=== PATIENT | male | born 1950 | race Caucasian/White ===

== ENCOUNTER 2016-11-30 11:10 | Inpatient (IN) | payer OTHER, BC ==
[~2016-11-30] VITALS: Ht 172.7 cm; Wt 105.5 kg
[~2016-11-30 11:10] MED LIST: AMT25 PO; ATOR-14 PO; BACL10TA PO; CHOL100010 PO; CLON1TAB3 PO; CMD/25 PO; CPR500 PO; FENT50DI19 TD; FLUT0.0529 NAE; IPRA1AER2 INH; LEVO175T PO; LPR25 PO; MECL1TAB42 PO; METH1INJ13 IV; MODA1TAB6 PO; PRD20 PO; PRS5 PO; SERT25TA PO; TAMS0.4C38 PO; ULT/50 PO; WARF2.5T8 PO
[2016-11-30 12:13] LABS: BASO % 0.6 %; BASO ABS # 0.04 K/uL (0-0.2); COMPLETE YES; EOS % 2.7 %; HEMATOCRIT 42.9 % (42-52); IG% 0.2 %; LYMPH ABS # 1.85 K/uL (1.2-3.4); MEAN CELL VOLUME 82.8 fL (80-100); MEAN CORPUSCULAR HEMOGLOBIN 29.5 pg (25-34); MEAN CORPUSCULAR HGB CONC 35.7 g/dl (32-36); MONO % 10.7 %; NEUT % 56.8 %; PLATELET COUNT 193 K/uL (130-400); RED BLOOD COUNT 5.18 M/uL (4.7-6.1); WHITE BLOOD COUNT 6.38 K/uL (4.8-10.8)
[2016-11-30 12:15] LABS: URINE APPEARANCE CLEAR (CLEAR); URINE BILIRUBIN NEG (NEG); URINE COLOR YELLOW; URINE NITRITE NEG (NEG); URINE SPECIFIC GRAVITY 1.012 (1.000-1.030); UROBILINOGEN NEG (NEG); ZZUR CULT IF INDIC CLEAN CATCH YES
[2016-11-30 12:28] LABS: MANUAL MICROSCOPIC REQUIRED? NO; REVIEW REQ? NO
[2016-11-30 12:30] LABS: BUN/CREATININE RATIO 11.2 (10-20); CALCIUM 8.8 mg/dl (8.5-10.1); POTASSIUM 3.7 mmol/L (3.5-5.1)
[2016-11-30 12:32] LABS: ALB/GLOB RATIO 1.1 (0.9-2)
[2016-11-30 12:38] LABS: INR 1.8 (0.9-1.1); PROTHROMBIN TIME (PATIENT) 19.7 SECONDS (9.0-12.0)
[2016-11-30] MEDS ORDERED: CHOL1000 PO (12:46)
[2016-11-30] MEDS ORDERED: FLUT0.15 NAE (12:46)
[2016-11-30] MEDS ORDERED: FNTTP50 TD (12:46)
[2016-11-30] MEDS ORDERED: ATOR10TA88 PO (12:46)
[2016-11-30] MEDS ORDERED: FINA5TAB PO (12:46)
[2016-11-30] MEDS ORDERED: SERT50TA PO (12:50)
[2016-11-30] MEDS ORDERED: CEFTRIAXONE SOD INJ 1 GM ADDVIAL IV STA (13:11)
--- NOTE | 2016-11-30 13:14 | EMERGENCY ROOM VISIT NOTE ---
History First contact with patient: 13:03 Chief Complaint: WEAKNESS Stated Complaint: WEAKNESS Nursing Triage Summary: patient with increases weakness, He states he was treated for an UTI resently, His MS is worsened with decresed strenght when he gets on and believes he still has an UTI History of Present Illness The patient is a 66 year old male who presents to the Emergency Room with complaints of urinary tract infection and weakness. The patient states that he has had generalized weakness for the last 1 week. He states he has currently been taking Macrobid for urinary tract infection. He does self cath for neurogenic bladder. The patient states that his multiple sclerosis symptoms worsen when he has an infection. The patient states that he is progressively getting weaker. He reports pain in the right flank. He states his pain is rated a 2/10. He denies any fever or chills. He denies any pain in his chest or trouble breathing. He denies any abdominal pain, nausea or vomiting. He has had diarrhea this morning. He states the weakness is quite typical for his MS exacerbation. He states he is often admitted to the hospital and then sent to [facility]. He contacted his urologist and was referred to the emergency department. Review of Systems A 10 system review of systems was completed with positives and pertinent negatives listed in the HPI. Past Medical/Surgical History Medical Problems: (1) cevical lymphnodectomy (2) Chronic anticoagulation (3) Deep vein blood clot of left lower extremity (4) Depression (5) HLD (hyperlipidemia) (6) HTN (hypertension) (7) Hypothyroidism (8) MS (multiple sclerosis) (9) Neurogenic bladder (10) Papillary thyroid carcinoma Surgical Problems: (1) H/O cystoscopy (2) H/O thyroidectomy (3) S/P left knee arthroscopy Family History Cancer Heart disease Hypertension Social History Smoking Status: Never Smoker Alcohol Use: none Drug Use: none Marital Status: Housing Status: lives with family Occupation Status: disabled Current/Historical Medications Scheduled Amitriptyline HCl (Amitriptyline HCl), 25 MG PO HS Atorvastatin (Lipitor), 10 MG PO QPM Baclofen (Lioresal), 10 MG PO HS Cholecalciferol (Vitamin D3), 1 TAB PO BID Clonazepam (Klonopin), 0.5 MG PO BID Finasteride (Proscar), 5 MG PO DAILY Fluticasone Propionate (Nasal) (Flonase Allergy Relief), 2 SPRAYS XIMENA DAILY Levothyroxine Sodium (Synthroid), 175 MCG PO DAILY Methylprednisolone Sod Succ (Solu-Medrol), 1,000 MG IV MONTHLY Metoprolol Tartrate (Lopressor), 12.5 MG PO BID Sertraline (Zoloft), 50 MG PO DAILY Tamsulosin Hcl (Flomax), 0.4 MG PO QPM Warfarin Sod (Coumadin), 2.5 MG PO WK Warfarin Sod (Jantoven), 1.25 MG PO 6XWK Scheduled PRN Fentanyl (Duragesic), 50 MCG TD [id number] PRN for Pain Ipratropium-Albuterol (Combivent Respimat), 1 PUFFS INH QID PRN for SOB/Wheezing Meclizine Hcl (Meclizine Hcl), 12.5 MG PO TID PRN for vertigo Tramadol Hcl (Ultram), 50 MG PO Q6 PRN for Pain Allergies Coded Allergies: No Known Allergies (Verified , 11/30/16) Physical Exam Vital Signs Date Time Temp Pulse Resp B/P Pulse Ox O2 Delivery O2 Flow Rate FiO2 11/30/16 11:25 36.6 74 20 153/99 94 Room Air Physical Exam VITALS: Vitals are noted on the nurse's note and reviewed by myself. Vital signs stable. The patient is afebrile. GENERAL: This is a 66-year-old male, in no acute distress, nondiaphoretic, well- developed well-nourished. SKIN: The skin was without rashes, erythema, edema, or bruising. There is no tenting of the skin. Capillary reflex less than 2 seconds. HEAD: Normocephalic atraumatic. EARS: External auditory canals clear, tympanic membranes pearly villavicencio without erythema or effusion bilaterally. EYES: Pupils equal round and reactive to light and accommodation. Conjunctivae without injection, sclerae without icterus. Extraocular movements intact. NOSE: Patent, turbinates without inflammation or discharge. MOUTH: Mucous membranes moist. Tonsils are not enlarged. Pharynx without erythema or exudate. Uvula midline. Airway patent. Tongue does not deviate. NECK: Supple without nuchal rigidity. No lymphadenopathy. No thyromegaly. Cervical spine is nontender. No JVD. HEART: Regular rate and rhythm without murmurs gallops or rubs. LUNGS: Clear to auscultation bilaterally without wheezes, rales or rhonchi. No retractions or accessory muscle use. ABDOMEN: Positive bowel sounds x 4. Soft, nontender, without masses or organomegaly. There is moderate right-sided CVA tenderness. MUSCULOSKELETAL: No muscle atrophy, erythema, or edema noted. Full range of motion in all extremities. NEURO: Patient was alert and oriented to person place and time. No focal neurological deficits. Medical Decision & Procedures Laboratory Results 11/30/16 11:50 Red Blood Count 5.18, Mean Corpuscular Volume 82.8, Mean Corpuscular Hemoglobin 29.5, Mean Corpuscular Hemoglobin Concent 35.7, Mean Platelet Volume 11.0, Neutrophils (%) (Auto) 56.8, Lymphocytes (%) (Auto) 29.0, Monocytes (%) (Auto) 10.7, Eosinophils (%) (Auto) 2.7, Basophils (%) (Auto) 0.6, Neutrophils # (Auto ) 3.63, Lymphocytes # (Auto) 1.85, Monocytes # (Auto) 0.68, Eosinophils # (Auto ) 0.17, Basophils # (Auto) 0.04 11/30/16 11:50 Test 11/30/16 11:50 11/30/16 13:45 White Blood Count 6.38 K/uL (4.8-10.8) Red Blood Count 5.18 M/uL (4.7-6.1) Hemoglobin 15.3 g/dL (14.0-18.0) Hematocrit 42.9 % (42-52) Mean Corpuscular Volume 82.8 fL (80-100) Mean Corpuscular Hemoglobin 29.5 pg (25-34) Mean Corpuscular Hemoglobin Concent 35.7 g/dl (32-36) Platelet Count 193 K/uL (130-400) Mean Platelet Volume 11.0 fL (7.4-10.4) Neutrophils (%) (Auto) 56.8 % Lymphocytes (%) (Auto) 29.0 % Monocytes (%) (Auto) 10.7 % Eosinophils (%) (Auto) 2.7 % Basophils (%) (Auto) 0.6 % Neutrophils # (Auto) 3.63 K/uL (1.4-6.5) Lymphocytes # (Auto) 1.85 K/uL (1.2-3.4) Monocytes # (Auto) 0.68 K/uL (0.11-0.59) Eosinophils # (Auto) 0.17 K/uL (0-0.5) Basophils # (Auto) 0.04 K/uL (0-0.2) RDW Standard Deviation 39.9 fL (36.4-46.3) RDW Coefficient of Variation 13.2 % (11.5-14.5) Immature Granulocyte % (Auto) 0.2 % Immature Granulocyte # (Auto) 0.01 K/uL (0.00-0.02) Prothrombin Time 19.7 SECONDS (9.0-12.0) Prothromb Time International Ratio 1.8 (0.9-1.1) Urine Color YELLOW Urine Appearance CLEAR (CLEAR) Urine pH 6.0 (4.5-7.5) Urine Specific [place] 1.012 (1.000-1.030) Urine Protein NEG (NEG) Urine Glucose (UA) 2+ (NEG) Urine Ketones NEG (NEG) Urine Occult Blood 2+ (NEG) Urine Nitrite NEG (NEG) Urine Bilirubin NEG (NEG) Urine Urobilinogen NEG (NEG) Urine Leukocyte Esterase SMALL (NEG) Urine WBC (Auto) 10-30 /hpf (0-5) Urine RBC (Auto) 10-30 /hpf (0-4) Urine Hyaline Casts (Auto) 1-5 /lpf (0-5) Urine Epithelial Cells (Auto) 5-10 /lpf (0-5) Urine Bacteria (Auto) NEG (NEG) Anion Gap 10.0 mmol/L (3-11) Est Creatinine Clear Calc Drug Dose 85.5 ml/min Estimated GFR () 91.8 Estimated GFR (Non- 79.2 BUN/Creatinine Ratio 11.2 (10-20) Calcium Level 8.8 mg/dl (8.5-10.1) Total Bilirubin 0.5 mg/dl (0.2-1) Aspartate Amino Transf (AST/SGOT) 42 U/L (15-37) Alanine Aminotransferase (ALT/SGPT) 84 U/L (12-78) Alkaline Phosphatase 82 U/L (45-117) Total Protein 6.9 gm/dl (6.4-8.2) Albumin 3.6 gm/dl (3.4-5.0) Globulin 3.3 gm/dl (2.5-4.0) Albumin/Globulin Ratio 1.1 (0.9-2) Influenza Type A (RT-PCR) Neg for Influ A (NEG) Influenza Type B (RT-PCR) Neg for Influ B (NEG) Medications Administered Medications (Trade) Dose Ordered Sig/Cam Route Start Time Stop Time Status Last Admin Dose Admin Ceftriaxone Sodium (Rocephin Inj) 1 gm NOW STAT IV 11/30/16 13:11 11/30/16 13:12 DC 11/30/16 13:41 1 GM ED Course The patient was seen and examined. Previous visits were reviewed. The patient does not have a fever or leukocytosis. He does not have any significant electrolyte abnormality. Glucose is 167. His AST and ALT are minimally elevated. INR is 1.8. He is on Coumadin. Urinalysis suggests urinary tract infection. Influenza is negative. The patient has a history of multiple sclerosis. He self cath due to neurogenic bladder. The patient was treated with Macrobid for urinary tract infections but his symptoms have returned and worsened. He does have increasing weakness due to the multiple sclerosis. The patient will require further evaluation and management in the hospital. He was given 1 g IV Rocephin. I discussed the case with the [facility] and they will evaluate the patient. The case was discussed with Dr. Escobar who agrees with the assessment and treatment plan Medical Decision DIFFERENTIAL DIAGNOSIS: Hepatitis, cholecystitis, cholangitis, biliary colic, pancreatitis, pneumonia, subdiaphragmatic abscess, appendicitis, inguinal hernia , nephrolithiasis, inflammatory bowel disease, mesenteric adenitis, peptic ulcer disease, GERD, gastritis, pancreatitis, myocardial infarction, pericarditis, ruptured aortic aneurysm, appendicitis, gastroenteritis, bowel obstruction, splenic infarct, diverticulitis, mesenteric ischemia, metabolic, peritonitis, among others. Impression Primary Impression: Urinary tract infection Additional Impressions: MS (multiple sclerosis) Neurogenic bladder Departure Information Prescriptions Baclofen (Lioresal) 10 Mg Tab 10 MG PO HS for 30 Days Prov: Savannah Bass .BARRERA 11/30/16 Ipratropium-Albuterol (COMBIVENT RESPIMAT) 1 Aer Aer 1 PUFFS INH QID Y for SOB/Wheezing, #1 Prov: Savannah Bass CRNP 11/30/16 Referrals Trinidad Cesar D.O. (PCP) Patient Instructions My [facility] Problem Qualifiers
[2016-11-30] MEDS ORDERED: ACETAMINOPHEN 325 MG TAB PO PRN (14:00)
[2016-11-30] MEDS ORDERED: ONDANSETRON INJ 2 MG/ML 2 ML VIAL IV PRN (14:00)
[2016-11-30] MEDS ORDERED: TRAMADOL HCL 50 MG TAB PO PRN (14:15)
[2016-11-30] MEDS ORDERED: IPRA1AER2 INH (14:15)
[2016-11-30] MEDS ORDERED: BACL10TA PO (14:15)
--- NOTE | 2016-11-30 14:35 | DIAGNOSTIC IMAGING REPORT ---
CT OF THE ABDOMEN AND PELVIS WITHOUT CONTRAST, STONE PROTOCOL CLINICAL HISTORY: Right costovertebral angle tenderness. COMPARISON STUDY: CT of the abdomen and pelvis December 12, 2015 TECHNIQUE: Helical axial images of the abdomen and pelvis were obtained without IV or oral contrast according to renal stone protocol. FINDINGS: Visualized portions of the lower chest demonstrate multiple pulmonary nodules which are unchanged since CT of January 09, 2014 consistent with a benign etiology. Unenhanced images of the liver, spleen, adrenal glands, pancreas are unremarkable. There is no biliary or pancreatic ductal dilatation. There is no peripancreatic or pericholecystic infiltration. Multiple bilateral renal calculi measuring up to 5 mm are noted. There are no ureteral calculi and there is no hydronephrosis. A cyst arising from the lower pole of the left kidney is again noted. There are multiple additional renal lesions. These are suboptimally assessed on this unenhanced exam but were shown to likely reflect cysts on prior contrast enhanced studies. There is no evidence for a bowel obstruction. The appendix is normal. No lymphadenopathy is present. Calcific densities of the subcutaneous tissues are chronic and of no clinical significance. A fat-containing right inguinal hernia is noted as well as a probable small fat-containing left inguinal hernia. There are no suspicious osseous lesions. A subcentimeter right adrenal nodule is unchanged. This is benign. IMPRESSION: 1. Bilateral nephrolithiasis. No ureteral calculi or hydronephrosis. 2. Multiple bilateral renal lesions which are suboptimally assessed on this unenhanced exam but measure water attenuation likely reflect cysts. 3. No acute process within the abdomen or pelvis on unenhanced exam. Electronically signed by: Kaveh Tong M.D. 11/30/2016 2:34 PM Dictated Date/Time: 11/30/2016 2:27 PM
[2016-11-30] MEDS: SODIUM CHLORIDE 0.9% 1000ML 1,000 ML IV SCH (14:38)
[2016-11-30 15:30] LABS: INFLUENZA A PCR Neg for Influ A (NEG); INFLUENZA B PCR Neg for Influ B (NEG)
[2016-11-30] MEDS ORDERED: WARFARIN SOD 2.5 MG TAB PO ONE (16:00)
[2016-11-30] MEDS ORDERED: WARFARIN SOD 2.5 MG TAB PO SCH (16:00)
--- NOTE | 2016-11-30 16:13 | History and Physical ---
History & Physical Date & Time of Service: Nov 30, 2016 at 15:52 Chief Complaint: Weakness Primary Care Physician: Trinidad Cesar D.O. History of Present Illness 66 year old male who presents to the ER with generalized weakness. Patient has history of MS. Two weeks ago, patient developed dark, cloudy urine and was placed on Macrobid for UTI. Urine culture grew pansensitive E. Coli. Patient reports his symptoms initially improved however he has had increasing weakness over the past couple of days. He reports his urine is darker and cloudy again. Patient preforms ISC three times per day. He denies fever and chills. No abdominal pain, nausea, or vomiting. This morning he developed right flank pain. He denies chest pain, shortness of breath, lightheadedness, dizziness, and syncopal events. In the ER, patient's U/A is abnormal but does not strongly suggest UTI. He was given a dose of Rocephin. Vitals are stable and labs are unremarkable. Past Medical/Surgical History Medical Problems: (1) cevical lymphnodectomy Status: Chronic (2) Chronic anticoagulation Status: Chronic (3) Deep vein blood clot of left lower extremity Status: Chronic (4) Depression Status: Chronic (5) HLD (hyperlipidemia) Status: Chronic (6) HTN (hypertension) Status: Chronic (7) Hypothyroidism Status: Chronic (8) MS (multiple sclerosis) Status: Chronic (9) Neurogenic bladder Status: Chronic (10) Papillary thyroid carcinoma Status: Chronic Surgical Problems: (1) H/O cystoscopy Status: Chronic (2) H/O thyroidectomy Status: Chronic (3) S/P left knee arthroscopy Status: Chronic Social History Smoking Status: Never Smoker Smokeless Tobacco Use: Yes Marital Status: Housing status: lives with family Occupational Status: disabled Immunizations History of Tetanus Vaccine?: Yes Tetanus Immunization Date: Sep 02, 2008 History of Pneumococcal: No Multi-Drug Resistant Organisms History of MDRO: No Allergies Coded Allergies: No Known Allergies (Verified , 11/30/16) Home Medications Scheduled Amitriptyline HCl (Amitriptyline HCl), 25 MG PO HS Atorvastatin (Lipitor), 10 MG PO QPM Baclofen (Lioresal), 10 MG PO HS Cholecalciferol (Vitamin D3), 1 TAB PO BID Clonazepam (Klonopin), 0.5 MG PO BID Finasteride (Proscar), 5 MG PO DAILY Fluticasone Propionate (Nasal) (Flonase Allergy Relief), 2 SPRAYS XIMENA DAILY Levothyroxine Sodium (Synthroid), 175 MCG PO DAILY Methylprednisolone Sod Succ (Solu-Medrol), 1,000 MG IV MONTHLY Metoprolol Tartrate (Lopressor), 12.5 MG PO BID Prednisone (Prednisone), 20 MG PO UD Sertraline (Zoloft), 50 MG PO DAILY Sulfamethoxazole-Trimethoprim (Smz-Tmp Ds), 1 TAB PO Q12 Tamsulosin Hcl (Flomax), 0.4 MG PO QPM Warfarin Sod (Coumadin), 2.5 MG PO WK Warfarin Sod (Jantoven), 1.25 MG PO 6XWK Scheduled PRN Fentanyl (Duragesic), 50 MCG TD [id number] PRN for Pain Ipratropium-Albuterol (Combivent Respimat), 1 PUFFS INH QID PRN for SOB/Wheezing Meclizine Hcl (Meclizine Hcl), 12.5 MG PO TID PRN for vertigo Tramadol Hcl (Ultram), 50 MG PO Q6 PRN for Pain Review of Systems 10 point review of systems was completed with the pertinent positives and negatives noted per the HPI Physical Exam Vital Signs Date Time Temp Pulse Resp B/P Pulse Ox O2 Delivery O2 Flow Rate FiO2 11/30/16 14:35 80 18 156/93 95 Room Air 11/30/16 11:25 36.6 74 20 153/99 94 Room Air General Appearance: no apparent distress Head: normocephalic Eyes: normal inspection ENT: hearing grossly normal Neck: supple, no JVD Respiratory/Chest: lungs clear, normal breath sounds, no respiratory distress Cardiovascular: regular rate, rhythm, no edema, normal peripheral pulses Abdomen/GI: normal bowel sounds, non tender, soft Back: + right CVA tenderness Extremities/Musculoskelatal: normal inspection, no calf tenderness Neurologic/Psych: no motor/sensory deficits, alert, normal mood/affect, oriented x 3 Skin: normal color, warm/dry Diagnostics Laboratory Results Results Past 24 Hours Test 11/30/16 11:50 11/30/16 13:45 Range/Units White Blood Count 6.38 4.8-10.8 K/uL Red Blood Count 5.18 4.7-6.1 M/uL Hemoglobin 15.3 14.0-18.0 g/dL Hematocrit 42.9 42-52 % Mean Corpuscular Volume 82.8 80-100 fL Mean Corpuscular Hemoglobin 29.5 25-34 pg Mean Corpuscular Hemoglobin Concent 35.7 32-36 g/dl Platelet Count 193 130-400 K/uL Mean Platelet Volume 11.0 7.4-10.4 fL Neutrophils (%) (Auto) 56.8 % Lymphocytes (%) (Auto) 29.0 % Monocytes (%) (Auto) 10.7 % Eosinophils (%) (Auto) 2.7 % Basophils (%) (Auto) 0.6 % Neutrophils # (Auto) 3.63 1.4-6.5 K/uL Lymphocytes # (Auto) 1.85 1.2-3.4 K/uL Monocytes # (Auto) 0.68 0.11-0.59 K/uL Eosinophils # (Auto) 0.17 0-0.5 K/uL Basophils # (Auto) 0.04 0-0.2 K/uL RDW Standard Deviation 39.9 36.4-46.3 fL RDW Coefficient of Variation 13.2 11.5-14.5 % Immature Granulocyte % (Auto) 0.2 % Immature Granulocyte # (Auto) 0.01 0.00-0.02 K/uL Prothrombin Time 19.7 9.0-12.0 SECONDS Prothromb Time International Ratio 1.8 0.9-1.1 Urine Color YELLOW Urine Appearance CLEAR CLEAR Urine pH 6.0 4.5-7.5 Urine Specific [place] 1.012 1.000-1.030 Urine Protein NEG NEG Urine Glucose (UA) 2+ NEG Urine Ketones NEG NEG Urine Occult Blood 2+ NEG Urine Nitrite NEG NEG Urine Bilirubin NEG NEG Urine Urobilinogen NEG NEG Urine Leukocyte Esterase SMALL NEG Urine WBC (Auto) 10-30 0-5 /hpf Urine RBC (Auto) 10-30 0-4 /hpf Urine Hyaline Casts (Auto) 1-5 0-5 /lpf Urine Epithelial Cells (Auto) 5-10 0-5 /lpf Urine Bacteria (Auto) NEG NEG Sodium Level 141 136-145 mmol/L Potassium Level 3.7 3.5-5.1 mmol/L Chloride Level 107 98-107 mmol/L Carbon Dioxide Level 24 21-32 mmol/L Anion Gap 10.0 3-11 mmol/L Blood Urea Nitrogen 11 7-18 mg/dl Creatinine 1.00 0.60-1.40 mg/dl Est Creatinine Clear Calc Drug Dose 85.5 ml/min Estimated GFR () 91.8 Estimated GFR (Non- 79.2 BUN/Creatinine Ratio 11.2 10-20 Random Glucose 167 70-99 mg/dl Calcium Level 8.8 8.5-10.1 mg/dl Total Bilirubin 0.5 0.2-1 mg/dl Aspartate Amino Transf (AST/SGOT) 42 15-37 U/L Alanine Aminotransferase (ALT/SGPT) 84 12-78 U/L Alkaline Phosphatase 82 45-117 U/L Total Protein 6.9 6.4-8.2 gm/dl Albumin 3.6 3.4-5.0 gm/dl Globulin 3.3 2.5-4.0 gm/dl Albumin/Globulin Ratio 1.1 0.9-2 Influenza Type A (RT-PCR) Neg for Influ A NEG Influenza Type B (RT-PCR) Neg for Influ B NEG Microbiology Results 11/30/16 Blood Culture, Received Pending 11/30/16 Blood Culture, Received Pending 11/30/16 Urine Culture, Received Pending Diagnostic Radiology CT ABD/PELVIS IMPRESSION: 1. Bilateral nephrolithiasis. No ureteral calculi or hydronephrosis. 2. Multiple bilateral renal lesions which are suboptimally assessed on this unenhanced exam but measure water attenuation likely reflect cysts. 3. No acute process within the abdomen or pelvis on unenhanced exam. Impression Assessment and Plan MS FLARE DUE TO UTI - admit to med/surg - patient presenting with increasing generalized weakness; diagnosed with UTI 2 weeks ago and completed course of Macrobid; urine culture grew pansensitive E. Coli - currently afebrile, normal WBC; do not suspect sepsis - s/p Rocephin in ED, will continue with - CT abd/pelvis negative for stone - patient has neurogenic bladder and uses ISC; will place harding while hospitalized - for MS flare, will give solumedrol 1gm IV daily x 4 days - neuro consult - PT/OT HTN - BP controlled, continue metoprolol HX DVT - on Coumadin, INR 1.8 - dose Coumadin according to INR HX THYROID CANCER S/P THYROIDECTOMY - continue levothyroxine DVT PROPHYLAXIS - on Coumadin DISPO - In my clinical judgment this beneficiary meets acute admission criteria, established by [facility], that includes being hospitalized through two midnights. 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 Y/N: Yes Risk Level: High
[2016-11-30] MEDS: METHYLPREDNISOLONE IV 1,000 MG in DEXTROSE 5% 250ML 250 ML IV SCH (16:53)
[2016-11-30 17:08] VITALS: BP 170/95; PULSE 79; TEMP 36.5; O2SAT 96; Ht 172.7 cm; Wt 105.5 kg
[2016-11-30] MEDS ORDERED: HydrALAZINE HCL 20 MG/ML VIAL IV. PRN (18:15)
[2016-11-30 19:39] VITALS: BP 149/96
[2016-11-30] MEDS: CHOLECALCIFEROL 1000 INTER.UNIT TAB PO SCH (20:31)
[2016-11-30] MEDS: ATORVASTATIN 10 MG TAB PO SCH (20:32)
[2016-11-30] MEDS: BACLOFEN 10 MG TAB PO SCH (20:32)
[2016-11-30] MEDS: TAMSULOSIN HCL 0.4 MG CAP PO SCH (20:33)
[2016-11-30] MEDS: AMITRIPTYLINE HCL 25 MG TAB PO SCH (20:33)
[2016-11-30] MEDS: METOPROLOL TARTRATE 25 MG TAB PO SCH (20:34)
[2016-11-30] MEDS: CLONAZEPAM 0.5 MG TAB PO SCH (20:35)
[2016-11-30 23:31] VITALS: BP 167/100; PULSE 92; TEMP 36.3; O2SAT 93
[2016-12-01 01:14] VITALS: BP 158/94
[2016-12-01] MEDS: SODIUM CHLORIDE 0.9% 1000ML 1,000 ML IV SCH (03:51)
[2016-12-01] MEDS: LEVOTHYROXINE 175 MCG TAB PO SCH (05:30)
[2016-12-01 07:32] LABS: HEMATOCRIT 45.7 % (42-52); MEAN CELL VOLUME 81.9 fL (80-100); MEAN CORPUSCULAR HEMOGLOBIN 29.6 pg (25-34); MEAN CORPUSCULAR HGB CONC 36.1 g/dl (32-36); MEAN PLATELET VOLUME 11.1 fL (7.4-10.4); PLATELET COUNT 219 K/uL (130-400); RED BLOOD COUNT 5.58 M/uL (4.7-6.1); WHITE BLOOD COUNT 13.69 K/uL (4.8-10.8)
[2016-12-01 07:39] LABS: INR 2.4 (0.9-1.1); PROTHROMBIN TIME (PATIENT) 26.2 SECONDS (9.0-12.0)
[2016-12-01 07:48] VITALS: BP 163/89; PULSE 102; TEMP 36.5; O2SAT 95
[2016-12-01] MEDS: METOPROLOL TARTRATE 25 MG TAB PO SCH ×2 (07:52→20:33)
[2016-12-01] MEDS: SERTRALINE HCL 50 MG TAB PO SCH (07:53)
[2016-12-01] MEDS: CHOLECALCIFEROL 1000 INTER.UNIT TAB PO SCH ×2 (07:53→20:32)
[2016-12-01] MEDS: FINASTERIDE 5 MG TAB PO SCH (07:53)
[2016-12-01] MEDS: CLONAZEPAM 0.5 MG TAB PO SCH ×2 (07:55→16:09)
[2016-12-01 08:03] LABS: BUN/CREATININE RATIO 11.6 (10-20); CALCIUM 8.9 mg/dl (8.5-10.1); CREATININE 1.2 mg/dl (0.60-1.40); POTASSIUM 4.3 mmol/L (3.5-5.1)
[2016-12-01] MEDS: METHYLPREDNISOLONE IV 1,000 MG in DEXTROSE 5% 250ML 250 ML IV SCH (08:23)
--- NOTE | 2016-12-01 13:34 | CONSULTATION REPORT ---
DATE OF CONSULTATION: 12/01/2016 HISTORY OF PRESENT ILLNESS: Anand is a 66-year-old, is currently on Dr. Leigh's service and is followed by Dr. Cesar. I have known him for 25 years and he also sees Dr. Stanford for his thyroid cancer. I have been seeing him for his MS, which initially was of the relapsing remitting type, but now has entered into a secondary progressive course. He was on some Tysabri briefly but about the same time we started this, he was discovered to have a medullary carcinoma of thyroid and has had treatment for various metastases, right now this is in remission, but because of the immunosuppressive issues all disease-modifying treatments for his MS have been stopped other than some monthly steroids. He seems to be holding his own on this. Other problems include DVT on chronic anticoagulation, depression, dyslipidemia, hypertension, hypothyroidism, neurogenic bladder with recurrent urinary tract infections and surgically he has had a cystoscopy, thyroidectomy, left knee arthroscopy and is otherwise free of surgical interventions. He is in now for recurrent urinary tract infection. He developed the first of these about 3 weeks ago, was treated, but then symptoms recurred and in conjunction with the recurrence, he has had a marked increase in his left leg weakness which is his weakest extremity to begin with and also some increased weakness in his left arm. He was brought to the ER, he is now on IV antibiotics and is receiving IV Solu-Medrol. Adamaris Cee and I discussed his case and reviewed the plan with Savannah Bass and he is now up in room #261 and thinks he is a little better after receiving 1 gram yesterday. He is due to have 4 grams total and probably will need an oral-tapering course, typical what we usually do. He may need some [facility] therapy. SOCIAL HISTORY: Reveals him to be a never smoker. He does not use tobacco. He lives with his and daughter in the [facility] and is totally disabled. IMMUNIZATIONS: Up-to-date. ALLERGIES: He has no known drug allergies. HOME MEDICATIONS: Include amitriptyline, atorvastatin, baclofen, cholecalciferol, clonazepam, finasteride, fluticasone, levothyroxine, methylprednisolone 1 gram monthly, sertraline, tamsulosin, and Coumadin. His p.r.n. medications including fentanyl for chronic pain, meclizine for vertigo and tramadol and albuterol. FAMILY HISTORY: Noncontributory of the fact that his twin sister has a milder form of MS. REVIEW OF SYSTEMS: Reveals urinary tract symptoms, but otherwise he has had no significant change in weight. No new issues referable to head, eyes, ears, nose and throat, cardiovascular, pulmonary, gastrointestinal, genitourinary or musculoskeletal systems. PHYSICAL EXAMINATION: VITAL SIGNS: Blood pressure 156/93, pulse was 80 and regular, respirations were 18. He is moderately over nourished. There were no cranial deformities. HEENT: no abnlormalities NECK: No bruits were heard. LUNGS: Were clear. HEART: Had a regular rhythm. ABDOMEN: Moderately obese without organomegaly. There was trace degree peripheral edema, but pulses were normal. NEUROLOGIC: Today, he is awake, alert, oriented in 3 spheres, he has mildly dysarthric speech. There may be a few beats of nystagmus on lateral gaze. Visual [place] are full. Facial motility and strength are normal with the exception of a very soft left upper motor neuron facial asymmetry. Facial sensation is intact. Tongue protrudes in the midline. He is very weak in the left leg. He can barely get off the bed distally, which is definitely worse than baseline and there is a little clumsiness and drift to the left arm which is worse in his baseline. Right upper extremity function is fairly good, right leg is a little spastic with brisk reflexes bilaterally and bilateral upgoing toes but the left strength is significantly down without atrophy or fasciculations in any muscle groups with only minimal loss of vibratory sense over the distal portion of the left leg, left hand. IMPRESSION AND PLAN: At this point Anand's multiple sclerosis symptoms are worse. Whether this is truly a flare of multiple sclerosis or simply a urinary tract infection induced toxic exposure related exacerbation of his old symptoms is unclear, but in the past, he has done well when we use a combination of antibiotics and steroids and I see no problem in doing this now. Will see how he does over the next few days, but I suspect if he does not get significant improvement in the left leg, by tomorrow or the next day, he is going to be looking at [facility]. He is not unwilling to consider this at this point. In the past, however, he has been resistant, but he realizes that he does better when he goes to [facility] after one of these affairs. I will check with him daily. JADE
[2016-12-01] MEDS ORDERED: CEFTRIAXONE SOD INJ 1 GM in DEXTROSE 5% ADD-VANTAGE 50ML 50 ML IV SCH (14:00)
[2016-12-01 15:25] VITALS: BP 146/78; PULSE 103; TEMP 36.4; O2SAT 95
[2016-12-01] MEDS ORDERED: NURSING VERBAL MED ORDER ONE (16:00)
--- NOTE | 2016-12-01 17:29 | Progress Note ---
Internal Med Progress Note Date of Service: Dec 01, 2016. Provider Documentation: SUBJECTIVE: Patient is seen and examined at bedside. States his weakness is improving. Right flank pain resolved. Denies any chest pain, SOB, palpitations. Offers no other complaints. OBJECTIVE: Vital Signs-as noted below Physical Exam: General Appearance:Moderately built and nourished, no apparent distress Head: normocephalic, Atraumatic Eyes: normal inspection, EOMI, PERRL Neck: supple, Trachea midline Respiratory/Chest: Normal breath sounds, CTA Cardiovascular: S1, S2, Tachycardia, No murmur Abdomen/GI:Soft, Bowel sounds present, Non tender Extremities/Musculoskelatal:normal inspection, no edema Neurologic/Psych:AAOX3, Mild left LE weakness Skin: normal color, warm Lab data as noted below. ASSESSMENT & PLAN: MS FLARE DUE TO UTI Patient presented with worsening generalized weakness H/O neurogenic bladder and uses ISC Had UTI 2 weeks ago and completed course of Macrobid; urine culture grew pansensitive E. Coli at that time Afebrile, normal WBC on presentation Currently has leukocytosis secondary to steroids Contoinue Rocephin for now Follow up Urine culture CT abd/pelvis: negative for stone Plan to give solumedrol 1gm IV daily x 4 days and then taper Appreciate neurology input HTN BP stable continue metoprolol DC IVF Tachycardia: States his HR usually runs high Check EKG, TSH currently asymptomatic HX DVT Takes 1.25mg daily and 2.5 mg on Saturday at home on Coumadin, INR 1.8 >>>2.4 Coumadin according to INR Monitor INR HX THYROID CANCER S/P THYROIDECTOMY continue levothyroxine DVT PROPHYLAXIS on Coumadin H/O JAMES: Continue CPAP at bedtime DISPOSITION: continue to monitor May benefit from rehab placement if patient agreeable PROCEDURES: CT Abdomen: 1. Bilateral nephrolithiasis. No ureteral calculi or hydronephrosis. 2. Multiple bilateral renal lesions which are suboptimally assessed on this unenhanced exam but measure water attenuation likely reflect cysts. 3. No acute process within the abdomen or pelvis on unenhanced exam. Vital Signs: Date Time Temp Pulse Resp B/P Pulse Ox O2 Delivery O2 Flow Rate FiO2 12/01/16 16:00 Room Air 12/01/16 15:25 36.4 103 22 146/78 95 Room Air 12/01/16 08:00 Room Air 12/01/16 07:48 36.5 102 18 163/89 95 Room Air 12/01/16 01:14 158/94 12/01/16 00:00 Room Air 11/30/16 23:31 36.3 92 18 167/100 93 Room Air 11/30/16 19:39 149/96 Lab Results: Results Past 24 Hours Test 12/01/16 07:07 Range/Units White Blood Count 13.69 4.8-10.8 K/uL Red Blood Count 5.58 4.7-6.1 M/uL Hemoglobin 16.5 14.0-18.0 g/dL Hematocrit 45.7 42-52 % Mean Corpuscular Volume 81.9 80-100 fL Mean Corpuscular Hemoglobin 29.6 25-34 pg Mean Corpuscular Hemoglobin Concent 36.1 32-36 g/dl RDW Standard Deviation 38.9 36.4-46.3 fL RDW Coefficient of Variation 12.9 11.5-14.5 % Platelet Count 219 130-400 K/uL Mean Platelet Volume 11.1 7.4-10.4 fL Prothrombin Time 26.2 9.0-12.0 SECONDS Prothromb Time International Ratio 2.4 0.9-1.1 Sodium Level 140 136-145 mmol/L Potassium Level 4.3 3.5-5.1 mmol/L Chloride Level 106 98-107 mmol/L Carbon Dioxide Level 22 21-32 mmol/L Anion Gap 12.0 3-11 mmol/L Blood Urea Nitrogen 14 7-18 mg/dl Creatinine 1.20 0.60-1.40 mg/dl Est Creatinine Clear Calc Drug Dose 73.2 ml/min Estimated GFR () 73.6 Estimated GFR (Non- 63.5 BUN/Creatinine Ratio 11.6 10-20 Random Glucose 239 70-99 mg/dl Calcium Level 8.9 8.5-10.1 mg/dl
[2016-12-01 20:00] VITALS: O2SAT 95
[2016-12-01] MEDS: BACLOFEN 10 MG TAB PO SCH (20:31)
[2016-12-01] MEDS: AMITRIPTYLINE HCL 25 MG TAB PO SCH (20:31)
[2016-12-01] MEDS: ATORVASTATIN 10 MG TAB PO SCH (20:31)
[2016-12-01] MEDS: TAMSULOSIN HCL 0.4 MG CAP PO SCH (20:32)
[2016-12-02] VITALS: O2SAT 95
[2016-12-02 00:21] VITALS: BP 163/81; PULSE 101; TEMP 36.6; O2SAT 93
[2016-12-02] MEDS: LEVOTHYROXINE 175 MCG TAB PO SCH (06:18)
[2016-12-02 07:28] LABS: BASO % 0.1 %; BASO ABS # 0.01 K/uL (0-0.2); COMPLETE YES; HEMATOCRIT 44.8 % (42-52); IG% 0.3 %; LYMPH % 5.6 %; LYMPH ABS # 1.01 K/uL (1.2-3.4); MEAN CELL VOLUME 84.4 fL (80-100); MEAN CORPUSCULAR HEMOGLOBIN 28.8 pg (25-34); MEAN CORPUSCULAR HGB CONC 34.2 g/dl (32-36); MEAN PLATELET VOLUME 11.4 fL (7.4-10.4); MONO % 3.7 %; NEUT % 90.3 %; PLATELET COUNT 253 K/uL (130-400); RED BLOOD COUNT 5.31 M/uL (4.7-6.1); WHITE BLOOD COUNT 17.89 K/uL (4.8-10.8)
[2016-12-02 07:40] LABS: INR 2.9 (0.9-1.1); PROTHROMBIN TIME (PATIENT) 32.1 SECONDS (9.0-12.0)
[2016-12-02 08:02] VITALS: BP 137/80; PULSE 82; TEMP 36.5; O2SAT 95
[2016-12-02 08:10] LABS: BUN/CREATININE RATIO 18.1 (10-20); CALCIUM 9.4 mg/dl (8.5-10.1); CARBON DIOXIDE 22 mmol/L (21-32); CHLORIDE 105 mmol/L (98-107); GLUCOSE 263 mg/dl (70-99); SODIUM 139 mmol/L (136-145); THYROID STIMULATING HORMONE < 0.005 uIu/ml (0.300-4.500)
[2016-12-02] MEDS: CHOLECALCIFEROL 1000 INTER.UNIT TAB PO SCH ×2 (08:56→21:44)
[2016-12-02] MEDS: FINASTERIDE 5 MG TAB PO SCH (08:56)
[2016-12-02] MEDS: SERTRALINE HCL 50 MG TAB PO SCH (08:57)
[2016-12-02] MEDS: METHYLPREDNISOLONE IV 1,000 MG in DEXTROSE 5% 250ML 250 ML IV SCH (08:58)
[2016-12-02] MEDS: METOPROLOL TARTRATE 25 MG TAB PO SCH ×2 (08:58→21:42)
[2016-12-02] MEDS: CLONAZEPAM 0.5 MG TAB PO SCH ×2 (09:09→15:54)
[2016-12-02 10:15] LABS: BLOOD UREA NITROGEN 24 mg/dl (7-18)
--- NOTE | 2016-12-02 11:39 | Progress Note ---
Internal Med Progress Note Date of Service: Dec 02, 2016. Provider Documentation: SUBJECTIVE: Patient is seen and examined at bedside. Feels better today. Offers no other complaints. Denies any chest pain, SOB, palpitations. OBJECTIVE: Vital Signs-as noted below Physical Exam: General Appearance:Moderately built and nourished, no apparent distress Head: normocephalic, Atraumatic Eyes: normal inspection, EOMI, PERRL Neck: supple, Trachea midline Respiratory/Chest: Normal breath sounds, CTA Cardiovascular: S1, S2, Tachycardia, No murmur Abdomen/GI:Soft, Bowel sounds present, Non tender Extremities/Musculoskelatal:normal inspection, no edema Neurologic/Psych:AAOX3, Mild left LE weakness Skin: normal color, warm Lab data as noted below. ASSESSMENT & PLAN: MS FLARE DUE TO UTI Patient presented with worsening generalized weakness H/O neurogenic bladder and uses ISC Had UTI 2 weeks ago and completed course of Macrobid; urine culture grew pansensitive E. Coli at that time Afebrile, normal WBC on presentation Currently has leukocytosis secondary to steroids Urine culture: Staph. Saprophyticus DC Rocephin, Start Bactrim for [address] abd/pelvis: negative for stone Plan to give solumedrol 1gm IV daily x 4 days and then taper Appreciate neurology input HTN BP stable continue metoprolol DC IVF Tachycardia: Resolved States his HR usually runs high EKG: Sinus tachycardia currently asymptomatic HX DVT Takes 1.25mg daily and 2.5 mg on Saturday at home on Coumadin, INR 1.8 >>>2.4>>2.9 Hold Coumadin for now (As started on Bactrim) Monitor INR HX THYROID CANCER S/P THYROIDECTOMY continue levothyroxine TSH: 0.005 DVT PROPHYLAXIS on Coumadin H/O JAMES: Continue CPAP at bedtime DISPOSITION: continue to monitor May benefit from rehab placement PROCEDURES: CT Abdomen: 1. Bilateral nephrolithiasis. No ureteral calculi or hydronephrosis. 2. Multiple bilateral renal lesions which are suboptimally assessed on this unenhanced exam but measure water attenuation likely reflect cysts. 3. No acute process within the abdomen or pelvis on unenhanced exam. Vital Signs: Date Time Temp Pulse Resp B/P Pulse Ox O2 Delivery O2 Flow Rate FiO2 12/02/16 08:02 36.5 82 18 137/80 95 Room Air 12/02/16 08:00 Room Air CPAP 12/02/16 00:21 36.6 101 18 163/81 93 12/02/16 00:00 95 Room Air CPAP 12/01/16 20:00 95 Room Air CPAP 12/01/16 16:00 Room Air 12/01/16 15:25 36.4 103 22 146/78 95 Room Air Lab Results: Results Past 24 Hours Test 12/02/16 06:35 12/02/16 08:35 Range/Units White Blood Count 17.89 4.8-10.8 K/uL Red Blood Count 5.31 4.7-6.1 M/uL Hemoglobin 15.3 14.0-18.0 g/dL Hematocrit 44.8 42-52 % Mean Corpuscular Volume 84.4 80-100 fL Mean Corpuscular Hemoglobin 28.8 25-34 pg Mean Corpuscular Hemoglobin Concent 34.2 32-36 g/dl Platelet Count 253 130-400 K/uL Mean Platelet Volume 11.4 7.4-10.4 fL Neutrophils (%) (Auto) 90.3 % Lymphocytes (%) (Auto) 5.6 % Monocytes (%) (Auto) 3.7 % Eosinophils (%) (Auto) 0.0 % Basophils (%) (Auto) 0.1 % Neutrophils # (Auto) 16.15 1.4-6.5 K/uL Lymphocytes # (Auto) 1.01 1.2-3.4 K/uL Monocytes # (Auto) 0.67 0.11-0.59 K/uL Eosinophils # (Auto) 0.00 0-0.5 K/uL Basophils # (Auto) 0.01 0-0.2 K/uL RDW Standard Deviation 41.3 36.4-46.3 fL RDW Coefficient of Variation 13.6 11.5-14.5 % Immature Granulocyte % (Auto) 0.3 % Immature Granulocyte # (Auto) 0.05 0.00-0.02 K/uL Prothrombin Time 32.1 9.0-12.0 SECONDS Prothromb Time International Ratio 2.9 0.9-1.1 Sodium Level 139 136-145 mmol/L Potassium Level 4.4 3.5-5.1 mmol/L Chloride Level 105 98-107 mmol/L Carbon Dioxide Level 22 21-32 mmol/L Anion Gap 12.0 3-11 mmol/L Blood Urea Nitrogen 24 7-18 mg/dl Creatinine 1.30 0.60-1.40 mg/dl Est Creatinine Clear Calc Drug Dose 67.6 ml/min Estimated GFR () 66.8 Estimated GFR (Non- 57.7 BUN/Creatinine Ratio 18.1 10-20 Random Glucose 263 70-99 mg/dl Calcium Level 9.4 8.5-10.1 mg/dl Thyroid Stimulating Hormone (TSH) < 0.005 0.300-4.500 uIu/ml Microbiology Results 12/01/16 Urine Culture, Received Pending
--- NOTE | 2016-12-02 12:12 | PROGRESS NOTE ---
DATE: 12/02/2016 Anand looks a little better today, has less left facial asymmetry, his left arm is back to its baseline but the left leg still has minimal antigravity function and is probably down at least 50-60% from his baseline. He is not able to dorsiflex the foot, nor has he been for years but he is able to move proximally and right now this is barely working. He is on day #4 of steroids IV. I am going to recommend that he go on to an oral tapering course of 80 mg for 2 days, 60 mg for 2 days, 40 mg for 2 days, 20 mg for 2 days and then 10 mg for 2 days and stop. He is due for his monthly IV infusion of Solu-Medrol this coming Saturday but clearly he will not need this and we will just put this off for another month. He is quite willing to go to [facility], admits now he is probably going to need to get there and I think these plans are to be started. We will look at him again tomorrow. For now, I was hoping he would do a little better with the steroids and antibiotics, but unfortunately he has not. JADE
[2016-12-02 15:30] VITALS: BP 158/79; PULSE 99; TEMP 36.5; O2SAT 94
[2016-12-02] MEDS ORDERED: WARFARIN SOD 1.25 MG TAB PO SCH (16:00)
[2016-12-02 20:00] VITALS: O2SAT 95
[2016-12-02] MEDS: ATORVASTATIN 10 MG TAB PO SCH (21:40)
[2016-12-02] MEDS: SULFAMETHOXAZOLE/TRIMETHOPRIM DS 800/160MG TAB PO SCH (21:41)
[2016-12-02] MEDS: TAMSULOSIN HCL 0.4 MG CAP PO SCH (21:41)
[2016-12-02] MEDS: AMITRIPTYLINE HCL 25 MG TAB PO SCH (21:41)
[2016-12-02] MEDS: BACLOFEN 10 MG TAB PO SCH (21:42)
[2016-12-03] VITALS: O2SAT 95
[2016-12-03 00:42] VITALS: BP 135/82; PULSE 77; TEMP 36.5; O2SAT 96
[2016-12-03] MEDS: LEVOTHYROXINE 175 MCG TAB PO SCH (06:12)
[2016-12-03 07:40] VITALS: BP 148/92; PULSE 72; TEMP 36.4; O2SAT 94
[2016-12-03] MEDS: METOPROLOL TARTRATE 25 MG TAB PO SCH (07:46)
[2016-12-03] MEDS: FINASTERIDE 5 MG TAB PO SCH (07:46)
[2016-12-03] MEDS: CHOLECALCIFEROL 1000 INTER.UNIT TAB PO SCH (07:47)
[2016-12-03] MEDS: SULFAMETHOXAZOLE/TRIMETHOPRIM DS 800/160MG TAB PO SCH (07:47)
[2016-12-03] MEDS: SERTRALINE HCL 50 MG TAB PO SCH (07:47)
[2016-12-03] MEDS: CLONAZEPAM 0.5 MG TAB PO SCH ×2 (07:50→16:02)
[2016-12-03 07:57] VITALS: O2SAT 94
[2016-12-03 08:23] LABS: BASO % 0.1 %; BASO ABS # 0.01 K/uL (0-0.2); COMPLETE YES; HEMATOCRIT 44.4 % (42-52); IG% 0.4 %; LYMPH % 5.3 %; MEAN CELL VOLUME 84.9 fL (80-100); MEAN CORPUSCULAR HEMOGLOBIN 29.8 pg (25-34); MEAN CORPUSCULAR HGB CONC 35.1 g/dl (32-36); MEAN PLATELET VOLUME 11.2 fL (7.4-10.4); NEUT % 90.2 %; PLATELET COUNT 214 K/uL (130-400); RED BLOOD COUNT 5.23 M/uL (4.7-6.1); WHITE BLOOD COUNT 17.07 K/uL (4.8-10.8)
[2016-12-03 08:33] LABS: INR 2.8 (0.9-1.1); PROTHROMBIN TIME (PATIENT) 31.6 SECONDS (9.0-12.0)
[2016-12-03 08:51] LABS: BUN/CREATININE RATIO 21.3 (10-20); CALCIUM 9.2 mg/dl (8.5-10.1); CREATININE 1.2 mg/dl (0.60-1.40); POTASSIUM 4.2 mmol/L (3.5-5.1)
[2016-12-03] MEDS: METHYLPREDNISOLONE IV 1,000 MG in DEXTROSE 5% 250ML 250 ML IV SCH (09:01)
--- NOTE | 2016-12-03 10:26 | Progress Note ---
Internal Med Progress Note Date of Service: Dec 03, 2016. Provider Documentation: SUBJECTIVE: Patient is seen and examined at bedside. States LLE weakness is better. Feels well otherwise. Offers no other complaints. Denies any chest pain, SOB, palpitations. Planned to be discharged to [facility] today. OBJECTIVE: Vital Signs-as noted below Physical Exam: General Appearance:Moderately built and nourished, no apparent distress Head: normocephalic, Atraumatic Eyes: normal inspection, EOMI, PERRL Neck: supple, Trachea midline Respiratory/Chest: Normal breath sounds, CTA Cardiovascular: S1, S2, Tachycardia, No murmur Abdomen/GI:Soft, Bowel sounds present, Non tender Extremities/Musculoskelatal:normal inspection, no edema Neurologic/Psych:AAOX3, Mild left LE weakness Skin: normal color, warm Lab data as noted below. ASSESSMENT & PLAN: MS FLARE DUE TO UTI Patient presented with worsening generalized weakness H/O neurogenic bladder and uses ISC Had UTI 2 weeks ago and completed course of Macrobid; urine culture grew pansensitive E. Coli at that time Afebrile, normal WBC on presentation Currently has leukocytosis secondary to steroids Urine culture: Staph. Saprophyticus DC Rocephin, Continue Bactrim for [address] abd/pelvis: negative for stone LLE Weakness improved Completed solumedrol 1gm IV daily x 4 days Plan to start Prednisone taper 80 mg for 2 days, 60 mg for 2 days, 40 mg for 2 days, 20 mg for 2 days and then 10 mg for 2 days and stop. Appreciate neurology input HTN BP stable continue metoprolol Tachycardia: Resolved States his HR usually runs high EKG: Sinus tachycardia currently asymptomatic HX DVT Takes 1.25mg daily and 2.5 mg on Saturday at home on Coumadin, INR 1.8 >>>2.4>>2.9>>>2.8 Hold Coumadin for now (As started on Bactrim) Monitor INR HX THYROID CANCER S/P THYROIDECTOMY continue levothyroxine TSH: 0.005 DVT PROPHYLAXIS on Coumadin H/O JAMES: Continue CPAP at bedtime DISPOSITION: continue to monitor Plan to discharge to [facility] today Follow up with on 12/10/16 at 10:50AM Follow up with Neurology after getting discharged from [facility] Needs monitoring [facility] at [facility] and Coumadin dosage based on INR Discussed with today PROCEDURES: CT Abdomen: 1. Bilateral nephrolithiasis. No ureteral calculi or hydronephrosis. 2. Multiple bilateral renal lesions which are suboptimally assessed on this unenhanced exam but measure water attenuation likely reflect cysts. 3. No acute process within the abdomen or pelvis on unenhanced exam. Vital Signs: Date Time Temp Pulse Resp B/P Pulse Ox O2 Delivery O2 Flow Rate FiO2 12/03/16 08:00 Room Air 12/03/16 07:57 94 Room Air 12/03/16 07:40 36.4 72 16 148/92 94 Room Air 12/03/16 00:42 36.5 77 18 135/82 96 Room Air CPAP 12/03/16 00:00 95 Room Air CPAP 12/02/16 20:00 95 Room Air CPAP 12/02/16 16:00 Room Air CPAP 12/02/16 15:30 36.5 99 18 158/79 94 Room Air Lab Results: Results Past 24 Hours Test 12/03/16 08:10 Range/Units White Blood Count 17.07 4.8-10.8 K/uL Red Blood Count 5.23 4.7-6.1 M/uL Hemoglobin 15.6 14.0-18.0 g/dL Hematocrit 44.4 42-52 % Mean Corpuscular Volume 84.9 80-100 fL Mean Corpuscular Hemoglobin 29.8 25-34 pg Mean Corpuscular Hemoglobin Concent 35.1 32-36 g/dl Platelet Count 214 130-400 K/uL Mean Platelet Volume 11.2 7.4-10.4 fL Neutrophils (%) (Auto) 90.2 % Lymphocytes (%) (Auto) 5.3 % Monocytes (%) (Auto) 4.0 % Eosinophils (%) (Auto) 0.0 % Basophils (%) (Auto) 0.1 % Neutrophils # (Auto) 15.40 1.4-6.5 K/uL Lymphocytes # (Auto) 0.90 1.2-3.4 K/uL Monocytes # (Auto) 0.69 0.11-0.59 K/uL Eosinophils # (Auto) 0.00 0-0.5 K/uL Basophils # (Auto) 0.01 0-0.2 K/uL RDW Standard Deviation 41.5 36.4-46.3 fL RDW Coefficient of Variation 13.5 11.5-14.5 % Immature Granulocyte % (Auto) 0.4 % Immature Granulocyte # (Auto) 0.07 0.00-0.02 K/uL Prothrombin Time 31.6 9.0-12.0 SECONDS Prothromb Time International Ratio 2.8 0.9-1.1 Sodium Level 140 136-145 mmol/L Potassium Level 4.2 3.5-5.1 mmol/L Chloride Level 105 98-107 mmol/L Carbon Dioxide Level 23 21-32 mmol/L Anion Gap 12.0 3-11 mmol/L Blood Urea Nitrogen 26 7-18 mg/dl Creatinine 1.20 0.60-1.40 mg/dl Est Creatinine Clear Calc Drug Dose 73.2 ml/min Estimated GFR () 73.6 Estimated GFR (Non- 63.5 BUN/Creatinine Ratio 21.3 10-20 Random Glucose 216 70-99 mg/dl Calcium Level 9.2 8.5-10.1 mg/dl
[2016-12-03] MEDS ORDERED: PRD20 PO (11:06)
[2016-12-03] MEDS ORDERED: FNTTP50 TD (11:06)
[2016-12-03] MEDS ORDERED: SULF-183 PO (11:06)
--- NOTE | 2016-12-03 11:16 | Discharge Instructions ---
Discharge Instructions Date of Service Dec 03, 2016. Admission Reason for Admission: UTI Discharge Discharge Diagnosis / Problem: Multiple sclerosis Flare, UTI Discharge Goals Goal(s): Decrease discomfort, Improve function Activity Recommendations Activity Limitations: resume your previous activity Exercise/Sports Limitations: as tolerated Driving or Machine Use: No driving until cleared by your doctor . Instructions / Follow-Up Instructions / Follow-Up Follow up with on 12/10/16 at 10:50AM Follow up with Neurology after getting discharged from [facility] within a week Needs monitoring of INR at [facility] and Coumadin dosage based on INR HOLD COUMADIN TODAY CHECK INR AT [facility] DAILY AND RESUME COUMADIN BASED ON INR Complete the steroid course and antibiotic course as prescribed Current Hospital Diet Patient's current hospital diet: AHA Diet (Heart Healthy) Discharge Diet Recommended Diet: AHA Diet (Heart Healthy) Pending Studies Studies pending at discharge: no Medical Emergencies . Who to Call and When: Medical Emergencies: If at any time you feel your situation is an emergency, please call 911 immediately. . Non-Emergent Contact Non-Emergency issues call your: Primary Care Provider, Neurologist Call Non-Emergent contact if: you have a fever, your pain is unusual for you, you have any medication questions If your weakness is worsening . . "Provider Documentation" section prepared by Vishal Leigh. VTE Core Measure Inpt VTE Proph given/why not?: Warfarin (Coumadin)
--- NOTE | 2016-12-03 11:21 | Discharge Summary ---
Discharge Summary Date of Service Dec 03, 2016. Discharge Summary Admission Date: Nov 30, 2016 at 14:00 Discharge Date: Dec 03, 2016 Discharge Disposition: Rehab Principal Diagnosis: Multiple sclerosis Flare, UTI Procedures: CT abdomen: 1. Bilateral nephrolithiasis. No ureteral calculi or hydronephrosis. 2. Multiple bilateral renal lesions which are suboptimally assessed on this unenhanced exam but measure water attenuation likely reflect cysts. 3. No acute process within the abdomen or pelvis on unenhanced exam. Consultations: Neurology Pending Studies/Follow-Up: Follow up with on 12/10/16 at 10:50AM Follow up with Neurology after getting discharged from [facility] within a week Needs monitoring of INR at [facility] and Coumadin dosage based on INR Medication Reconciliation New Medications: Prednisone (Prednisone) 20 Mg Tab 20 MG PO UD for 10 Days, #20 Start taking 80 mg for 2 days, 60 mg for 2 days, 40 mg for 2 days, 20 mg for 2 days and then 10 mg for 2 days and stop Sulfamethoxazole-Trimethoprim (Smz-Tmp Ds) 1 Tab Tab 1 TAB PO Q12 for 6 Days, #12 TAB Continued Medications: Amitriptyline HCl (Amitriptyline HCl) 25 Mg Tab 25 MG PO HS Atorvastatin (Lipitor) 10 Mg Tab 10 MG PO QPM, TAB Baclofen (Lioresal) 10 Mg Tab 10 MG PO HS for 30 Days Cholecalciferol (Vitamin D3) 1,000 Unit Tab 1 TAB PO BID for 90 Days, #180 TAB 3 Refills Clonazepam (Klonopin) 1 Mg Tab 0.5 MG PO BID, 0 Refills Fentanyl (Duragesic) 50 Mcg Tdsy 50 MCG TD [id number] PRN for Pain for 3 Days, #3 PATCH (This prescription has been renewed) Finasteride (Proscar) 5 Mg Tab 5 MG PO DAILY, TAB Fluticasone Propionate (Nasal) (Flonase Allergy Relief) 50 Mcg/Act Spr 2 SPRAYS XIMENA DAILY Ipratropium-Albuterol (Combivent Respimat) 1 Aer Aer 1 PUFFS INH QID PRN for SOB/Wheezing, #1 Levothyroxine Sodium (Synthroid) 175 Mcg Tab 175 MCG PO DAILY Meclizine Hcl (Meclizine Hcl) 25 Mg Tab 12.5 MG PO TID PRN for vertigo TAKE UP TO 3 TIMES DAILY NEEDED FOR DIZZINESS Methylprednisolone Sod Succ (Solu-Medrol) 1,000 Mg Inj 1000 MG IV MONTHLY Metoprolol Tartrate (Lopressor) 25 Mg Tab 12.5 MG PO BID, #30 TAB Sertraline (Zoloft) 50 Mg Tab 50 MG PO DAILY, TAB Tamsulosin Hcl (Flomax) 0.4 Mg Cap 0.4 MG PO QPM Tramadol Hcl (Ultram) 50 Mg Tab 50 MG PO Q6 PRN for Pain PRN PAIN Warfarin Sod (Coumadin) 2.5 Mg Tab 2.5 MG PO WK FRIDAYS Warfarin Sod (Jantoven) 2.5 Mg Tab 1.25 MG PO 6XWK, TAB 1.25MG every day but Saturday Admission Information HPI (per Admitting provider): 66 year old male who presents to the ER with generalized weakness. Patient has history of MS. Two weeks ago, patient developed dark, cloudy urine and was placed on Macrobid for UTI. Urine culture grew pansensitive E. Coli. Patient reports his symptoms initially improved however he has had increasing weakness over the past couple of days. He reports his urine is darker and cloudy again. Patient preforms ISC three times per day. He denies fever and chills. No abdominal pain, nausea, or vomiting. This morning he developed right flank pain. He denies chest pain, shortness of breath, lightheadedness, dizziness, and syncopal events. In the ER, patient's U/A is abnormal but does not strongly suggest UTI. He was given a dose of Rocephin. Vitals are stable and labs are unremarkable. Physical Exam (per Admitting): General Appearance: no apparent distress Head: normocephalic Eyes: normal inspection ENT: hearing grossly normal Neck: supple, no JVD Respiratory/Chest: lungs clear, normal breath sounds, no respiratory distress Cardiovascular: regular rate, rhythm, no edema, normal peripheral pulses Abdomen/GI: normal bowel sounds, non tender, soft Back: + right CVA tenderness Extremities/Musculoskelatal: normal inspection, no calf tenderness Neurologic/Psych: no motor/sensory deficits, alert, normal mood/affect, oriented x 3 Skin: normal color, warm/dry Hospital Course MS FLARE DUE TO UTI Patient presented with worsening generalized weakness H/O neurogenic bladder and uses ISC Had UTI 2 weeks ago and completed course of Macrobid; urine culture grew pansensitive E. Coli at that time Afebrile, normal WBC on presentation Currently has leukocytosis secondary to steroids Urine culture: Staph. Saprophyticus DC Rocephin, Continue Bactrim for [address] abd/pelvis: negative for stone LLE Weakness improved Completed solumedrol 1gm IV daily x 4 days Plan to start Prednisone taper 80 mg for 2 days, 60 mg for 2 days, 40 mg for 2 days, 20 mg for 2 days and then 10 mg for 2 days and stop. Appreciate neurology input HTN BP stable continue metoprolol Tachycardia: Resolved States his HR usually runs high EKG: Sinus tachycardia currently asymptomatic HX DVT Takes 1.25mg daily and 2.5 mg on Saturday at home on Coumadin, INR 1.8 >>>2.4>>2.9>>>2.8 Hold Coumadin for now (As started on Bactrim) Monitor INR HX THYROID CANCER S/P THYROIDECTOMY continue levothyroxine TSH: 0.005 DVT PROPHYLAXIS on Coumadin H/O JAMES: Continue CPAP at bedtime DISPOSITION: continue to monitor Plan to discharge to [facility] today Follow up with on 12/10/16 at 10:50AM Follow up with Neurology after getting discharged from [facility] Needs monitoring of INR at [facility] and Coumadin dosage based on INR Discussed with today PROCEDURES: CT Abdomen: 1. Bilateral nephrolithiasis. No ureteral calculi or hydronephrosis. 2. Multiple bilateral renal lesions which are suboptimally assessed on this unenhanced exam but measure water attenuation likely reflect cysts. 3. No acute process within the abdomen or pelvis on unenhanced exam. Total time spent on discharge = 40 minutes This includes examination of the patient, discharge planning, medication reconciliation, and communication with other providers Discharge Instructions Discharge Instructions Date of Service Dec 03, 2016. Admission Reason for Admission: UTI Discharge Discharge Diagnosis / Problem: Multiple sclerosis Flare, UTI Discharge Goals Goal(s): Decrease discomfort, Improve function Activity Recommendations Activity Limitations: resume your previous activity Exercise/Sports Limitations: as tolerated Driving or Machine Use: No driving until cleared by your doctor . Instructions / Follow-Up Instructions / Follow-Up Follow up with on 12/10/16 at 10:50AM Follow up with Neurology after getting discharged from [facility] within a week Needs monitoring of INR at [facility] and Coumadin dosage based on INR HOLD COUMADIN TODAY CHECK INR AT [facility] DAILY AND RESUME COUMADIN BASED ON INR Complete the steroid course and antibiotic course as prescribed Current Hospital Diet Patient's current hospital diet: AHA Diet (Heart Healthy) Discharge Diet Recommended Diet: AHA Diet (Heart Healthy) Pending Studies Studies pending at discharge: no Medical Emergencies . Who to Call and When: Medical Emergencies: If at any time you feel your situation is an emergency, please call 911 immediately. . Non-Emergent Contact Non-Emergency issues call your: Primary Care Provider, Neurologist Call Non-Emergent contact if: you have a fever, your pain is unusual for you, you have any medication questions If your weakness is worsening . . "Provider Documentation" section prepared by Vishal Leigh. VTE Core Measure Inpt VTE Proph given/why not?: Warfarin (Coumadin)
[2016-12-03 13:52] VITALS: BP 148/92; PULSE 72; TEMP 36.4; O2SAT 94
--- NOTE | 2016-12-08 16:08 | Progress Note ---
Progress Note Date of Service Dec 08, 2016. Progress Note ATTENDING NOTE: 66 yo M with hx of Multiple sclerosis , Neurogenic bladder requiring intermittent straight cath , admitted at [facility] with UTI -Discharged to [facility] for rehab on 12/03/16 pt's blood culture report 11/30/16 available shows 1 bottle growing Gram positive bacilli /micrococcus species -Possible contamination -given growth in only 1 bottle Urine culture on 11/30/16 -Staph saprophyticus MRSA pt discharged on PO Bactrim [facility] updated regarding new Blood culture findings Spoke with Charge Nurse Violet Richardson Needs repeat Blood culture on Saturday12/10/16 to confirm negative growth report of the culture report Faxed to [facility] with Attention to Dr East
[2017-06-04] MEDS ORDERED: LCTX PO (13:12)
[2017-06-04] MEDS ORDERED: ENOX40IN SQ (13:12)
[2017-06-04] MEDS ORDERED: KFL500 PO (13:12)
== END 2016-12-03 17:30 | DRG 59 ==
LOC: ENRESERVTM → ENRESERVDT → C.EDB 11:11 → C.MS2W 14:00
PROVIDERS: ADMIT Hospitalist; ATTEND Internal Medicine
DX: G35 Multiple sclerosis (principal); N39.0 Urinary tract infection, site not specified; F32.9 Major depressive disorder, single episode, unspecified; I10 Essential (primary) hypertension; E03.9 Hypothyroidism, unspecified; N31.9 Neuromuscular dysfunction of bladder, unspecified; Z96.652 Presence of left artificial knee joint; Z79.01 Long term (current) use of anticoagulants; E78.5 Hyperlipidemia, unspecified; C73 Malignant neoplasm of thyroid gland; Z86.718 Personal history of other venous thrombosis and embolism; B95.8 Unspecified staphylococcus as the cause of diseases classified elsewhere

== ENCOUNTER 2017-01-02 13:10 | Emergency (ER) | payer BC, OTHER ==
[~2017-01-02] VITALS: Ht 172.7 cm; Wt 105.0 kg
[~2017-01-02 13:10] MED LIST changes: -ATOR-14 PO; +ATOR10TA82 PO; +CHOL1000 PO; -CHOL100010 PO; -CPR500 PO; -FENT50DI19 TD; +FINA5TAB PO; -FLUT0.0529 NAE; +FLUT0.15 NAE; +FNTTP50 TD; -MODA1TAB6 PO; -PRS5 PO; -SERT25TA PO; +SERT50TA PO; +SULF-183 PO
[2017-01-02 13:20] VITALS: TEMP 36.7; Ht 172.7 cm; Wt 105.0 kg
[2017-01-02] MEDS ORDERED: SODIUM CHLORIDE 0.9% 1000ML 1,000 ML IV STA (13:35)
[2017-01-02] MEDS ORDERED: WARF2.5T8 PO (13:52)
[2017-01-02] MEDS ORDERED: CIPR1TAB11 PO (13:59)
[2017-01-02 14:07] LABS: BASO % 0.8 %; BASO ABS # 0.05 K/uL (0-0.2); COMPLETE YES; EOS % 1.7 %; HEMATOCRIT 42.6 % (42-52); IG% 0.5 %; LYMPH % 32.6 %; LYMPH ABS # 2.17 K/uL (1.2-3.4); MEAN CELL VOLUME 84.9 fL (80-100); MEAN CORPUSCULAR HEMOGLOBIN 29.7 pg (25-34); MEAN PLATELET VOLUME 10.8 fL (7.4-10.4); MONO % 9.3 %; NEUT % 55.1 %; PLATELET COUNT 185 K/uL (130-400); RED BLOOD COUNT 5.02 M/uL (4.7-6.1); WHITE BLOOD COUNT 6.65 K/uL (4.8-10.8)
[2017-01-02] MEDS ORDERED: DAPTOmycin IV 600 MG in SODIUM CHLORIDE 0.9% 50ML 50 ML IV STA (14:24)
[2017-01-02 14:30] LABS: BUN/CREATININE RATIO 11.4 (10-20); CALCIUM 8.8 mg/dl (8.5-10.1); CREATININE 1.1 mg/dl (0.60-1.40); POTASSIUM 3.9 mmol/L (3.5-5.1)
[2017-01-02 14:48] LABS: URINE APPEARANCE CLEAR (CLEAR); URINE BILIRUBIN NEG (NEG); URINE COLOR YELLOW; URINE EPITHELIAL CELL AUTO 20-30 /lpf (0-5); URINE NITRITE NEG (NEG); URINE SPECIFIC GRAVITY 1.022 (1.000-1.030); UROBILINOGEN NEG (NEG)
[2017-01-02 14:59] LABS: MANUAL MICROSCOPIC REQUIRED? NO; REVIEW REQ? NO
[2017-01-02 15:11] LABS: INR 2.2 (0.9-1.1); PARTIAL THROMBOPLASTIN RATIO 1.6; PROTHROMBIN TIME (PATIENT) 24.4 SECONDS (9.0-12.0)
[2017-01-02] MEDS ORDERED: SULF800T23 PO (15:57)
[2017-01-02 16:08] VITALS: BP 145/96; PULSE 79; O2SAT 94
--- NOTE | 2017-01-03 20:46 | EMERGENCY ROOM VISIT NOTE ---
ED Visit Note First contact with patient: 13:26 Chief Complaint: Urinary tract infection. History of Present Illness: Mr. Cooper is a 66-year-old white male who is brought into the ED via wheelchair accompanied by female friend complaining of a possible urinary tract infection. Historically patient has a history of MS, neurogenic bladder and is on chronic anticoagulation therapy for a left lower extremity DVT. Additionally patient was admitted last month for urinary tract infection. His urine culture was positive for streptococcus saprohyticus and was sensitive to Bactrim. He was discharged on Bactrim and was transferred to rehabilitation Center. After a rehabilitation stay reports he was feeling better but has continued to feel slightly fatigued and weak Patient goes on to report that over the past week he has been having generalized weakness. Yesterday he noted blood in his urine. He did have an appointment with his neurologist yesterday who prophylactically put him on ciprofloxacin. At his appointment discharge she was encouraged to come to the emergency department today for IV antibiotics. Patient reports that after waking this morning he still noticed some blood in his urine and he was having urinary burning. He has not noted any increase in urged. Since this started he actually reports she is feeling slightly more weak than normal. He has not noted any aggravating or alleviating factors related to the symptoms. He has taken the Cipro as prescribed. He denies any associated fevers, chills, sweats, skin eruptions, skin color changes, lightheaded, chest, shortness of breath, abdominal pain, nausea, vomiting, increasing back/flank pain, bloody stools, decreased appetite. Review of Systems: As noted above in history of present illness. All body systems were reviewed and found to be negative as noted above. Past Medical History: (1) cevical lymphnodectomy (2) Chronic anticoagulation (3) Deep vein blood clot of left lower extremity (4) Depression (5) HLD (hyperlipidemia) (6) HTN (hypertension) (7) Hypothyroidism (8) MS (multiple sclerosis) (9) Neurogenic bladder (10) Papillary thyroid carcinoma Surgical Problems: (1) H/O cystoscopy (2) H/O thyroidectomy (3) S/P left knee arthroscopy Current Medications: Medications Dose Route/Sig Max Daily Dose Days Date Category Dose Instructions Cipro (Ciprofloxacin) 250 Mg Tab 500 Mg PO BID 01/02/17 Reported Jantoven (Warfarin Sodium) 2.5 Mg Tab 1.25 Mg PO DAILY 01/02/17 Reported Duragesic (Fentanyl) 50 Mcg Tdsy 50 Mcg TD CQ72HR PRN 3 12/03/16 Rx Lioresal (Baclofen) 10 Mg Tab 10 Mg PO HS 30 11/30/16 Rx Combivent Respimat (Ipratropium-Albuterol) 1 Aer Aer 1 Puffs INH QID PRN 11/30/16 Rx Zoloft (Sertraline HCl) 50 Mg Tab 50 Mg PO DAILY 11/30/16 Reported Proscar (Finasteride) 5 Mg Tab 5 Mg PO DAILY 11/30/16 Reported Vitamin D3 (Cholecalciferol) 1,000 Unit Tab 1 Tab PO BID 90 11/30/16 Reported Flonase Allergy Relief (Fluticasone Propionate (Nasal)) 50 Mcg/Act Spr 2 Sprays XIMENA DAILY 11/30/16 Reported Lipitor (Atorvastatin Calcium) 10 Mg Tab 10 Mg PO QPM 11/30/16 Reported Solu-Medrol (Methylprednisolone Sod Succ) 1,000 Mg Inj 1,000 Mg IV MONTHLY 12/12/15 Reported Meclizine Hcl 25 Mg Tab 12.5 Mg PO TID PRN 04/04/15 Reported TAKE UP TO 3 TIMES DAILY NEEDED FOR DIZZINESS Lopressor (Metoprolol Tartrate) 25 Mg Tab 12.5 Mg PO BID 12/17/14 Rx Synthroid (Levothyroxine Sodium) 175 Mcg Tab 175 Mcg PO DAILY 12/15/14 Reported Amitriptyline HCl 25 Mg Tab 25 Mg PO HS 12/15/14 Reported Flomax (Tamsulosin Hcl) 0.4 Mg Cap 0.4 Mg PO QPM 12/15/14 Reported Ultram (Tramadol Hcl) 50 Mg Tab 50 Mg PO Q6 PRN 07/02/13 Reported PRN PAIN Klonopin (Clonazepam) 1 Mg Tab 0.5 Mg PO BID 01/09/10 Reported Allergies to Medications: Patient denies. Social History: Patient is not currently employed; he lives with his and feels safe in his home environment; he denies tobacco and alcohol use. Physical Examination: Vital Signs: Date Time Temp Pulse Resp B/P Pulse Ox O2 Delivery O2 Flow Rate FiO2 01/02/17 16:08 79 16 145/96 94 Room Air 01/02/17 14:54 78 18 140/87 94 Room Air 01/02/17 13:20 36.7 81 18 142/98 95 Room Air GENERAL: 66-year-old male in mild distress due to symptoms, chronically ill- appearing, afebrile and hemodynamically stable. NEUROLOGICAL: Awake, alert and oriented to person, place and time. Answering questions appropriately and following commands. Good hand eye coordination. No focal motor orsensory deficits. SKIN: Warm, dry and pink. Superficial abrasion on the left anterior knee; question patient reports he fell the other day. HEENT: Atraumatic and normocephalic. PERRLA. Sclera white and conjunctiva pink. No drainage from naris. Oral cavity moist and pink. Pharynx is nonerythematous or edematous. Speech normal. No lymphadenopathy. Trachea midline. No jugular venous distention. BACK: No tenderness over the bony spine. No CVA tenderness. THORAX: Lungs sounds are clear to auscultation and equal bilaterally with symmetrical chest wall. No wheezing, rales or rhonchi. No crepitus, tenderness , subcutaneous air or deformities noted. HEART: Regular rate and rhythm. No gallops, rubs or murmurs are appreciated. ABDOMEN: Flat, soft and nontender. Positive bowel sounds in all quadrants. No guarding, rigidity or organomegaly. EXTREMITIES: Moves all extremities well on command and with purpose. All distal neurovascular statuses are intact and equal bilaterally. No calf tenderness or cords. ED Course: Patient is assessed as noted above. Laboratory Testing: Test 01/02/17 13:53 01/02/17 14:05 01/02/17 14:49 Range/Units White Blood Count 6.65 4.8-10.8 K/uL Red Blood Count 5.02 4.7-6.1 M/uL Hemoglobin 14.9 14.0-18.0 g/dL Hematocrit 42.6 42-52 % Mean Corpuscular Volume 84.9 80-100 fL Mean Corpuscular Hemoglobin 29.7 25-34 pg Mean Corpuscular Hemoglobin Concent 35.0 32-36 g/dl Platelet Count 185 130-400 K/uL Mean Platelet Volume 10.8 7.4-10.4 fL Neutrophils (%) (Auto) 55.1 % Lymphocytes (%) (Auto) 32.6 % Monocytes (%) (Auto) 9.3 % Eosinophils (%) (Auto) 1.7 % Basophils (%) (Auto) 0.8 % Neutrophils # (Auto) 3.67 1.4-6.5 K/uL Lymphocytes # (Auto) 2.17 1.2-3.4 K/uL Monocytes # (Auto) 0.62 0.11-0.59 K/uL Eosinophils # (Auto) 0.11 0-0.5 K/uL Basophils # (Auto) 0.05 0-0.2 K/uL RDW Standard Deviation 41.8 36.4-46.3 fL RDW Coefficient of Variation 13.6 11.5-14.5 % Immature Granulocyte % (Auto) 0.5 % Immature Granulocyte # (Auto) 0.03 0.00-0.02 K/uL Sodium Level 139 136-145 mmol/L Potassium Level 3.9 3.5-5.1 mmol/L Chloride Level 104 98-107 mmol/L Carbon Dioxide Level 27 21-32 mmol/L Anion Gap 8.0 3-11 mmol/L Blood Urea Nitrogen 13 7-18 mg/dl Creatinine 1.10 0.60-1.40 mg/dl Est Creatinine Clear Calc Drug Dose 79.7 ml/min Estimated GFR () 81.8 Estimated GFR (Non- 70.6 BUN/Creatinine Ratio 11.4 10-20 Random Glucose 226 70-99 mg/dl Calcium Level 8.8 8.5-10.1 mg/dl Total Bilirubin 0.6 0.2-1 mg/dl Direct Bilirubin 0.1 0-0.2 mg/dl Aspartate Amino Transf (AST/SGOT) 42 15-37 U/L Alanine Aminotransferase (ALT/SGPT) 93 12-78 U/L Alkaline Phosphatase 80 45-117 U/L Total Protein 6.8 6.4-8.2 gm/dl Albumin 3.6 3.4-5.0 gm/dl Lipase 150 73-393 U/L Urine Color YELLOW Urine Appearance CLEAR CLEAR Urine pH 7.0 4.5-7.5 Urine Specific [place] 1.022 1.000-1.030 Urine Protein NEG NEG Urine Glucose (UA) 3+ NEG Urine Ketones NEG NEG Urine Occult Blood 1+ NEG Urine Nitrite NEG NEG Urine Bilirubin NEG NEG Urine Urobilinogen NEG NEG Urine Leukocyte Esterase SMALL NEG Urine WBC (Auto) 10-30 0-5 /hpf Urine RBC (Auto) 10-30 0-4 /hpf Urine Hyaline Casts (Auto) 1-5 0-5 /lpf Urine Epithelial Cells (Auto) 20-30 0-5 /lpf Urine Bacteria (Auto) NEG NEG Prothrombin Time 24.4 9.0-12.0 SECONDS Prothromb Time International Ratio 2.2 0.9-1.1 Activated Partial Thromboplast Time 42.7 21.0-31.0 SECONDS Partial Thromboplastin Ratio 1.6 Urine Culture: Pending. Patient was hydrated with normal saline and received 600 mg of daptomycin IV for antibiotic coverage. Patient was reassessed multiple times during his stay in the emergency department. Patient's case was reviewed with Dr. Akhtar; we agreed on diagnostic approach, treatment, disposition and plan. Patient and family members was educated about berto's findings and instructed on his treatment plan; he verbalizes understanding and agreement with this plan. Clinical Impression: Symptoms of urinary tract infection. Generalized body weakness. Decision-Making: Initially my differential diagnosis I considered lower UTI, pyelonephritis, MS exacerbation, sepsis, prostatitis and other causes. Disposition: Patient discharged home in stable condition accompanied by multiple family members; prior to departure he was reassessed and subjectively reported he was feeling much better. Plan: Patient was encouraged to stop his ciprofloxacin and he was prescribed Bactrim DS 2 times a day for 7 days. Patient was encouraged to continue his other medications. Patient was encouraged to follow-up with his family physician for recheck; he reports he has an appointment in 2 days. Patient is encouraged return ED for worsening/uncontrolled symptoms, fevers, vomiting or any new/concerning symptoms.
[2017-06-04] MEDS ORDERED: LCTX PO (13:12)
[2017-06-04] MEDS ORDERED: KFL500 PO (13:12)
[2017-06-04] MEDS ORDERED: ENOX40IN SQ (13:12)
== END 2017-01-02 16:12 | disposition home or self-care (01) ==
LOC: C.EDB 13:12
DX: R31.9 Hematuria, unspecified (principal); R30.0 Dysuria; R53.1 Weakness; G35 Multiple sclerosis; N31.9 Neuromuscular dysfunction of bladder, unspecified; Z79.01 Long term (current) use of anticoagulants; Z86.718 Personal history of other venous thrombosis and embolism; F32.9 Major depressive disorder, single episode, unspecified; E78.5 Hyperlipidemia, unspecified; I10 Essential (primary) hypertension; E03.9 Hypothyroidism, unspecified; Z85.850 Personal history of malignant neoplasm of thyroid; E89.0 Postprocedural hypothyroidism

== ENCOUNTER 2017-05-31 10:34 | Inpatient (IN) | payer OTHER, BC ==
[~2017-05-31] VITALS: Ht 170.2 cm; Wt 100.0 kg
[~2017-05-31 10:34] MED LIST changes: -ATOR10TA82 PO; +ATOR10TA88 PO; +CIPR1TAB11 PO; -CMD/25 PO; -PRD20 PO; -SULF-183 PO
[2017-05-31] MEDS ORDERED: GLC500 PO (11:16)
[2017-05-31] MEDS ORDERED: GUAIFENESIN 600 MG TABCR PO STA (11:36)
[2017-05-31] MEDS ORDERED: SODIUM CHLORIDE 0.9% 1000ML 1,000 ML IV STA ×2 (11:36→12:45)
[2017-05-31] MEDS ORDERED: COUGH DROP (SUGAR FREE) LOZ 24 LOZ/1 BOX PO STA (11:36)
--- NOTE | 2017-05-31 11:54 | DIAGNOSTIC IMAGING REPORT ---
CHEST ONE VIEW PORTABLE CLINICAL HISTORY: cough, fever, weakness COMPARISON STUDY: 01/18/2016 FINDINGS: The cardiac and mediastinal contours are normal. There is no evidence of focal pulmonary consolidation. There is no evidence of failure. No pleural effusions are visualized.[ There are surgical clips the base the right neck. There are minor left basilar atelectatic changes IMPRESSION: No active disease in the chest. Electronically signed by: Pb Gaston M.D. 05/31/2017 11:53 AM Dictated Date/Time: 05/31/2017 11:52 AM
[2017-05-31 12:28] LABS: BASO % 0.2 %; BASO ABS # 0.03 K/uL (0-0.2); COMPLETE YES; EOS % 1.1 %; HEMATOCRIT 48.9 % (42-52); IG% 0.4 %; LYMPH ABS # 1.84 K/uL (1.2-3.4); MEAN CELL VOLUME 85.5 fL (80-100); MEAN CORPUSCULAR HEMOGLOBIN 29.7 pg (25-34); MEAN CORPUSCULAR HGB CONC 34.8 g/dl (32-36); MEAN PLATELET VOLUME 10.9 fL (7.4-10.4); MONO % 10.8 %; NEUT % 74.5 %; PLATELET COUNT 214 K/uL (130-400); RED BLOOD COUNT 5.72 M/uL (4.7-6.1); WHITE BLOOD COUNT 14.14 K/uL (4.8-10.8)
[2017-05-31 12:41] LABS: URINE APPEARANCE CLEAR (CLEAR); URINE BILIRUBIN NEG (NEG); URINE COLOR YELLOW; URINE EPITHELIAL CELL AUTO 0-5 /lpf (0-5); URINE NITRITE POS (NEG); URINE PH 5.5 (4.5-7.5); URINE SPECIFIC GRAVITY 1.024 (1.000-1.030); UROBILINOGEN NEG (NEG)
[2017-05-31 12:43] LABS: MANUAL MICROSCOPIC REQUIRED? NO; REVIEW REQ? NO
[2017-05-31] MEDS ORDERED: CEFTRIAXONE SOD INJ 1 GM ADDVIAL IV STA (12:44)
[2017-05-31 12:48] LABS: BUN/CREATININE RATIO 15.9 (10-20); CALCIUM 9.2 mg/dl (8.5-10.1)
--- NOTE | 2017-05-31 14:15 | EMERGENCY ROOM VISIT NOTE ---
History Report prepared by Kayla: Yonny Carlin Under the Supervision of: Dr. Kit Lambert M.D. First contact with patient: 10:49 Chief Complaint: FEVER Stated Complaint: FEVER, COUGH, WEAKNESS (SENT BY ) History of Present Illness The patient is a 66 year old white male with a past medical history of MS, thyroid cancer s/p thyroidectomy, HTN, and UTI who presents to the ED with a cc of persistent generalized weakness beginning four days ago. Positive productive cough, sore throat, nausea and diarrhea. Negative abdominal pain, chest pain, SOB, documented fevers, bloody stool, or vomiting. Cough produces a green sputum. Self catheterizes three-four times per day. Received Solu-Medrol infusions for his MS, most recent infusion was a week ago. No known sick contacts. No recent travel. No recent antibiotic use. No recent medication changes. Patient is currently considered cancer free. Source of History: patient Onset: Four days ago Position: other (generalized) Quality: other (weakness) Timing: other (persistent) Associated Symptoms: + sorethroat, + cough (productive), + nausea, + diarrhea, No fevers (documented), No chest pain, No SOB, No vomiting, No abdominal pain, No hematochezia Review of Systems See HPI for pertinent positives and negatives. A total of ten systems were reviewed and were otherwise negative. Past Medical & Surgical Medical Problems: (1) cevical lymphnodectomy (2) Chronic anticoagulation (3) Deep vein blood clot of left lower extremity (4) Depression (5) HLD (hyperlipidemia) (6) HTN (hypertension) (7) Hypothyroidism (8) MS (multiple sclerosis) (9) Multiple sclerosis exacerbation (10) Neurogenic bladder (11) Papillary thyroid carcinoma Surgical Problems: (1) H/O cystoscopy (2) H/O thyroidectomy (3) S/P left knee arthroscopy Family History FH: breast cancer MOTHER Heart disease FATHER Social History Smoking Status: Never Smoker Alcohol Use: none Marital Status: Housing Status: lives with family Occupation Status: disabled Current/Historical Medications Scheduled Amitriptyline HCl (Amitriptyline HCl), 25 MG PO HS Atorvastatin (Lipitor), 10 MG PO QPM Baclofen (Lioresal), 10 MG PO HS Cholecalciferol (Vitamin D), 1,000 INTER.UNIT PO BID Finasteride (Proscar), 5 MG PO DAILY Fluticasone Propionate (Nasal) (Flonase Allergy Relief), 2 SPRAYS XIMENA DAILY Levothyroxine Sodium (Levothyroxine Sodium), 1 TAB PO DAILY Metformin HCl (Metformin HCl), 500 MG PO BID Methylprednisolone Sod Succ (Solu-Medrol), 1,000 MG IV MONTHLY Metoprolol Tartrate (Lopressor), 12.5 MG PO BID Sertraline (Zoloft), 50 MG PO DAILY Tamsulosin Hcl (Flomax), 0.4 MG PO QPM Warfarin Sodium (Warfarin Sodium), 0.5 TAB PO DAILY Scheduled PRN Clonazepam (Clonazepam), 1 TAB PO TID PRN for Anxiety/Agitation Meclizine Hcl (Meclizine Hcl), 12.5 MG PO TID PRN for vertigo Tramadol Hcl (Ultram), 50 MG PO Q6 PRN for Pain Allergies Coded Allergies: No Known Allergies (Verified , 01/02/17) Physical Exam Vital Signs Date Time Temp Pulse Resp B/P (MAP) Pulse Ox O2 Delivery O2 Flow Rate FiO2 05/31/17 15:47 90 18 141/83 95 Room Air 05/31/17 15:40 95 Room Air 05/31/17 13:40 92 05/31/17 13:37 37.6 95 23 128/84 95 Room Air 05/31/17 12:31 93 18 128/78 94 Room Air 05/31/17 11:15 96 Room Air 05/31/17 11:08 99 05/31/17 10:45 36.6 103 18 126/79 96 Room Air Physical Exam GENERAL: Awake, alert, well-appearing, NAD HENT: Normocephalic, atraumatic. EYES: Normal conjunctiva. Sclera non-icteric. NECK: Supple. No nuchal rigidity. FROM. RESPIRATORY: CTAB, no rhonchi, wheezing, crackles CARDIAC: RRR, no MRG ABDOMEN: Soft, NTND, BS+ MSK: No chest wall TTP, no LE edema NEURO: GCS 15, CN 2-12 intact, moves all 4s on command SKIN: No rash or jaundice noted. Medical Decision & Procedures ER Provider Diagnostic Interpretation: X-ray: Per my interpretation, radiologist review. CHEST ONE VIEW PORTABLE FINDINGS: The cardiac and mediastinal contours are normal. There is no evidence of focal pulmonary consolidation. There is no evidence of failure. No pleural effusions are visualized.[ There are surgical clips the base the right neck. There are minor left basilar atelectatic changes IMPRESSION: No active disease in the chest. Electronically signed by: Pb Gaston M.D. Laboratory Results 05/31/17 12:00 Red Blood Count 5.72, Mean Corpuscular Volume 85.5, Mean Corpuscular Hemoglobin 29.7, Mean Corpuscular Hemoglobin Concent 34.8, Mean Platelet Volume 10.9, Neutrophils (%) (Auto) 74.5, Lymphocytes (%) (Auto) 13.0, Monocytes (%) (Auto) 10.8, Eosinophils (%) (Auto) 1.1, Basophils (%) (Auto) 0.2, Neutrophils # (Auto ) 10.53, Lymphocytes # (Auto) 1.84, Monocytes # (Auto) 1.53, Eosinophils # (Auto ) 0.16, Basophils # (Auto) 0.03 05/31/17 12:00 Test 05/31/17 12:00 05/31/17 12:07 05/31/17 12:15 White Blood Count 14.14 K/uL (4.8-10.8) Red Blood Count 5.72 M/uL (4.7-6.1) Hemoglobin 17.0 g/dL (14.0-18.0) Hematocrit 48.9 % (42-52) Mean Corpuscular Volume 85.5 fL (80-100) Mean Corpuscular Hemoglobin 29.7 pg (25-34) Mean Corpuscular Hemoglobin Concent 34.8 g/dl (32-36) Platelet Count 214 K/uL (130-400) Mean Platelet Volume 10.9 fL (7.4-10.4) Neutrophils (%) (Auto) 74.5 % Lymphocytes (%) (Auto) 13.0 % Monocytes (%) (Auto) 10.8 % Eosinophils (%) (Auto) 1.1 % Basophils (%) (Auto) 0.2 % Neutrophils # (Auto) 10.53 K/uL (1.4-6.5) Lymphocytes # (Auto) 1.84 K/uL (1.2-3.4) Monocytes # (Auto) 1.53 K/uL (0.11-0.59) Eosinophils # (Auto) 0.16 K/uL (0-0.5) Basophils # (Auto) 0.03 K/uL (0-0.2) RDW Standard Deviation 43.7 fL (36.4-46.3) RDW Coefficient of Variation 14.1 % (11.5-14.5) Immature Granulocyte % (Auto) 0.4 % Immature Granulocyte # (Auto) 0.05 K/uL (0.00-0.02) Prothrombin Time 17.7 SECONDS (9.0-12.0) Prothromb Time International Ratio 1.6 (0.9-1.1) Anion Gap 4.0 mmol/L (3-11) Est Creatinine Clear Calc Drug Dose 84.1 ml/min Estimated GFR () 91.8 Estimated GFR (Non- 79.2 BUN/Creatinine Ratio 15.9 (10-20) Calcium Level 9.2 mg/dl (8.5-10.1) Bedside Troponin I < 0.030 ng/ml (0-0.045) Urine Color YELLOW Urine Appearance CLEAR (CLEAR) Urine pH 5.5 (4.5-7.5) Urine Specific [place] 1.024 (1.000-1.030) Urine Protein NEG (NEG) Urine Glucose (UA) NEG (NEG) Urine Ketones NEG (NEG) Urine Occult Blood 1+ (NEG) Urine Nitrite POS (NEG) Urine Bilirubin NEG (NEG) Urine Urobilinogen NEG (NEG) Urine Leukocyte Esterase TRACE (NEG) Urine WBC (Auto) 1-5 /hpf (0-5) Urine RBC (Auto) 0-4 /hpf (0-4) Urine Hyaline Casts (Auto) 0 /lpf (0-5) Urine Epithelial Cells (Auto) 0-5 /lpf (0-5) Urine Bacteria (Auto) 4+ (NEG) Laboratory results reviewed by me Medications Administered Medications (Trade) Dose Ordered Sig/Cam Route Start Time Stop Time Status Last Admin Dose Admin Sodium Chloride 1,000 ml @ 999 mls/hr Q1H1M STAT IV 05/31/17 11:36 05/31/17 12:36 DC 05/31/17 12:04 999 MLS/HR Menthol (Nice Vania) 1 vania NOW STAT PO 05/31/17 11:36 05/31/17 11:39 DC 05/31/17 12:04 1 VANIA Guaifenesin (Mucinex Contr Rel Tab) 1,200 mg Q12 STAT PO 05/31/17 11:36 05/31/17 11:39 DC 05/31/17 12:04 1,200 MG Ceftriaxone Sodium (Rocephin Inj) 1 gm NOW STAT IV 05/31/17 12:44 05/31/17 12:45 DC 05/31/17 13:40 1 GM Sodium Chloride 1,000 ml @ 999 mls/hr Q1H1M STAT IV 05/31/17 12:45 05/31/17 13:45 DC 05/31/17 13:41 999 MLS/HR ECG Indication: weakness Rate (beats per minute): 95 Rhythm: normal sinus Findings: other (Normal intervals. Normal axis. No STS changes or T-wave inversions. ) ED Course 1117: The patient was evaluated in room B2. A complete history and physical exam was performed. 1136: Ordered Mucinex Contr Rel Tab 1200 mg PO, Nice Vania 1 lox PO, Sodium Chloride 1000 ml @ 999 mls/hr IV. 1244: Ordered Rocephin Inj 1 gm IV, Sodium Chloride 1000 ml @ 999 mls/hr IV. 1300: I reassessed the patient. He feels that he is too weak to go home. 1405: Upon reexamination, the patient was resting comfortably. I discussed the test results and treatment plan with him. The patient will be evaluated for further management. Medical Decision The patient is a 66 year old white male with a past medical history of MS, thyroid cancer s/p thyroidectomy, HTN, and UTI who presents to the ED with a cc of generalized weakness beginning four days ago. Differential diagnosis: Etiologies such as metabolic, infection, hypo/hyperglycemia, electrolyte abnormalities, cardiac sources, intracerebral event, toxicologic, neurologic, as well as others were entertained. Patient was evaluated with blood work as well as a UA. Patient's EKG fairly unremarkable. Patient did have mild white count of 14 and this may be related to his recent steroid infusion. Patient did have evidence of UTI is not surprising given the patient's history of UTIs as well as intermittent self catheterization. I spoke with the medicine service and explained that the patient typically has a manifestation of an MS type flare he becomes globally weak and needs additional care and treatment prior to a rehabilitation stint. I spoke with the patient's primary neurologist who agreed. He stated not to start any empiric steroids but he would see them tomorrow and discuss the need for additional treatment at this time. Patient was admitted to the medicine service. Medication Reconcilliation Current Medication List: was personally reviewed by me Blood Pressure Screening Patient's blood pressure: Normal blood pressure Blood pressure disposition: Did not require urgent referral Consults Time Called: 1400 Consulting Physician: Dr. Demetrio Olmstead Returned Call: 1405 Discussed the patient's case. The patient will be evaluated for further treatment and disposition. Additional Consults: Time Called: 1408 Consulted Physician: Dr. Jean-Baptiste -Neurology Returned Call: [phone] Additional Comments: Discussed the patient's case. Dr. Jean-Baptiste is aware of the patient's case. Impression Primary Impression: Generalized weakness Additional Impressions: MS flare UTI (urinary tract infection) Scribe Attestation The scribe's documentation has been prepared under my direction and personally reviewed by me in its entirety. I confirm that the note above accurately reflects all work, treatment, procedures, and medical decision making performed by me. Departure Information Dispostion Being Evaluated By Hospitalist Referrals Trinidad Cesar D.O. (PCP) Patient Instructions My [facility] Problem Qualifiers Additional Impressions: UTI (urinary tract infection) Urinary tract infection type: acute cystitis Hematuria presence: without hematuria Qualified Codes: N30.00 - Acute cystitis without hematuria
[2017-05-31] MEDS ORDERED: GUAIFENESIN 600 MG TABCR PO PRN (15:15)
[2017-05-31] MEDS ORDERED: GLUCOSE 40% GEL 15 GM TUBE PO PRN (15:15)
[2017-05-31] MEDS ORDERED: GLUCAGON FOR INJ 1 MG VIAL SQ PRN (15:15)
[2017-05-31] MEDS ORDERED: ALBUTEROL HFA 8 GM INHALER INH PRN (15:15)
[2017-05-31] MEDS ORDERED: ONDANSETRON INJ 2 MG/ML 2 ML VIAL IV PRN (15:15)
[2017-05-31] MEDS ORDERED: GLUCOSE 10 TABS/TUBE PO PRN (15:15)
[2017-05-31] MEDS ORDERED: DEXTROSE 50% 50 ML SYR IV PRN (15:15)
[2017-05-31] MEDS ORDERED: ACETAMINOPHEN 325 MG TAB PO PRN (15:15)
[2017-05-31] MEDS ORDERED: WARF4TAB44 PO (15:24)
[2017-05-31] MEDS ORDERED: KLN5 PO (15:25)
[2017-05-31] MEDS ORDERED: LEVO175T3 PO (15:26)
[2017-05-31] MEDS ORDERED: CHOL100010 PO (15:27)
[2017-05-31] MEDS ORDERED: LEVOTHYROXINE 175 MCG TAB PO ONE (15:28)
[2017-05-31] MEDS ORDERED: CLONAZEPAM 0.5 MG TAB PO PRN (15:30)
[2017-05-31] MEDS ORDERED: TRAMADOL HCL 50 MG TAB PO PRN (15:30)
[2017-05-31] MEDS ORDERED: MECLIZINE HCL 12.5 MG TAB PO PRN (15:30)
[2017-05-31 15:31] LABS: INR 1.6 (0.9-1.1); PROTHROMBIN TIME (PATIENT) 17.7 SECONDS (9.0-12.0)
[2017-05-31 15:40] VITALS: O2SAT 95; Ht 170.2 cm; Wt 100.0 kg
[2017-05-31] MEDS ORDERED: INSULIN ASPART 100 UNITS/ML 3 ML PEN SC SCH (16:00)
--- NOTE | 2017-05-31 16:07 | History and Physical ---
History & Physical Date & Time of Service: May 31, 2017 at 15:48 Chief Complaint: Fever, Cough, Weakness (Sent By ) Primary Care Physician: Trinidad Cesar D.O. History of Present Illness Patient is a 66yo M with a PMH of Multiple Sclerosis, HTN, DM II, thyroid cancer (s/p thyroidectomy) and neurogenic bladder with h/o UTIs who presents with progressively worsening generalized weakness starting 1 week ago. Two days ago, patient fell while attempting to transfer from chair to bed. States that he became weak while standing and slumped down onto the floor. Denies any LOC or hitting his head. At baseline, patient ambulates by mechanical chair and is able to transfer from chair to bed on his own. Over the past 2 days, however , patient has required help transferring from both his daughter and . Went to see PCP today and was advised to come to ED for further evaluation. Over the past week, patient has had a productive cough with green/villavicencio sputum, watery eyes, nasal congestion, malaise and diarrhea. Has not been taking any OTC medications for these symptoms. Also endorses cloudy, dark urine with an odor over the past few days. Self catheterizes 4 times a day 2/2 neurogenic bladder. Has a history of UTIs that have required IV antibiotics and also seem to trigger an MS flare. Most recent admission was in November of this year. Denies fever, chills, confusion, visual changes, headache, rhinorrhea, sore throat, CP, SOB, nausea, vomiting, abd pain or LE swelling. Of note, patient receives monthly solu-medrol infusions for MS, with his most recent infusion 1 week ago. Past Medical/Surgical History Medical Problems: (1) cevical lymphnodectomy Status: Chronic (2) Chronic anticoagulation Status: Chronic (3) Deep vein blood clot of left lower extremity Status: Chronic (4) Depression Status: Chronic (5) HLD (hyperlipidemia) Status: Chronic (6) HTN (hypertension) Status: Chronic (7) Hypothyroidism Status: Chronic (8) MS (multiple sclerosis) Status: Chronic (9) Neurogenic bladder Status: Chronic (10) Papillary thyroid carcinoma Status: Chronic Surgical Problems: (1) H/O cystoscopy Status: Chronic (2) H/O thyroidectomy Status: Chronic (3) S/P left knee arthroscopy Status: Chronic Family History FH: breast cancer MOTHER Heart disease FATHER Social History Smoking Status: Never Smoker Marital Status: Housing status: lives with family Occupational Status: disabled Immunizations History of Tetanus Vaccine?: Yes Tetanus Immunization Date: Sep 02, 2008 History of Pneumococcal: No Multi-Drug Resistant Organisms History of MDRO: No Allergies Coded Allergies: No Known Allergies (Verified , 01/02/17) Home Medications Scheduled Amitriptyline HCl (Amitriptyline HCl), 25 MG PO HS Atorvastatin (Lipitor), 10 MG PO QPM Baclofen (Lioresal), 10 MG PO HS Cholecalciferol (Vitamin D), 1,000 INTER.UNIT PO BID Finasteride (Proscar), 5 MG PO DAILY Fluticasone Propionate (Nasal) (Flonase Allergy Relief), 2 SPRAYS XIMENA DAILY Levothyroxine Sodium (Levothyroxine Sodium), 1 TAB PO DAILY Metformin HCl (Metformin HCl), 500 MG PO BID Methylprednisolone Sod Succ (Solu-Medrol), 1,000 MG IV MONTHLY Metoprolol Tartrate (Lopressor), 12.5 MG PO BID Sertraline (Zoloft), 50 MG PO DAILY Tamsulosin Hcl (Flomax), 0.4 MG PO QPM Warfarin Sodium (Warfarin Sodium), 0.5 TAB PO DAILY Scheduled PRN Clonazepam (Clonazepam), 1 TAB PO TID PRN for Anxiety/Agitation Meclizine Hcl (Meclizine Hcl), 12.5 MG PO TID PRN for vertigo Tramadol Hcl (Ultram), 50 MG PO Q6 PRN for Pain Review of Systems Ten systems reviewed and negative except as noted in the HPI. Physical Exam Vital Signs Date Time Temp Pulse Resp B/P (MAP) Pulse Ox O2 Delivery O2 Flow Rate FiO2 05/31/17 13:40 92 05/31/17 13:37 37.6 95 23 128/84 95 Room Air 05/31/17 12:31 93 18 128/78 94 Room Air 05/31/17 11:15 96 Room Air 05/31/17 11:08 99 05/31/17 10:45 36.6 103 18 126/79 96 Room Air General Appearance: + mild distress (Patient coughing, eyes watering. Ill appearing. ), + obese Head: normocephalic, atraumatic Eyes: PERRL, EOMI, + abnormal sclerae exam (Injection bilaterally with clear discharge) ENT: pharynx normal, + nasal congestion Neck: supple, no adenopathy, trachea midline Respiratory/Chest: chest non-tender, lungs clear, normal breath sounds, no respiratory distress, no accessory muscle use Cardiovascular: regular rate, rhythm, normal peripheral pulses Abdomen/GI: normal bowel sounds, non tender, soft, no organomegaly Back: normal inspection Extremities/Musculoskelatal: normal inspection, no calf tenderness, normal capillary refill, no pedal edema Neurologic/Psych: alert, normal mood/affect, oriented x 3, + motor weakness (2/ 2 MS. Ambulates by wheelchair but can self transfer via pivot.) Skin: normal color, warm/dry, no rash Diagnostics Laboratory Results Results Past 24 Hours Test 05/31/17 12:00 05/31/17 12:07 05/31/17 12:15 Range/Units White Blood Count 14.14 4.8-10.8 K/uL Red Blood Count 5.72 4.7-6.1 M/uL Hemoglobin 17.0 14.0-18.0 g/dL Hematocrit 48.9 42-52 % Mean Corpuscular Volume 85.5 80-100 fL Mean Corpuscular Hemoglobin 29.7 25-34 pg Mean Corpuscular Hemoglobin Concent 34.8 32-36 g/dl Platelet Count 214 130-400 K/uL Mean Platelet Volume 10.9 7.4-10.4 fL Neutrophils (%) (Auto) 74.5 % Lymphocytes (%) (Auto) 13.0 % Monocytes (%) (Auto) 10.8 % Eosinophils (%) (Auto) 1.1 % Basophils (%) (Auto) 0.2 % Neutrophils # (Auto) 10.53 1.4-6.5 K/uL Lymphocytes # (Auto) 1.84 1.2-3.4 K/uL Monocytes # (Auto) 1.53 0.11-0.59 K/uL Eosinophils # (Auto) 0.16 0-0.5 K/uL Basophils # (Auto) 0.03 0-0.2 K/uL RDW Standard Deviation 43.7 36.4-46.3 fL RDW Coefficient of Variation 14.1 11.5-14.5 % Immature Granulocyte % (Auto) 0.4 % Immature Granulocyte # (Auto) 0.05 0.00-0.02 K/uL Prothrombin Time 17.7 9.0-12.0 SECONDS Prothromb Time International Ratio 1.6 0.9-1.1 Sodium Level 140 136-145 mmol/L Potassium Level 4.0 3.5-5.1 mmol/L Chloride Level 109 98-107 mmol/L Carbon Dioxide Level 27 21-32 mmol/L Anion Gap 4.0 3-11 mmol/L Blood Urea Nitrogen 16 7-18 mg/dl Creatinine 1.00 0.60-1.40 mg/dl Est Creatinine Clear Calc Drug Dose 84.1 ml/min Estimated GFR () 91.8 Estimated GFR (Non- 79.2 BUN/Creatinine Ratio 15.9 10-20 Random Glucose 105 70-99 mg/dl Calcium Level 9.2 8.5-10.1 mg/dl Bedside Troponin I < 0.030 0-0.045 ng/ml Urine Color YELLOW Urine Appearance CLEAR CLEAR Urine pH 5.5 4.5-7.5 Urine Specific [place] 1.024 1.000-1.030 Urine Protein NEG NEG Urine Glucose (UA) NEG NEG Urine Ketones NEG NEG Urine Occult Blood 1+ NEG Urine Nitrite POS NEG Urine Bilirubin NEG NEG Urine Urobilinogen NEG NEG Urine Leukocyte Esterase TRACE NEG Urine WBC (Auto) 1-5 0-5 /hpf Urine RBC (Auto) 0-4 0-4 /hpf Urine Hyaline Casts (Auto) 0 0-5 /lpf Urine Epithelial Cells (Auto) 0-5 0-5 /lpf Urine Bacteria (Auto) 4+ NEG Microbiology Results 05/31/17 Blood Culture, Received Pending 05/31/17 Blood Culture, Received Pending 05/31/17 Urine Culture, Received Pending CXR normal Normal EKG Impression Assessment and Plan Patient is a 66yo M with a PMH of Multiple Sclerosis, HTN, DM II, thyroid cancer (s/p thyroidectomy) and neurogenic bladder with h/o UTIs who presents with progressively worsening generalized weakness starting 1 week ago. UTI, complicated: -Patient with neurogenic bladder -Self caths at home QID -UA with + nitrites, leuks. +urinary symptoms -Started on Ceftriaxone in ED. Will continue abx -Last culture grew e.coli and was pansensitive -Blood and urine cx pending -IVFs -Richardson placed Sepsis: -Technically meets SIRs criteria with HR >90, wbc of 14 and known source of urinary infection -However, leukocytosis could also be 2/2 steroid infusion last week -Does not meet qSofa sepsis criteria -Vitals are stable -Lactate pending Multiple Sclerosis flare: -Significant weakness compared to baseline -Received his monthly solu-medrol infusion last week -Follows with Dr. Jean-Baptiste in clinic -Discussed with Dr. Jean-Baptiste, who will see patient tomorrow -Considering a steroid taper URI: -Productive cough, malaise, nasal congestion -CXR clear, lungs clear -Mucinex PRN, albuterol inhaler PRN -Sputum cx pending -IVFs HTN: -Stable -Continue home meds DM II, controlled: -Hgb a1c of 6.1 in 04/15 -Hold home meds -SSI while in-patient -May need glycemic consult if started on steroids -BG checks AC HS Acquired hypothyroid (s/p thyroidectomy): -H/o papillary thyroid cancer -Continue home dose Synthroid H/o DVT: -Continue home dose warfarin of 0.5mg daily -INR pending JAMES: -Brought CPAP from home to use at night DVT Ppx: On coumadin Code status: FULL PCP: Arsenio Dispo: SW consulted to help with discharge placement. Will likely require rehab once medically stable for discharge. Attending addendum: Agree with the above H&P; please refer to above for more detail. Patient is a 66 yo male who presented to the ER for complaints of malaise since Saturday, and worsening general weakness. He also reports symptoms of URI that have been ongoing for the past week and include nasal congestion, rhinorrhea, productive cough, and red watery eyes. He reports having diarrhea as well and denies any sick contacts or ingestion of any undercooked or unusual foods. He straight caths himself due to neurogenic bladder and has had some dysuria, foul smelling urine, and dark urine the last few days. He is weak/deconditioned and requires more assistance at home with ADLs than he normally required. Cardiac: RR, S1 and S2 auscultated Respiratory: coarse breath sounds cleared by cough, bases slightly diminished, but no wheezes, rales or rhonchi GI: soft, NT, ND, +BS x4 PROBABLE UTI: -UA suggestive of possible UTI -obtain urine culture -IV fluids overnight -start empiric ceftriaxone based on prior urine cultures -does not appear septic but does have tachycardia and mild fever; leaukocytosis is present but could also be related to steroid infusion GENERALIZED WEAKNESS: -likely from illness (UTI and URI) -CXR negative -obtain sputum and stool cultures, check for C diff -PT/OT consult -Neuro consulted although not likely an MS flare given all the other active comorbidities Level of Care Med/Surg Resuscitation Status FULL RESUSCITATION VTE Prophylaxis VTE Risk Assessment Done? Y/N: Yes Risk Level: Moderate Given or contraindicated: Warfarin (Coumadin)
[2017-05-31] MEDS ORDERED: IV FLUIDS COMPLETED PRN (16:30)
[2017-05-31] MEDS: SODIUM CHLORIDE 0.9% 1000ML 1,000 ML IV SCH (18:26)
[2017-05-31] MEDS: WARFARIN SOD 0.5 MG TAB PO SCH (20:21)
[2017-05-31] MEDS: INSULIN ASPART 100 UNITS/ML 3 ML PEN SC SCH ×2 (20:22→20:31)
[2017-05-31] MEDS: AMITRIPTYLINE HCL 25 MG TAB PO SCH (20:24)
[2017-05-31] MEDS: TAMSULOSIN HCL 0.4 MG CAP PO SCH (20:24)
[2017-05-31] MEDS: SERTRALINE HCL 50 MG TAB PO SCH (20:24)
[2017-05-31] MEDS: ATORVASTATIN 10 MG TAB PO SCH (20:25)
[2017-05-31] MEDS: BACLOFEN 10 MG TAB PO SCH (20:25)
[2017-05-31] MEDS: CHOLECALCIFEROL 1000 INTER.UNIT TAB PO SCH (20:26)
[2017-05-31] MEDS: METOPROLOL TARTRATE 25 MG TAB PO SCH (20:28)
[2017-05-31 22:55] VITALS: BP 155/84; PULSE 93; TEMP 37.2; O2SAT 95
[2017-06-01] MEDS: SODIUM CHLORIDE 0.9% 1000ML 1,000 ML IV SCH (05:15)
[2017-06-01 07:23] VITALS: BP 160/103; PULSE 100; TEMP 36.4; O2SAT 93
[2017-06-01 07:39] LABS: HEMATOCRIT 43.5 % (42-52); MEAN CELL VOLUME 85.3 fL (80-100); MEAN CORPUSCULAR HEMOGLOBIN 29.2 pg (25-34); MEAN CORPUSCULAR HGB CONC 34.3 g/dl (32-36); MEAN PLATELET VOLUME 10.8 fL (7.4-10.4); PLATELET COUNT 175 K/uL (130-400); WHITE BLOOD COUNT 10.09 K/uL (4.8-10.8)
[2017-06-01 07:57] LABS: INR 1.7 (0.9-1.1)
[2017-06-01 08:07] LABS: BUN/CREATININE RATIO 13.6 (10-20); CALCIUM 8.3 mg/dl (8.5-10.1); CREATININE 0.94 mg/dl (0.60-1.40); POTASSIUM 3.8 mmol/L (3.5-5.1)
[2017-06-01 08:17] VITALS: BP 128/82; PULSE 91
[2017-06-01] MEDS: CHOLECALCIFEROL 1000 INTER.UNIT TAB PO SCH ×2 (08:17→21:29)
[2017-06-01] MEDS: FLUTICASONE PROPIONATE NA SPR 16 GM BTL NAE SCH (08:17)
[2017-06-01] MEDS: METOPROLOL TARTRATE 25 MG TAB PO SCH ×2 (08:17→21:34)
[2017-06-01] MEDS: FINASTERIDE 5 MG TAB PO SCH (08:17)
[2017-06-01] MEDS: INSULIN ASPART 100 UNITS/ML 3 ML PEN SC SCH ×4 (08:39→21:00)
[2017-06-01] MEDS ORDERED: GUAIFENESIN/CODEINE 100MG/10MG 5ML UDC PO PRN (13:30)
[2017-06-01] MEDS ORDERED: AZITHROMYCIN 250 MG TAB PO ONE (13:45)
[2017-06-01] MEDS: CEFTRIAXONE SOD INJ 1 GM in DEXTROSE 5% ADD-VANTAGE 50ML 50 ML IV SCH (14:14)
[2017-06-01 15:06] VITALS: BP 137/75; PULSE 83; TEMP 37; O2SAT 96
--- NOTE | 2017-06-01 15:49 | Progress Note ---
Internal Med Progress Note Date of Service: Jun 01, 2017. Provider Documentation: SUBJECTIVE: has cough with sputum weakness is slightly better today afebrile no sob or chest pain no nausea OBJECTIVE: Vital Signs-as noted below Exam: General-alert and oriented. Not in distress. ENT-normal hearing Neck-no neck masses Lungs-cta b/l no wheezing or crackles Heart-s1 and s2 heard regular rate and rhythm, no murmurs Abdomen-soft bowel sounds present non tender no distension Extremities no erythema Neuro-alert and oriented moves extremities Lab data as noted below. ASSESSMENT & PLAN: Patient is a 66yo M with a PMH of Multiple Sclerosis, HTN, DM II, thyroid cancer (s/p thyroidectomy) and neurogenic bladder with h/o UTIs who presents with progressively worsening generalized weakness starting 1 week ago. UTI, complicated: Hx of MS hx of neurogenic bladder Self caths at home QID on rocephin urine growing gm negative bacilli await final cx Sepsis: meets SIRs criteria with HR >90, wbc of 14 and known source of urinary infection abx as above stable Multiple Sclerosis flare: Significant weakness compared to baseline Had monthly solu-medrol infusion last week Prednisone taper as per . URI: Sputum cx pending added azithromycin will monitor HTN: Stable on Lopressor will monitor DM II, controlled: Hgb a1c of 6.1 in 04/15 Holding home meds SSI while in-patient will monitor Acquired hypothyroid (s/p thyroidectomy): H/o papillary thyroid cancer To continue home dose Synthroid H/o DVT: Continue home dose warfarin of 0.5mg daily -INR 1.7 today. JAMES: Brought CPAP from home to use at night DVT Ppx: On coumadin Code status: FULL DISPOSITION to be determined Vital Signs: Date Time Temp Pulse Resp B/P (MAP) Pulse Ox O2 Delivery O2 Flow Rate FiO2 06/01/17 15:06 37.0 83 18 137/75 (95) 96 Room Air 06/01/17 08:17 91 128/82 (97) 06/01/17 08:00 Room Air 06/01/17 07:23 36.4 100 20 160/103 (122) 93 Room Air 06/01/17 00:00 CPAP 05/31/17 22:55 37.2 93 20 155/84 (107) 95 Room Air 05/31/17 20:00 Room Air 05/31/17 16:34 88 20 147/79 96 05/31/17 15:47 90 18 141/83 95 Room Air Lab Results: Results Past 24 Hours Test 05/31/17 17:24 05/31/17 17:25 05/31/17 20:26 06/01/17 07:00 Range/Units Lactic Acid Level 1.1 0.4-2.0 mmol/L Bedside Glucose 90 102 70-99 mg/dl White Blood Count 10.09 4.8-10.8 K/uL Red Blood Count 5.10 4.7-6.1 M/uL Hemoglobin 14.9 14.0-18.0 g/dL Hematocrit 43.5 42-52 % Mean Corpuscular Volume 85.3 80-100 fL Mean Corpuscular Hemoglobin 29.2 25-34 pg Mean Corpuscular Hemoglobin Concent 34.3 32-36 g/dl RDW Standard Deviation 44.0 36.4-46.3 fL RDW Coefficient of Variation 14.0 11.5-14.5 % Platelet Count 175 130-400 K/uL Mean Platelet Volume 10.8 7.4-10.4 fL Prothrombin Time 19.0 9.0-12.0 SECONDS Prothromb Time International Ratio 1.7 0.9-1.1 Sodium Level 140 136-145 mmol/L Potassium Level 3.8 3.5-5.1 mmol/L Chloride Level 110 98-107 mmol/L Carbon Dioxide Level 22 21-32 mmol/L Anion Gap 8.0 3-11 mmol/L Blood Urea Nitrogen 13 7-18 mg/dl Creatinine 0.94 0.60-1.40 mg/dl Est Creatinine Clear Calc Drug Dose 89.5 ml/min Estimated GFR () 98.9 Estimated GFR (Non- 85.3 BUN/Creatinine Ratio 13.6 10-20 Random Glucose 99 70-99 mg/dl Calcium Level 8.3 8.5-10.1 mg/dl Test 06/01/17 07:34 06/01/17 11:27 Range/Units Bedside Glucose 98 109 70-99 mg/dl
[2017-06-01] MEDS: WARFARIN SOD 0.5 MG TAB PO SCH (16:48)
--- NOTE | 2017-06-01 17:18 | CONSULTATION REPORT ---
DATE OF CONSULTATION: 06/01/2017 FOR: Dr. Anderson. HISTORY OF PRESENT ILLNESS: Anand is 66 years old, has multiple sclerosis. I have been seeing him now for close to 25 years. He also has hypertension, type 2 diabetes, thyroid cancer now in remission and a neurogenic bladder with history of recurrent urinary tract infections. He has had multiple admissions over the past several years to [facility] for exacerbations of his MS or at least increased weakness, perhaps due to exacerbations of his MS and historically related to urinary tract infections. On most occasions, we have treated him with steroids but have also been able to simply get away with treating the infection. He is now back in with a similar problem, presenting with weakness started about a week ago manifested by a fall, increased weakness of his almost totally paretic left leg and then some low grade fevers, coughs, but no particular urinary tract infection. He was seen in the ER, his urine culture is pending as are some other cultures. He had an elevated white count. He is now on ceftriaxone and states that he is actually a little better this morning. He thinks his right leg is back to his baseline. His left leg has some dorsiflexion function which is unusual in one of these settings and he has no new symptoms in the upper extremities or referable to his cranial nerves. He does have Solu-Medrol injections on a monthly basis because of his thyroid cancer, usually not a candidate for any immunomodulating drugs and was actually on Tysabri and seemingly was doing well for about a year before the thyroid cancer was detected. We now have him on this type of program, is not clear whether this is helping, but certainly not doing any harm. His last injection was actually last Saturday. MEDICAL PROBLEMS: Include a thyroid cancer, hypertension, hyperlipidemia, and multiple sclerosis. SURGICALLY: He has had lymph node dissection, resection of the thyroid. He has had left knee arthroscopy, but otherwise no procedures have been done. FAMILY HISTORY: Positive for MS in his twin sister, but her disease is very minimal and almost asymptomatic. FAMILY HISTORY: Otherwise, family history is noncontributory. SOCIAL HISTORY: Reveals him to be a never smoker. He is and lives with his family. He has been disabled for years. He is not a consumer of ethanol. IMMUNIZATIONS: Up-to-date. There is no history of drug-resistant organisms to date. ALLERGIES: He has allergies to no known medications. MEDICATIONS: His home medications have not changed and included amitriptyline 25 at bedtime; baclofen 10 mg at bedtime, atorvastatin, cholecalciferol, finasteride, fluticasone, levothyroxine, metformin, methylprednisolone, sertraline, tamsulosin and Coumadin for his DVT. P.r.n. medications include clonazepam, meclizine and tramadol. At one point, I thought he was on a fentanyl patch. SYSTEMS REVIEW: Reveals only the malaise and increased weakness for the past week with the watery eyes and a productive cough, but no particular urinary tract issues. He denies any shaking chills and denies any actual fever, although ____ he has not been monitoring this. He has no new complaints, preferably head, eyes, ears, nose and throat, cardiovascular, pulmonary, gastrointestinal, genitourinary, musculoskeletal systems and otherwise neurologically actually he is not as bad as he generally is after ____ his affairs stating that his right leg is normal or nearly normal and his left leg weakness is actually improved from yesterday. PHYSICAL EXAMINATION: VITAL SIGNS: He had a blood pressure 120/84, pulse was 95, respirations were 23, and a low grade temperature 37.6. GENERAL: He did not appear in any acute distress. HEENT: Examination was unremarkable except some nystagmus and some scleral injection. NECK: Supple. No carotid bruits were heard; scars from prior surgical procedures were noted. LUNGS: Clear. HEART: Had a regular rhythm. ABDOMEN: Soft, nontender. EXTREMITIES: Free of edema. NEUROLOGIC: Today, he is awake, alert, oriented in 3 spheres and may be a slight terminal dysarthric speech and there are a few beats of nystagmus and experiences lateral gaze in all directions, but this is baseline for him. I do not see any visual field cuts. Gross visual acuity is unremarkable. Facial sensation is clear and tongue protrudes in the midline. He has good neck flexor strength. There may be some slight clumsiness in the left hand and an equivocal drift on extending the arms and closing eyes and there may be a little bit of cerebellar dysmetria on [id number] testing primarily with the left hand, but otherwise upper extremity function to me looks to be at baseline. Reflexes are a little brisk in the upper extremities and the Lo signs are trace positive. Lower extremities - right leg function to me appears to be baseline. He has pretty good facility of rapid repetitive motions. Strength is reasonably good. Reflexes are a little brisk and toe signs ____ On the left, he has intact dorsiflexion and plantar flexion, although weak and the facility of movements has actually been reasonably good. He does have some proximal weakness, the reflexes are a little brisk in that side, the ankle jerks actually down. Toe sign is up. Sensory examination reveals some minor vibratory loss over the distal lower extremities in a symmetrical fashion. IMPRESSION AND PLAN: Currently, Anand seems to be responding to IV ceftriaxone. The source of infection is not clear as yet. He had upper respiratory symptoms but my suspicion would continue to be the bladder. He may have had a viral upper respiratory tract infection and a urinary tract infection at the same time. Whatever the case, he seems to be improved. I will hold off on the steroids at this point unless we really need them. I prefer to keep this man on a least amount of immunosuppressives as I can and frankly this type of presentation is rarely if ever a true flare of his MS, but rather a pseudo flare related to the stressors of the toxic or metabolic factors that have produced a systemic illness. I am going to check back on him late tomorrow afternoon and at that point we will make recommendations regarding steroids are no steroids. He may well need a short stay at [facility] as this often is the case after one of these affairs. Perhaps, will have a better idea what the organisms that caused this infectious process may be by then. JADE
[2017-06-01] MEDS: BACLOFEN 10 MG TAB PO SCH (21:29)
[2017-06-01] MEDS: TAMSULOSIN HCL 0.4 MG CAP PO SCH (21:29)
[2017-06-01] MEDS: AMITRIPTYLINE HCL 25 MG TAB PO SCH (21:29)
[2017-06-01] MEDS: ATORVASTATIN 10 MG TAB PO SCH (21:29)
[2017-06-01] MEDS: SERTRALINE HCL 50 MG TAB PO SCH (21:30)
[2017-06-02 00:20] VITALS: BP 137/81; PULSE 76; TEMP 36.8; O2SAT 94
[2017-06-02] MEDS: INSULIN ASPART 100 UNITS/ML 3 ML PEN SC SCH ×4 (06:30→21:00)
[2017-06-02] MEDS ORDERED: LEVOTHYROXINE 175 MCG TAB PO SCH (06:30)
[2017-06-02 07:40] VITALS: BP 123/75; PULSE 91; TEMP 36.8; O2SAT 92
[2017-06-02] MEDS: METOPROLOL TARTRATE 25 MG TAB PO SCH ×2 (07:46→21:14)
[2017-06-02] MEDS: AZITHROMYCIN 250 MG TAB PO SCH (07:46)
[2017-06-02] MEDS: FINASTERIDE 5 MG TAB PO SCH (07:46)
[2017-06-02] MEDS: CHOLECALCIFEROL 1000 INTER.UNIT TAB PO SCH ×2 (07:47→21:14)
[2017-06-02] MEDS: FLUTICASONE PROPIONATE NA SPR 16 GM BTL NAE SCH (07:47)
[2017-06-02] MEDS ORDERED: NURSING DECISION MEDICATION ORDER SCH (10:30)
[2017-06-02] MEDS ORDERED: ARTIFICIAL TEARS OP SOLN OPB PRN ×2 (10:30)
[2017-06-02] MEDS: CEFTRIAXONE SOD INJ 1 GM in DEXTROSE 5% ADD-VANTAGE 50ML 50 ML IV SCH (14:09)
[2017-06-02 15:45] VITALS: BP 130/83; PULSE 71; TEMP 36.5; O2SAT 95
[2017-06-02 16:00] VITALS: O2SAT 95
[2017-06-02] MEDS: WARFARIN SOD 0.5 MG TAB PO SCH (16:33)
--- NOTE | 2017-06-02 17:12 | Progress Note ---
Internal Med Progress Note Date of Service: Jun 02, 2017. Provider Documentation: SUBJECTIVE: still has cough but some what better no sob weakness improving no sob or chest pain OBJECTIVE: Vital Signs-as noted below Exam: General-alert and oriented. Not in distress. ENT-normal hearing Neck-no neck masses Lungs-cta b/l no wheezing or crackles Heart-s1 and s2 heard regular rate and rhythm, no murmurs Abdomen-soft bowel sounds present non tender no distension Extremities no erythema Neuro-alert and oriented moves extremities Lab data as noted below. ASSESSMENT & PLAN: Patient is a 66yo M with a PMH of Multiple Sclerosis, HTN, DM II, thyroid cancer (s/p thyroidectomy) and neurogenic bladder with h/o UTIs who presents with progressively worsening generalized weakness starting 1 week ago. UTI, complicated: Hx of MS hx of neurogenic bladder Self caths at home QID on Rocephin#2 urine growing Enterobacter rossi sensitive to complete one week of abx Sepsis: meets SIRs criteria with HR >90, wbc of 14 and known source of urinary infection abx as above stable Multiple Sclerosis flare: Significant weakness compared to baseline Had monthly solu-medrol infusion last week No plan for Prednisone now as per . weakness improving pt/ot may need rehab URI: Sputum cx unremarkable added azithromycin - will complete 5 day course will monitor HTN: Stable on Lopressor will monitor DM II, controlled: Hgb a1c of 6.1 in 04/15 Holding home meds SSI while in-patient will monitor Acquired hypothyroid (s/p thyroidectomy): H/o papillary thyroid cancer To continue home dose Synthroid H/o DVT: Continue home dose warfarin of 0.5mg daily -INR 1.7 JAMES: Brought CPAP from home to use at night DVT Ppx: On coumadin Code status: FULL DISPOSITION pt/ot social service for d/c planning may need placement Vital Signs: Date Time Temp Pulse Resp B/P (MAP) Pulse Ox O2 Delivery O2 Flow Rate FiO2 06/02/17 15:45 36.5 71 18 130/83 (99) 95 Room Air 06/02/17 08:00 Room Air 06/02/17 07:40 36.8 91 18 123/75 (91) 92 Room Air 06/02/17 00:20 36.8 76 20 137/81 (99) 94 Room Air 06/02/17 00:00 Room Air 06/01/17 20:00 Room Air 06/01/17 17:30 Room Air Lab Results: Results Past 24 Hours Test 06/01/17 20:47 06/02/17 07:22 06/02/17 11:28 06/02/17 15:58 Range/Units Bedside Glucose 96 88 106 87 70-99 mg/dl Microbiology Results 06/01/17 Gram Stain - Final, Resulted 06/01/17 Sputum Culture - Preliminary, Resulted MODERATE NORMAL WILL Present, Final ...
--- NOTE | 2017-06-02 20:05 | PROGRESS NOTE ---
DATE: 06/02/2017 SUBJECTIVE: Anand looks great today. He feels he is back to his baseline and certainly by my exam, his right leg is working as well as it usually does and his left leg is also. There is nothing new in the upper extremities other than a mild drift to the left upper extremity. His speech is pretty clear with some dysarthria and still has some nystagmus, he has had this chronically. At this point, I do not think we are justified in treating him with steroids. The treatment with the antibiotics seems to have brought him around. Wait and see what eventually grows out culture laboy and if he is doing this well, he may well be able to go home rather than to [facility], but will need physical therapy to do an assessment of his status. In light of the fact that it is a holiday weekend, I do not think this will happen until Saturday. I will check back with him, but for now again from a neurologic point of view, I do not think we need to treat this weakness with steroids as it was probably due to toxic infectious process and now with appropriate treatment seems to be resolving. JADE
[2017-06-02 21:09] VITALS: BP 143/82; PULSE 79
[2017-06-02] MEDS: ATORVASTATIN 10 MG TAB PO SCH (21:13)
[2017-06-02] MEDS: AMITRIPTYLINE HCL 25 MG TAB PO SCH (21:13)
[2017-06-02] MEDS: TAMSULOSIN HCL 0.4 MG CAP PO SCH (21:14)
[2017-06-02] MEDS: BACLOFEN 10 MG TAB PO SCH (21:14)
[2017-06-02] MEDS: SERTRALINE HCL 50 MG TAB PO SCH (21:14)
[2017-06-02 23:47] VITALS: BP 131/81; PULSE 73; TEMP 36.6; O2SAT 95
[2017-06-03] MEDS: LEVOTHYROXINE 175 MCG TAB PO SCH (06:02)
[2017-06-03 06:36] LABS: INR 1.4 (0.9-1.1); PROTHROMBIN TIME (PATIENT) 15.1 SECONDS (9.0-12.0)
[2017-06-03 07:22] VITALS: BP 132/76; PULSE 75; TEMP 36.7; O2SAT 94
[2017-06-03] MEDS: CHOLECALCIFEROL 1000 INTER.UNIT TAB PO SCH ×2 (07:59→20:48)
[2017-06-03] MEDS: FLUTICASONE PROPIONATE NA SPR 16 GM BTL NAE SCH (07:59)
[2017-06-03] MEDS: FINASTERIDE 5 MG TAB PO SCH (08:00)
[2017-06-03] MEDS: METOPROLOL TARTRATE 25 MG TAB PO SCH ×2 (08:00→20:47)
[2017-06-03] MEDS: AZITHROMYCIN 250 MG TAB PO SCH (08:01)
[2017-06-03] MEDS: INSULIN ASPART 100 UNITS/ML 3 ML PEN SC SCH ×4 (08:07→20:48)
--- NOTE | 2017-06-03 14:01 | Progress Note ---
Internal Med Progress Note Date of Service: Jun 03, 2017. Provider Documentation: SUBJECTIVE: The patient was seen and examined Feels a little better today Denies any abdominal pain,nausea and or vomiting No CP,SOB or palpitation OBJECTIVE: Vital Signs-as noted below Exam: General-no distress at rest Eyes-normal ENT-normal Neck-supple Lungs-clear to ausucltate bilaterally Heart-Regular,no murmur Abdomen-Benign,no masses,bowel sound present Extremities-Trace edema bilaterally Neuro-AAOx3 Lab data as noted below. ASSESSMENT & PLAN: Patient is a 66yo M with a PMH of Multiple Sclerosis, HTN, DM II, thyroid cancer (s/p thyroidectomy) and neurogenic bladder with h/o UTIs who presents with progressively worsening generalized weakness starting 1 week ago. Complicated UTI Hx of MS with Neurogenic Bladder, with intermittent self catheter use at home Has been on Rocephin#3 Urine growing Enterobacter rossi sensitive Will continue current IV antibiotic Can be transformed to Keflex on discharge SEPSIS -met SIRs criteria with HR >90, wbc of 14 and known source of urinary infection -WCC improving -clinically improving Multiple Sclerosis :Doubt any Flare Deterioration of the current condition is due to infection Significant weakness compared to baseline Had monthly solu-medrol infusion last week No plan for Prednisone now as per . PT /OT Likely to need Rehab URI: Sputum cx unremarkable added azithromycin - will complete 5 day course No more symptoms HTN: Stable on Lopressor will monitor DM II, controlled: Hgb a1c of 6.1 in 04/15 Holding home meds SSI while in-patient Acquired hypothyroid (s/p thyroidectomy): H/o papillary thyroid cancer To continue home dose Synthroid H/o DVT: Continue home dose warfarin of 0.5mg daily -INR 1.4 on 06/03/17 -will give increasing dose of Coumadin JAMES: Brought CPAP from home to use at night DVT Ppx: On coumadin Code status: FULL DISPOSITION pt/ot social service for d/c planning may need placement Vital Signs: Date Time Temp Pulse Resp B/P (MAP) Pulse Ox O2 Delivery O2 Flow Rate FiO2 06/03/17 08:00 Room Air 06/03/17 07:22 36.7 75 18 132/76 (94) 94 Room Air 06/03/17 00:00 Room Air 06/02/17 23:47 36.6 73 20 131/81 (98) 95 CPAP 06/02/17 21:09 79 143/82 (102) 06/02/17 20:00 Room Air 06/02/17 16:00 95 Room Air 06/02/17 15:45 36.5 71 18 130/83 (99) 95 Room Air Lab Results: Results Past 24 Hours Test 06/02/17 15:58 06/02/17 20:30 06/03/17 05:42 06/03/17 07:34 Range/Units Bedside Glucose 87 97 90 70-99 mg/dl Prothrombin Time 15.1 9.0-12.0 SECONDS Prothromb Time International Ratio 1.4 0.9-1.1 Test 06/03/17 11:14 Range/Units Bedside Glucose 84 70-99 mg/dl
[2017-06-03] MEDS: CEFTRIAXONE SOD INJ 1 GM in DEXTROSE 5% ADD-VANTAGE 50ML 50 ML IV SCH (14:36)
[2017-06-03 15:06] VITALS: BP 131/79; PULSE 70; TEMP 36.8; O2SAT 92
[2017-06-03] MEDS ORDERED: WARFARIN SOD 1 MG TAB PO SCH (16:00)
--- NOTE | 2017-06-03 17:25 | PROGRESS NOTE ---
DATE: 06/03/2017 SUBJECTIVE: Anand looks to me to be at his baseline today and he agrees. Apparently, therapy has seen him and they think he possibly could to go home, but I think the family would like him to go to [facility] for another week or two just receiving to get a little stronger. He is currently going to be on a course of azithromycin. His urinary cultures have grown out some organisms that were sensitive. I think Dr. Coleman is planning a 5-7 day course. Today on exam, Anand is awake, alert and oriented. He has a little nystagmus. Speech is perhaps mildly slurred. He has a little clumsiness of the left hand. He has got significant weakness in the left leg, but this is his baseline and the right leg strength and the right arm strength according to him and to my observation experience with him are back to the baseline, although they are mildly weak due to his MS. We will see how things play out, but I suspect he will be going to [facility]. I will check with him tomorrow. MTDD
[2017-06-03] MEDS: AMITRIPTYLINE HCL 25 MG TAB PO SCH (20:46)
[2017-06-03] MEDS: TAMSULOSIN HCL 0.4 MG CAP PO SCH (20:46)
[2017-06-03] MEDS: ATORVASTATIN 10 MG TAB PO SCH (20:47)
[2017-06-03] MEDS: BACLOFEN 10 MG TAB PO SCH (20:47)
[2017-06-03] MEDS: SERTRALINE HCL 50 MG TAB PO SCH (20:48)
[2017-06-03 23:58] VITALS: BP_SYST 106; BP_SYST 117; BP_DIAS 53; BP_DIAS 75; PULSE 96; TEMP 36.3; O2SAT 92
[2017-06-04] MEDS: LEVOTHYROXINE 175 MCG TAB PO SCH (05:30)
[2017-06-04 05:44] LABS: HEMATOCRIT 44.7 % (42-52); MEAN CELL VOLUME 83.9 fL (80-100); MEAN CORPUSCULAR HEMOGLOBIN 29.1 pg (25-34); MEAN CORPUSCULAR HGB CONC 34.7 g/dl (32-36); MEAN PLATELET VOLUME 10.6 fL (7.4-10.4); PLATELET COUNT 205 K/uL (130-400); RED BLOOD COUNT 5.33 M/uL (4.7-6.1); WHITE BLOOD COUNT 8.62 K/uL (4.8-10.8)
[2017-06-04 05:53] LABS: INR 1.3 (0.9-1.1); PROTHROMBIN TIME (PATIENT) 14.1 SECONDS (9.0-12.0)
[2017-06-04 06:14] LABS: BUN/CREATININE RATIO 11.8 (10-20); CREATININE 1.1 mg/dl (0.60-1.40); MAGNESIUM 2.5 mg/dl (1.8-2.4); PHOSPHORUS 2.9 mg/dl (2.5-4.9); POTASSIUM 3.8 mmol/L (3.5-5.1)
[2017-06-04 06:55] VITALS: BP 142/84; PULSE 71; TEMP 36.6; O2SAT 96
--- NOTE | 2017-06-04 07:31 | Clinical Documentation Query ---
CLINICAL DOCUMENTATION QUERY 66yo M with a PMH of Multiple Sclerosis, HTN, DM II, thyroid cancer (s/p thyroidectomy) and neurogenic bladder with h/o UTIs who presents with progressively worsening generalized weakness starting 1 week ago. In your clinical opinion is this patient being managed for: ( + ) UTI d/t poor self-cath technique ( ) Not Agree ( ) Other explanation of clinical findings (Please Explain) ( ) Unable to determine (Please Define) ( ) Need to Discuss UTI due to self-catheterization secondary to Neurogenic bladder The medical record reflects the following clinical findings, treatment, and risk factors. Clinical Indicators: neurogenic bladder w/ self-catheterizations, immobile, MS, frequent UTI's Treatment: antibiotic therapy, I&O monitor IV therapy Risk Factors: Age, MS, neurogenic bladder, self-catheterizations, immobility Please clarify and document your clinical opinion in the progress notes and discharge summary. Terms such as "probable", "suspected", "likely", "questionable", "possible", or "still to be ruled out" are acceptable. IF IN AGREEMENT, YOU MUST DOCUMENT ABOVE DIAGNOSTIC STATEMENT IN DAILY PROGRESS NOTES AND DISCHARGE SUMMARY. This document is not part of the patient's record. Thank You, Cecilia Shelby RN [phone]
[2017-06-04] MEDS: FINASTERIDE 5 MG TAB PO SCH (08:35)
[2017-06-04] MEDS: METOPROLOL TARTRATE 25 MG TAB PO SCH (08:36)
[2017-06-04] MEDS: AZITHROMYCIN 250 MG TAB PO SCH (08:36)
[2017-06-04] MEDS: CHOLECALCIFEROL 1000 INTER.UNIT TAB PO SCH (08:37)
[2017-06-04] MEDS: FLUTICASONE PROPIONATE NA SPR 16 GM BTL NAE SCH (08:38)
[2017-06-04] MEDS: INSULIN ASPART 100 UNITS/ML 3 ML PEN SC SCH ×2 (08:42→12:32)
--- NOTE | 2017-06-04 11:29 | Progress Note ---
Internal Med Progress Note Date of Service: Jun 04, 2017. Provider Documentation: SUBJECTIVE: The patient was seen and examined Much better today Denies any new symptoms OBJECTIVE: Vital Signs-as noted below Exam: General-no distress at rest Eyes-normal ENT-normal Neck-supple Lungs-clear to ausucltate bilaterally Heart-Regular,no murmur Abdomen-Benign,no masses,bowel sound present Extremities-Trace edema bilaterally Neuro-AAOx3 Lab data as noted below. ASSESSMENT & PLAN: Patient is a 66yo M with a PMH of Multiple Sclerosis, HTN, DM II, thyroid cancer (s/p thyroidectomy) and neurogenic bladder with h/o UTIs who presents with progressively worsening generalized weakness starting 1 week ago. Complicated UTI Hx of MS with Neurogenic Bladder, with intermittent self catheter use at home Has been on Rocephin#5 Urine growing Enterobacter rossi sensitive Will continue current IV antibiotic Will changed to oral Keflex on discharge to [facility] SEPSIS -met SIRs criteria with HR >90, wbc of 14 and known source of urinary infection -WCC normalized -clinically improved Multiple Sclerosis :Doubt any Flare Deterioration of the current condition is due to infection Significant weakness compared to baseline Had monthly solu-medrol infusion last week No plan for Prednisone now as per . PT /OT Likely to need Rehab Will go to rehab at [facility] URI: Sputum cx unremarkable added azithromycin - will complete 5 day course No more symptoms Discontinue Azithromycin today HTN: Stable on Lopressor will monitor DM II, controlled: Hgb a1c of 6.1 in 04/15 Holding home meds SSI while in-patient Acquired hypothyroid (s/p thyroidectomy): H/o papillary thyroid cancer To continue home dose Synthroid H/o DVT: Continue home dose warfarin of 0.5mg daily -INR 1.4 on 06/03/17 -will give increasing dose of Coumadin -INR 1.3 today : -will need increasing dose of Coumadin for the next day or two -Patient is reasonably active and getting Physical Therapy. -Will not give any additional Anticoagulation now JAMES: Brought CPAP from home to use at night DVT Ppx: On Coumadin Code status: FULL DISPOSITION pt/ot social service for d/c planning Discharge to today Vital Signs: Date Time Temp Pulse Resp B/P (MAP) Pulse Ox O2 Delivery O2 Flow Rate FiO2 06/04/17 08:00 Room Air 06/04/17 06:55 36.6 71 18 142/84 (103) 96 Room Air 06/04/17 00:00 Room Air 06/03/17 23:58 36.3 96 18 117/75 (89) 92 BiPAP 06/03/17 16:00 Room Air 06/03/17 15:06 36.8 70 20 131/79 (96) 92 Room Air Lab Results: Results Past 24 Hours Test 06/03/17 16:09 06/03/17 19:40 06/04/17 05:21 06/04/17 07:19 Range/Units Bedside Glucose 109 98 95 70-99 mg/dl White Blood Count 8.62 4.8-10.8 K/uL Red Blood Count 5.33 4.7-6.1 M/uL Hemoglobin 15.5 14.0-18.0 g/dL Hematocrit 44.7 42-52 % Mean Corpuscular Volume 83.9 80-100 fL Mean Corpuscular Hemoglobin 29.1 25-34 pg Mean Corpuscular Hemoglobin Concent 34.7 32-36 g/dl RDW Standard Deviation 40.9 36.4-46.3 fL RDW Coefficient of Variation 13.4 11.5-14.5 % Platelet Count 205 130-400 K/uL Mean Platelet Volume 10.6 7.4-10.4 fL Prothrombin Time 14.1 9.0-12.0 SECONDS Prothromb Time International Ratio 1.3 0.9-1.1 Sodium Level 143 136-145 mmol/L Potassium Level 3.8 3.5-5.1 mmol/L Chloride Level 110 98-107 mmol/L Carbon Dioxide Level 26 21-32 mmol/L Anion Gap 7.0 3-11 mmol/L Blood Urea Nitrogen 13 7-18 mg/dl Creatinine 1.10 0.60-1.40 mg/dl Est Creatinine Clear Calc Drug Dose 76.5 ml/min Estimated GFR () 81.8 Estimated GFR (Non- 70.6 BUN/Creatinine Ratio 11.8 10-20 Random Glucose 98 70-99 mg/dl Calcium Level 9.0 8.5-10.1 mg/dl Phosphorus Level 2.9 2.5-4.9 mg/dl Magnesium Level 2.5 1.8-2.4 mg/dl
[2017-06-04] MEDS ORDERED: CEPHALEXIN MONOHYDRATE 500 MG CAP PO ONE (11:33)
[2017-06-04] MEDS ORDERED: ENOXAPARIN 40 MG/0.4 ML SYR SQ ONE (13:00)
[2017-06-04] MEDS ORDERED: KFL500 PO (13:12)
[2017-06-04] MEDS ORDERED: LCTX PO (13:12)
[2017-06-04] MEDS ORDERED: ENOX40IN SQ (13:12)
--- NOTE | 2017-06-04 13:16 | Discharge Instructions ---
Discharge Instructions Date of Service Jun 04, 2017. Admission Reason for Admission: Multiple Sclerosis Exacerbation, Uti Discharge Discharge Diagnosis / Problem: UTI-Recurrent ,Neurogenic [place],MS Discharge Goals Goal(s): Prevent Disease Progression Activity Recommendations Activity Level: Assistance Required Therapies: Physical Therapy, Occupational Therapy . Additional Information Patient informed of condition: Yes Advance Directives: No DNR: No Level of Care: Skilled Communicable Disease: No Prognosis: Stable Oxygen at (LPM): 2 liters /min via NC as needed Richardson Catheter: Yes (Can be discontinued in a few days.Uses seft catheterx3 daily) Instructions / Follow-Up Instructions / Follow-Up Please make an appointment with your PCP in 1 week.Please check INR in a day or two and adjust the dose of Coumadin and Discontinue Lovenox when appropriate. Current Hospital Diet Patient's current hospital diet: Diabetes Type 2 Diet, Low Sodium Diet (2gm Na) Discharge Diet Recommended Diet: Low Sodium Diet (2gm Na), Diabetes Type 2 Diet Pending Studies Studies pending at discharge: no Medical Emergencies . Who to Call and When: Medical Emergencies: If at any time you feel your situation is an emergency, please call 911 immediately. . Non-Emergent Contact Non-Emergency issues call your: Primary Care Provider . Past History Medical & Surgical History: (1) MS (multiple sclerosis) (2) HTN (hypertension) (3) Deep vein blood clot of left lower extremity (4) Hypothyroidism (5) DM type 2 (diabetes mellitus, type 2) (6) JAMES on CPAP (7) UTI (urinary tract infection) (8) H/O thyroidectomy (9) S/P left knee arthroscopy (10) H/O cystoscopy . "Provider Documentation" section prepared by Félix Coleman. . Core Measure Problem Core Measures: None
[2017-06-04] MEDS: CEFTRIAXONE SOD INJ 1 GM in DEXTROSE 5% ADD-VANTAGE 50ML 50 ML IV SCH (13:30)
[2017-06-04] MEDS ORDERED: CEPHALEXIN MONOHYDRATE 500 MG CAP PO SCH (14:00)
[2017-06-04 14:07] VITALS: BP 142/84; PULSE 71; TEMP 36.6; O2SAT 96
--- NOTE | 2017-06-04 18:03 | Discharge Summary ---
Discharge Summary Date of Service Jun 04, 2017. Discharge Summary Admission Date: May 31, 2017 at 16:22 Discharge Date: Jun 04, 2017 Discharge Disposition: [facility] facility Principal Diagnosis: UTI-Recurrent ,Neurogenic Bladder,MS Secondary Diagnoses/Problems: Please see HP and Hospital Progress note Consultations: Neurology Medication Reconciliation New Medications: Enoxaparin (Lovenox) 40 Mg/0.4 Ml Inj 0.4 ML SQ DAILY for 5 Days, #5 SYR Stop when INR >2.0 Lactobacillus Acidophilus (Lactinex) Tab 2 TAB PO BID, #30 TAB Cephalexin Monohydrate (Cephalexin) 500 Mg Cap 500 MG PO TID for 5 Days, #15 CAP Continued Medications: Amitriptyline HCl (Amitriptyline HCl) 25 Mg Tab 25 MG PO HS Atorvastatin (Lipitor) 10 Mg Tab 10 MG PO QPM, TAB Baclofen (Lioresal) 10 Mg Tab 10 MG PO HS for 30 Days Cholecalciferol (Vitamin D) 1,000 Unit Tab 1000 INTER.UNIT PO BID Clonazepam (Clonazepam) 0.5 Mg Tab 1 TAB PO TID PRN for Anxiety/Agitation Finasteride (Proscar) 5 Mg Tab 5 MG PO DAILY, TAB Fluticasone Propionate (Nasal) (Flonase Allergy Relief) 50 Mcg/Act Spr 2 SPRAYS XIMENA DAILY Levothyroxine Sodium (Levothyroxine Sodium) 175 Mcg Tab 1 TAB PO DAILY for 30 Days, #30 TAB 5 Refills Meclizine Hcl (Meclizine Hcl) 25 Mg Tab 12.5 MG PO TID PRN for vertigo TAKE UP TO 3 TIMES DAILY NEEDED FOR DIZZINESS Metformin HCl (Metformin HCl) 500 Mg Tab 500 MG PO BID Methylprednisolone Sod Succ (Solu-Medrol) 1,000 Mg Inj 1000 MG IV MONTHLY Metoprolol Tartrate (Lopressor) 25 Mg Tab 12.5 MG PO BID, #30 TAB Sertraline (Zoloft) 50 Mg Tab 50 MG PO DAILY, TAB Tamsulosin Hcl (Flomax) 0.4 Mg Cap 0.4 MG PO QPM Tramadol Hcl (Ultram) 50 Mg Tab 50 MG PO Q6 PRN for Pain PRN PAIN Warfarin Sodium (Warfarin Sodium) 1 Mg Tab 2.5 TAB PO DAILY for 90 Days, #225 TAB Dose accordingly to keep INR between 2 to 3. Admission Information HPI (per Admitting provider): Patient is a 66yo M with a PMH of Multiple Sclerosis, HTN, DM II, thyroid cancer (s/p thyroidectomy) and neurogenic bladder with h/o UTIs who presents with progressively worsening generalized weakness starting 1 week ago. Two days ago, patient fell while attempting to transfer from chair to bed. States that he became weak while standing and slumped down onto the floor. Denies any LOC or hitting his head. At baseline, patient ambulates by mechanical chair and is able to transfer from chair to bed on his own. Over the past 2 days, however , patient has required help transferring from both his daughter and . Went to see PCP today and was advised to come to ED for further evaluation. Over the past week, patient has had a productive cough with green/villavicencio sputum, watery eyes, nasal congestion, malaise and diarrhea. Has not been taking any OTC medications for these symptoms. Also endorses cloudy, dark urine with an odor over the past few days. Self catheterizes 4 times a day 2/2 neurogenic bladder. Has a history of UTIs that have required IV antibiotics and also seem to trigger an MS flare. Most recent admission was in November of this year. Denies fever, chills, confusion, visual changes, headache, rhinorrhea, sore throat, CP, SOB, nausea, vomiting, abd pain or LE swelling. Of note, patient receives monthly solu-medrol infusions for MS, with his most recent infusion 1 week ago. Past Medical/Surgical History Medical Problems: (1) cevical lymphnodectomy Status: Chronic (2) Chronic anticoagulation Status: Chronic (3) Deep vein blood clot of left lower extremity Status: Chronic (4) Depression Status: Chronic (5) HLD (hyperlipidemia) Status: Chronic (6) HTN (hypertension) Status: Chronic (7) Hypothyroidism Status: Chronic (8) MS (multiple sclerosis) Status: Chronic (9) Neurogenic bladder Status: Chronic (10) Papillary thyroid carcinoma Status: Chronic Surgical Problems: (1) H/O cystoscopy Status: Chronic (2) H/O thyroidectomy Status: Chronic (3) S/P left knee arthroscopy Status: Chronic Family History FH: breast cancer MOTHER Heart disease FATHER Social History Smoking Status: Never Smoker Marital Status: Housing status: lives with family Occupational Status: disabled Immunizations History of Tetanus Vaccine?: Yes Tetanus Immunization Date: Sep 02, 2008 History of Pneumococcal: No Multi-Drug Resistant Organisms History of MDRO: No Allergies Coded Allergies: No Known Allergies (Verified , 01/02/17) Home Medications Scheduled Amitriptyline HCl (Amitriptyline HCl), 25 MG PO HS Atorvastatin (Lipitor), 10 MG PO QPM Baclofen (Lioresal), 10 MG PO HS Cholecalciferol (Vitamin D), 1,000 INTER.UNIT PO BID Finasteride (Proscar), 5 MG PO DAILY Fluticasone Propionate (Nasal) (Flonase Allergy Relief), 2 SPRAYS XIMENA DAILY Levothyroxine Sodium (Levothyroxine Sodium), 1 TAB PO DAILY Metformin HCl (Metformin HCl), 500 MG PO BID Methylprednisolone Sod Succ (Solu-Medrol), 1,000 MG IV MONTHLY Metoprolol Tartrate (Lopressor), 12.5 MG PO BID Sertraline (Zoloft), 50 MG PO DAILY Tamsulosin Hcl (Flomax), 0.4 MG PO QPM Warfarin Sodium (Warfarin Sodium), 0.5 TAB PO DAILY Scheduled PRN Clonazepam (Clonazepam), 1 TAB PO TID PRN for Anxiety/Agitation Meclizine Hcl (Meclizine Hcl), 12.5 MG PO TID PRN for vertigo Tramadol Hcl (Ultram), 50 MG PO Q6 PRN for Pain Review of Systems Ten systems reviewed and negative except as noted in the HPI. Physical Ex - H&P Physical Exam Vital Signs Date Time Temp Pulse Resp B/P (MAP) Pulse Ox O2 Delivery O2 Flow Rate FiO2 05/31/17 13:40 92 05/31/17 13:37 37.6 95 23 128/84 95 Room Air 05/31/17 12:31 93 18 128/78 94 Room Air 05/31/17 11:15 96 Room Air 05/31/17 11:08 99 05/31/17 10:45 36.6 103 18 126/79 96 Room Air General Appearance: + mild distress (Patient coughing, eyes watering. Ill appearing. ), + obese Head: normocephalic, atraumatic Eyes: PERRL, EOMI, + abnormal sclerae exam (Injection bilaterally with clear discharge) ENT: pharynx normal, + nasal congestion Neck: supple, no adenopathy, trachea midline Respiratory/Chest: chest non-tender, lungs clear, normal breath sounds, no respiratory distress, no accessory muscle use Cardiovascular: regular rate, rhythm, normal peripheral pulses Abdomen/GI: normal bowel sounds, non tender, soft, no organomegaly Back: normal inspection Extremities/Musculoskelatal: normal inspection, no calf tenderness, normal capillary refill, no pedal edema Neurologic/Psych: alert, normal mood/affect, oriented x 3, + motor weakness (2/ 2 MS. Ambulates by wheelchair but can self transfer via pivot.) Skin: normal color, warm/dry, no rash Diagnostics - H&P Diagnostics Laboratory Results Results Past 24 Hours Test 05/31/17 12:00 05/31/17 12:07 05/31/17 12:15 Range/Units White Blood Count 14.14 4.8-10.8 K/uL Red Blood Count 5.72 4.7-6.1 M/uL Hemoglobin 17.0 14.0-18.0 g/dL Hematocrit 48.9 42-52 % Mean Corpuscular Volume 85.5 80-100 fL Mean Corpuscular Hemoglobin 29.7 25-34 pg Mean Corpuscular Hemoglobin Concent 34.8 32-36 g/dl Platelet Count 214 130-400 K/uL Mean Platelet Volume 10.9 7.4-10.4 fL Neutrophils (%) (Auto) 74.5 % Lymphocytes (%) (Auto) 13.0 % Monocytes (%) (Auto) 10.8 % Eosinophils (%) (Auto) 1.1 % Basophils (%) (Auto) 0.2 % Neutrophils # (Auto) 10.53 1.4-6.5 K/uL Lymphocytes # (Auto) 1.84 1.2-3.4 K/uL Monocytes # (Auto) 1.53 0.11-0.59 K/uL Eosinophils # (Auto) 0.16 0-0.5 K/uL Basophils # (Auto) 0.03 0-0.2 K/uL RDW Standard Deviation 43.7 36.4-46.3 fL RDW Coefficient of Variation 14.1 11.5-14.5 % Immature Granulocyte % (Auto) 0.4 % Immature Granulocyte # (Auto) 0.05 0.00-0.02 K/uL Prothrombin Time 17.7 9.0-12.0 SECONDS Prothromb Time International Ratio 1.6 0.9-1.1 Sodium Level 140 136-145 mmol/L Potassium Level 4.0 3.5-5.1 mmol/L Chloride Level 109 98-107 mmol/L Carbon Dioxide Level 27 21-32 mmol/L Anion Gap 4.0 3-11 mmol/L Blood Urea Nitrogen 16 7-18 mg/dl Creatinine 1.00 0.60-1.40 mg/dl Est Creatinine Clear Calc Drug Dose 84.1 ml/min Estimated GFR () 91.8 Estimated GFR (Non- 79.2 BUN/Creatinine Ratio 15.9 10-20 Random Glucose 105 70-99 mg/dl Calcium Level 9.2 8.5-10.1 mg/dl Bedside Troponin I < 0.030 0-0.045 ng/ml Urine Color YELLOW Urine Appearance CLEAR CLEAR Urine pH 5.5 4.5-7.5 Urine Specific [place] 1.024 1.000-1.030 Urine Protein NEG NEG Urine Glucose (UA) NEG NEG Urine Ketones NEG NEG Urine Occult Blood 1+ NEG Urine Nitrite POS NEG Urine Bilirubin NEG NEG Urine Urobilinogen NEG NEG Urine Leukocyte Esterase TRACE NEG Urine WBC (Auto) 1-5 0-5 /hpf Urine RBC (Auto) 0-4 0-4 /hpf Urine Hyaline Casts (Auto) 0 0-5 /lpf Urine Epithelial Cells (Auto) 0-5 0-5 /lpf Urine Bacteria (Auto) 4+ NEG Microbiology Results 05/31/17 Blood Culture, Received Pending 05/31/17 Blood Culture, Received Pending 05/31/17 Urine Culture, Received Pending CXR normal Normal EKG Impression - H&P Impression Assessment and Plan Patient is a 66yo M with a PMH of Multiple Sclerosis, HTN, DM II, thyroid cancer (s/p thyroidectomy) and neurogenic bladder with h/o UTIs who presents with progressively worsening generalized weakness starting 1 week ago. UTI, complicated: -Patient with neurogenic bladder -Self caths at home QID -UA with + nitrites, leuks. +urinary symptoms -Started on Ceftriaxone in ED. Will continue abx -Last culture grew e.coli and was pansensitive -Blood and urine cx pending -IVFs -Richardson placed Sepsis: -Technically meets SIRs criteria with HR >90, wbc of 14 and known source of urinary infection -However, leukocytosis could also be 2/2 steroid infusion last week -Does not meet qSofa sepsis criteria -Vitals are stable -Lactate pending Multiple Sclerosis flare: -Significant weakness compared to baseline -Received his monthly solu-medrol infusion last week -Follows with Dr. Jean-Baptiste in clinic -Discussed with Dr. Jean-Baptiste, who will see patient tomorrow -Considering a steroid taper URI: -Productive cough, malaise, nasal congestion -CXR clear, lungs clear -Mucinex PRN, albuterol inhaler PRN -Sputum cx pending -IVFs HTN: -Stable -Continue home meds DM II, controlled: -Hgb a1c of 6.1 in 04/15 -Hold home meds -SSI while in-patient -May need glycemic consult if started on steroids -BG checks AC HS Acquired hypothyroid (s/p thyroidectomy): -H/o papillary thyroid cancer -Continue home dose Synthroid H/o DVT: -Continue home dose warfarin of 0.5mg daily -INR pending JAMES: -Brought CPAP from home to use at night DVT Ppx: On coumadin Code status: FULL PCP: Arsenio Dispo: SW consulted to help with discharge placement. Will likely require rehab once medically stable for discharge. Attending addendum: Agree with the above H&P; please refer to above for more detail. Patient is a 66 yo male who presented to the ER for complaints of malaise since Saturday, and worsening general weakness. He also reports symptoms of URI that have been ongoing for the past week and include nasal congestion, rhinorrhea, productive cough, and red watery eyes. He reports having diarrhea as well and denies any sick contacts or ingestion of any undercooked or unusual foods. He straight caths himself due to neurogenic bladder and has had some dysuria, foul smelling urine, and dark urine the last few days. He is weak/deconditioned and requires more assistance at home with ADLs than he normally required. Cardiac: RR, S1 and S2 auscultated Respiratory: coarse breath sounds cleared by cough, bases slightly diminished, but no wheezes, rales or rhonchi GI: soft, NT, ND, +BS x4 PROBABLE UTI: -UA suggestive of possible UTI -obtain urine culture -IV fluids overnight -start empiric ceftriaxone based on prior urine cultures -does not appear septic but does have tachycardia and mild fever; leaukocytosis is present but could also be related to steroid infusion GENERALIZED WEAKNESS: -likely from illness (UTI and URI) -CXR negative -obtain sputum and stool cultures, check for C diff -PT/OT consult -Neuro consulted although not likely an MS flare given all the other active comorbidities Level of Care Med/Surg Resuscitation Status FULL RESUSCITATION VTE Prophylaxis VTE Risk Assessment Done? Y/N: Yes Risk Level: Moderate Given or contraindicated: Warfarin (Coumadin) Physical Exam (per Admitting): General Appearance: + mild distress (Patient coughing, eyes watering. Ill appearing. ), + obese Head: normocephalic, atraumatic Eyes: PERRL, EOMI, + abnormal sclerae exam (Injection bilaterally with clear discharge) ENT: pharynx normal, + nasal congestion Neck: supple, no adenopathy, trachea midline Respiratory/Chest: chest non-tender, lungs clear, normal breath sounds, no respiratory distress, no accessory muscle use Cardiovascular: regular rate, rhythm, normal peripheral pulses Abdomen/GI: normal bowel sounds, non tender, soft, no organomegaly Back: normal inspection Extremities/Musculoskelatal: normal inspection, no calf tenderness, normal capillary refill, no pedal edema Neurologic/Psych: alert, normal mood/affect, oriented x 3, + motor weakness (2/2 MS. Ambulates by wheelchair but can self transfer via pivot.) Skin: normal color, warm/dry, no rash Hospital Course Patient is a 66yo M with a PMH of Multiple Sclerosis, HTN, DM II, thyroid cancer (s/p thyroidectomy) and neurogenic bladder with h/o UTIs who presents with progressively worsening generalized weakness starting 1 week ago. Complicated UTI Hx of MS with Neurogenic Bladder, with intermittent self catheter use at home Has been on Rocephin#5 Urine growing Enterobacter rossi sensitive Will continue current IV antibiotic Will changed to oral Keflex on discharge to [facility] SEPSIS -met SIRs criteria with HR >90, wbc of 14 and known source of urinary infection -WCC normalized -clinically improved Multiple Sclerosis :Doubt any Flare Deterioration of the current condition is due to infection Significant weakness compared to baseline Had monthly solu-medrol infusion last week No plan for Prednisone now as per . PT /OT Likely to need Rehab Will go to rehab at [facility] URI: Sputum cx unremarkable added azithromycin - will complete 5 day course No more symptoms Discontinue Azithromycin today HTN: Stable on Lopressor will monitor DM II, controlled: Hgb a1c of 6.1 in 04/15 Holding home meds SSI while in-patient Acquired hypothyroid (s/p thyroidectomy): H/o papillary thyroid cancer To continue home dose Synthroid H/o DVT: Continue home dose warfarin of 0.5mg daily -INR 1.4 on 06/03/17 -will give increasing dose of Coumadin -INR 1.3 today -06/04/17 -will need increasing dose of Coumadin for the next day or two -Patient is reasonably active and getting Physical Therapy. -D/W Dr Jimenez -will cover with Lovenox 40mg daily until INR is therapeutic JAMES: Brought CPAP from home to use at night DVT Ppx: On Coumadin Code status: FULL DISPOSITION pt/ot social service for d/c planning Discharge to today Total time spent on discharge = 35 minutes This includes examination of the patient, discharge planning, medication reconciliation, and communication with other providers. Discharge Instructions Date of Service Jun 04, 2017. Admission Reason for Admission: Multiple Sclerosis Exacerbation, Uti Discharge Discharge Diagnosis / Problem: UTI-Recurrent ,Neurogenic [place],MS Discharge Goals Goal(s): Prevent Disease Progression Activity Recommendations Activity Level: Assistance Required Therapies: Physical Therapy, Occupational Therapy . Additional Information Patient informed of condition: Yes Advance Directives: No DNR: No Level of Care: Skilled Communicable Disease: No Prognosis: Stable Oxygen at (LPM): 2 liters /min via NC as needed Richardson Catheter: Yes (Can be discontinued in a few days.Uses seft catheterx3 daily) Instructions / Follow-Up Instructions / Follow-Up Please make an appointment with your PCP in 1 week.Please check INR in a day or two and adjust the dose of Coumadin and Discontinue Lovenox when appropriate. Current Hospital Diet Patient's current hospital diet: Diabetes Type 2 Diet, Low Sodium Diet (2gm Na) Discharge Diet Recommended Diet: Low Sodium Diet (2gm Na), Diabetes Type 2 Diet Pending Studies Studies pending at discharge: no Medical Emergencies . Who to Call and When: Medical Emergencies: If at any time you feel your situation is an emergency, please call 911 immediately. . Non-Emergent Contact Non-Emergency issues call your: Primary Care Provider . Past History Medical & Surgical History: (1) MS (multiple sclerosis) (2) HTN (hypertension) (3) Deep vein blood clot of left lower extremity (4) Hypothyroidism (5) DM type 2 (diabetes mellitus, type 2) (6) JAMES on CPAP (7) UTI (urinary tract infection) (8) H/O thyroidectomy (9) S/P left knee arthroscopy (10) H/O cystoscopy . "Provider Documentation" section prepared by Félix Coleman. . Core Measure Problem Core Measures: None <Electronically signed by Félix Coleman M.D.> Signed: 06/04/17 [id number] Additional Copies To Trinidad Cesar D.O.
--- NOTE | 2017-06-06 08:58 | EDITING REQUIRED CODING QUERY ---
SEPSIS To promote full compliance with coding requirements relating to patient care, physician participation is requested in all cases of stone polisher uncertainty. Please assist us with the question(s) below: In responding to this query, please exercise your independent professional judgement. The fact that a question is asked does not imply that any particular answer is desired or expected. We appreciate your clarification on this issue. Throughout the medical record, you have clearly documented a localized infection and your patient has clinical evidence of a generalized sepsis or severe sepsis. The term urosepsis is a nonspecific entity and is coded as an UTI. If the patient has sepsis, severe sepsis, from an urinary source or some other source, please clarify in your response below. The medical record reflects the following clinical findings: (With dates as appropriate) (Body temperature of >38.3 C(101 F) or <36 C(96.8F), pulse >90/minute, respirations >20/minute, WBC count >12,000 or <4,000, altered mental status, significant edema or positive fluid balance, hyperglycemia without diabetes, hypotension, metabolic acidosis (elev. lactate level, anion gap or reduced blood pH), shock, positive blood culture (enter organism) ()Bacteremia (Nonspecific laboratory finding of bacteria in the blood) Specify Organism () Present on Admission () Not present on admission () Unable to clinically determine () Septicemia (Systemic disease associated with the presence of pathogenic microorganisms in the blood): Specify Organism () Present on Admission () Not present on admission () Unable to clinically determine (+) Sepsis Specify Organism Specify Associated Condition/Diagnosis +) Present on Admission () Not present on admission () Unable to clinically determine () Severe Sepsis (Sepsis associated with acute organ dysfunction) Specify Organism Specify Associated Condition/Diagnosis () Present on Admission () Not present on admission () Unable to clinically determine () Septic Shock (Severe sepsis with acute circulatory failure, unexplained by other causes) () Present on Admission () Not present on admission () Unable to clinically determine ( ) No Sepsis () Other, patient has:
--- NOTE | 2017-06-06 09:03 | EDITING REQUIRED CODING QUERY ---
CODING QUERY To promote full compliance with coding requirements relating to patient care, provider participation is requested in all cases of cash applications specialist uncertainty. Please assist us with the question(s) below: Coding Question(s): Please clarify below, in your clinical opinion, regarding the UTI and documentation that the patient does self- catheterizing. ( + ) UTI is likely a complication due to patient doing poor self-cath technique ( ) UTI is likely not a complication due to patient doing poor self-cath technique Physician's Response(s): Thank you Cee Torres Principal Diagnosis: "_that condition established after study, to be chiefly responsible for occasioning the admission of the patient to the hospital for care." Co-Existing Principal Diagnosis: "_when two or more diagnoses equally meet the criteria for principal diagnosis as determined by the circumstances of admission, diagnostic work up, and/or therapy provided, and the Alphabetic Index, Tabular List, or another coding guideline does not provide sequencing direction, any one of the diagnoses may be sequenced first." "When the physician has documented what appears to be a current diagnosis in the body of the record, but has not included the diagnosis in the final diagnostic statement, the physician should be asked whether the diagnosis should be added." (Source Coding [facility] 2 QTR90. p3-4)
== END 2017-06-04 14:44 | DRG 698 ==
LOC: C.EDB 10:36 → ENRESERV 15:58 → EDBEDREQ 16:01 → C.MS2W 16:22 → EDBEDREQ 16:23 → C.MS2W 18:58
PROVIDERS: ADMIT Internal Medicine; ATTEND Internal Medicine
DX: T83.518A Infection and inflammatory reaction due to other urinary catheter, initial encounter (principal); A41.9 Sepsis, unspecified organism; N39.0 Urinary tract infection, site not specified; B96.89 Other specified bacterial agents as the cause of diseases classified elsewhere; G35 Multiple sclerosis; N31.9 Neuromuscular dysfunction of bladder, unspecified; J06.9 Acute upper respiratory infection, unspecified; E89.0 Postprocedural hypothyroidism; I10 Essential (primary) hypertension; E78.5 Hyperlipidemia, unspecified; E11.9 Type 2 diabetes mellitus without complications; F32.9 Major depressive disorder, single episode, unspecified; G47.33 Obstructive sleep apnea (adult) (pediatric); E66.9 Obesity, unspecified; Z79.899 Other long term (current) drug therapy; Z79.01 Long term (current) use of anticoagulants; Z79.84 Long term (current) use of oral hypoglycemic drugs; Z87.440 Personal history of urinary (tract) infections; Z85.850 Personal history of malignant neoplasm of thyroid; Z68.34 Body mass index [BMI] 34.0-34.9, adult; Z86.718 Personal history of other venous thrombosis and embolism; Z80.3 Family history of malignant neoplasm of breast; Z82.49 Family history of ischemic heart disease and other diseases of the circulatory system; Y84.6 Urinary catheterization as the cause of abnormal reaction of the patient, or of later complication, without mention of misadventure at the time of the procedure

== ENCOUNTER 2017-12-24 13:45 | Observation (INO) | payer BC ==
[~2017-12-24] VITALS: Ht 170.2 cm; Wt 100.0 kg
[2017-12-24 00:30] VITALS: BP_SYST 137; BP_SYST 145; BP_SYST 147; BP_DIAS 89; BP_DIAS 90; PULSE 90; TEMP 36.8; O2SAT 93
[~2017-12-24 13:45] MED LIST changes: +ATOR10TA82 PO; -ATOR10TA88 PO; -CHOL1000 PO; +CHOL100010 PO; -CIPR1TAB11 PO; -CLON1TAB3 PO; -FNTTP50 TD; +GLC500 PO; -IPRA1AER2 INH; +KFL500 PO; +KLN5 PO; -LEVO175T PO; +LEVO175T3 PO; -WARF2.5T8 PO; +WARF4TAB44 PO
--- NOTE | 2017-12-24 14:13 | EMERGENCY ROOM VISIT NOTE ---
History First contact with patient: 13:53 Chief Complaint: OTHER COMPLAINT Stated Complaint: MS FLARE History of Present Illness The patient is a 67 year old male with multiple sclerosis (on monthly 1000mg Solu-Medrol infusions), hx of thyroid cancer s/p thyroidectomy, hypertension, and type 2 DM who presents to the Emergency Room with complaints of fatigue, increased falls, and intermittent dizziness. He reports over the last few weeks he just "hasn't felt right" and his daughter reports this "cycle happens often, he gets an infection then he ends up going to rehab for a few days." 3 days ago , he vomited once after dinner, but did not have any fevers, diarrhea, or abdominal pain. He has not had any cough, congestion, fever, or any other symptoms since then. He has not been able to transfer himself from the bed to the chair as well as usual. He has had some intermittent falls which "happen in slow motion, like a balloon deflating" and he has not had loss of consciousness with any falls. Per daughter, the patient has been falling more over the last few weeks compared to usual. He reports his last infusion of Solu-Medrol was about 2 weeks ago, which he receives at the [facility] [place] [facility]. He is unable to get other medications for MS since he has a hx of thyroid cancer, which they report was stable per Onc in [place]. He was also recently diagnosed with diabetes and was started on metformin. The patient reports he usually gets UTI's from intermittent self- catheterization. In the past these have been E. Coli UTI's, pansensitive. The patient denies any burning or hematuria but reports a slight odor of his urine the last few days compared to usual. Review of Systems See HPI for pertinent positives & negatives. A total of 10 systems reviewed and were otherwise negative. Past Medical/Surgical History Medical Problems: (1) cevical lymphnodectomy (2) Chronic anticoagulation (3) Deep vein blood clot of left lower extremity (4) Depression (5) DM type 2 (diabetes mellitus, type 2) (6) HLD (hyperlipidemia) (7) HTN (hypertension) (8) Hypothyroidism (9) MS (multiple sclerosis) (10) Neurogenic bladder (11) JAMES on CPAP (12) Papillary thyroid carcinoma Surgical Problems: (1) H/O cystoscopy (2) H/O thyroidectomy (3) S/P left knee arthroscopy Family History FH: breast cancer MOTHER Heart disease FATHER Social History Smoking Status: Never Smoker Alcohol Use: none Marital Status: Housing Status: lives with family (Daughter takes care of him during the day, at night) Occupation Status: disabled Current/Historical Medications Scheduled Amitriptyline HCl (Amitriptyline HCl), 25 MG PO HS Atorvastatin (Lipitor), 10 MG PO QPM Baclofen (Lioresal), 10 MG PO HS Cholecalciferol (Vitamin D), 1,000 INTER.UNIT PO BID Finasteride (Proscar), 5 MG PO DAILY Fluticasone Propionate (Nasal) (Flonase Allergy Relief), 2 SPRAYS XIMENA DAILY Levothyroxine Sodium (Synthroid), 150 MCG PO DAILY Metformin HCl (Metformin HCl), 500 MG PO BID Methylprednisolone Sod Succ (Solu-Medrol), 1,000 MG IV MONTHLY Metoprolol Tartrate (Lopressor), 12.5 MG PO BID Sertraline (Zoloft), 50 MG PO DAILY Warfarin Sodium (Warfarin Sodium), 2.5 TAB PO DAILY Scheduled PRN Clonazepam (Clonazepam), 1 TAB PO TID PRN for Anxiety/Agitation Meclizine Hcl (Meclizine Hcl), 12.5 MG PO TID PRN for vertigo Allergies NKDA Physical Exam Vital Signs Date Time Temp Pulse Resp B/P (MAP) Pulse Ox O2 Delivery O2 Flow Rate FiO2 12/24/17 15:12 93 157/89 95 Room Air 12/24/17 14:34 91 145/95 106 141/100 12/24/17 14:34 94 Room Air 12/24/17 13:47 36.4 109 18 156/97 95 Room Air Physical Exam GENERAL: Awake, alert, well-appearing, in no acute distress HENT: Normocephalic, atraumatic. Oropharynx unremarkable. EYES: Normal conjunctiva. Sclera non-icteric. NECK: Supple. No nuchal rigidity. FROM. No JVD. RESPIRATORY: Clear to auscultation. CARDIAC: Regular rate, normal rhythm. Extremities warm and well perfused. Pulses equal. ABDOMEN: Soft, non-distended. No tenderness to palpation. No rebound or guarding. No masses. MUSCULOSKELETAL: Chest examination reveals no tenderness. The back is symmetrical on inspection without obvious abnormality. There is no CVA tenderness to palpation. No joint edema. LOWER EXTREMITIES: Calves are equal size bilaterally and non-tender. No edema. No discoloration. Brace under L leg. NEURO: Normal sensorium. No sensory or motor deficits noted. SKIN: No rash or jaundice noted. Medical Decision & Procedures ER Provider Diagnostic Interpretation: CHEST ONE VIEW PORTABLE CLINICAL HISTORY: 67 years-old Male presenting with HX THYROID CA, FATIGUE, FALLS. TECHNIQUE: Portable upright AP view of the chest was obtained. COMPARISON: Chest CT from 07/31/2017 and chest x-ray from 05/31/2017. FINDINGS: Cardiomediastinal silhouette normal. Lungs and pleural spaces clear. Osseous structures normal. Surgical clips project over the right base of the neck. IMPRESSION: 1. No acute cardiopulmonary disease. HEAD WITHOUT CONTRAST (CT) CLINICAL HISTORY: 67 years-old Male presenting with INCREASED FALLS, HX THYROID CA, MS flare, weakness. TECHNIQUE: Multidetector CT imaging of the head was performed without the use of intravenous contrast. IV contrast: None. A dose lowering technique was used consistent with the principles of ALARA (as low as reasonably achievable). COMPARISON: 01/18/2016. CT DOSE (mGy.cm): The estimated cumulative dose is 537.48 mGy.cm. FINDINGS: Ui Architect topogram: Unremarkable. Proportional ventricular and sulcal prominence, likely age-related parenchymal volume loss. Brain parenchyma normal in appearance with preserved villavicencio-white differentiation. No mass effect or midline shift. No hemorrhage or acute territorial infarct. No extra-axial fluid collection. Partial opacification of the right frontal sinus. Calvarium intact. IMPRESSION: 1. No acute intracranial abnormality. Laboratory Results 12/24/17 14:24 Red Blood Count 5.42, Mean Corpuscular Volume 85.8, Mean Corpuscular Hemoglobin 29.7, Mean Corpuscular Hemoglobin Concent 34.6, Mean Platelet Volume 10.4, Neutrophils (%) (Auto) 71.5, Lymphocytes (%) (Auto) 15.6, Monocytes (%) (Auto) 10.4, Eosinophils (%) (Auto) 1.8, Basophils (%) (Auto) 0.5, Neutrophils # (Auto ) 5.93, Lymphocytes # (Auto) 1.29, Monocytes # (Auto) 0.86, Eosinophils # (Auto ) 0.15, Basophils # (Auto) 0.04 12/24/17 14:24 Test 12/24/17 14:24 12/24/17 16:23 White Blood Count 8.29 K/uL (4.8-10.8) Red Blood Count 5.42 M/uL (4.7-6.1) Hemoglobin 16.1 g/dL (14.0-18.0) Hematocrit 46.5 % (42-52) Mean Corpuscular Volume 85.8 fL (80-100) Mean Corpuscular Hemoglobin 29.7 pg (25-34) Mean Corpuscular Hemoglobin Concent 34.6 g/dl (32-36) Platelet Count 167 K/uL (130-400) Mean Platelet Volume 10.4 fL (7.4-10.4) Neutrophils (%) (Auto) 71.5 % Lymphocytes (%) (Auto) 15.6 % Monocytes (%) (Auto) 10.4 % Eosinophils (%) (Auto) 1.8 % Basophils (%) (Auto) 0.5 % Neutrophils # (Auto) 5.93 K/uL (1.4-6.5) Lymphocytes # (Auto) 1.29 K/uL (1.2-3.4) Monocytes # (Auto) 0.86 K/uL (0.11-0.59) Eosinophils # (Auto) 0.15 K/uL (0-0.5) Basophils # (Auto) 0.04 K/uL (0-0.2) RDW Standard Deviation 43.7 fL (36.4-46.3) RDW Coefficient of Variation 14.1 % (11.5-14.5) Immature Granulocyte % (Auto) 0.2 % Immature Granulocyte # (Auto) 0.02 K/uL (0.00-0.02) Prothrombin Time 19.0 SECONDS (9.0-12.0) Prothromb Time International Ratio 1.8 (0.9-1.1) Activated Partial Thromboplast Time 35.9 SECONDS (21.0-31.0) Partial Thromboplastin Ratio 1.4 Anion Gap 6.0 mmol/L (3-11) Est Creatinine Clear Calc Drug Dose 69.7 ml/min Estimated GFR () 73.9 Estimated GFR (Non- 63.7 BUN/Creatinine Ratio 11.6 (10-20) Calcium Level 9.3 mg/dl (8.5-10.1) Total Bilirubin 0.9 mg/dl (0.2-1) Aspartate Amino Transf (AST/SGOT) 11 U/L (15-37) Alanine Aminotransferase (ALT/SGPT) 34 U/L (12-78) Alkaline Phosphatase 80 U/L (45-117) Total Protein 7.4 gm/dl (6.4-8.2) Albumin 3.7 gm/dl (3.4-5.0) Globulin 3.7 gm/dl (2.5-4.0) Albumin/Globulin Ratio 1.0 (0.9-2) Thyroid Stimulating Hormone (TSH) 0.015 uIu/ml (0.300-4.500) Medications Administered Medications (Trade) Dose Ordered Sig/Cam Route Start Time Stop Time Status Last Admin Dose Admin Sodium Chloride 500 ml @ 500 mls/hr Q1H STAT IV 12/24/17 15:01 12/24/17 16:00 DC 12/24/17 15:09 500 MLS/HR ECG Per My Interpretation Indication: syncope Rhythm: normal sinus Findings: no acute ischemic change Change: no significant change ED Course 2:00 PM: I evaluated the patient in room A2. A complete history and physical examination were performed. I discussed the case with Dr. Richard. 2:13 PM: I ordered a CBC, CMP, PT/INR, CXR, Urinalysis. I gave the patient 500cc of NSS IV. 3:00 PM: I discussed the case with Case Management. We ordered PT/OT to evaluate if the patient would qualify for direct admission to inpatient rehab. I discussed this with the family, who agreed with the plan. 3:10 PM: I called Dr. Jean-Baptiste of Neurology. He agreed with this treatment plan and advised to look for a urine infection. 4:20 PM: Case Management informed me the patient would not be able to get to [facility] today, but hopefully tomorrow as he was evaluated by PT/OT who recommended he be seen there. I discussed the case with Adore Weeks of [facility] Service, the patient will be admitted for further management. 4:25 PM: I updated the family about these plans. All questions were answered. Medical Decision 67 yo M with weakness, increased falls, and fatigue over the last few weeks on background of multiple sclerosis. Differential includes: relapse of multiple sclerosis, side effect of medication, sepsis, urinary infection, dehydration, electrolyte abnormality, thyroid disfunction. He usually gets Solu Medrol q 4 weeks and is due for his next infusion in about 10 days. He had an IV placed and labs drawn. Labwork was unremarkable, and he was afebrile. I did not appreciate any source of infection. We are getting a catheterized urine specimen , though the patient is likely colonized with bacteria, which is pending currently at time of admission to Hospitalist service. We discussed the case with Dr Jean-Baptiste and Case Management and had the patient evaluated with PT/OT, who recommended inpatient rehab at discharge. [facility] was unable to accept the pt today so he will be admitted to the [facility] Hospitalist service. Impression Primary Impression: Weakness Additional Impression: Ambulatory dysfunction Departure Information Dispostion Being Evaluated By Hospitalist Condition GOOD Referrals Trinidad Cesar D.O. (PCP) Patient Instructions My [facility] Problem Qualifiers
--- NOTE | 2017-12-24 14:27 | DIAGNOSTIC IMAGING REPORT ---
CHEST ONE VIEW PORTABLE CLINICAL HISTORY: 67 years-old Male presenting with HX THYROID CA, FATIGUE, FALLS. TECHNIQUE: Portable upright AP view of the chest was obtained. COMPARISON: Chest CT from 07/31/2017 and chest x-ray from 05/31/2017. FINDINGS: Cardiomediastinal silhouette normal. Lungs and pleural spaces clear. Osseous structures normal. Surgical clips project over the right base of the neck. IMPRESSION: 1. No acute cardiopulmonary disease. Electronically signed by: Vladimir Ashford M.D. 12/24/2017 2:25 PM Dictated Date/Time: 12/24/2017 2:24 PM
[2017-12-24 14:39] LABS: BASO % 0.5 %; BASO ABS # 0.04 K/uL (0-0.2); EOS % 1.8 %; EOS ABS # 0.15 K/uL (0-0.5); HEMATOCRIT 46.5 % (42-52); HEMOGLOBIN 16.1 g/dL (14.0-18.0); IG# 0.02 K/uL (0.00-0.02); LYMPH % 15.6 %; LYMPH ABS # 1.29 K/uL (1.2-3.4); MEAN CELL VOLUME 85.8 fL (80-100); MEAN CORPUSCULAR HEMOGLOBIN 29.7 pg (25-34); MEAN CORPUSCULAR HGB CONC 34.6 g/dl (32-36); MEAN PLATELET VOLUME 10.4 fL (7.4-10.4); MONO % 10.4 %; MONO ABS # 0.86 K/uL (0.11-0.59); NEUT % 71.5 %; NEUT ABS # 5.93 K/uL (1.4-6.5); PLATELET COUNT 167 K/uL (130-400); RED CELL DISTRIBUTION WIDTH CV 14.1 % (11.5-14.5); RED CELL DISTRIBUTION WIDTH SD 43.7 fL (36.4-46.3); WHITE BLOOD COUNT 8.29 K/uL (4.8-10.8)
--- NOTE | 2017-12-24 14:51 | DIAGNOSTIC IMAGING REPORT ---
HEAD WITHOUT CONTRAST (CT) CLINICAL HISTORY: 67 years-old Male presenting with INCREASED FALLS, HX THYROID CA, MS flare, weakness. TECHNIQUE: Multidetector CT imaging of the head was performed without the use of intravenous contrast. IV contrast: None. A dose lowering technique was used consistent with the principles of ALARA (as low as reasonably achievable). COMPARISON: 01/18/2016. CT DOSE (mGy.cm): The estimated cumulative dose is 537.48 mGy.cm. FINDINGS: Rn Cardiovascular Icu topogram: Unremarkable. Proportional ventricular and sulcal prominence, likely age-related parenchymal volume loss. Brain parenchyma normal in appearance with preserved villavicencio-white differentiation. No mass effect or midline shift. No hemorrhage or acute territorial infarct. No extra-axial fluid collection. Partial opacification of the right frontal sinus. Calvarium intact. IMPRESSION: 1. No acute intracranial abnormality. Electronically signed by: Vladimir Ashford M.D. 12/24/2017 2:50 PM Dictated Date/Time: 12/24/2017 2:47 PM
[2017-12-24 14:56] LABS: INR 1.8 (0.9-1.1); PTT PATIENT 35.9 SECONDS (21.0-31.0)
[2017-12-24 14:57] LABS: ALBUMIN 3.7 gm/dl (3.4-5.0); CALCIUM 9.3 mg/dl (8.5-10.1); CREATININE 1.19 mg/dl (0.60-1.40); POTASSIUM 3.7 mmol/L (3.5-5.1)
[2017-12-24] MEDS ORDERED: SODIUM CHLORIDE 0.9% 500ML 500 ML IV STA (15:01)
[2017-12-24 15:08] LABS: TOTAL PROTEIN 7.4 gm/dl (6.4-8.2)
[2017-12-24] MEDS ORDERED: LEVO150T PO (15:11)
[2017-12-24 15:43] VITALS: BP 157/89
--- NOTE | 2017-12-24 16:22 | EMERGENCY ROOM VISIT NOTE ---
ED Visit Note First contact with patient: 13:53 Patient seen and evaluated with resident. Reviewed orders and results thus far. Discussed with patient plan, he is in agreement. Family made aware of plans also. Please refer to the resident's note for additional details. Patient awaiting cath UA specimen to evaluate for possible UTIs patient has a history of recurrent UTIs which often times exacerbate his MS symptoms are contribute to weakness or other symptoms of infection. The [facility] They will follow-up the patient's UA results, we will send for culture as a precaution given the patient's history. Patient hemodynamically stable, no evidence of bacteremia/sepsis, pyelonephritis, doubt other obstructive uropathy. Patient with no leukocytosis, no renal dysfunction.
[2017-12-24] MEDS ORDERED: TRAM-10 PO (17:23)
[2017-12-24] MEDS ORDERED: TAMS0.4C38 PO (17:23)
[2017-12-24] MEDS ORDERED: GLUCOSE 10 TABS/TUBE PO PRN (17:30)
[2017-12-24] MEDS ORDERED: MECLIZINE HCL 12.5 MG TAB PO PRN (17:30)
[2017-12-24] MEDS ORDERED: POLYETHYLENE (MIRALAX) 17 GM PACK PO PRN (17:30)
[2017-12-24] MEDS ORDERED: DEXTROSE 50% 50 ML SYR IV PRN (17:30)
[2017-12-24] MEDS ORDERED: GLUCOSE 40% GEL 15 GM TUBE PO PRN (17:30)
[2017-12-24] MEDS ORDERED: ONDANSETRON INJ 2 MG/ML 2 ML VIAL IV PRN (17:30)
[2017-12-24] MEDS ORDERED: ALUMINUM/MAGNESIUM/SIMETH (MAALOX MAX) 30 ML UDC PO PRN (17:30)
[2017-12-24] MEDS ORDERED: GLUCAGON FOR INJ 1 MG VIAL SQ PRN (17:30)
[2017-12-24] MEDS ORDERED: CLONAZEPAM 0.5 MG TAB PO PRN (17:30)
[2017-12-24] MEDS ORDERED: ACETAMINOPHEN 325 MG TAB PO PRN (17:30)
[2017-12-24] MEDS ORDERED: TRAMADOL HCL 50 MG TAB PO PRN (17:30)
[2017-12-24 18:09] VITALS: O2SAT 95; Ht 170.2 cm; Wt 100.0 kg
--- NOTE | 2017-12-24 18:35 | HISTORY & PHYSICAL EXAMINATION ---
DATE OF ADMISSION: 12/24/2017 CHIEF COMPLAINT: Generalized weakness. HISTORY OF PRESENT ILLNESS: This is a 67-year-old male with past medical history significant for multiple sclerosis, BPH, and straight catheterization 3 times daily, history of spinal stenosis, history of depression, hyperlipidemia, hypertension, hyperparathyroidism, moderate obstructive sleep apnea, history of papillary thyroid carcinoma status post total thyroidectomy and status post parathyroidectomy, postsurgical hypothyroidism, history of diabetes, history of venous thrombosis presents with generalized weakness. The patient cannot take the MS medication because of his thyroid cancer and he is on Solu-Medrol 1 gram every monthly, last dose was about a couple of weeks ago, but since last week, the patient was getting generalized weakness and not able to transfer from bed to a chair, usually he walks with a walker to the bathroom and into the chair, but is not able to do that. Denies any fever, chills, no cough, no headaches. No blurred visions. No earaches, no runny nose. Questionable mild sore throat, no difficulty swallowing, on regular diet. Denies any chest pain, no shortness of breath, no cough, no nausea, no vomiting, no abdominal pain. Normal bowel and bladder movements. No blood in the stools, no blood in urine. Appetite is okay. No swelling in the legs. No skin rash. Currently, resting comfortably and hemodynamically stable. The patient says whenever he gets infected he gets this kind of symptoms and because he straight caths few times a day, he is prone for infections in the urine. ALLERGIES: No known drug allergies. PAST MEDICAL HISTORY: As mentioned above. PAST SURGICAL HISTORY: Cystoscopy with insertion of stent placement, lithotripsy, left knee meniscectomy, prostate biopsy, cervical lymphadenectomy, thyroidectomy and parathyroidectomy. MEDICATIONS: The patient is on lactobacillus 1 capsule daily, Elavil 25 mg p.o. at bedtime, Lipitor 10 mg p.o. daily, baclofen 10 mg p.o. at bedtime, Klonopin 0.5 mg t.i.d. p.r.n., Proscar 5 mg p.o. daily, fluticasone 2 sprays in each nostril daily, levothyroxine 150 mcg p.o. daily, Antivert 12.5 mg p.o. t.i.d. p.r.n., metformin 500 mg p.o. b.i.d., Lopressor 12.5 mg p.o. b.i.d., Zoloft 50 mg p.o. daily, Flomax 0.4 mg p.o. at bedtime, tramadol 50 mg p.o. q. 6 hours p.r.n., vitamin D 2000 units capsule daily, warfarin 2.5 mg as directed. FAMILY HISTORY: Significant for father had leukemia, heart disorder, CABG, and hypertension. Mother has hypertension and breast cancer. SOCIAL HISTORY: and lives with the , no smoking history. No alcohol use, no. No drug use. REVIEW OF SYMPTOMS: As per HPI. Rest of review of systems negative. PHYSICAL EXAMINATION: GENERAL: The patient is of moderate build, not in distress. VITAL SIGNS: Temperature 36.4, pulse 86, blood pressure 151/94, oxygen 95% room air. HEENT: No pallor, no icterus. Pupils equal, round react to light. NECK: No JVD, no neck masses, no carotid bruits. CARDIOVASCULAR: S1, S2 heard, regular rate and rhythm, no murmur, no gallop. RESPIRATORY SYSTEM: Normal AP diameter. No accessory muscle use. No wheezing, no crackles. ABDOMEN: Soft, bowel sounds present. Nontender. No distention. CENTRAL NERVOUS SYSTEM: Power 5/5 in upper extremities and weakness of bilateral lower extremities. Sensation is intact. Coordination of movements normal. LABORATORY DATA: WBC 8.2, hemoglobin 16.1, hematocrit 46.5, and platelets 167. Sodium 139, potassium 3.7, chloride 105, bicarbonate 28, BUN 14, creatinine 1.19, serum glucose 110. Calcium 9.3, total bilirubin 0.9, AST 11, ALT 34, alkaline phosphatase 80. TSH 0.015. PT 19, INR 1.8, APTT 35.9. Urinalysis positive for leukocyte esterase and nitrate. IMAGING DATA: CT of the head, no acute findings. Chest x-ray, no acute findings. ASSESSMENT AND PLAN: This is a 67-year-old male presents with generalized weakness, history of multiple sclerosis. 1. Generalized weakness. History of multiple sclerosis. The patient is on IV Solu-Medrol 1 gram every monthly, last dose was about 15-20 days ago Discussed with neurology. The patient symptoms worsen whenever he has infection and he has history of recurrent UTI's. Patient straight caths 3 times daily. Urinalysis positive for urinary tract infection. We will empirically start Rocephin. Gentle fluids. Observe on the medical floor. PT, OT and Social Service to help with discharge planning and possible rehab placement. 2 History of multiple sclerosis On IV Solu-Medrol monthly. We will consult neurology in a.m. for further recommendations. 2. History of depression. Continue Zoloft and Elavil. 3. History of anxiety, on Klonopin p.r.n. 4. Benign prostatic hyperplasia, on Proscar and Flomax. 5. Hypothyroidism with history of papillary thyroid cancer status post surgery. History of time postsurgical hypothyroidism, on levothyroxine 150 mcg p.o. daily. The patient's levothyroxine was cut down from 175-150 on 10/08/2017, but still TSH very low. We will further get back to 125 and follow labs in 4-6 weeks. 6. History of hypertension, on Lopressor. We will monitor the blood pressure. 7. History of diabetes type 2. We will hold metformin and place on insulin sliding scale. Follow hemoglobin A1c levels. 8. Deep venous thrombosis prophylaxis, sequential compression devices and Lovenox. 9. Disposition: Observe on medical floor. PT, OT and Social Service to help with discharge planning. Plan for rehab placement. 10. Level 1 full code. MTDD
[2017-12-24] MEDS ORDERED: IV FLUIDS COMPLETED PRN (19:45)
[2017-12-24] MEDS: CEFTRIAXONE SOD INJ 1 GM in DEXTROSE 5% ADD-VANTAGE 50ML 50 ML IV SCH (19:53)
[2017-12-24] MEDS: SODIUM CHLORIDE 0.9% 1000ML 1,000 ML IV SCH (19:53)
[2017-12-24 20:00] VITALS: BP 178/100; PULSE 100; TEMP 37; O2SAT 95
[2017-12-24] MEDS: INSULIN ASPART 100 UNITS/ML 3 ML PEN SC SCH (21:42)
[2017-12-24] MEDS: ENOXAPARIN 40 MG/0.4 ML SYR SQ SCH (21:43)
[2017-12-24] MEDS: BACLOFEN 10 MG TAB PO SCH (21:44)
[2017-12-24] MEDS: ATORVASTATIN 10 MG TAB PO SCH (21:44)
[2017-12-24] MEDS: AMITRIPTYLINE HCL 25 MG TAB PO SCH (21:44)
[2017-12-24 21:48] VITALS: BP 163/80
[2017-12-24 23:10] VITALS: BP 145/85; PULSE 85; TEMP 37; O2SAT 95
[2017-12-25] MEDS: LEVOTHYROXINE 125 MCG TAB PO SCH (05:39)
[2017-12-25] MEDS: INSULIN ASPART 100 UNITS/ML 3 ML PEN SC SCH ×4 (06:30→22:53)
[2017-12-25 07:04] VITALS: BP_SYST 131; BP_SYST 133; BP_SYST 146; BP_DIAS 80; BP_DIAS 86; BP_DIAS 87; PULSE 89; TEMP 36.7; O2SAT 94
[2017-12-25] MEDS: SERTRALINE HCL 50 MG TAB PO SCH (07:34)
[2017-12-25] MEDS: TAMSULOSIN HCL 0.4 MG CAP PO SCH (07:34)
[2017-12-25] MEDS: FINASTERIDE 5 MG TAB PO SCH (07:34)
[2017-12-25] MEDS: METOPROLOL TARTRATE 25 MG TAB PO SCH ×2 (07:34→22:52)
[2017-12-25] MEDS: CHOLECALCIFEROL 1000 INTER.UNIT TAB PO SCH ×2 (07:34→22:52)
[2017-12-25] MEDS: FLUTICASONE PROPIONATE NA SPR 16 GM BTL NAE SCH (07:36)
[2017-12-25 08:00] VITALS: O2SAT 94
[2017-12-25 09:14] LABS: BASO % 0.6 %; BASO ABS # 0.04 K/uL (0-0.2); EOS % 2.3 %; EOS ABS # 0.15 K/uL (0-0.5); HEMOGLOBIN 14.5 g/dL (14.0-18.0); IG# 0.02 K/uL (0.00-0.02); LYMPH % 24.3 %; LYMPH ABS # 1.61 K/uL (1.2-3.4); MEAN CELL VOLUME 86.2 fL (80-100); MEAN CORPUSCULAR HEMOGLOBIN 29.1 pg (25-34); MEAN CORPUSCULAR HGB CONC 33.7 g/dl (32-36); MEAN PLATELET VOLUME 10.7 fL (7.4-10.4); MONO % 11.9 %; MONO ABS # 0.79 K/uL (0.11-0.59); NEUT % 60.6 %; NEUT ABS # 4.02 K/uL (1.4-6.5); PLATELET COUNT 153 K/uL (130-400); RED CELL DISTRIBUTION WIDTH CV 14.2 % (11.5-14.5); RED CELL DISTRIBUTION WIDTH SD 44.4 fL (36.4-46.3); WHITE BLOOD COUNT 6.63 K/uL (4.8-10.8)
[2017-12-25 09:20] LABS: INR 1.7 (0.9-1.1)
[2017-12-25 09:47] LABS: CALCIUM 8.4 mg/dl (8.5-10.1); CREATININE 1.11 mg/dl (0.60-1.40); POTASSIUM 3.7 mmol/L (3.5-5.1)
[2017-12-25 10:11] LABS: HEMOGLOBIN A1C 5.9 % (4.5-5.6)
[2017-12-25] MEDS: SODIUM CHLORIDE 0.9% 1000ML 1,000 ML IV SCH (12:43)
--- NOTE | 2017-12-25 14:38 | Neurology Consultation ---
Neurology Consultation Date of Consultation: Dec 25, 2017. Attending Physician: Abhijit Anderson MD Primary Care Physician: Trinidad Cesar D.O. Reason for Consultation: MS flare? History of Present Illness Source: patient Anand is a 67 year old male with PMH MS on IV solumedrol 1 g every month no disease modulating medications, BPH, and straight catheterization 3 times daily , spinal stenosis, DL, HTN, hyperparathyroidism post thyroidectomy, sleep apnea on bipap, apnea, DM, who states he starting feeling fatigued about a weak ago. He felt like he was getting better but on Saturday he had an episode that he was so fatigued that he "slow motion lowered himself to the floor." he was having nausea and vomiting unable to keep anything down and knew he needed to go to the hospital. Last night he had an episode of night sweats which happens when he gets a UTI. this time he did have some "fuzziness" of thinking. He knows this has alot to do with straight cathing himself 3 x per day. He has lost sensation of urination. He states his bowels have been regular. denies CP, SOB, abdominal pain, current new one sided weakness, fall, headache. He states he is feeling better since they gave him the IV antibiotics. Past Medical/Surgical History Medical Problems: (1) Ambulatory dysfunction Status: Acute (2) Generalized weakness Status: Acute (3) Leukocytosis Status: Acute (4) Symptoms of urinary tract infection Status: Acute (5) Urinary tract infection Status: Acute (6) UTI (urinary tract infection) Status: Acute (7) UTI (urinary tract infection) Status: Acute (8) Weakness Status: Acute (9) Weakness Status: Acute Social History Marital Status: Housing Status: lives with family (Daughter takes care of him during the day, at night) Occupation Status: disabled Allergies Coded Allergies: No Known Allergies (Verified , 12/24/17) Current Inpatient Medications Current Inpatient Medications Medications (Trade) Dose Ordered Sig/Cam Route Start Time Stop Time Status Last Admin Dose Admin Enoxaparin Sodium (Lovenox Inj) 40 mg HS SQ 12/24/17 21:00 01/23/18 20:59 12/24/17 21:43 40 MG Acetaminophen (Tylenol Tab) 650 mg Q4H PRN PO 12/24/17 17:30 01/23/18 17:29 Al Hydrox/Mg Hydrox/Simethicone (Maalox Max Susp) 15 ml Q4H PRN PO 12/24/17 17:30 01/23/18 17:29 Polyethylene (Miralax Powder Packet) 17 gm DAILY PRN PO 12/24/17 17:30 01/23/18 17:29 Ondansetron HCl (Zofran Inj) 4 mg Q6H PRN IV 12/24/17 17:30 01/23/18 17:29 Amitriptyline HCl (Elavil Tab) 25 mg HS PO 12/24/17 21:00 01/23/18 20:59 12/24/17 21:44 25 MG Atorvastatin Calcium (Lipitor Tab) 10 mg QPM PO 12/24/17 21:00 01/23/18 20:59 12/24/17 21:44 10 MG Baclofen (Lioresal Tab) 10 mg HS PO 12/24/17 21:00 01/23/18 20:59 12/24/17 21:44 10 MG Cholecalciferol (Vitamin D Tab) 1,000 inter.unit BID PO 12/24/17 21:00 01/23/18 20:59 12/25/17 07:34 1,000 INTER.UNIT Clonazepam (Klonopin Tab) 0.5 mg TID PRN PO 12/24/17 17:30 01/23/18 17:29 Finasteride (Proscar Tab) 5 mg DAILY PO 12/25/17 08:00 01/24/18 08:59 12/25/17 07:34 5 MG Fluticasone Propionate (Flonase Nasal [place]) 2 sprays DAILY XIMENA 12/25/17 08:00 01/24/18 08:59 Meclizine HCl (Antivert Tab) 12.5 mg TID PRN PO 12/24/17 17:30 01/23/18 17:29 Metoprolol Tartrate (Lopressor Tab) 12.5 mg BID PO 12/24/17 21:00 01/23/18 20:59 12/25/17 07:34 12.5 MG Sertraline HCl (Zoloft Tab) 50 mg DAILY PO 12/25/17 08:00 01/24/18 08:59 12/25/17 07:34 50 MG Warfarin Sodium (Coumadin Tab) 2.5 mg DAILY@16 PO 12/25/17 16:00 01/24/18 15:59 Sodium Chloride 1,000 ml @ 50 mls/hr Q20H IV 12/24/17 18:45 01/23/18 18:44 12/25/17 12:43 50 MLS/HR Ceftriaxone Sodium 1 gm/ Dextrose 50 ml @ 100 mls/hr Q24H IV 12/24/17 19:00 01/03/18 18:59 12/24/17 19:53 100 MLS/HR Tamsulosin HCl (Flomax Cap) 0.4 mg DAILY PO 12/25/17 08:00 01/24/18 08:59 12/25/17 07:34 0.4 MG Tramadol HCl (Ultram Tab) 50 mg Q6H PRN PO 12/24/17 17:30 01/23/18 17:29 12/25/17 00:20 50 MG Levothyroxine Sodium (Synthroid Tab) 125 mcg DAILYBB PO 12/25/17 06:30 01/24/18 06:59 12/25/17 05:39 125 MCG Insulin Aspart (novoLOG ASPART) SLIDING SCALE G... ACHS SC 12/24/17 21:00 01/23/18 20:59 Glucose (Glucose 40% Gel) 15-30 GRAMS 15 GRAMS... UD PRN PO 12/24/17 17:30 01/23/18 17:29 Glucose (Glucose Chew Tab) 4-8 Tablets 4 Tabl... UD PRN PO 12/24/17 17:30 01/23/18 17:29 Dextrose (Dextrose 50% 50ML Syringe) 25-50ML OF 50% DW IV FOR... UD PRN IV 12/24/17 17:30 01/23/18 17:29 Glucagon (Glucagon Inj) 1 mg UD PRN SQ 12/24/17 17:30 01/23/18 17:29 Miscellaneous (Iv Fluids Completed) 1 ea PRN PRN N/A 12/24/17 19:45 12/24/18 19:44 Physical Exam Vital Signs (Past 24 Hrs): Date Time Temp Pulse Resp B/P (MAP) Pulse Ox O2 Delivery O2 Flow Rate FiO2 12/25/17 08:00 94 Room Air 12/25/17 07:04 36.7 89 18 146/80 (102) 94 133/87 (102) 131/86 (101) 12/25/17 00:00 Room Air 12/24/17 23:10 37.0 85 18 145/85 (105) 95 Room Air 12/24/17 21:48 163/80 (107) 12/24/17 20:00 37.0 100 18 178/100 (126) 95 Room Air 12/24/17 18:34 101 172/96 92 12/24/17 18:09 95 Room Air 12/24/17 17:11 86 151/94 95 Room Air 12/24/17 15:12 93 157/89 95 Room Air 12/24/17 14:34 91 145/95 106 141/100 12/24/17 14:34 94 Room Air Physical Exam: Constitutional: appearance nourished, using bi pap when entering room Ears, Nose, Mouth and Throat: mucous membranes moist, no injection and skin normal, eyes bilaterally injected Cardiovascular: normal S-1 and S-2 and regular rate and rhythm Respiratory: course breath sounds Musculoskeletal: distant distal pulses. Skin: no stigmata of neurocutaneous disease noted and normal and intact Eyes: extraocular muscles intact (EOMI) and pupils equal, round and reactive to light (PERRL) NEUROLOGIC EXAMINATION: Mental status: Alert and interactive Oriented [facility] 2018 Oriented to person, says no ifs ands or buts Speech fluent with no evidence of aphasia Cranial Nerves facial symmetry Sensory: decreased sensation LLE vibration and cool touch to mid arce Coordination: finger to nose without bi pass Gait/Stance: Posture lying in bed Motor: Negative for pronator drift of out stretched arms with eyes closed. Strength: biceps triceps hand director of first impressions 5/5 bilaterally, right hip flex plantar flex ext 4/5 right, left hip flex 2/5 plantar ext 0/5 flex 4/5 Laboratory Results Past 24 Hours: 12/25/17 08:24 Red Blood Count 4.99, Mean Corpuscular Volume 86.2, Mean Corpuscular Hemoglobin 29.1, Mean Corpuscular Hemoglobin Concent 33.7, Mean Platelet Volume 10.7, Neutrophils (%) (Auto) 60.6, Lymphocytes (%) (Auto) 24.3, Monocytes (%) (Auto) 11.9, Eosinophils (%) (Auto) 2.3, Basophils (%) (Auto) 0.6, Neutrophils # (Auto ) 4.02, Lymphocytes # (Auto) 1.61, Monocytes # (Auto) 0.79, Eosinophils # (Auto ) 0.15, Basophils # (Auto) 0.04 12/25/17 08:24 Test 12/24/17 14:24 12/24/17 16:23 12/25/17 08:24 12/25/17 11:47 Activated Partial Thromboplast Time 35.9 SECONDS (21.0-31.0) Partial Thromboplastin Ratio 1.4 Total Bilirubin 0.9 mg/dl (0.2-1) Aspartate Amino Transf (AST/SGOT) 11 U/L (15-37) Alanine Aminotransferase (ALT/SGPT) 34 U/L (12-78) Alkaline Phosphatase 80 U/L (45-117) Total Protein 7.4 gm/dl (6.4-8.2) Albumin 3.7 gm/dl (3.4-5.0) Globulin 3.7 gm/dl (2.5-4.0) Albumin/Globulin Ratio 1.0 (0.9-2) Urine Color YELLOW Urine Appearance CLOUDY (CLEAR) Urine pH 5.5 (4.5-7.5) Urine Specific [place] 1.018 (1.000-1.030) Urine Protein TRACE (NEG) Urine Glucose (UA) TRACE (NEG) Urine Ketones NEG (NEG) Urine Occult Blood 2+ (NEG) Urine Nitrite POS (NEG) Urine Bilirubin NEG (NEG) Urine Urobilinogen NEG (NEG) Urine Leukocyte Esterase MODERATE (NEG) Urine WBC (Auto) >30 /hpf (0-5) Urine RBC (Auto) 0-4 /hpf (0-4) Urine Hyaline Casts (Auto) 5-10 /lpf (0-5) Urine Epithelial Cells (Auto) 0-5 /lpf (0-5) Urine Bacteria (Auto) 4+ (NEG) White Blood Count 6.63 K/uL (4.8-10.8) Red Blood Count 4.99 M/uL (4.7-6.1) Hemoglobin 14.5 g/dL (14.0-18.0) Hematocrit 43.0 % (42-52) Mean Corpuscular Volume 86.2 fL (80-100) Mean Corpuscular Hemoglobin 29.1 pg (25-34) Mean Corpuscular Hemoglobin Concent 33.7 g/dl (32-36) Platelet Count 153 K/uL (130-400) Mean Platelet Volume 10.7 fL (7.4-10.4) Neutrophils (%) (Auto) 60.6 % Lymphocytes (%) (Auto) 24.3 % Monocytes (%) (Auto) 11.9 % Eosinophils (%) (Auto) 2.3 % Basophils (%) (Auto) 0.6 % Neutrophils # (Auto) 4.02 K/uL (1.4-6.5) Lymphocytes # (Auto) 1.61 K/uL (1.2-3.4) Monocytes # (Auto) 0.79 K/uL (0.11-0.59) Eosinophils # (Auto) 0.15 K/uL (0-0.5) Basophils # (Auto) 0.04 K/uL (0-0.2) RDW Standard Deviation 44.4 fL (36.4-46.3) RDW Coefficient of Variation 14.2 % (11.5-14.5) Immature Granulocyte % (Auto) 0.3 % Immature Granulocyte # (Auto) 0.02 K/uL (0.00-0.02) Prothrombin Time 17.6 SECONDS (9.0-12.0) Prothromb Time International Ratio 1.7 (0.9-1.1) Anion Gap 7.0 mmol/L (3-11) Est Creatinine Clear Calc Drug Dose 74.8 ml/min Estimated GFR () 80.3 Estimated GFR (Non- 69.3 BUN/Creatinine Ratio 12.2 (10-20) Estimated Average Glucose 123 mg/dl Hemoglobin A1c 5.9 % (4.5-5.6) Calcium Level 8.4 mg/dl (8.5-10.1) Magnesium Level 2.2 mg/dl (1.8-2.4) Thyroid Stimulating Hormone (TSH) 0.019 uIu/ml (0.300-4.500) Free Thyroxine 1.50 ng/dl (0.80-1.60) Free Triiodothyronine 2.77 pg/ml (2.30-4.20) Bedside Glucose 107 mg/dl (70-99) Imaging CXR- . No acute cardiopulmonary disease. CT head- Proportional ventricular and sulcal prominence, likely age-related parenchymal volume loss. Brain parenchyma normal in appearance with preserved villavicencio-white differentiation. No mass effect or midline shift. No hemorrhage or acute territorial infarct. No extra-axial fluid collection. Partial opacification of the right frontal sinus. Calvarium intact. Impression 67 year old male extensive medical history including progressive MS Plan 1. UTI - treating with ceftriaxone IV 2. dehydration -fluid hydration 3. PT/OT for discharge needs 4. left leg weakness is ongoing MS issues, rigid foot support and elevation of contralateral shoe 5. no steroid infusion at this time- return to monthly infusions as scheduled as out patient 6. further recommendations to follow I have seen and discussed above patient with Dr Rojelio Jean-Baptiste, neurology Patient knonw to me ms thryroid ca and chronic recurrent uti now in for an "ms flare" but in reality this is likely a toxic event related to an underlyiing recurrent uti or other infectious illness and is improving on antibiotics without steroids he is now not yet at baseline but is significantly better than described yesterday when he arrived contine to hold steroids and we will see tomorrow Rojelio Jean-Baptiste MD
[2017-12-25] MEDS: WARFARIN SOD 2.5 MG TAB PO SCH (16:18)
[2017-12-25 16:50] VITALS: BP 126/84; PULSE 74; TEMP 36.7; O2SAT 94
[2017-12-25 16:55] VITALS: O2SAT 94
--- NOTE | 2017-12-25 17:01 | Progress Note ---
Internal Med Progress Note Date of Service: Dec 25, 2017. Provider Documentation: SUBJECTIVE: SAYS FEELING MUCH BETTER TODAY ABLE TO SIT ON THE CHAIR AFEBRILE' EATING OK' NO PAIN OBJECTIVE: Vital Signs-as noted below Exam: General-alert and oriented. ENT-Normal hearing Neck-no neck masses Lungs-dcta b/l no wheezing no crackles present Heart-S1 and S2 heard regular rate and rhythm no murmurs present Abdomen-Soft bowel sounds present non tender no distension Extremities-no edema no erythema Neuro-alert and awake moves extremities Lab data as noted below. ASSESSMENT & PLAN: This is a 67-year-old male presents with generalized weakness, history of multiple sclerosis. 1. Generalized weakness. History of multiple sclerosis. The patient is on IV Solu-Medrol 1 gram every monthly, last dose was about 15-20 days ago Discussed with neurology. The patient symptoms worsen whenever he has infection and he has history of recurrent UTI's. Patient straight caths 3 times daily. Urinalysis positive for urinary tract infection. We will empirically start Rocephin. Gentle fluids. Observe on the medical floor. PT, OT and Social Service to help with discharge planning and possible rehab placement. 12/25/17 feeling better pt/ot 2.UTI gm negative bacilli causing above symptoms on rocephin f/u cx 3 History of multiple sclerosis On IV Solu-Medrol monthly. appreciate nephrology inputs. 2. History of depression. Continue Zoloft and Elavil. 3. History of anxiety, on Klonopin p.r.n. 4. Benign prostatic hyperplasia, on Proscar and Flomax. 5. Hypothyroidism with history of papillary thyroid cancer status post surgery. History of time postsurgical hypothyroidism, on levothyroxine 150 mcg p.o. daily. The patient's levothyroxine was cut down from 175-150 on 10/08/2017, but still TSH very low. We will further get back levothyroxine to 125mcg daily and follow labs in 4-6 weeks. 6. History of hypertension, on Lopressor. We will monitor the blood pressure. 7. History of diabetes type 2. We will hold metformin and place on insulin sliding scale. hemoglobin A1c levels 5.9. 8. Deep venous thrombosis prophylaxis, sequential compression devices and Lovenox. 9. Disposition: Observe on medical floor. PT, OT and Social Service to help with discharge planning. Plan for rehab placement. 10. Level 1 full code. Vital Signs: Date Time Temp Pulse Resp B/P (MAP) Pulse Ox O2 Delivery O2 Flow Rate FiO2 12/25/17 16:50 36.7 74 16 126/84 (98) 94 Room Air 12/25/17 08:00 94 Room Air 12/25/17 07:04 36.7 89 18 146/80 (102) 94 133/87 (102) 131/86 (101) 12/25/17 00:00 Room Air 12/24/17 23:10 37.0 85 18 145/85 (105) 95 Room Air 12/24/17 21:48 163/80 (107) 12/24/17 20:00 37.0 100 18 178/100 (126) 95 Room Air 12/24/17 18:34 101 172/96 92 12/24/17 18:09 95 Room Air 12/24/17 17:11 86 151/94 95 Room Air Lab Results: Results Past 24 Hours Test 12/24/17 19:56 12/25/17 08:24 12/25/17 11:47 Range/Units Bedside Glucose 120 107 70-99 mg/dl White Blood Count 6.63 4.8-10.8 K/uL Red Blood Count 4.99 4.7-6.1 M/uL Hemoglobin 14.5 14.0-18.0 g/dL Hematocrit 43.0 42-52 % Mean Corpuscular Volume 86.2 80-100 fL Mean Corpuscular Hemoglobin 29.1 25-34 pg Mean Corpuscular Hemoglobin Concent 33.7 32-36 g/dl Platelet Count 153 130-400 K/uL Mean Platelet Volume 10.7 7.4-10.4 fL Neutrophils (%) (Auto) 60.6 % Lymphocytes (%) (Auto) 24.3 % Monocytes (%) (Auto) 11.9 % Eosinophils (%) (Auto) 2.3 % Basophils (%) (Auto) 0.6 % Neutrophils # (Auto) 4.02 1.4-6.5 K/uL Lymphocytes # (Auto) 1.61 1.2-3.4 K/uL Monocytes # (Auto) 0.79 0.11-0.59 K/uL Eosinophils # (Auto) 0.15 0-0.5 K/uL Basophils # (Auto) 0.04 0-0.2 K/uL RDW Standard Deviation 44.4 36.4-46.3 fL RDW Coefficient of Variation 14.2 11.5-14.5 % Immature Granulocyte % (Auto) 0.3 % Immature Granulocyte # (Auto) 0.02 0.00-0.02 K/uL Prothrombin Time 17.6 9.0-12.0 SECONDS Prothromb Time International Ratio 1.7 0.9-1.1 Sodium Level 137 136-145 mmol/L Potassium Level 3.7 3.5-5.1 mmol/L Chloride Level 107 98-107 mmol/L Carbon Dioxide Level 24 21-32 mmol/L Anion Gap 7.0 3-11 mmol/L Blood Urea Nitrogen 14 7-18 mg/dl Creatinine 1.11 0.60-1.40 mg/dl Est Creatinine Clear Calc Drug Dose 74.8 ml/min Estimated GFR () 80.3 Estimated GFR (Non- 69.3 BUN/Creatinine Ratio 12.2 10-20 Random Glucose 94 70-99 mg/dl Estimated Average Glucose 123 mg/dl Hemoglobin A1c 5.9 4.5-5.6 % Calcium Level 8.4 8.5-10.1 mg/dl Magnesium Level 2.2 1.8-2.4 mg/dl Thyroid Stimulating Hormone (TSH) 0.019 0.300-4.500 uIu/ml Free Thyroxine 1.50 0.80-1.60 ng/dl Free Triiodothyronine 2.77 2.30-4.20 pg/ml
[2017-12-25] MEDS: ATORVASTATIN 10 MG TAB PO SCH (21:00)
[2017-12-25 21:54] VITALS: O2SAT 21
[2017-12-25] MEDS: CEFTRIAXONE SOD INJ 1 GM in DEXTROSE 5% ADD-VANTAGE 50ML 50 ML IV SCH (22:52)
[2017-12-25] MEDS: BACLOFEN 10 MG TAB PO SCH (22:53)
[2017-12-25] MEDS: ENOXAPARIN 40 MG/0.4 ML SYR SQ SCH (22:53)
[2017-12-25] MEDS: AMITRIPTYLINE HCL 25 MG TAB PO SCH (22:53)
[2017-12-25 23:59] VITALS: BP 125/84; PULSE 70; TEMP 36.8; O2SAT 95
[2017-12-26] MEDS: LEVOTHYROXINE 125 MCG TAB PO SCH (05:49)
[2017-12-26] MEDS: INSULIN ASPART 100 UNITS/ML 3 ML PEN SC SCH ×4 (06:30→20:17)
[2017-12-26] MEDS: TAMSULOSIN HCL 0.4 MG CAP PO SCH (07:38)
[2017-12-26] MEDS: FINASTERIDE 5 MG TAB PO SCH (07:38)
[2017-12-26] MEDS: METOPROLOL TARTRATE 25 MG TAB PO SCH ×2 (07:38→20:11)
[2017-12-26] MEDS: FLUTICASONE PROPIONATE NA SPR 16 GM BTL NAE SCH (07:38)
[2017-12-26] MEDS: SERTRALINE HCL 50 MG TAB PO SCH (07:38)
[2017-12-26] MEDS: CHOLECALCIFEROL 1000 INTER.UNIT TAB PO SCH ×2 (07:38→20:17)
[2017-12-26 07:40] VITALS: BP_SYST 120; BP_SYST 139; BP_SYST 144; BP_DIAS 76; BP_DIAS 83; BP_DIAS 86; PULSE 72; PULSE 79; TEMP 36.8; O2SAT 96
[2017-12-26 07:48] LABS: BASO % 0.5 %; BASO ABS # 0.03 K/uL (0-0.2); EOS % 2.8 %; EOS ABS # 0.17 K/uL (0-0.5); HEMATOCRIT 42.7 % (42-52); HEMOGLOBIN 14.6 g/dL (14.0-18.0); IG# 0.01 K/uL (0.00-0.02); LYMPH % 27.6 %; LYMPH ABS # 1.65 K/uL (1.2-3.4); MEAN CELL VOLUME 86.1 fL (80-100); MEAN CORPUSCULAR HEMOGLOBIN 29.4 pg (25-34); MEAN CORPUSCULAR HGB CONC 34.2 g/dl (32-36); MEAN PLATELET VOLUME 10.6 fL (7.4-10.4); MONO % 10.1 %; NEUT % 58.8 %; NEUT ABS # 3.51 K/uL (1.4-6.5); PLATELET COUNT 166 K/uL (130-400); RED CELL DISTRIBUTION WIDTH CV 13.8 % (11.5-14.5); RED CELL DISTRIBUTION WIDTH SD 43.3 fL (36.4-46.3); WHITE BLOOD COUNT 5.97 K/uL (4.8-10.8)
[2017-12-26 07:54] LABS: INR 1.7 (0.9-1.1)
[2017-12-26 08:00] VITALS: O2SAT 96
[2017-12-26 08:15] LABS: CALCIUM 7.9 mg/dl (8.5-10.1); CREATININE 0.92 mg/dl (0.60-1.40); POTASSIUM 3.6 mmol/L (3.5-5.1)
[2017-12-26] MEDS: SODIUM CHLORIDE 0.9% 1000ML 1,000 ML IV SCH (08:53)
--- NOTE | 2017-12-26 12:56 | Progress Note ---
Internal Med Progress Note Date of Service: Dec 26, 2017. Provider Documentation: SUBJECTIVE: sitting on the chair comfortably and eating lunch says he is feeling much better and likes to go home instead of rehab afebrile no chest pain or sob likes to go home tomorrow OBJECTIVE: Vital Signs-as noted below Exam: General-alert and oriented. ENT-Normal hearing Neck-no neck masses Lungs-dcta b/l no wheezing no crackles present Heart-S1 and S2 heard regular rate and rhythm no murmurs present Abdomen-Soft bowel sounds present non tender no distension Extremities-no edema no erythema Neuro-alert and awake moves extremities Lab data as noted below. ASSESSMENT & PLAN: This is a 67-year-old male presents with generalized weakness, history of multiple sclerosis. 1. Generalized weakness. History of multiple sclerosis. The patient is on IV Solu-Medrol 1 gram every monthly, last dose was about 15-20 days ago Discussed with neurology. The patient symptoms worsen whenever he has infection and he has history of recurrent UTI's. Patient straight caths 3 times daily. Urinalysis positive for urinary tract infection. We will empirically start Rocephin. Gentle fluids. Observe on the medical floor. PT, OT and Social Service to help with discharge planning and possible rehab placement. 12/25/17 feeling better pt/ot 12/26/17 much better back to baseline and likes to go home tomorrow 2.UTI Enterobacter rossi sensitive causing above symptoms on rocephin#3 3 History of multiple sclerosis On IV Solu-Medrol monthly. appreciate nephrology inputs. 2. History of depression. Continue Zoloft and Elavil. 3. History of anxiety, on Klonopin p.r.n. 4. Benign prostatic hyperplasia, on Proscar and Flomax. 5. Hypothyroidism with history of papillary thyroid cancer status post surgery. History of time postsurgical hypothyroidism, on levothyroxine 150 mcg p.o. daily. The patient's levothyroxine was cut down from 175-150 on 10/08/2017, but still TSH very low. Decreased further back levothyroxine to 125mcg daily and follow labs in 4-6 weeks. 6. History of hypertension, on Lopressor. We will monitor the blood pressure. 7. History of diabetes type 2. We will hold metformin and place on insulin sliding scale. hemoglobin A1c levels 5.9. 8. Deep venous thrombosis prophylaxis, sequential compression devices and Lovenox. 9. Disposition: Observe on medical floor. PT, OT and Social Service to help with discharge planning. Possible d.c home with home health in am 10. Level 1 full code. Vital Signs: Date Time Temp Pulse Resp B/P (MAP) Pulse Ox O2 Delivery O2 Flow Rate FiO2 12/26/17 08:00 96 Room Air 12/26/17 07:40 36.8 79 18 120/76 (91) 96 Room Air 72 144/83 (103) 72 139/86 (103) 12/26/17 00:06 Room Air BiPAP 12/25/17 23:59 36.8 70 16 125/84 (98) 95 BiPAP 12/25/17 21:54 21 12/25/17 16:55 94 Room Air 12/25/17 16:50 36.7 74 16 126/84 (98) 94 Room Air Lab Results: Results Past 24 Hours Test 12/25/17 17:13 12/25/17 20:17 12/26/17 07:20 Range/Units Bedside Glucose 108 142 70-99 mg/dl White Blood Count 5.97 4.8-10.8 K/uL Red Blood Count 4.96 4.7-6.1 M/uL Hemoglobin 14.6 14.0-18.0 g/dL Hematocrit 42.7 42-52 % Mean Corpuscular Volume 86.1 80-100 fL Mean Corpuscular Hemoglobin 29.4 25-34 pg Mean Corpuscular Hemoglobin Concent 34.2 32-36 g/dl Platelet Count 166 130-400 K/uL Mean Platelet Volume 10.6 7.4-10.4 fL Neutrophils (%) (Auto) 58.8 % Lymphocytes (%) (Auto) 27.6 % Monocytes (%) (Auto) 10.1 % Eosinophils (%) (Auto) 2.8 % Basophils (%) (Auto) 0.5 % Neutrophils # (Auto) 3.51 1.4-6.5 K/uL Lymphocytes # (Auto) 1.65 1.2-3.4 K/uL Monocytes # (Auto) 0.60 0.11-0.59 K/uL Eosinophils # (Auto) 0.17 0-0.5 K/uL Basophils # (Auto) 0.03 0-0.2 K/uL RDW Standard Deviation 43.3 36.4-46.3 fL RDW Coefficient of Variation 13.8 11.5-14.5 % Immature Granulocyte % (Auto) 0.2 % Immature Granulocyte # (Auto) 0.01 0.00-0.02 K/uL Prothrombin Time 17.4 9.0-12.0 SECONDS Prothromb Time International Ratio 1.7 0.9-1.1 Sodium Level 141 136-145 mmol/L Potassium Level 3.6 3.5-5.1 mmol/L Chloride Level 109 98-107 mmol/L Carbon Dioxide Level 25 21-32 mmol/L Anion Gap 7.0 3-11 mmol/L Blood Urea Nitrogen 12 7-18 mg/dl Creatinine 0.92 0.60-1.40 mg/dl Est Creatinine Clear Calc Drug Dose 90.2 ml/min Estimated GFR () 100.8 Estimated GFR (Non- 87.0 BUN/Creatinine Ratio 12.8 10-20 Random Glucose 91 70-99 mg/dl Calcium Level 7.9 8.5-10.1 mg/dl Magnesium Level 2.1 1.8-2.4 mg/dl
--- NOTE | 2017-12-26 14:51 | Neurology Progress Notes ---
Neurology Progress Note Date of Service Dec 26, 2017. Subjective Anand is a 67 year old male with PMH MS on IV solumedrol 1 g every month no disease modulating medications, BPH, and straight catheterization 3 times daily , spinal stenosis, DL, HTN, hyperparathyroidism post thyroidectomy, sleep apnea on bipap, apnea, DM, who states he starting feeling fatigued about a weak ago. He felt like he was getting better but on Saturday he had an episode that he was so fatigued that he "slow motion lowered himself to the floor." he was having nausea and vomiting unable to keep anything down and knew he needed to go to the hospital. Last night he had an episode of night sweats which happens when he gets a UTI. this time he did have some "fuzziness" of thinking. He knows this has alot to do with straight cathing himself 3 x per day. He has lost sensation of urination. He states his bowels have been regular. Today he states he is feeling better. He thinks his leg is stronger and he has more coordination in his hands. denies CP, SOB, abdominal pain, current new one sided weakness, fall, headache. He states he was told he could go home tomorrow. He feels he is back to his baseline and will go home instead of transfer to [facility] Objective Date Time Temp Pulse Resp B/P (MAP) Pulse Ox O2 Delivery O2 Flow Rate FiO2 12/26/17 08:00 96 Room Air 12/26/17 07:40 36.8 79 18 120/76 (91) 96 Room Air 72 144/83 (103) 72 139/86 (103) 12/26/17 00:06 Room Air BiPAP 12/25/17 23:59 36.8 70 16 125/84 (98) 95 BiPAP 12/25/17 21:54 21 12/25/17 16:55 94 Room Air 12/25/17 16:50 36.7 74 16 126/84 (98) 94 Room Air Last 24 Hours Test 12/25/17 17:13 12/25/17 20:17 12/26/17 07:20 Bedside Glucose 108 mg/dl 142 mg/dl White Blood Count 5.97 K/uL Red Blood Count 4.96 M/uL Hemoglobin 14.6 g/dL Hematocrit 42.7 % Mean Corpuscular Volume 86.1 fL Mean Corpuscular Hemoglobin 29.4 pg Mean Corpuscular Hemoglobin Concent 34.2 g/dl Platelet Count 166 K/uL Mean Platelet Volume 10.6 fL Neutrophils (%) (Auto) 58.8 % Lymphocytes (%) (Auto) 27.6 % Monocytes (%) (Auto) 10.1 % Eosinophils (%) (Auto) 2.8 % Basophils (%) (Auto) 0.5 % Neutrophils # (Auto) 3.51 K/uL Lymphocytes # (Auto) 1.65 K/uL Monocytes # (Auto) 0.60 K/uL Eosinophils # (Auto) 0.17 K/uL Basophils # (Auto) 0.03 K/uL RDW Standard Deviation 43.3 fL RDW Coefficient of Variation 13.8 % Immature Granulocyte % (Auto) 0.2 % Immature Granulocyte # (Auto) 0.01 K/uL Prothrombin Time 17.4 SECONDS Prothromb Time International Ratio 1.7 Sodium Level 141 mmol/L Potassium Level 3.6 mmol/L Chloride Level 109 mmol/L Carbon Dioxide Level 25 mmol/L Anion Gap 7.0 mmol/L Blood Urea Nitrogen 12 mg/dl Creatinine 0.92 mg/dl Est Creatinine Clear Calc Drug Dose 90.2 ml/min Estimated GFR () 100.8 Estimated GFR (Non- 87.0 BUN/Creatinine Ratio 12.8 Random Glucose 91 mg/dl Calcium Level 7.9 mg/dl Magnesium Level 2.1 mg/dl Imaging: no new imaging Exam: Physical Exam: Constitutional: appearance nourished, he is sleep with bi pap currently in place , awakes easily when entering the room Ears, Nose, Mouth and Throat: mucous membranes moist, no injection and skin normal, eyes normal Cardiovascular: normal S-1 and S-2 and regular rate and rhythm Respiratory: clear to auscultation (CTA) and no rales, rhonchi or wheeze Musculoskeletal: no peripheral edema and good distal pulses Skin: no stigmata of neurocutaneous disease noted and normal and intact Eyes: extraocular muscles intact (EOMI) and pupils equal, round and reactive to light (PERRL) NEUROLOGIC EXAMINATION: Mental status: Alert and interactive Oriented to full date and location Oriented to person Speech fluent with no evidence of aphasia Cranial Nerves smile eye brow raise symmetric Sensory: intact to light touch Coordination: finger to nose with no bipass or tremor Gait/Stance: lying in bed Strength: biceps triceps hand brazer crawler torch 5/5 left LE 1/5 hip flex plantar ext 0/5 Current Inpatient Medications Medications (Trade) Dose Ordered Sig/Cam Route Start Time Stop Time Status Last Admin Dose Admin Enoxaparin Sodium (Lovenox Inj) 40 mg HS SQ 12/24/17 21:00 01/23/18 20:59 12/24/17 21:43 40 MG Acetaminophen (Tylenol Tab) 650 mg Q4H PRN PO 12/24/17 17:30 01/23/18 17:29 Al Hydrox/Mg Hydrox/Simethicone (Maalox Max Susp) 15 ml Q4H PRN PO 12/24/17 17:30 01/23/18 17:29 Polyethylene (Miralax Powder Packet) 17 gm DAILY PRN PO 12/24/17 17:30 01/23/18 17:29 Ondansetron HCl (Zofran Inj) 4 mg Q6H PRN IV 12/24/17 17:30 01/23/18 17:29 Amitriptyline HCl (Elavil Tab) 25 mg HS PO 12/24/17 21:00 01/23/18 20:59 12/24/17 21:44 25 MG Atorvastatin Calcium (Lipitor Tab) 10 mg QPM PO 12/24/17 21:00 01/23/18 20:59 12/24/17 21:44 10 MG Baclofen (Lioresal Tab) 10 mg HS PO 12/24/17 21:00 01/23/18 20:59 12/24/17 21:44 10 MG Cholecalciferol (Vitamin D Tab) 1,000 inter.unit BID PO 12/24/17 21:00 01/23/18 20:59 12/26/17 07:38 1,000 INTER.UNIT Clonazepam (Klonopin Tab) 0.5 mg TID PRN PO 12/24/17 17:30 01/23/18 17:29 Finasteride (Proscar Tab) 5 mg DAILY PO 12/25/17 08:00 01/24/18 08:59 12/26/17 07:38 5 MG Fluticasone Propionate (Flonase Nasal [place]) 2 sprays DAILY XIMENA 12/25/17 08:00 01/24/18 08:59 Meclizine HCl (Antivert Tab) 12.5 mg TID PRN PO 12/24/17 17:30 01/23/18 17:29 Metoprolol Tartrate (Lopressor Tab) 12.5 mg BID PO 12/24/17 21:00 01/23/18 20:59 12/26/17 07:38 12.5 MG Sertraline HCl (Zoloft Tab) 50 mg DAILY PO 12/25/17 08:00 01/24/18 08:59 12/26/17 07:38 50 MG Warfarin Sodium (Coumadin Tab) 2.5 mg DAILY@16 PO 12/25/17 16:00 01/24/18 15:59 12/25/17 16:18 2.5 MG Ceftriaxone Sodium 1 gm/ Dextrose 50 ml @ 100 mls/hr Q24H IV 12/24/17 19:00 01/03/18 18:59 12/24/17 19:53 100 MLS/HR Tamsulosin HCl (Flomax Cap) 0.4 mg DAILY PO 12/25/17 08:00 01/24/18 08:59 12/26/17 07:38 0.4 MG Tramadol HCl (Ultram Tab) 50 mg Q6H PRN PO 12/24/17 17:30 01/23/18 17:29 12/25/17 00:20 50 MG Levothyroxine Sodium (Synthroid Tab) 125 mcg DAILYBB PO 12/25/17 06:30 01/24/18 06:59 12/26/17 05:49 125 MCG Insulin Aspart (novoLOG ASPART) SLIDING SCALE G... ACHS SC 12/24/17 21:00 01/23/18 20:59 12/26/17 13:22 2 UNITS Glucose (Glucose 40% Gel) 15-30 GRAMS 15 GRAMS... UD PRN PO 12/24/17 17:30 01/23/18 17:29 Glucose (Glucose Chew Tab) 4-8 Tablets 4 Tabl... UD PRN PO 12/24/17 17:30 01/23/18 17:29 Dextrose (Dextrose 50% 50ML Syringe) 25-50ML OF 50% DW IV FOR... UD PRN IV 12/24/17 17:30 01/23/18 17:29 Glucagon (Glucagon Inj) 1 mg UD PRN SQ 12/24/17 17:30 01/23/18 17:29 Miscellaneous (Iv Fluids Completed) 1 ea PRN PRN N/A 12/24/17 19:45 12/24/18 19:44 Impression 67 year old male extensive medical history including progressive MS Plan 1. UTI - treating with ceftriaxone IV 2. dehydration -fluid hydration 3. PT/OT for discharge needs- feels he is back to baseline home PT if indicated 4. left leg weakness is ongoing MS issues, rigid foot support and elevation of contralateral shoe 5. no steroid infusion at this time- return to monthly infusions as scheduled as out patient 6. ok to discharge back to home when medically stable return as schedule to [facility] neurology, continue IV steroids as outpatient as scheduled. I have seen and discussed above patient with Dr Paula [facility], neurology Patient now back to his baseline with antibiotics and no steroids He would like to go home and if he is stable tomorrow he certainly could do so with ongoing rx and follow up as previously arranged paula [facility] MD
[2017-12-26] MEDS: WARFARIN SOD 2.5 MG TAB PO SCH (16:10)
[2017-12-26 16:33] VITALS: BP 147/82; PULSE 72; TEMP 36.5; O2SAT 95
[2017-12-26] MEDS: CEFTRIAXONE SOD INJ 1 GM in DEXTROSE 5% ADD-VANTAGE 50ML 50 ML IV SCH (20:09)
[2017-12-26] MEDS: ATORVASTATIN 10 MG TAB PO SCH (20:11)
[2017-12-26] MEDS: BACLOFEN 10 MG TAB PO SCH (20:11)
[2017-12-26] MEDS: AMITRIPTYLINE HCL 25 MG TAB PO SCH (20:11)
[2017-12-26] MEDS: ENOXAPARIN 40 MG/0.4 ML SYR SQ SCH (20:12)
[2017-12-26 23:18] VITALS: O2SAT 96
[2017-12-26 23:50] VITALS: BP 153/85; PULSE 58; TEMP 36.4; O2SAT 97
[2017-12-27] MEDS: LEVOTHYROXINE 125 MCG TAB PO SCH (05:29)
[2017-12-27 07:40] VITALS: BP_SYST 128; BP_SYST 149; BP_SYST 152; BP_DIAS 77; BP_DIAS 80; BP_DIAS 83; PULSE 65; PULSE 67; PULSE 75; TEMP 36.6; O2SAT 96
[2017-12-27] MEDS: FLUTICASONE PROPIONATE NA SPR 16 GM BTL NAE SCH (08:00)
[2017-12-27 08:01] VITALS: O2SAT 96
[2017-12-27 08:17] LABS: BASO % 0.8 %; BASO ABS # 0.05 K/uL (0-0.2); EOS % 3.1 %; EOS ABS # 0.19 K/uL (0-0.5); HEMATOCRIT 43.2 % (42-52); HEMOGLOBIN 14.6 g/dL (14.0-18.0); IG# 0.01 K/uL (0.00-0.02); LYMPH % 28.9 %; LYMPH ABS # 1.77 K/uL (1.2-3.4); MEAN CELL VOLUME 85.7 fL (80-100); MEAN CORPUSCULAR HGB CONC 33.8 g/dl (32-36); MEAN PLATELET VOLUME 10.5 fL (7.4-10.4); MONO % 10.4 %; MONO ABS # 0.64 K/uL (0.11-0.59); NEUT % 56.6 %; NEUT ABS # 3.47 K/uL (1.4-6.5); PLATELET COUNT 177 K/uL (130-400); RED CELL DISTRIBUTION WIDTH CV 13.7 % (11.5-14.5); RED CELL DISTRIBUTION WIDTH SD 42.8 fL (36.4-46.3); WHITE BLOOD COUNT 6.13 K/uL (4.8-10.8)
[2017-12-27] MEDS: FINASTERIDE 5 MG TAB PO SCH (08:20)
[2017-12-27] MEDS: SERTRALINE HCL 50 MG TAB PO SCH (08:20)
[2017-12-27] MEDS: METOPROLOL TARTRATE 25 MG TAB PO SCH (08:20)
[2017-12-27] MEDS: TAMSULOSIN HCL 0.4 MG CAP PO SCH (08:20)
[2017-12-27] MEDS: CHOLECALCIFEROL 1000 INTER.UNIT TAB PO SCH (08:20)
[2017-12-27] MEDS: INSULIN ASPART 100 UNITS/ML 3 ML PEN SC SCH ×2 (08:24→11:00)
[2017-12-27 08:26] LABS: INR 1.8 (0.9-1.1)
[2017-12-27 08:56] LABS: CALCIUM 8.7 mg/dl (8.5-10.1); CREATININE 1.02 mg/dl (0.60-1.40); POTASSIUM 3.7 mmol/L (3.5-5.1)
[2017-12-27] MEDS ORDERED: CIPR-255 PO (12:41)
[2017-12-27] MEDS ORDERED: SYN125 PO (12:41)
[2017-12-27] MEDS ORDERED: LCTX PO (12:41)
--- NOTE | 2017-12-27 12:43 | Discharge Instructions ---
Discharge Instructions Date of Service Dec 27, 2017. Admission Reason for Admission: Ambulatory Dysfunction, Weakness Discharge Discharge Diagnosis / Problem: AMBULARIRY DYSFUNBCTION, WEAKNESS, UTI Discharge Goals Goal(s): Decrease discomfort, Improve function Activity Recommendations Activity Limitations: resume your previous activity . Instructions / Follow-Up Instructions / Follow-Up FOLLOWUP WITH FAMILY DOCTOR ON December 12:45PM FOLLOWUP WITH NEUROLOGY SCHEDULED. LAB: THYROID PROFILE IN 4-6 WEEKS AND FOLLOW RESULTS WITH FAMILY DOCTOR SYNTHROID DOSE WAS REDUCED TO 125MCG PO DAILY. Current Hospital Diet Patient's current hospital diet: Diabetes Type 2 Diet Discharge Diet Recommended Diet: Diabetes Type 2 Diet Pending Studies Studies pending at discharge: no Laboratory Results Hemoglobin A1c Test 12/25/17 08:24 Range/Units Estimated Average Glucose 123 mg/dl Hemoglobin A1c 5.9 H 4.5-5.6 % Medical Emergencies . Who to Call and When: Medical Emergencies: If at any time you feel your situation is an emergency, please call 911 immediately. . Non-Emergent Contact Non-Emergency issues call your: Primary Care Provider . . "Provider Documentation" section prepared by Abhijit Anderson. .
[2017-12-27 13:05] VITALS: BP 149/83; PULSE 75; TEMP 36.6; O2SAT 96
--- NOTE | 2017-12-27 17:47 | Progress Note ---
Internal Med Progress Note Date of Service: Dec 27, 2017. Provider Documentation: SUBJECTIVE: eating lunch says he is at his baseline and ambulated in room wants to go home for Easter no chest pain or sob afebrile OBJECTIVE: Vital Signs-as noted below Exam: General-alert and oriented. ENT-Normal hearing Neck-no neck masses Lungs-dcta b/l no wheezing no crackles present Heart-S1 and S2 heard regular rate and rhythm no murmurs present Abdomen-Soft bowel sounds present non tender no distension Extremities-no edema no erythema Neuro-alert and awake moves extremities Lab data as noted below. ASSESSMENT & PLAN: This is a 67-year-old male presents with generalized weakness, history of multiple sclerosis. 1. Generalized weakness. History of multiple sclerosis. The patient is on IV Solu-Medrol 1 gram every monthly, last dose was about 15-20 days ago Discussed with neurology. The patient symptoms worsen whenever he has infection and he has history of recurrent UTI's. Patient straight caths 3 times daily. cx growing rossi sensitive Enterobacter discharged on cipro to complete one week course 2.UTI Enterobacter rossi sensitive causing above symptoms on rocephin#4 abx as above 3 History of multiple sclerosis On IV Solu-Medrol monthly. appreciate nephrology inputs.stable 2. History of depression. Continue Zoloft and Elavil. 3. History of anxiety, on Klonopin p.r.n. 4. Benign prostatic hyperplasia, on Proscar and Flomax. 5. Hypothyroidism with history of papillary thyroid cancer status post surgery. History of time postsurgical hypothyroidism, on levothyroxine 150 mcg p.o. daily. The patient's levothyroxine was cut down from 175-150 on 10/08/2017, but still TSH very low. Decreased further back levothyroxine to 125mcg daily and follow labs in 4-6 weeks. 6. History of hypertension, on Lopressor. We will monitor the blood pressure. 7. History of diabetes type 2. held metformin while in hospital and placed on insulin sliding scale. hemoglobin A1c levels 5.9.d/c on home meds Discharged home to followup with PCP and Neurology Vital Signs: Date Time Temp Pulse Resp B/P (MAP) Pulse Ox O2 Delivery O2 Flow Rate FiO2 12/27/17 13:05 36.6 75 20 96 Room Air 3/30/18 08:01 96 Room Air 12/27/17 07:40 36.6 65 20 128/80 (96) 96 Room Air 67 152/77 (102) 75 149/83 (105) 12/27/17 00:30 CPAP 12/26/17 23:50 36.4 58 18 153/85 (107) 97 CPAP 12/26/17 23:18 96 Lab Results: Results Past 24 Hours Test 12/26/17 20:16 12/27/17 07:35 12/27/17 08:01 Range/Units Bedside Glucose 117 101 70-99 mg/dl White Blood Count 6.13 4.8-10.8 K/uL Red Blood Count 5.04 4.7-6.1 M/uL Hemoglobin 14.6 14.0-18.0 g/dL Hematocrit 43.2 42-52 % Mean Corpuscular Volume 85.7 80-100 fL Mean Corpuscular Hemoglobin 29.0 25-34 pg Mean Corpuscular Hemoglobin Concent 33.8 32-36 g/dl Platelet Count 177 130-400 K/uL Mean Platelet Volume 10.5 7.4-10.4 fL Neutrophils (%) (Auto) 56.6 % Lymphocytes (%) (Auto) 28.9 % Monocytes (%) (Auto) 10.4 % Eosinophils (%) (Auto) 3.1 % Basophils (%) (Auto) 0.8 % Neutrophils # (Auto) 3.47 1.4-6.5 K/uL Lymphocytes # (Auto) 1.77 1.2-3.4 K/uL Monocytes # (Auto) 0.64 0.11-0.59 K/uL Eosinophils # (Auto) 0.19 0-0.5 K/uL Basophils # (Auto) 0.05 0-0.2 K/uL RDW Standard Deviation 42.8 36.4-46.3 fL RDW Coefficient of Variation 13.7 11.5-14.5 % Immature Granulocyte % (Auto) 0.2 % Immature Granulocyte # (Auto) 0.01 0.00-0.02 K/uL Prothrombin Time 18.7 9.0-12.0 SECONDS Prothromb Time International Ratio 1.8 0.9-1.1 Sodium Level 139 136-145 mmol/L Potassium Level 3.7 3.5-5.1 mmol/L Chloride Level 108 98-107 mmol/L Carbon Dioxide Level 25 21-32 mmol/L Anion Gap 6.0 3-11 mmol/L Blood Urea Nitrogen 16 7-18 mg/dl Creatinine 1.02 0.60-1.40 mg/dl Est Creatinine Clear Calc Drug Dose 81.4 ml/min Estimated GFR () 89.0 Estimated GFR (Non- 76.8 BUN/Creatinine Ratio 15.6 10-20 Random Glucose 90 70-99 mg/dl Calcium Level 8.7 8.5-10.1 mg/dl Magnesium Level 2.4 1.8-2.4 mg/dl
--- NOTE | 2017-12-27 18:05 | Discharge Summary ---
Discharge Summary Date of Service Dec 27, 2017. Discharge Summary Admission Date: Dec 24, 2017 at 17:22 Discharge Date: Dec 27, 2017 Discharge Disposition: Home with services Principal Diagnosis: AMBULATORY DYSFUNCTION GENERALIZED WEAKNESS UTI Secondary Diagnoses/Problems: multiple sclerosis, BPH, and straight catheterization 3 times daily, history of spinal stenosis, history of depression, hyperlipidemia, hypertension, hyperparathyroidism, moderate obstructive sleep apnea, history of papillary thyroid carcinoma status post total thyroidectomy and status post parathyroidectomy, postsurgical hypothyroidism, history of diabetes, history of venous thrombosis presents Procedures: CXR: 1. No acute cardiopulmonary disease. CT HEAD: 1. No acute intracranial abnormality. Consultations: NEUROLOGY Medication Reconciliation New Medications: Ciprofloxacin Hcl (Cipro) 500 Mg Tab 500 MG PO BID for 4 Days, #8 TAB Lactobacillus Acidophilus (Lactinex) Tab 2 TAB PO BID for 7 Days, #28 TAB Levothyroxine Sodium (Synthroid) 125 Mcg Tab 125 MCG PO DAILYBB, #30 TAB 1 Refill Continued Medications: Amitriptyline HCl (Amitriptyline HCl) 25 Mg Tab 25 MG PO HS Atorvastatin (Lipitor) 10 Mg Tab 10 MG PO QPM, TAB Baclofen (Lioresal) 10 Mg Tab 10 MG PO HS for 30 Days Cholecalciferol (Vitamin D) 1,000 Unit Tab 1000 INTER.UNIT PO BID Clonazepam (Clonazepam) 0.5 Mg Tab 1 TAB PO TID PRN for Anxiety/Agitation Finasteride (Proscar) 5 Mg Tab 5 MG PO DAILY, TAB Fluticasone Propionate (Nasal) (Flonase Allergy Relief) 50 Mcg/Act Spr 2 SPRAYS XIMENA DAILY Meclizine Hcl (Meclizine Hcl) 25 Mg Tab 12.5 MG PO TID PRN for vertigo TAKE UP TO 3 TIMES DAILY NEEDED FOR DIZZINESS Metformin HCl (Metformin HCl) 500 Mg Tab 500 MG PO BID Methylprednisolone Sod Succ (Solu-Medrol) 1,000 Mg Inj 1000 MG IV MONTHLY Metoprolol Tartrate (Lopressor) 25 Mg Tab 12.5 MG PO BID, #30 TAB Sertraline (Zoloft) 50 Mg Tab 50 MG PO DAILY, TAB Tamsulosin Hcl (Flomax) 0.4 Mg Cap 0.4 MG PO DAILY, #30 CAP Tramadol (Ultram) 50 Mg Tab 50 MG PO Q6H PRN for Pain, #30 TAB Warfarin Sodium (Warfarin Sodium) 1 Mg Tab 2.5 TAB PO DAILY for 90 Days, #225 TAB Dose accordingly to keep INR between 2 to 3. Discontinued Medications: Levothyroxine Sodium (Synthroid) 150 Mcg Tab 150 MCG PO DAILY Admission Information HPI (per Admitting provider): This is a 67-year-old male with past medical history significant for multiple sclerosis, BPH, and straight catheterization 3 times daily, history of spinal stenosis, history of depression, hyperlipidemia, hypertension, hyperparathyroidism, moderate obstructive sleep apnea, history of papillary thyroid carcinoma status post total thyroidectomy and status post parathyroidectomy, postsurgical hypothyroidism, history of diabetes, history of venous thrombosis presents with generalized weakness. The patient cannot take the MS medication because of his thyroid cancer and he is on Solu-Medrol 1 gram every monthly, last dose was about a couple of weeks ago, but since last week, the patient was getting generalized weakness and not able to transfer from bed to a chair, usually he walks with a walker to the bathroom and into the chair, but is not able to do that. Denies any fever, chills, no cough, no headaches. No blurred visions. No earaches, no runny nose. Questionable mild sore throat, no difficulty swallowing, on regular diet. Denies any chest pain, no shortness of breath, no cough, no nausea, no vomiting, no abdominal pain. Normal bowel and bladder movements. No blood in the stools, no blood in urine. Appetite is okay. No swelling in the legs. No skin rash. Currently, resting comfortably and hemodynamically stable. The patient says whenever he gets infected he gets this kind of symptoms and because he straight caths few times a day, he is prone for infections in the urine. Physical Exam (per Admitting): GENERAL: The patient is of moderate build, not in distress. VITAL SIGNS: Temperature 36.4, pulse 86, blood pressure 151/94, oxygen 95% room air. HEENT: No pallor, no icterus. Pupils equal, round react to light. NECK: No JVD, no neck masses, no carotid bruits. CARDIOVASCULAR: S1, S2 heard, regular rate and rhythm, no murmur, no gallop. RESPIRATORY SYSTEM: Normal AP diameter. No accessory muscle use. No wheezing, no crackles. ABDOMEN: Soft, bowel sounds present. Nontender. No distention. CENTRAL NERVOUS SYSTEM: Power 5/5 in upper extremities and weakness of bilateral lower extremities. Sensation is intact. Coordination of movements normal. Hospital Course This is a 67-year-old male presents with generalized weakness, history of multiple sclerosis. 1. Generalized weakness. History of multiple sclerosis. The patient is on IV Solu-Medrol 1 gram every monthly, last dose was about 15-20 days ago Discussed with neurology. The patient symptoms worsen whenever he has infection and he has history of recurrent UTI's. Patient straight caths 3 times daily. cx growing rossi sensitive Enterobacter discharged on cipro to complete one week course 2.UTI Enterobacter rossi sensitive causing above symptoms on rocephin#4 abx as above 3 History of multiple sclerosis On IV Solu-Medrol monthly. appreciate nephrology inputs.stable 2. History of depression. Continue Zoloft and Elavil. 3. History of anxiety, on Klonopin p.r.n. 4. Benign prostatic hyperplasia, on Proscar and Flomax. 5. Hypothyroidism with history of papillary thyroid cancer status post surgery. History of time postsurgical hypothyroidism, on levothyroxine 150 mcg p.o. daily. The patient's levothyroxine was cut down from 175-150 on 10/08/2017, but still TSH very low. Decreased further back levothyroxine to 125mcg daily and follow labs in 4-6 weeks. 6. History of hypertension, on Lopressor. We will monitor the blood pressure. 7. History of diabetes type 2. held metformin while in hospital and placed on insulin sliding scale. hemoglobin A1c levels 5.9.d/c on home meds Discharged home to followup with PCP and Neurology Total time spent on discharge = 35MINUTES This includes examination of the patient, discharge planning, medication reconciliation, and communication with other providers. Discharge Instructions Discharge Instructions Date of Service Dec 27, 2017. Admission Reason for Admission: Ambulatory Dysfunction, Weakness Discharge Discharge Diagnosis / Problem: AMBULARIRY DYSFUNBCTION, WEAKNESS, UTI Discharge Goals Goal(s): Decrease discomfort, Improve function Activity Recommendations Activity Limitations: resume your previous activity . Instructions / Follow-Up Instructions / Follow-Up FOLLOWUP WITH FAMILY DOCTOR ON December 12:45PM FOLLOWUP WITH NEUROLOGY SCHEDULED. LAB: THYROID PROFILE IN 4-6 WEEKS AND FOLLOW RESULTS WITH FAMILY DOCTOR SYNTHROID DOSE WAS REDUCED TO 125MCG PO DAILY. Current Hospital Diet Patient's current hospital diet: Diabetes Type 2 Diet Discharge Diet Recommended Diet: Diabetes Type 2 Diet Pending Studies Studies pending at discharge: no Laboratory Results Hemoglobin A1c Test 12/25/17 08:24 Range/Units Estimated Average Glucose 123 mg/dl Hemoglobin A1c 5.9 H 4.5-5.6 % Medical Emergencies . Who to Call and When: Medical Emergencies: If at any time you feel your situation is an emergency, please call 911 immediately. . Non-Emergent Contact Non-Emergency issues call your: Primary Care Provider . .
== END 2017-12-27 14:25 | disposition home or self-care (01) ==
LOC: C.EDB 13:47 → C.MS4W 17:22 → ENRESERV 17:38
PROVIDERS: ADMIT Internal Medicine; ATTEND Internal Medicine
DX: N39.0 Urinary tract infection, site not specified (principal); E86.0 Dehydration; R26.9 Unspecified abnormalities of gait and mobility; N40.0 Benign prostatic hyperplasia without lower urinary tract symptoms; I10 Essential (primary) hypertension; G47.33 Obstructive sleep apnea (adult) (pediatric); E11.9 Type 2 diabetes mellitus without complications; G35 Multiple sclerosis; F32.9 Major depressive disorder, single episode, unspecified; E78.5 Hyperlipidemia, unspecified; E21.3 Hyperparathyroidism, unspecified; E89.0 Postprocedural hypothyroidism; Z99.89 Dependence on other enabling machines and devices; Z87.440 Personal history of urinary (tract) infections; Z85.850 Personal history of malignant neoplasm of thyroid; Z79.01 Long term (current) use of anticoagulants; Z80.6 Family history of leukemia; Z82.49 Family history of ischemic heart disease and other diseases of the circulatory system

== ENCOUNTER 2020-02-12 10:45 | Inpatient (IN) ==
--- OUTSIDE RECORDS SUMMARY | 2020-02-12 10:48 | External Medical Summary | Continuity of Care Document ---
:1950 Author Name Winston Kraus, Provider Address Unavailable Unavailable , Care Team Providers Name Role Phone Jerica HUTSON, [email or web address] Assessments Assessed Problems:CoughHistory of deep venous thrombosisModerate obstructive sleep apneaHistory of interstitial lung diseasePulmonary noduleLung massHistory of pleural effusion Problems Visit for pre-operative examination (V72.84) (Z01.818) Hypertension (401.9) (I10) BPH (benign prostatic hyperplasia) (600.00) (N40.0) Vitamin D deficiency (268.9) (E55.9) Dizziness (780.4) (R42) Pain, chronic (338.29) (G89.29) Moderate obstructive sleep apnea (327.23) (G47.33) Pulmonary nodule (793.11) (R91.1) Cough (786.2) (R05) Papillary carcinoma of thyroid (193) (C73) Hyperparathyroidism (252.00) (E21.3) Allergies and Adverse Reactions No Known Drug Allergies (Allergy) Medications Sertraline HCl - 25 MG Oral Tablet; TAKE 1 TABLET DAILY. Start: 06-Jul-2015 Refills: 0 Metoprolol Tartrate 25 MG Oral Tablet; TAKE 1/2 TABLET TWIC E DAILY. Quantity: 180 Refills: 3 Meclizine HCl - 25 MG Oral Tablet; TAKE 1/2 TABLET 3 TIMES DAILY NEEDED. Quantity: 60 Refills: 3 Levothyroxine Sodium 175 MCG Oral Tablet ; TAKE 1 TABLET EVERY DAY & BUT (2) TABS ON SUNDAYS Quantity: 30 Refills: 5 hydroCHLOROthiazide 12.5 MG Oral Tablet; TAKE 1 TABLET DAILY . Quantity: 90 Refills: 3 Coumadin 2.5 MG Oral Tablet Refills: 0 fentaNYL 50 MCG/HR Transdermal Patch 72 Hour Refills: 0 Baclofen 10 MG Oral Tablet; TAKE 1-2 TABLET AT HS Refills: 0 Fluticasone Propionate 50 MCG/ACT Nasal Suspension Refills: 0 Flomax 0.4 MG Oral Capsule; TAKE 1 CAPSULE Daily Quantity: 30 Refills: 5 clonazePAM 1 MG Oral Tablet; TAKE 1 TABLET 3 TIMES DAILY. Quantity: 90 Refills: 0 Amitriptyline HCl - 25 MG Oral Tablet; TAKE 1 TABLET AT BEDT GELA. Refills: 0 traMADol HCl - 50 MG Oral Tablet Refills: 0 Vitamin D 50 MCG (2000 UT) Oral Capsule; daily Refills: 0 metFORMIN HCl ER 500 MG Oral Tablet Exte nded Release 24 Hour; TAKE 1 TABLET ONCE DAILY WITH THE EVENING MEAL. Start: 14-Aug-2017 Refills: 0 Procedures History of Kidney Surgery Status: Comple christine History of Oral Surgery Tooth Extraction Status: Completed History of Thyroid Surgery Total Thyroidectomy Status: Completed Immunizations Immunizations not documented Family History Mother Family history of Cancer Status: Active Grandfather Family history of Hypertension (V17.49) Status: Active Social History - Smoking Status Never smoked tobacco Interventions Follow-ups/ReferralsFollow-up visit in 1 year; Done: 14 Aug 2017 Discussion/[id number] male presents to the office for continuation of care of pulmonary nodules. These have been stable x 2-3 years (since PET/CT 2013). NO need for further serial imaging. F/U in 1-year. Plan of Treatment Planned Observations Planned Goals not documented Results No Known Results Results not documented Encounters Appointment; Alma Piazno PA-C 14-Aug-2017 13:00 Encounter Diagnosis: Problem not documented
[2020-02-12] MEDS ORDERED: SODIUM CHLORIDE 0.9% 1000ML 1,000 ML IV ONE ×2 (10:51→13:09)
[2020-02-12] MEDS ORDERED: CEFEPIME 2,000 MG/20 ML VIAL IV STA (10:51)
--- NOTE | 2020-02-12 11:09 | Emergency Department Note ---
Impression & Plan Sepsis, Acute UTI (urinary tract infection), Fever, Acute dehydration ED Provider Note NAME: HEBER DENNIS AGE: 69 SEX: M : 1950 ARRIVES VIA: Ambulance INFORMANT: Patient, ED PROVIDER(S): Kit Lambert MD Chief Complaint: Weakness, dysuria, cough HPI: Patient does present with the above symptoms. The patient states he has had about 3 days of symptoms. Patient symptoms have gotten progressively worse. They are constant nature. Patient does have associated weakness. Nothing has made his symptoms any better. The patient does have prior history of MS and does straight cath 5-6 times a day in order to drain his bladder as he does have a history of neurogenic bladder. The patient has had a decreased oral intake poor liquid intake. The patient states he is had a nonproductive cough. Non-smoker. Recently outfitted with a CPAP machine yesterday. 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 ROS: See HPI for pertinent positives and negatives. A total of 10 systems were reviewed and otherwise negative. Past medical history: See below Surgical history: See below Social history: See below Physical Exam: GENERAL: Mildly ill in appearance, wearing a mask. Nasal cannula in place. EYE EXAM: Normal conjunctiva. PERRL, no anisocoria and EOM's grossly intact w/o pain. NECK: Supple, no nuchal rigidity, no adenopathy, non-tender. No signs of meni ngismus. LUNGS: Clear to auscultation. Normal chest wall mechanics. HEART: Tachycardic and regular, no MRG. ABDOMEN: Abdomen soft, non-tender, normo-active bowel sounds, no masses, no rebound or guarding. BACK: No CVA TTP. SKIN: No rashes and no bruising. UPPER EXTREMITIES: Upper extremities are grossly normal. LOWER EXTREMITIES: Grossly normal, no edema. Negative Homans sign bilaterally. NEURO EXAM: A&O x3, cranial nerves II-XII grossly intact, decreased sensation bilateral lower extremities and virtual paraplegia of the bilateral lower extremities Differential diagnoses: Infection, dehydration, metabolic abnormality, hypo/hyperglycemia, electrolyte disturbance, anemia, hypoxia, cardiac sources, intracerebral event, toxicologic, neurologic, as well as other pathologies. Course: Patient was seen and evaluated the bedside. Full history physical exam was performed. EKG: Indication: Tachycardia Sinus tachycardia, rate 146, normal intervals, normal axis, slight depression in the lateral leads likely rate related, no ST elevation. Imaging Studies: Radiology results as stated below per my review in the radiologist's interpretation: XR chest 1V portable HISTORY: 69 years-old Male SEPSIS acute sepsis COMPARISON: Chest radiograph 03/18/2018 TECHNIQUE: Portable AP view of the chest FINDINGS: Cardiomediastinal and hilar silhouettes are within normal limits. Surgical clips project of the right neck. No pneumothorax, pleural effusion, airspace consolidation or overt pulmonary edema. Mild degenerative changes of the shoulders and spine. IMPRESSION: No acute process. ACT 112: Negative or not required by law. The above report was generated using voice recognition software. It may contain grammatical, syntax or spelling errors. Electronically signed by: Tonny Alonso M.D. 02/12/2020 11:50 AM Dictated: 02/12/20 1149 Transcribed: 02/12/20 1149 Cardiac monitoring: An order was placed for continuous cardiac monitoring. The monitor shows a rate of 142 with sinus tachycardia rhythm. MDM: Patient does present with weakness. Patient's weakness is chronic in his lower extremities. The patient does complain of dysuria. No prior micro sensitivities for what I can find in the records upon initial assessment. Empiric cefepime ordered and the patient did have blood and urine cultures obtained along with a chest x-ray swab for possible coronavirus IV fluids and was just given a gram of Tylenol prior to arrival. Patient's white count of 15. Mild lactate of 3.1. "Pro calcitonin is 1.8. Urinalysis does show a likely infection. Patient was ordered additional antipyretics and fluids. Heart rate is improved from the 140s to the 120s with antipyretics and fluids. BP also improved to 114/68 over the first liter of fluids. Patient was on 2 L of oxygen via nasal cannula. The patient's room air saturation prior to arrival was in the 90s. I did speak with the on-call hospitalist Oneal Soni MD [facility] hospitalist who agreed to further evaluate treat the patient. Patient was admitted to the medicine service. Critical Care: I have personally spent 45 minutes of critical care time in direct management of this patient. This includes bedside care, interpretation of diagnostic studies, and testing, discussion with consultants, patient, and family members, and other require inpatient management activities. This 45 minutes is in excess of all separately billable procedures. Past Med/Surg History Medical History Deep vein blood clot of left lower extremity (Inactive) Depression (Inactive) HLD (hyperlipidemia) (Inactive) HTN (hypertension) (Inactive) Hypothyroidism (Inactive) MS (multiple sclerosis) (Inactive) Neurogenic bladder (Inactive) JAMES on CPAP (Inactive) Surgical History H/O thyroidectomy (Inactive) Social History (Updated 02/12/20 @ 11:09 by Kit Lambert MD) Preferred Language: Welsh Communication Ability: Effective Current Living Situation: Family Feels Safe at Home: Yes Smoking Status: Never smoker Allergies Allergies Allergy/AdvReac Type Severity Reaction Status Date / Time No Known Allergies Allergy Verified 02/12/20 11:56 Home Meds Home Medications Medication Instructions Recorded Confirmed amitriptyline 25 mg PO HS 02/12/20 02/12/20 atorvastatin 10 mg PO QPM 02/12/20 02/12/20 baclofen 10 mg PO HS 02/12/20 02/12/20 calcium carbonate-vitamin D3 1 tab PO 2XWK 02/12/20 02/12/20 [Caltrate 600 plus D] cholecalciferol (vitamin D3) 50 mcg PO DAILY 02/12/20 02/12/20 [Vitamin D3] clonazepam 0.5 mg PO HS PRN 02/12/20 02/12/20 finasteride 5 mg PO QAM 02/12/20 02/12/20 hydrochlorothiazide 12.5 mg PO QAM 02/12/20 02/12/20 levothyroxine [Synthroid] 125 mcg PO UD 02/12/20 02/12/20 liothyronine 25 mcg PO BID 02/12/20 02/12/20 lisinopril 20 mg PO QAM 02/12/20 02/12/20 meclizine 12.5 mg PO TID PRN 02/12/20 02/12/20 metformin 500 mg PO UD 02/12/20 02/12/20 metoprolol tartrate 12.5 mg PO BID 02/12/20 02/12/20 oxybutynin chloride 10 mg PO QPM 02/12/20 02/12/20 sertraline 25 mg PO QAM 02/12/20 02/12/20 sertraline 50 mg PO QAM 02/12/20 02/12/20 warfarin 1.25 mg PO HS 02/12/20 02/12/20 Results & Data (ED) Vital Signs Vital Signs - 24 hr 02/12/20 10:45 02/12/20 10:59 02/12/20 11:00 Temperature 38.1 C H Temperature Source Oral Pulse Rate 146 H 145 H 152 H Pulse Rate from SpO2 Sensor 146 H 151 H Pulse Rhythm Regular Respiratory Rate 24 18 16 Respiratory Effort / Characteristics Short of Breath Blood Pressure 87/66 L Blood Pressure Mean 73 Blood Pressure Position Lying Pulse Oximetry 95 97 95 Oxygen Delivery Method Nasal Cannula Oxygen Flow Rate 3 Sepsis Recent Fever Within 48 Hours Yes Sepsis New/Unexplained Change in Mental Status No Sepsis Action Taken by Nursing Physician Notified 02/12/20 11:11 02/12/20 11:15 02/12/20 11:30 Temperature Temperature Source Pulse Rate 143 H 138 H 134 H Pulse Rate from SpO2 Sensor 142 H 134 H Pulse Rhythm Regular Respiratory Rate 22 22 26 H Respiratory Effort / Characteristics Blood Pressure 87/66 L Blood Pressure Mean 69 Blood Pressure Position Pulse Oximetry 90 95 95 Oxygen Delivery Method Nasal Cannula Oxygen Flow Rate 2 Sepsis Recent Fever Within 48 Hours Sepsis New/Unexplained Change in Mental Status Sepsis Action Taken by Nursing 02/12/20 11:51 02/12/20 11:52 02/12/20 12:00 Temperature Temperature Source Pulse Rate 123 H 126 H 125 H Pulse Rate from SpO2 Sensor 124 H 123 H 124 H Pulse Rhythm Respiratory Rate 33 H 24 17 Respiratory Effort / Characteristics Blood Pressure 99/63 L 103/70 Blood Pressure Mean 73 81 Blood Pressure Position Pulse Oximetry 96 96 94 Oxygen Delivery Method Nasal Cannula Oxygen Flow Rate 2 Sepsis Recent Fever Within 48 Hours Sepsis New/Unexplained Change in Mental Status Sepsis Action Taken by Nursing 02/12/20 12:01 02/12/20 12:30 02/12/20 12:31 Temperature Temperature Source Pulse Rate 127 H 130 H 124 H Pulse Rate from SpO2 Sensor 127 H 129 H 124 H Pulse Rhythm Respiratory Rate 20 Respiratory Effort / Characteristics Blood Pressure 92/70 L Blood Pressure Mean 75 Blood Pressure Position Pulse Oximetry 95 96 96 Oxygen Delivery Method Oxygen Flow Rate Sepsis Recent Fever Within 48 Hours Sepsis New/Unexplained Change in Mental Status Sepsis Action Taken by Nursing 02/12/20 13:00 02/12/20 13:01 Temperature Temperature Source Pulse Rate 125 H 124 H Pulse Rate from SpO2 Sensor 125 H 123 H Pulse Rhythm Respiratory Rate 18 Respiratory Effort / Characteristics Blood Pressure 114/68 Blood Pressure Mean 70 Blood Pressure Position Pulse Oximetry 97 96 Oxygen Delivery Method Oxygen Flow Rate Sepsis Recent Fever Within 48 Hours Sepsis New/Unexplained Change in Mental Status Sepsis Action Taken by Skilled Nursing Medications Current Medication List: was personally reviewed by me Laboratory Data Attestation: I reviewed the patient's lab results. Result diagrams: 02/12/20 11:11 02/12/20 11:11 Lab Results 02/12/20 02/12/20 02/12/20 Range/Units 11:11 11:11 11:11 WBC 15.44 H (4.8-10.8) K/uL RBC 4.91 (4.7-6.1) M/uL Hgb 13.6 L (14.0-18.0) g/dL Hct 41.1 L (42-52) % MCV 83.7 (80-100) fL MCH 27.7 (25-34) pg MCHC 33.1 (32-36) g/dL RDW Std Deviation 43.1 (36.4-46.3) fL RDW Coeff of Daria 14.1 (11.5-14.5) % Plt Count 216 (130-400) K/uL MPV 11.4 H (7.4-10.4) fL Immature Gran % (Auto) 0.5 % Neut % (Auto) 93.3 % Lymph % (Auto) 3.2 % Ellis % (Auto) 2.8 % Eos % (Auto) 0.1 % Baso % (Auto) 0.1 % Immature Gran # (Auto) 0.08 H (0.00-0.02) K/uL Neut # (Auto) 14.39 H (1.4-6.5) K/uL Lymph # (Auto) 0.49 L (1.2-3.4) K/uL Ellis # (Auto) 0.44 (0.11-0.59) K/uL Eos # (Auto) 0.02 (0-0.5) K/uL Baso # (Auto) 0.02 (0-0.2) K/uL PT 24.3 H (9.0-12.0) Seconds INR 2.4 H (0.9-1.1) APTT 35.8 H (21.0-31.0) Seconds PTT Ratio 1.3 Sodium 138 (136-145) mmol/L Potassium 4.0 (3.5-5.1) mmol/L Chloride 107 (98-107) mmol/L Carbon Dioxide 22 (21-32) mmol/L Anion Gap 10.0 (3-11) BUN 16 (7-18) mg/dl Creatinine 1.35 (0.6-1.4) mg/dl Est Cr Clr Drug Dosing 60.9 ml/min Est GFR ( Amer) 62.5 Est GFR (Non-Af Amer) 53.9 BUN/Creatinine Ratio 11.9 (10-20) Glucose 146 H (70-99) mg/dl Lactate (0.4-2.0) mmol/L Calcium 9.1 (8.5-10.1) mg/dl Magnesium 1.8 (1.8-2.4) mg/dl Total Bilirubin 0.6 (0.2-1) mg/dl AST 26 (15-37) U/L ALT 68 (12-78) U/L Alkaline Phosphatase 67 (45-117) U/L Troponin I < 0.015 (0-0.045) ng/ml Total Protein 6.7 (6.4-8.2) gm/dl Albumin 3.4 (3.4-5.0) gm/dl Globulin 3.3 (2.5-4.0) gm/dl Albumin/Globulin Ratio 1.0 (0.9-2) Procalcitonin (0-0.5) ng/ml Urine Color Urine Appearance (Clear) Urine pH (4.5-7.5) Ur Specific [place] (1.000-1.030) Urine Protein (Negative) Urine Glucose (UA) (Negative) Urine Ketones (Negative) Urine Blood (Negative) Urine Nitrite (Negative) Urine Bilirubin (Negative) Urine Urobilinogen (Negative) Ur Leukocyte Esterase (Negative) Urine WBC (Auto) (0-5) /hpf Urine RBC (Auto) (0-4) /hpf U Hyaline Cast (Auto) (0-5) /lpf U Epithel Cells (Auto) (0-5) /lpf Urine Bacteria (Auto) (Negative) Ur Renal Epithelial Cell 02/12/20 02/12/20 02/12/20 Range/Units 11:11 11:20 11:24 WBC (4.8-10.8) K/uL RBC (4.7-6.1) M/uL Hgb (14.0-18.0) g/dL Hct (42-52) % MCV (80-100) fL MCH (25-34) pg MCHC (32-36) g/dL RDW Std Deviation (36.4-46.3) fL RDW Coeff of Daria (11.5-14.5) % Plt Count (130-400) K/uL MPV (7.4-10.4) fL Immature Gran % (Auto) % Neut % (Auto) % Lymph % (Auto) % Ellis % (Auto) % Eos % (Auto) % Baso % (Auto) % Immature Gran # (Auto) (0.00-0.02) K/uL Neut # (Auto) (1.4-6.5) K/uL Lymph # (Auto) (1.2-3.4) K/uL Ellis # (Auto) (0.11-0.59) K/uL Eos # (Auto) (0-0.5) K/uL Baso # (Auto) (0-0.2) K/uL PT (9.0-12.0) Seconds INR (0.9-1.1) APTT (21.0-31.0) Seconds PTT Ratio Sodium (136-145) mmol/L Potassium (3.5-5.1) mmol/L Chloride (98-107) mmol/L Carbon Dioxide (21-32) mmol/L Anion Gap (3-11) BUN (7-18) mg/dl Creatinine (0.6-1.4) mg/dl Est Cr Clr Drug Dosing ml/min Est GFR ( Amer) Est GFR (Non-Af Amer) BUN/Creatinine Ratio (10-20) Glucose (70-99) mg/dl Lactate 3.1 H* (0.4-2.0) mmol/L Calcium (8.5-10.1) mg/dl Magnesium (1.8-2.4) mg/dl Total Bilirubin (0.2-1) mg/dl AST (15-37) U/L ALT (12-78) U/L Alkaline Phosphatase (45-117) U/L Troponin I (0-0.045) ng/ml Total Protein (6.4-8.2) gm/dl Albumin (3.4-5.0) gm/dl Globulin (2.5-4.0) gm/dl Albumin/Globulin Ratio (0.9-2) Procalcitonin 1.81 H (0-0.5) ng/ml Urine Color Yellow Urine Appearance Cloudy A (Clear) Urine pH 6.5 (4.5-7.5) Ur Specific [place] 1.016 (1.000-1.030) Urine Protein Negative (Negative) Urine Glucose (UA) Negative (Negative) Urine Ketones Negative (Negative) Urine Blood 1+ H (Negative) Urine Nitrite Positive A (Negative) Urine Bilirubin Negative (Negative) Urine Urobilinogen Negative (Negative) Ur Leukocyte Esterase 1+ H (Negative) Urine WBC (Auto) >30 H (0-5) /hpf Urine RBC (Auto) 5-10 H (0-4) /hpf U Hyaline Cast (Auto) 5-10 H (0-5) /lpf U Epithel Cells (Auto) 5-10 H (0-5) /lpf Urine Bacteria (Auto) 4+ H (Negative) Ur Renal Epithelial Cell Not Reportable Administered Medications Discontinued Medications Sodium Chloride (Nss 1000ml) 1,000 mls @ 999 mls/hr IV .Q1H1M ONE Stop: 02/12/20 11:51 Last Infusion: 02/12/20 13:18 Dose: 0 mls/hr Documented by: [id number] Admin: 02/12/20 12:06 Dose: 999 mls/hr Documented by: [id number] Cefepime HCl (Maxipime) 2,000 mg in 20 mls @ 5 mls/min IV NOW STA; Protocol Stop: 02/12/20 10:54 Last Admin: 02/12/20 12:06 Dose: 5 mls/min Documented by: [id number] Discharge Plan Visit Data Chief Complaint: Illness ED Provider: Kit Lambert Discharge Problem: Sepsis, Acute UTI (urinary tract infection), Fever, Acute dehydration Forms Stand Alone Forms: [facility] Prescriptions Prescriptions: No Action metformin 500 mg tablet 500 mg PO UD RF: 0 oxybutynin chloride 10 mg tablet extended release 24hr 10 mg PO QPM RF: 0 liothyronine 25 mcg tablet 25 mcg PO BID RF: 0 lisinopril 20 mg tablet 20 mg PO QAM RF: 0 meclizine 12.5 mg tablet 12.5 mg PO TID PRN (Reason: Dizziness) RF: 0 hydrochlorothiazide 12.5 mg capsule 12.5 mg PO QAM RF: 0 sertraline 25 mg Tablet 25 mg PO QAM RF: 0 atorvastatin 10 mg tablet 10 mg PO QPM RF: 0 clonazepam 0.5 mg tablet 0.5 mg PO HS PRN (Reason: Sleep) RF: 0 warfarin 2.5 mg tablet 1.25 mg PO HS RF: 0 amitriptyline 25 mg tablet 25 mg PO HS RF: 0 baclofen 10 mg tablet 10 mg PO HS RF: 0 levothyroxine [Synthroid] 125 mcg tablet 125 mcg PO UD RF: 0 sertraline 50 mg tablet 50 mg PO QAM RF: 0 finasteride 5 mg tablet 5 mg PO QAM RF: 0 cholecalciferol (vitamin D3) [Vitamin D3] 50 mcg (2,000 unit) Tablet 50 mcg PO DAILY RF: 0 Caltrate 600 plus D 600 mg (1,500 mg)-800 unit Tablet,Chewable 1 tab PO 2XWK RF: 0 metoprolol tartrate 25 mg tablet 12.5 mg PO BID RF: 0 Discharge Problem: Sepsis Qualifiers: Sepsis type: sepsis due to unspecified organism Sepsis acute organ dysfunction status: without acute organ dysfunction Qualified Code(s): A41.9 - Sepsis, unspecified organism Fever Qualifiers: Fever type: unspecified Qualified Code(s): R50.9 - Fever, unspecified
--- NOTE | 2020-02-12 11:52 | XRay Report ---
XR chest 1V portable HISTORY: 69 years-old Male SEPSIS acute sepsis COMPARISON: Chest radiograph 03/18/2018 TECHNIQUE: Portable AP view of the chest FINDINGS: Cardiomediastinal and hilar silhouettes are within normal limits. Surgical clips project of the right neck. No pneumothorax, pleural effusion, airspace consolidation or overt pulmonary edema. Mild degen erative changes of the shoulders and spine. IMPRESSION: No acute process. ACT 112: Negative or not required by law. The above report was generated using voice recognition software. It may contain grammatical, syntax o r spelling errors. Electronically signed by: Tonny Alonso M.D. 02/12/2020 11:50 AM
[2020-02-12 12:15] LABS: Appearance Urine Cloudy (Clear); Bacteria Urine Automated 4+ (Negative); Bilirubin Urine Negative (Negative); Blood Urine 1+ (Negative); Color Urine Yellow; Glucose Urine UA Negative (Negative); Ketones Urine Negative (Negative); Leukocyte Esterase Urine 1+ (Negative); Nitrite Urine Positive (Negative); Protein Urine Negative (Negative); Specific Gravity Urine 1.016 (1.000-1.030); Urobilinogen Urine Negative (Negative); pH Urine 6.5 (4.5-7.5)
[2020-02-12 12:16] LABS: Basophils # (auto) 0.02 K/uL (0-0.2); Basophils % (auto) 0.1 %; Eosinophils # (auto) 0.02 K/uL (0-0.5); Eosinophils % (auto) 0.1 %; Hematocrit (blood only) 41.1 % (42-52); Hemoglobin 13.6 g/dL (14.0-18.0); Immature Granulocytes # (auto) 0.08 K/uL (0.00-0.02); Immature Granulocytes % (auto) 0.5 %; Lymphocytes # (auto) 0.49 K/uL (1.2-3.4); Lymphocytes % (auto) 3.2 %; Mean Corpuscular Hemoglobin 27.7 pg (25-34); Mean Corpuscular Hgb Conc 33.1 g/dL (32-36); Mean Corpuscular Volume 83.7 fL (80-100); Mean Platelet Volume 11.4 fL (7.4-10.4); Monocytes # (auto) 0.44 K/uL (0.11-0.59); Monocytes % (auto) 2.8 %; Neutrophils # (auto) 14.39 K/uL (1.4-6.5); Neutrophils % (auto) 93.3 %; Platelet Count 216 K/uL (130-400); RDW Coefficient of Variation 14.1 % (11.5-14.5); RDW Standard Deviation 43.1 fL (36.4-46.3); Red Blood Count 4.91 M/uL (4.7-6.1); White Blood Count 15.44 K/uL (4.8-10.8)
[2020-02-12 12:28] LABS: INR 2.4 (0.9-1.1); Partial Thromboplastin Ratio 1.3; Partial Thromboplastin Time 35.8 Seconds (21.0-31.0); Prothrombin Time 24.3 Seconds (9.0-12.0)
[2020-02-12 12:40] LABS: Alanine Aminotransferase 68 U/L (12-78); Albumin Level 3.4 gm/dl (3.4-5.0); Aspartate Aminotransferase 26 U/L (15-37); BUN Creatinine Ratio 11.9 (10-20); Blood Urea Nitrogen 16 mg/dl (7-18); Calcium 9.1 mg/dl (8.5-10.1); Carbon Dioxide 22 mmol/L (21-32); Chloride 107 mmol/L (98-107); Creatinine Clr Calc Pharmacy 60.9 ml/min; Est GFR (African American) 62.5; Est GFR (Non-African American) 53.9; Glucose 146 mg/dl (70-99); Magnesium 1.8 mg/dl (1.8-2.4); Sodium 138 mmol/L (136-145)
[2020-02-12 12:45] LABS: Alkaline Phosphatase 67 U/L (45-117); Bilirubin,Total 0.6 mg/dl (0.2-1); Globulin 3.3 gm/dl (2.5-4.0); Total Protein 6.7 gm/dl (6.4-8.2); Troponin I < 0.015 ng/ml (0-0.045)
[2020-02-12 13:17] LABS: WBC Urine Automated >30 /hpf (0-5)
[2020-02-12] MEDS ORDERED: IBUPROFEN 200 MG TAB PO STA (13:19)
[2020-02-12] MEDS ORDERED: CARBOHYDRATES FOR HYPOGLYCEMIA PO PRN (13:55)
[2020-02-12] MEDS ORDERED: GLUCOSE 40% GEL 15 GM TUBE PO PRN (13:55)
[2020-02-12] MEDS ORDERED: GLUCOSE 10 TABS/TUBE PO PRN (13:55)
[2020-02-12] MEDS ORDERED: GLUCAGON FOR INJ 1 MG VIAL SQ PRN (13:55)
[2020-02-12] MEDS ORDERED: DEXTROSE 50% 50 ML SYRINGE IV PRN (13:55)
[2020-02-12] MEDS ORDERED: clonazePAM 0.5 MG TAB PO PRN (14:01)
[2020-02-12] MEDS ORDERED: ONDANSETRON INJ 2 MG/ML 2 ML VIAL IV PRN (14:08)
--- NOTE | 2020-02-12 14:14 | History & Physical Report ---
Date of Service February 12, 2020 Assessment & Plan (1) Sepsis: Sepsis, present on admission likely from urinary tract infection (urosepsis) as complication from self catheterization of bladder rule out COVID-19 with screening test -patient self caths the bladder intermittently at home -outpatient urine culture from 02/11/2020: LACTOSE FERMENTING GRAM NEGATIVE RODS -presents with sinus tachycardia of 140s and systolic blood pressure of 87 and fever as 38.1 celsius, lactic acid 3.1 on admission, patient given IV fluids and Cefepime by ED provider, continuing IV fluids for now and trend the lactic acid, continue cefepime -ED provider noted that patient has electrical discharge machine operator friend who visits patient at home, patient denies sick contacts, has clear chest X ray on admission, monitor oxygen saturation, will be precautionary and continue airborne and contact isolation until COVID-19 screen test returns obstructive sleep apnea -CPAP at night, daughter reports the CPAP machine setting at 22 which seems to be a high setting, discussed with respiratory therapist who plans on starting pressure at 10 and titrate as needed Multiple Sclerosis with Neurogenic Bladder History of Vitamin D deficiency -patient self caths the bladder intermittently at home -continue harding as started in the ED -continue home finasteride 5 mg daily and oxybutynin 10 mg daily -continue home baclofen 10 mg qhs to prevent spasms from multiple sclerosis -continue vitamin D and calcium supplements -follows with Dr. Jean-Baptiste as outpatient for multiple sclerosis and recently prescribed tramadol by Dr. Jean-Baptiste for pain as per his -patient reports chronic poor ambulation as baseline. PT/OT evaluations Hypertension -hold home dose lisinopril because of sepsis with low blood pressure, monitor blood pressure -continue home dose metoprolol tartrate 12.5 mg BID, patient missed AM dose of metoprolol prior to ED presentation. Tachycardia likely sepsis driven but should be able to tolerate usual low dose beta gurdeep Postoperative Hypothyroidism -history of thyroid resection because of thyroid cancer -on supplements of both levothyroxine 125 mcg daily except on Saturdays and also on liothyroxine 25 mcg BID, had recent thyroid labs as outpatient on 02/11/2020 Type 2 diabetes mellitus without shelter current use of insulin -hold home dose metformin because of elevated lactic acid on admission -sliding scale insulin as needed based on blood glucose checks, send HbA1c History of deep vein thrombosis in the past Anticoagulated on warfarin -admission INR 2.4, continue warfarin 1.25 mg qhs, trend INR -bilateral lower extremity edema likely from venous stasis, patient does not take diuretics at home and has clear chest X ray on admission other medications -takes clonazepam prn qhs for sleep Full Code Family: [phone], My colleague Dr. Strong will be taking the care of the patient as hospitalist starting on 02/13/2020 History of Present Illness -patient self caths the bladder intermittently at home -outpatient urine culture from 02/11/2020: LACTOSE FERMENTING GRAM NEGATIVE RODS -presents with sinus tachycardia of 140s and systolic blood pressure of 87 and fever as 38.1 celsius, lactic acid 3.1 on admission, patient given IV fluids an d Cefepime by ED provider, continuing IV fluids for now and trend the lactic acid, continue cefepime -ED provider noted that patient has electrical discharge machine operator friend who visits patient at home, patient denies sick contacts, will be precautionary and continue airborne and contact isolation until COVID-19 screen test returns patient had dry cough recent as noted in ED note, denies shortness of breath, but has been on nasal cannula oxygen when triaged in the ED. patient denies chest pain. no abdomen pain. no pain with bowel movements or urination. denies swelling of penis. has some edema of bilateral lower extremities Allergy History: patient reports no known allergies to foods or medications Family History: patient denies health problems in his family Primary Care Provider: Trinidad Cesar, Allergies Allergy/AdvReac Type Severity Reaction Status Date / Time No Known Allergies Allergy Verified 02/12/20 11:56 Home Medications Home Medications Medication Instructions Recorded Confirmed Type amitriptyline 25 mg PO HS 02/12/20 02/12/20 History atorvastatin 10 mg PO QPM 02/12/20 02/12/20 History baclofen 10 mg PO HS 02/12/20 02/12/20 History calcium carbonate-vitamin D3 1 tab PO 2XWK 02/12/20 02/12/20 History [Caltrate 600 plus D] cholecalciferol (vitamin D3) 50 mcg PO DAILY 02/12/20 02/12/20 History [Vitamin D3] clonazepam 0.5 mg PO HS PRN 02/12/20 02/12/20 History finasteride 5 mg PO QAM 02/12/20 02/12/20 History hydrochlorothiazide 12.5 mg PO QAM 02/12/20 02/12/20 History levothyroxine [Synthroid] 125 mcg PO UD 02/12/20 02/12/20 History liothyronine 25 mcg PO BID 02/12/20 02/12/20 History lisinopril 20 mg PO QAM 02/12/20 02/12/20 History meclizine 12.5 mg PO TID PRN 02/12/20 02/12/20 History metformin 500 mg PO UD 02/12/20 02/12/20 History metoprolol tartrate 12.5 mg PO BID 02/12/20 02/12/20 History oxybutynin chloride 10 mg PO QPM 02/12/20 02/12/20 History sertraline 25 mg PO QAM 02/12/20 02/12/20 History sertraline 50 mg PO QAM 02/12/20 02/12/20 History warfarin 1.25 mg PO HS 02/12/20 02/12/20 History Past Med/Surg History Medical History Deep vein blood clot of left lower extremity (Inactive) Depression (Inactive) HLD (hyperlipidemia) (Inactive) HTN (hypertension) (Inactive) Hypothyroidism (Inactive) MS (multiple sclerosis) (Inactive) Neurogenic bladder (Inactive) JAMES on CPAP (Inactive) Surgical History H/O thyroidectomy (Inactive) Social History (Updated 02/12/20 @ 11:09 by Kit Lambert MD) Preferred Language: Latvian Communication Ability: Effective Well Logger Required: No Beliefs That Will Affect Care: None Current Living Situation: Spouse Other Information That Helps Us Care for You: No Feels Safe at Home: Yes Safety Concerns: Feels Safe At This Time Smoking Status: Never smoker Do You Dip or Chew Tobacco: No ; Second Hand Exposure: No ; Tobacco Cessation Education Requested by Patient: No Hx Alcohol Use: No Hx Substance Use: No Review of Systems Review of Systems: All systems reviewed & are unremarkable except as noted in HPI & below Physical Exam Constitutional: cooperative Eyes: PERRL, conjunctivae normal, anicteric sclerae EOM intact bilaterally ENMT: external ear and nose normal, oropharynx normal (on nasal cannula oxygen in the ED) Neck: trachea midline, no thyromegaly normal visual inspection Respiratory: normal respiratory effort, lungs clear to auscultation normal respiratory effort Cardiovascular: Rate/Rhythm: regular rhythm and + tachycardic Gastrointestinal (Abdomen): normal bowel sounds, soft, nontender, no hepatosplenomegaly Musculoskeletal: Head/Neck/Chest: normocephalic and head atraumatic lower extremity edema bilaterally Neurologic: PERRL, EOMI, accommodation nl, no face palsy, no dysarthria Psychiatric: A+Ox3, euthymic affect Results & Data Results & Data ([facility]) Vital Signs (Past 12 Hours) Vital Signs Temp Pulse Resp BP Pulse Ox 02/12/20 13:01 124 H 96 02/12/20 13:00 125 H 18 114/68 97 02/12/20 12:31 124 H 96 02/12/20 12:30 130 H 20 92/70 L 96 02/12/20 12:01 127 H 95 02/12/20 12:00 125 H 17 103/70 94 02/12/20 11:52 126 H 24 96 02/12/20 11:51 123 H 33 H 99/63 L 96 02/12/20 11:30 134 H 26 H 95 02/12/20 11:15 138 H 22 95 02/12/20 11:11 143 H 22 87/66 L 90 02/12/20 11:00 152 H 16 95 02/12/20 10:59 145 H 18 97 02/12/20 10:45 38.1 C H 146 H 24 87/66 L 95 Code Status & VTE Plan VTE Prophylaxis Plan VTE Prophylaxis will be ordered: Yes (1) Sepsis Sepsis acute organ dysfunction status: without acute organ dysfunction Sepsis type: sepsis due to unspecified organism Qualified Code(s): A41.9 - Sepsis, unspecified organism
[2020-02-12] MEDS ORDERED: SODIUM CHLORIDE 0.9% 1000ML 1,000 ML IV SCH (14:15)
[2020-02-12] MEDS ORDERED: CEFEPIME CONSULT ACTIVE PRN (14:18)
[2020-02-12] MEDS ORDERED: METOPROLOL TARTRATE 25 MG TAB PO STA (14:27)
[2020-02-12] MEDS ORDERED: TRAMADOL HCL 50 MG TABLET PO PRN (15:22)
[2020-02-12] MEDS: INSULIN ASPART 100 UNITS/ML 3 ML PEN SC SCH ×2 (17:01→20:22)
[2020-02-12] MEDS: CALCIUM 600MG + VIT D 400 IU TAB PO SCH (17:02)
[2020-02-12] MEDS: OXYBUTYNIN CHLORIDE XL 5 MG TABCR PO SCH (17:02)
--- NOTE | 2020-02-12 17:21 | Electrocardiogram Report ---
Test Reason : Blood Pressure : / mmHG Vent. Rate : 146 BPM Atrial Rate : 146 BPM P-R Int : 116 ms QRS Dur : 072 ms QT Int : 284 ms P-R-T Axes : 027 015 058 degrees QTc Int : 442 ms Sinus tachycardia Otherwise normal ECG When compared with ECG of 18-MAR-2018 12:26, Vent. rate has increased BY 66 BPM T wave amplitude has increased in Anterolateral leads Confirmed by Ran Curran ([id number]) on 02/12/2020 5:21:37 PM Referred By: ED Confirmed By:Ran Curran
[2020-02-12] MEDS: LIOTHYRONINE SODIUM 25 MCG TAB PO SCH (20:02)
[2020-02-12] MEDS: ATORVASTATIN 10 MG TAB PO SCH (20:02)
[2020-02-12] MEDS: METOPROLOL TARTRATE 25 MG TAB PO SCH (20:02)
[2020-02-12] MEDS: AMITRIPTYLINE HCL 25 MG TAB PO SCH (20:03)
[2020-02-12] MEDS: WARFARIN SOD 1.25 MG TAB PO SCH (20:03)
[2020-02-12] MEDS: BACLOFEN 10 MG TAB PO SCH (20:38)
[2020-02-12] MEDS: CEFEPIME 2,000 MG in SYRINGE 7.5 ML IV SCH (20:39)
[2020-02-13] MEDS: CEFEPIME 2,000 MG in SYRINGE 7.5 ML IV SCH ×2 (03:53→17:21)
[2020-02-13 07:43] LABS: Basophils # (auto) 0.02 K/uL (0-0.2); Basophils % (auto) 0.1 %; Eosinophils # (auto) 0.12 K/uL (0-0.5); Eosinophils % (auto) 0.8 %; Hematocrit (blood only) 40.2 % (42-52); Hemoglobin 13.1 g/dL (14.0-18.0); Immature Granulocytes # (auto) 0.08 K/uL (0.00-0.02); Immature Granulocytes % (auto) 0.5 %; Lymphocytes # (auto) 1.34 K/uL (1.2-3.4); Lymphocytes % (auto) 8.4 %; Mean Corpuscular Hemoglobin 27.9 pg (25-34); Mean Corpuscular Hgb Conc 32.6 g/dL (32-36); Mean Corpuscular Volume 85.5 fL (80-100); Mean Platelet Volume 11.1 fL (7.4-10.4); Monocytes # (auto) 0.87 K/uL (0.11-0.59); Monocytes % (auto) 5.5 %; Neutrophils # (auto) 13.52 K/uL (1.4-6.5); Neutrophils % (auto) 84.7 %; Platelet Count 178 K/uL (130-400); RDW Coefficient of Variation 14.7 % (11.5-14.5); RDW Standard Deviation 46.2 fL (36.4-46.3); White Blood Count 15.95 K/uL (4.8-10.8)
[2020-02-13] MEDS: INSULIN ASPART 100 UNITS/ML 3 ML PEN SC SCH ×4 (07:47→20:29)
[2020-02-13] MEDS: SERTRALINE HCL 50 MG TABLET PO SCH (08:01)
[2020-02-13] MEDS: LIOTHYRONINE SODIUM 25 MCG TAB PO SCH ×2 (08:02→20:28)
[2020-02-13] MEDS: FINASTERIDE 5 MG TAB PO SCH (08:02)
[2020-02-13] MEDS: METOPROLOL TARTRATE 25 MG TAB PO SCH ×2 (08:02→20:28)
[2020-02-13] MEDS: CHOLECALCIFEROL 1,000 UNITS 25 MCG TAB PO SCH (08:02)
[2020-02-13 08:06] LABS: INR 2.4 (0.9-1.1); Prothrombin Time 24.2 Seconds (9.0-12.0)
[2020-02-13 08:15] LABS: Albumin Level 2.8 gm/dl (3.4-5.0); BUN Creatinine Ratio 12.1 (10-20); Calcium 9.1 mg/dl (8.5-10.1); Creatinine Clr Calc Pharmacy 47.2 ml/min; Est GFR (Non-African American) 39.7; Potassium 4.1 mmol/L (3.5-5.1)
[2020-02-13 08:17] LABS: Albumin Globulin Ratio 0.7 (0.9-2); Bilirubin,Total 0.7 mg/dl (0.2-1); Globulin 3.8 gm/dl (2.5-4.0); Total Protein 6.6 gm/dl (6.4-8.2)
[2020-02-13 08:21] LABS: Estimated Average Glucose 157 mg/dl; Hemoglobin A1C 7.1 % (4.5-5.6)
[2020-02-13] MEDS: ACETAMINOPHEN 325 MG TAB PO PRN ×2 (09:15→16:47)
[2020-02-13] MEDS: OXYBUTYNIN CHLORIDE XL 5 MG TABCR PO SCH (16:48)
[2020-02-13] MEDS ORDERED: MECLIZINE 12.5 MG TAB PO PRN (17:05)
--- NOTE | 2020-02-13 19:39 | Hospitalist Progress Note ---
Date of Service February 13, 2020 Assessment & Plan (1) Sepsis: Sepsis, present on admission likely from urinary tract infection (urosepsis) as complication from self catheterization of bladder hx of neurogenic bladder -patient self caths the bladder intermittently at home -outpatient urine culture from 02/11/2020: LACTOSE FERMENTING GRAM NEGATIVE RODS -presents with sinus tachycardia of 140s and systolic blood pressure of 87 and fever as 38.1 celsius, lactic acid 3.1 on admission, afebrile now, vitals stable follow urine culture report obstructive sleep apnea -CPAP at night, Multiple Sclerosis with Neurogenic Bladder -patient self caths the bladder intermittently at home -continue harding as started in the ED -continue home finasteride 5 mg daily and oxybutynin 10 mg daily -continue home baclofen 10 mg qhs to prevent spasms from multiple sclerosis -continue vitamin D and calcium supplements -follows with Dr. Jean-Baptiste as outpatient for multiple sclerosis and recently prescribed tramadol by Dr. Jean-Baptiste for pain as per his -patient reports chronic poor ambulation as baseline. uses power chair Hypertension -\was hyotensive in ER due to sepsis ACEI on hold Postoperative Hypothyroidism -history of thyroid resection because of thyroid cancer -on supplements of both levothyroxine 125 mcg daily except on Saturdays and also on liothyroxine 25 mcg BID, had recent thyroid labs as outpatient on 02/11/2020 Type 2 diabetes mellitus without penitentiary current use of insulin -hold home dose metformin because of elevated lactic acid on admission -sliding scale insulin as needed based on blood glucose checks, send HbA1c History of deep vein thrombosis in the past Anticoagulated on warfarin -admission INR 2.4, continue warfarin 1.25 mg qhs, Full Code Family: [phone], Admission and Anticipated Discharge Date Admission Date: February 12, 2020 Subjective feels weak and tired had not had any fever or chills since yesterday appetite remains poor no cough , no SOB Physical Exam Constitutional: WD/WN, vitals as above + ill appearing; no acute distress Eyes: PERRL, conjunctivae normal, anicteric sclerae ENMT: external ear and nose normal, oropharynx normal Neck: trachea midline, no thyromegaly Respiratory: normal respiratory effort, lungs clear to auscultation Cardiovascular: RRR, no murmur, no edema Gastrointestinal (Abdomen): normal bowel sounds, soft, nontender, no hepatosplenomegaly Musculoskeletal: Extremities: + abnormal strength (generalized weakness ) Neurologic: PERRL, EOMI, accommodation nl, no face palsy, no dysarthria Psychiatric: A+Ox3, euthymic affect Results & Data Results & Data ([facility]) Vital Signs (Past 12 Hours) Vital Signs Temp Pulse Pulse Resp BP Pulse Ox 02/13/20 16:00 93 H 02/13/20 15:20 37.4 C 97 H 19 101/66 92 02/13/20 11:17 36.8 C 91 H 20 107/81 92 02/13/20 08:00 96 H (1) Sepsis Sepsis acute organ dysfunction status: without acute organ dysfunction Sepsis type: sepsis due to unspecified organism Qualified Code(s): A41.9 - Sepsis, unspecified organism
[2020-02-13] MEDS: WARFARIN SOD 1.25 MG TAB PO SCH (20:28)
[2020-02-13] MEDS: BACLOFEN 10 MG TAB PO SCH (20:29)
[2020-02-13] MEDS: ATORVASTATIN 10 MG TAB PO SCH (20:29)
[2020-02-13] MEDS: AMITRIPTYLINE HCL 25 MG TAB PO SCH (20:29)
[2020-02-14] MEDS: CEFEPIME 2,000 MG in SYRINGE 7.5 ML IV SCH (04:39)
[2020-02-14 06:35] LABS: Est GFR (African American) 60.4; Est GFR (Non-African American) 52.1
[2020-02-14] MEDS: LEVOTHYROXINE SODIUM 125 MCG TABLET PO SCH (07:20)
[2020-02-14] MEDS: FINASTERIDE 5 MG TAB PO SCH (08:01)
[2020-02-14] MEDS: CHOLECALCIFEROL 1,000 UNITS 25 MCG TAB PO SCH (08:01)
[2020-02-14] MEDS: SERTRALINE HCL 50 MG TABLET PO SCH (08:01)
[2020-02-14] MEDS: METOPROLOL TARTRATE 25 MG TAB PO SCH ×2 (08:02→20:31)
[2020-02-14] MEDS: LIOTHYRONINE SODIUM 25 MCG TAB PO SCH ×2 (08:02→20:30)
[2020-02-14] MEDS: INSULIN ASPART 100 UNITS/ML 3 ML PEN SC SCH ×4 (08:57→20:34)
[2020-02-14] MEDS: cefTRIAXone SODIUM 2,000 MG in DEXTROSE 5% 50 ML IV SCH (17:00)
[2020-02-14] MEDS: OXYBUTYNIN CHLORIDE XL 5 MG TABCR PO SCH (17:01)
--- NOTE | 2020-02-14 18:53 | Hospitalist Progress Note ---
Date of Service February 14, 2020 Assessment & Plan (1) Sepsis: Sepsis, present on admission -presents with sinus tachycardia of 140s and systolic blood pressure of 87 and fever as 38.1 celsius, lactic acid 3.1 on admission, likely from urinary tract infection (urosepsis) as complication from self catheterization of bladder hx of neurogenic bladder -patient self caths the bladder intermittently at home -outpatient urine culture from 02/11/2020: klebsiella abx changed to IV rocephin per sensitiviy afebrile now, vitals stable follow urine culture report obstructive sleep apnea -CPAP at night, Multiple Sclerosis with Neurogenic Bladder -patient self caths the bladder intermittently at home -continue harding as started in the ED -continue home finasteride 5 mg daily and oxybutynin 10 mg daily -continue home baclofen 10 mg qhs to prevent spasms from multiple sclerosis -continue vitamin D and calcium supplements -follows with Dr. Jean-Baptiste as outpatient for multiple sclerosis and recently prescribed tramadol by Dr. Jean-Baptiste for pain as per his -patient reports chronic poor ambulation as baseline. 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 -hold home dose metformin because of elevated lactic acid on admission -sliding scale insulin as needed based on blood glucose checks, send HbA1c History of deep vein thrombosis in the past Anticoagulated on warfarin -admission INR 2.4, continue warfarin 1.25 mg qhs, Full Code DISPOSITION : discharge home in nexgt 1-2 days if medically stable Family: [phone], Admission and Anticipated Discharge Date Admission Date: February 12, 2020 Subjective feels much better today fatigue has improved no fever or chills Physical Exam Constitutional: WD/WN, vitals as above + ill appearing; no acute distress Eyes: PERRL, conjunctivae normal, anicteric sclerae ENMT: external ear and nose normal, oropharynx normal Neck: trachea midline, no thyromegaly Respiratory: normal respiratory effort, lungs clear to auscultation Cardiovascular: RRR, no murmur, no edema Gastrointestinal (Abdomen): normal bowel sounds, soft, nontender, no hepatosplenomegaly Musculoskeletal: Extremities: + abnormal strength (generalized weakness ) Neurologic: PERRL, EOMI, accommodation nl, no face palsy, no dysarthria Psychiatric: A+Ox3, euthymic affect Results & Data Results & Data ([facility]) Vital Signs (Past 12 Hours) Vital Signs Temp Pulse Pulse Pulse Resp BP BP 02/14/20 16:25 88 02/14/20 15:49 36.9 C 89 18 110/72 02/14/20 12:58 97 H 02/14/20 11:17 36.8 C 87 18 103/72 02/14/20 08:00 81 02/14/20 07:17 36.9 C 91 H 20 107/69 98/63 L Pulse Ox 02/14/20 16:25 02/14/20 15:49 94 02/14/20 12:58 02/14/20 11:17 95 02/14/20 08:00 02/14/20 07:17 94 (1) Sepsis Sepsis acute organ dysfunction status: without acute organ dysfunction Sepsis type: sepsis due to unspecified organism Qualified Code(s): A41.9 - Sepsis, unspecified organism
[2020-02-14] MEDS: WARFARIN SOD 1.25 MG TAB PO SCH (20:30)
[2020-02-14] MEDS: ATORVASTATIN 10 MG TAB PO SCH (20:31)
[2020-02-14] MEDS: BACLOFEN 10 MG TAB PO SCH (20:31)
[2020-02-14] MEDS: AMITRIPTYLINE HCL 25 MG TAB PO SCH (20:31)
[2020-02-15] MEDS: LEVOTHYROXINE SODIUM 125 MCG TABLET PO SCH (06:34)
[2020-02-15 07:05] LABS: Creatinine Clr Calc Pharmacy 57.4 ml/min; Est GFR (African American) 58.8; Est GFR (Non-African American) 50.7
--- NOTE | 2020-02-15 07:47 | Hospitalist Progress Note ---
Date of Service February 15, 2020 Assessment & Plan Admission and Anticipated Discharge Date Admission Date: February 12, 2020 Subjective ATTENDING ADDENDUM : blood culture : 2 sets positive E coli , same sensitivity as Urine culture on IV Rocephin -adequate coverage cont IV rocephin for 24 hrs will be changed to PO Keflex on discharge will need 14 days of tx due to bacteremia Callie Palma MD Results & Data Results & Data ([facility]) Vital Signs (Past 12 Hours) Vital Signs Temp Pulse Pulse Resp BP Pulse Ox 02/15/20 03:38 36.9 C 74 18 106/60 94 02/15/20 03:27 89 18 92 02/15/20 02:06 85 02/14/20 23:30 36.8 C 86 18 101/63 93 02/14/20 22:15 83 18 93 02/14/20 20:00 37.3 C 91 H 18 143/79 H 93
[2020-02-15] MEDS ORDERED: LACTATED RINGER'S 1,000 ML IV SCH (08:00)
[2020-02-15] MEDS: INSULIN ASPART 100 UNITS/ML 3 ML PEN SC SCH ×4 (08:07→20:52)
[2020-02-15] MEDS: FINASTERIDE 5 MG TAB PO SCH (09:12)
[2020-02-15] MEDS: LIOTHYRONINE SODIUM 25 MCG TAB PO SCH ×2 (09:12→20:49)
[2020-02-15] MEDS: METOPROLOL TARTRATE 25 MG TAB PO SCH ×2 (09:12→20:49)
[2020-02-15] MEDS: SERTRALINE HCL 50 MG TABLET PO SCH (09:13)
[2020-02-15] MEDS: CHOLECALCIFEROL 1,000 UNITS 25 MCG TAB PO SCH (09:15)
[2020-02-15] MEDS: CALCIUM 600MG + VIT D 400 IU TAB PO SCH (16:15)
[2020-02-15] MEDS: cefTRIAXone SODIUM 2,000 MG in DEXTROSE 5% 50 ML IV SCH (16:15)
[2020-02-15] MEDS: OXYBUTYNIN CHLORIDE XL 5 MG TABCR PO SCH (16:15)
--- NOTE | 2020-02-15 17:14 | Hospitalist Progress Note ---
Date of Service February 15, 2020 Assessment & Plan (1) Sepsis: Sepsis, present on admission -presents with sinus tachycardia of 140s and systolic blood pressure of 87 and fever as 38.1 celsius, lactic acid 3.1 on admission, likely from urinary tract infection (urosepsis) as complication from self catheterization of bladder hx of neurogenic bladder -patient self caths the bladder intermittently at home Urine culture 02/11 E coli blood culture : 2 sets positive E coli , same sensitivity as Urine culture on IV Rocephin -adequate coverage repeat blood cultures ordered cont IV rocephin will be changed to PO Keflex on discharge will need 14 days of tx due to bacteremia afebrile now, vitals stable obstructive sleep apnea -CPAP at night, Multiple Sclerosis with Neurogenic Bladder -patient self caths the bladder intermittently at home -continue harding as started in the ED -continue home finasteride 5 mg daily and oxybutynin 10 mg daily -continue home baclofen 10 mg qhs to prevent spasms from multiple sclerosis -continue vitamin D and calcium supplements -follows with Dr. Jean-Baptiste as outpatient for multiple sclerosis and recently prescribed tramadol by Dr. Jean-Baptiste for pain as per his -patient reports chronic poor ambulation as baseline. uses power chair ordered for PT/OT eval : recommends rehab Hypertension -\was hyotensive in ER due to sepsis BP stable now ACEI resumed Postoperative Hypothyroidism -history of thyroid resection because of thyroid cancer -on supplements of both levothyroxine 125 mcg daily except on Saturdays and also on liothyroxine 25 mcg BID, had recent thyroid labs as outpatient on 02/11/2020 Type 2 diabetes mellitus without residential current use of insulin -hold home dose metformin because of elevated lactic acid on admission -sliding scale insulin as needed based on blood glucose checks, send HbA1c History of deep vein thrombosis in the past Anticoagulated on warfarin -admission INR 2.4, continue warfarin 1.25 mg qhs, Full Code DISPOSITION : pt will need rehab after discharge from hospital Family: updated over phone Admission and Anticipated Discharge Date Admission Date: February 12, 2020 Subjective complains of feeling more weak and tired today feels his legs are going to give away with attempt to stand up no fever or chills no cough or SOB tolerating diet well Physical Exam Constitutional: WD/WN, vitals as above + ill appearing; no acute distress Eyes: PERRL, conjunctivae normal, anicteric sclerae ENMT: external ear and nose normal, oropharynx normal Neck: trachea midline, no thyromegaly Respiratory: normal respiratory effort, lungs clear to auscultation Cardiovascular: RRR, no murmur, no edema Gastrointestinal (Abdomen): normal bowel sounds, soft, nontender, no hepatosplenomegaly Musculoskeletal: Extremities: + abnormal strength (generalized weakness ) Neurologic: PERRL, EOMI, accommodation nl, no face palsy, no dysarthria Psychiatric: A+Ox3, euthymic affect Results & Data Results & Data ([facility]) Vital Signs (Past 12 Hours) Vital Signs Temp Pulse Pulse Pulse Resp BP BP 02/15/20 16:05 75 02/15/20 15:27 36.7 C 80 16 112/69 02/15/20 11:26 36.6 C 80 18 117/74 02/15/20 07:30 86 02/15/20 07:00 37.1 C 85 20 102/70 Pulse Ox 02/15/20 16:05 02/15/20 15:27 96 02/15/20 11:26 95 02/15/20 07:30 02/15/20 07:00 94 (1) Sepsis Sepsis acute organ dysfunction status: without acute organ dysfunction Sepsis type: sepsis due to unspecified organism Qualified Code(s): A41.9 - Sepsis, unspecified organism
[2020-02-15] MEDS: AMITRIPTYLINE HCL 25 MG TAB PO SCH (20:49)
[2020-02-15] MEDS: WARFARIN SOD 1.25 MG TAB PO SCH (20:49)
[2020-02-15] MEDS: ATORVASTATIN 10 MG TAB PO SCH (20:51)
[2020-02-15] MEDS: BACLOFEN 10 MG TAB PO SCH (22:11)
[2020-02-16] MEDS ORDERED: POLYETHYLENE (MIRALAX) 17 GM PACK PO PRN (05:33)
[2020-02-16 06:28] LABS: Hematocrit (blood only) 40.5 % (42-52); Hemoglobin 13.3 g/dL (14.0-18.0); Mean Corpuscular Hemoglobin 27.8 pg (25-34); Mean Corpuscular Hgb Conc 32.8 g/dL (32-36); Mean Corpuscular Volume 84.6 fL (80-100); Mean Platelet Volume 11.2 fL (7.4-10.4); Platelet Count 196 K/uL (130-400); RDW Coefficient of Variation 14.3 % (11.5-14.5); RDW Standard Deviation 44.2 fL (36.4-46.3); Red Blood Count 4.79 M/uL (4.7-6.1); White Blood Count 10.33 K/uL (4.8-10.8)
[2020-02-16] MEDS: LEVOTHYROXINE SODIUM 125 MCG TABLET PO SCH (06:28)
[2020-02-16 07:02] LABS: BUN Creatinine Ratio 14.4 (10-20); Calcium 9.3 mg/dl (8.5-10.1); Creatinine Clr Calc Pharmacy 60.7 ml/min; Est GFR (African American) 63.1; Est GFR (Non-African American) 54.4; Potassium 4.3 mmol/L (3.5-5.1)
[2020-02-16] MEDS: CHOLECALCIFEROL 1,000 UNITS 25 MCG TAB PO SCH (08:13)
[2020-02-16] MEDS: LIOTHYRONINE SODIUM 25 MCG TAB PO SCH ×2 (08:14→20:51)
[2020-02-16] MEDS: SERTRALINE HCL 50 MG TABLET PO SCH (08:14)
[2020-02-16] MEDS: INSULIN ASPART 100 UNITS/ML 3 ML PEN SC SCH ×4 (08:18→20:45)
[2020-02-16] MEDS: METOPROLOL TARTRATE 25 MG TAB PO SCH ×2 (08:36→20:49)
[2020-02-16] MEDS: FINASTERIDE 5 MG TAB PO SCH (08:37)
--- NOTE | 2020-02-16 16:18 | Hospitalist Progress Note ---
Date of Service February 16, 2020 Assessment & Plan (1) Sepsis: Sepsis, present on admission -presents with sinus tachycardia of 140s and systolic blood pressure of 87 and fever as 38.1 celsius, lactic acid 3.1 on admission, likely from urinary tract infection (urosepsis) as complication from self catheterization of bladder hx of neurogenic bladder -patient self caths the bladder intermittently at home Urine culture 02/11 E coli blood culture : 2 sets positive E coli , same sensitivity as Urine culture on IV Rocephin -adequate coverage repeat blood cultures ordered cont IV rocephin if repeat blood culture negative growth Abx cwill be changed to PO Keflex on discharge will need 14 days of tx due to bacteremia afebrile now, vitals stable obstructive sleep apnea -CPAP at night, Multiple Sclerosis with Neurogenic Bladder -patient self caths the bladder intermittently at home -continue harding as started in the ED -continue home finasteride 5 mg daily and oxybutynin 10 mg daily -continue home baclofen 10 mg qhs to prevent spasms from multiple sclerosis -continue vitamin D and calcium supplements -follows with Dr. Jean-Baptiste as outpatient for multiple sclerosis and recently prescribed tramadol by Dr. Jean-Baptiste for pain as per his -patient reports chronic poor ambulation as baseline. uses power chair ordered for PT/OT eval : recommends rehab Hypertension -\was hyotensive in ER due to sepsis BP stable now ACEI resumed Postoperative Hypothyroidism -history of thyroid resection because of thyroid cancer -on supplements of both levothyroxine 125 mcg daily except on Saturdays and also on liothyroxine 25 mcg BID, had recent thyroid labs as outpatient on 02/11/2020 Type 2 diabetes mellitus without half-way current use of insulin -hold home dose metformin because of elevated lactic acid on admission -sliding scale insulin as needed based on blood glucose checks, send HbA1c History of deep vein thrombosis in the past Anticoagulated on warfarin -admission INR 2.4, continue warfarin 1.25 mg qhs, Full Code DISPOSITION : pt will need rehab after discharge from hospital Family: updated over phone Admission and Anticipated Discharge Date Admission Date: February 12, 2020 Subjective reports of feeling better today no fever or chills improvement of lower extremity weakness normal appetite on IV rocephin tolerating abx well Physical Exam Constitutional: WD/WN, vitals as above + ill appearing; no acute distress Eyes: PERRL, conjunctivae normal, anicteric sclerae ENMT: external ear and nose normal, oropharynx normal Neck: trachea midline, no thyromegaly Respiratory: normal respiratory effort, lungs clear to auscultation Cardiovascular: RRR, no murmur, no edema Gastrointestinal (Abdomen): normal bowel sounds, soft, nontender, no hepatosplenomegaly Musculoskeletal: Extremities: + abnormal strength (generalized weakness ) Neurologic: PERRL, EOMI, accommodation nl, no face palsy, no dysarthria Psychiatric: A+Ox3, euthymic affect Results & Data Results & Data ([facility]) Vital Signs (Past 12 Hours) Vital Signs Temp Pulse Pulse Pulse Resp BP BP 02/16/20 15:00 36.9 C 79 18 129/76 02/16/20 11:41 36.6 C 81 18 104/61 02/16/20 07:37 36.6 C 78 20 108/68 02/16/20 07:33 78 02/16/20 05:24 83 02/16/20 04:19 36.9 C 82 18 122/64 Pulse Ox 02/16/20 15:00 94 02/16/20 11:41 96 02/16/20 07:37 94 02/16/20 07:33 02/16/20 05:24 02/16/20 04:19 94 (1) Sepsis Sepsis acute organ dysfunction status: without acute organ dysfunction Sepsis type: sepsis due to unspecified organism Qualified Code(s): A41.9 - Sepsis, unspecified organism
[2020-02-16] MEDS: OXYBUTYNIN CHLORIDE XL 5 MG TABCR PO SCH (16:55)
[2020-02-16] MEDS: cefTRIAXone SODIUM 2,000 MG in DEXTROSE 5% 50 ML IV SCH (16:55)
[2020-02-16 17:36] LABS: INR 1.6 (0.9-1.1); Prothrombin Time 16.7 Seconds (9.0-12.0)
[2020-02-16] MEDS: WARFARIN SOD 1.25 MG TAB PO SCH (20:50)
[2020-02-16] MEDS: AMITRIPTYLINE HCL 25 MG TAB PO SCH (20:50)
[2020-02-16] MEDS: ATORVASTATIN 10 MG TAB PO SCH (20:50)
[2020-02-16] MEDS: BACLOFEN 10 MG TAB PO SCH (20:51)
[2020-02-17] MEDS: LEVOTHYROXINE SODIUM 125 MCG TABLET PO SCH (05:47)
[2020-02-17 07:28] LABS: INR 1.6 (0.9-1.1); Prothrombin Time 16.3 Seconds (9.0-12.0)
[2020-02-17 07:43] LABS: Creatinine Clr Calc Pharmacy 67.9 ml/min; Est GFR (African American) 72.1; Est GFR (Non-African American) 62.2
[2020-02-17] MEDS: CHOLECALCIFEROL 1,000 UNITS 25 MCG TAB PO SCH (07:52)
[2020-02-17] MEDS: FINASTERIDE 5 MG TAB PO SCH (07:52)
[2020-02-17] MEDS: METOPROLOL TARTRATE 25 MG TAB PO SCH ×2 (07:52→21:09)
[2020-02-17] MEDS: LIOTHYRONINE SODIUM 25 MCG TAB PO SCH ×2 (07:52→21:09)
[2020-02-17] MEDS: SERTRALINE HCL 50 MG TABLET PO SCH (07:53)
[2020-02-17] MEDS: INSULIN ASPART 100 UNITS/ML 3 ML PEN SC SCH ×4 (08:15→21:08)
[2020-02-17] MEDS: OXYBUTYNIN CHLORIDE XL 5 MG TABCR PO SCH (15:29)
[2020-02-17] MEDS ORDERED: WARFARIN SOD 3 MG TAB PO ONE (16:00)
[2020-02-17] MEDS ORDERED: bisacodyL 10 MG SUPP PR STA (18:58)
[2020-02-17] MEDS: LIDOCAINE 5% 1 PATCH TD SCH (19:47)
--- NOTE | 2020-02-17 20:36 | Hospitalist Progress Note ---
Date of Service February 17, 2020 Assessment & Plan (1) Sepsis: Sepsis, present on admission -presented with sinus tachycardia of 140s and systolic blood pressure of 87 and fever as 38.1 celsius, lactic acid 3.1 on admission, likely from urinary tract infection (urosepsis) as complication from self catheterization of bladder hx of neurogenic bladder -patient self caths the bladder intermittently at home Urine culture 02/11 E coli blood culture : 2 sets positive E coli , same sensitivity as Urine culture on IV Rocephin -adequate coverage repeat blood cultures ordered Treated with IV rocephin, now plan to switch to p.o. Keflex given repeat blood cultures so far negative Plan for treatment with PO Keflex on discharge - will need 14 days of tx due to bacteremia afebrile now, vitals stable Obstructive sleep apnea -CPAP at night Multiple Sclerosis with Neurogenic Bladder -patient self caths the bladder intermittently at home -continue harding as started in the ED -continue home finasteride 5 mg daily and oxybutynin 10 mg daily -continue home baclofen 10 mg qhs to prevent spasms from multiple sclerosis -continue vitamin D and calcium supplements -follows with Dr. Jean-Baptiste as outpatient for multiple sclerosis and recently prescribed tramadol by Dr. Jean-Baptiste for pain as per his -patient reports chronic poor ambulation as baseline. uses power chair ordered for PT/OT eval : recommends rehab Hypertension -was hypotensive in ER on admission, due to sepsis -normotensive now - ACEI resumed Postoperative Hypothyroidism -history of thyroid resection because of thyroid cancer -on supplements of both levothyroxine 125 mcg daily except on Saturdays and also on liothyroxine 25 mcg BID, had recent thyroid labs as outpatient on 02/11/2020 Type 2 diabetes mellitus without halfway current use of insulin -hold home dose metformin because of elevated lactic acid on admission -sliding scale insulin as needed based on blood glucose checks, current HbA1c 7.1% -well-controlled History of deep vein thrombosis in the past Anticoagulated on warfarin -admission INR 2.4, continue warfarin 1.25 mg qhs -Current INR subtherapeutic, 1.6, will provide 3 mg of warfarin for tonight then will continue with home regimen Constipation -Patient on bowel regimen, including suppository Full Code DISPOSITION : pt will need rehab after discharge from hospital but was denied [facility] by insurance, will need to discuss further options Admission and Anticipated Discharge Date Admission Date: February 12, 2020 Subjective No acute events overnight. Patient sitting up in the chair, comfortable but complains of some mild right lower back/hip discomfort, which started this afternoon. States that he is not used to sitting in the chair this much. Overall feeling much better though. But complains of weakness. Also complains of constipation, reports not having bowel movement for several days. denies any fever or chills. Has been on IV rocephin, repeat blood cultures so far negative, plan to switch to p.o. Keflex tonight INR subtherapeutic, warfarin 3 mg ordered for tonight, then continue 1.25 mg. Insurance for [employer] denied, will need to discuss other options. Review of Systems Review of Systems: All systems reviewed & are unremarkable except as noted in HPI & below Constitutional: no fever and no chills Respiratory: no cough and no dyspnea Cardiovascular: no chest pain and no palpitations Gastrointestinal: + constipation; no abdominal pain, no nausea and no vomiting Physical Exam Physical Exam: Constitutional: WD/WN, vitals as above + ill appearing; no acute distress Eyes: EOMI, PERRL, conjunctivae normal, anicteric sclerae ENMT: external ear and nose normal, oropharynx normal Neck: trachea midline, no thyromegaly Respiratory: normal respiratory effort, lungs clear to auscultation b/l, no wheezing rhonchi or crackles Cardiovascular: RRR, no murmur, no edema Gastrointestinal (Abdomen): normal bowel sounds, soft, nontender to palpation, mildly distended Musculoskeletal: Extremities: + abnormal strength (generalized weakness ), mild tenderness to palpation at right lower back/hip Neurologic: PERRL, EOMI, accommodation nl, no face palsy, no dysarthria Psychiatric: A+Ox3, euthymic affect Results & Data Results & Data ([facility]) Vital Signs (Past 12 Hours) Vital Signs Temp Pulse Pulse Pulse Resp BP Pulse Ox 02/17/20 19:42 36.7 C 75 18 123/79 96 02/17/20 16:00 36.5 C 66 20 121/72 99 02/17/20 15:00 88 02/17/20 11:37 36.9 C 65 18 115/74 92 Laboratory Results 05/20/20 05/20/20 05/20/20 Range/Units 20:33 17:18 12:03 PT (9.0-12.0) Seconds INR (0.9-1.1) Creatinine (0.6-1.4) mg/dl Est Cr Clr Drug Dosing ml/min Est GFR ( Amer) Est GFR (Non-Af Amer) POC Glucose 156 H 115 H 153 H (70-99) mg/dl 02/17/20 02/17/20 02/17/20 Range/Units 07:48 06:48 06:48 PT 16.3 H (9.0-12.0) Seconds INR 1.6 H (0.9-1.1) Creatinine 1.20 (0.6-1.4) mg/dl Est Cr Clr Drug Dosing 67.9 ml/min Est GFR ( Amer) 72.1 Est GFR (Non-Af Amer) 62.2 POC Glucose 138 H (70-99) mg/dl 02/16/20 Range/Units 20:30 PT (9.0-12.0) Seconds INR (0.9-1.1) Creatinine (0.6-1.4) mg/dl Est Cr Clr Drug Dosing ml/min Est GFR ( Amer) Est GFR (Non-Af Amer) POC Glucose 151 H (70-99) mg/dl Medications Administered Current Inpatient Medications Acetaminophen (Tylenol) 325 mg PO Q6H PRN PRN Reason: Pain or Fever Stop: 03/13/20 14:07 Last Admin: 02/13/20 16:47 Dose: 325 mg Documented by: Amitriptyline HCl (Elavil) 25 mg PO HS [facility] Stop: 03/13/20 20:59 Last Admin: 02/16/20 20:50 Dose: 25 mg Documented by: Atorvastatin Calcium (Lipitor) 10 mg PO QPM [facility] Stop: 03/13/20 20:59 Last Admin: 02/16/20 20:50 Dose: 10 mg Documented by: Baclofen (Lioresal) 10 mg PO HS [facility] Stop: 03/13/20 20:59 Last Admin: 02/16/20 20:51 Dose: 10 mg Documented by: Cephalexin HCl (Keflex) 500 mg PO Q12H [facility] Stop: 03/02/20 20:59 Clonazepam (Klonopin) 0.5 mg PO HS PRN PRN Reason: Sleep Stop: 03/13/20 14:00 Dextrose (Dextrose 50%) 25 - 50 ml IV UD PRN; Protocol PRN Reason: Hypoglycemia Protocol Stop: 03/13/20 13:54 [facility]asteride (Proscar) [facility] [place]: 03/14/20 08:59 Last Admin: 02/17/20 07:52 Dose: 5 mg Documented by: Glucagon (Glucagen) 1 mg SQ UD PRN; Protocol PRN Reason: Hypoglycemia Protocol Stop: 03/13/20 13:54 Glucose (Dex4 Glucose) 4 - 8 tabs PO UD PRN; Protocol PRN Reason: Hypoglycemia Protocol Stop: 03/13/20 13:54 Glucose (Glucose 40%) 15 - 30 gm PO UD PRN; Protocol PRN Reason: Hypoglycemia Protocol Stop: 03/13/20 13:54 Hydrochlorothiazide (Hctz) 12.5 mg PO [facility] Stop: 03/19/20 08:59 Insulin Aspart (Novolog Flexpen) 0 units SC [facility] Stop: 03/13/20 16:29 Last Admin: 02/17/20 17:20 Dose: Not Given Documented by: Levothyroxine Sodium (Synthroid) 125 mcg PO SuMoTuWeThFr@0730 [facility] Stop: 03/15/20 07:29 Last Admin: 02/17/20 05:47 Dose: 125 mcg Documented by: Lidocaine (Lidoderm 5%) 1 patch TD [facility] Stop: 03/18/20 18:59 Last Admin: 02/17/20 19:47 Dose: 1 patch Documented by: Liothyronine Sodium (Cytomel) 25 mcg PO BID [facility] Stop: 03/13/20 20:59 Last Admin: 02/17/20 07:52 Dose: 25 mcg Documented by: Lisinopril (Zestril) 20 mg PO [facility] Stop: 03/19/20 08:59 Meclizine HCl (Antivert) 12.5 mg PO TID PRN PRN Reason: Dizziness Stop: 03/14/20 17:04 Last Admin: 02/13/20 17:45 Dose: 12.5 mg Documented by: Metoprolol Tartrate (Lopressor) 12.5 mg PO BID [facility] Stop: 03/13/20 20:59 Last Admin: 02/17/20 07:52 Dose: 12.5 mg Documented by: Miscellaneous (Carbohydrates For Hypoglycemia) 15 - 30 gm PO UD PRN PRN Reason: Hypoglycemia Protocol Stop: 03/13/20 13:54 Miscellaneous (Remove Lidoderm Patch) 1 ea N/A DAILY@2100 [facility] Stop: 03/18/20 22:59 Multivitamins/Minerals (Caltrate Plus) 1 tab PO MoFr@1600 [facility] Stop: 03/13/20 15:59 Last Admin: 02/15/20 16:15 Dose: 1 tab Documented by: Ondansetron HCl (Zofran) 4 mg IV Q6H PRN PRN Reason: Nausea And Vomiting Stop: 03/13/20 14:07 Oxybutynin Chloride (Ditropan Xl) 10 mg PO DAILY@1600 [facility] Stop: 03/13/20 15:59 Last Admin: 02/17/20 15:29 Dose: 10 mg Documented by: Polyethylene Glycol (Miralax Powder Packet) 17 gm PO BID [facility] Stop: 03/18/20 20:59 Sertraline HCl (Zoloft) 75 mg PO QAM [facility] Stop: 03/14/20 08:59 Last Admin: 02/17/20 07:53 Dose: 75 mg Documented by: Tramadol HCl (Ultram) 25 mg PO Q8H PRN PRN Reason: moderate to severe pain Stop: 03/13/20 15:21 Vitamin D (Vitamin D3) 2,000 units PO DAILY [facility] Stop: 03/14/20 08:59 Last Admin: 02/17/20 07:52 Dose: 2,000 units Documented by: Warfarin Sodium (Coumadin) 1.25 mg PO HS [facility] Stop: 03/13/20 20:59 Last Admin: 02/16/20 20:50 Dose: 1.25 mg Documented by: (1) Sepsis Sepsis acute organ dysfunction status: without acute organ dysfunction Sepsis type: sepsis due to unspecified organism Qualified Code(s): A41.9 - Sepsis, unspecified organism
[2020-02-17] MEDS: cephALEXin 500 MG CAP PO SCH (21:07)
[2020-02-17] MEDS: BACLOFEN 10 MG TAB PO SCH (21:08)
[2020-02-17] MEDS: POLYETHYLENE (MIRALAX) 17 GM PACK PO SCH (21:08)
[2020-02-17] MEDS: ATORVASTATIN 10 MG TAB PO SCH (21:09)
[2020-02-17] MEDS: AMITRIPTYLINE HCL 25 MG TAB PO SCH (21:09)
[2020-02-18 07:24] LABS: Hematocrit (blood only) 41.1 % (42-52); Hemoglobin 13.3 g/dL (14.0-18.0); Mean Corpuscular Hemoglobin 27.4 pg (25-34); Mean Corpuscular Hgb Conc 32.4 g/dL (32-36); Mean Corpuscular Volume 84.6 fL (80-100); Mean Platelet Volume 11.3 fL (7.4-10.4); Platelet Count 214 K/uL (130-400); RDW Coefficient of Variation 14.1 % (11.5-14.5); RDW Standard Deviation 43.6 fL (36.4-46.3); Red Blood Count 4.86 M/uL (4.7-6.1); White Blood Count 8.55 K/uL (4.8-10.8)
[2020-02-18 07:34] LABS: INR 1.8 (0.9-1.1); Prothrombin Time 18.8 Seconds (9.0-12.0)
[2020-02-18 07:52] LABS: BUN Creatinine Ratio 13.6 (10-20); Calcium 9.2 mg/dl (8.5-10.1); Creatinine Clr Calc Pharmacy 68.3 ml/min; Est GFR (African American) 72.8; Est GFR (Non-African American) 62.8; Magnesium 2.5 mg/dl (1.8-2.4); Phosphorus 2.9 mg/dl (2.5-4.9); Potassium 4.5 mmol/L (3.5-5.1)
[2020-02-18] MEDS: cephALEXin 500 MG CAP PO SCH ×2 (08:44→20:54)
[2020-02-18] MEDS: INSULIN ASPART 100 UNITS/ML 3 ML PEN SC SCH ×4 (08:44→20:58)
[2020-02-18] MEDS: CHOLECALCIFEROL 1,000 UNITS 25 MCG TAB PO SCH (08:45)
[2020-02-18] MEDS: LIOTHYRONINE SODIUM 25 MCG TAB PO SCH ×2 (08:45→20:49)
[2020-02-18] MEDS: lisinopriL 20 MG TAB PO SCH (08:45)
[2020-02-18] MEDS: hydroCHLOROthiazide 25 MG TAB PO SCH (08:45)
[2020-02-18] MEDS: POLYETHYLENE (MIRALAX) 17 GM PACK PO SCH ×2 (08:46→20:53)
[2020-02-18] MEDS: SERTRALINE HCL 50 MG TABLET PO SCH (08:46)
[2020-02-18] MEDS: LEVOTHYROXINE SODIUM 125 MCG TABLET PO SCH (08:46)
[2020-02-18] MEDS: FINASTERIDE 5 MG TAB PO SCH (08:46)
[2020-02-18] MEDS: LIDOCAINE 5% 1 PATCH TD SCH (08:47)
[2020-02-18] MEDS: METOPROLOL TARTRATE 25 MG TAB PO SCH ×2 (08:47→20:55)
--- NOTE | 2020-02-18 08:55 | Hospitalist Progress Note ---
Date of Service February 18, 2020 Assessment & Plan (1) Sepsis: Sepsis, present on admission Gram-negative bacteremia -presented with sinus tachycardia of 140s and systolic blood pressure of 87 and fever as 38.1 celsius, lactic acid 3.1 on admission, likely from urinary tract infection (urosepsis) as complication from self catheterization of bladder -hx of neurogenic bladder -patient self caths the bladder intermittently at home Urine culture 02/11 E coli blood culture : 2 sets positive E coli , same sensitivity as Urine culture on IV Rocephin -adequate coverage repeat blood cultures - NGTD Treated with IV rocephin, now switched to p.o. Keflex given repeat blood cultu res so far negative Plan for treatment with PO Keflex on discharge - will need 14 days of tx due to bacteremia afebrile now, vitals stable Obstructive sleep apnea -CPAP at night Multiple Sclerosis with Neurogenic Bladder -patient self caths the bladder intermittently at home -continue harding as started in the ED -continue home finasteride 5 mg daily and oxybutynin 10 mg daily -continue home baclofen 10 mg qhs to prevent spasms from multiple sclerosis -continue vitamin D and calcium supplements -follows with Dr. Jean-Baptiste as outpatient for multiple sclerosis and recently prescribed tramadol by Dr. Jean-Baptiste for pain as per his -patient reports chronic poor ambulation as baseline. 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 bowel regimen Full Code DISPOSITION : pt will need rehab after discharge from hospital but was denied [facility] by insurance, will need to discuss further options Admission and Anticipated Discharge Date Admission Date: February 12, 2020 Subjective No acute events overnight. Patient sitting up in bed, comfortable. States that he had a large bowel movement finally yesterday, after we started bowel regiment. Denies any fevers, chills, chest pain, shortness of breath, abdominal pain, nausea or vomiting. Patient switched to p.o. Keflex, previously on IV Rocephin. INR still subtherapeutic, will give warfarin 2 mg tonight, then continue home dose of 1.25 mg daily. Review of Systems Review of Systems: All systems reviewed & are unremarkable except as noted in HPI & below Constitutional: no fever and no chills Respiratory: no cough and no dyspnea Cardiovascular: no chest pain and no palpitations Gastrointestinal: + constipation (Now improved); no abdominal pain, no nausea and no vomiting Physical Exam Physical Exam: Constitutional: WD/WN, vitals as above + ill appearing; no acute distress Eyes: EOMI, PERRL, conjunctivae normal, anicteric sclerae ENMT: external ear and nose normal, oropharynx normal Neck: trachea midline, no thyromegaly Respiratory: normal respiratory effort, lungs clear to auscultation b/l, no wheezing rhonchi or crackles Cardiovascular: RRR, no murmur, no edema Gastrointestinal (Abdomen): normal bowel sounds, soft, nontender to palpation, mildly distended Musculoskeletal: Extremities: + abnormal strength (generalized weakness ), mild tenderness to palpation at right lower back/hip Neurologic: PERRL, EOMI, accommodation nl, no face palsy, no dysarthria Psychiatric: A+Ox3, euthymic affect Results & Data Results & Data ([facility]) Vital Signs (Past 12 Hours) Vital Signs Temp Pulse Pulse Pulse Resp BP Pulse Ox 02/18/20 08:01 64 02/18/20 07:18 36.8 C 77 16 106/71 95 02/18/20 04:00 36.2 C L 84 20 126/82 96 02/18/20 03:11 89 20 96 02/17/20 23:00 36.6 C 66 20 120/76 95 02/17/20 22:20 70 02/17/20 22:05 79 18 97 Laboratory Results 02/18/20 02/18/20 02/18/20 Range/Units 07:31 06:12 06:12 WBC 8.55 (4.8-10.8) K/uL RBC 4.86 (4.7-6.1) M/uL Hgb 13.3 L (14.0-18.0) g/dL Hct 41.1 L (42-52) % MCV 84.6 (80-100) fL MCH 27.4 (25-34) pg MCHC 32.4 (32-36) g/dL RDW Std Deviation 43.6 (36.4-46.3) fL RDW Coeff of Daria 14.1 (11.5-14.5) % Plt Count 214 (130-400) K/uL MPV 11.3 H (7.4-10.4) fL PT (9.0-12.0) Seconds INR (0.9-1.1) Sodium 140 (136-145) mmol/L Potassium 4.5 (3.5-5.1) mmol/L Chloride 107 (98-107) mmol/L Carbon Dioxide 25 (21-32) mmol/L Anion Gap 8.0 (3-11) BUN 16 (7-18) mg/dl Creatinine 1.19 (0.6-1.4) mg/dl Est Cr Clr Drug Dosing 68.3 ml/min Est GFR ( Amer) 72.8 Est GFR (Non-Af Amer) 62.8 BUN/Creatinine Ratio 13.6 (10-20) Glucose 152 H (70-99) mg/dl POC Glucose 144 H (70-99) mg/dl Calcium 9.2 (8.5-10.1) mg/dl Phosphorus 2.9 (2.5-4.9) mg/dl Magnesium 2.5 H (1.8-2.4) mg/dl 02/18/20 02/17/20 02/17/20 Range/Units 06:12 20:33 17:18 WBC (4.8-10.8) K/uL RBC (4.7-6.1) M/uL Hgb (14.0-18.0) g/dL Hct (42-52) % MCV (80-100) fL MCH (25-34) pg MCHC (32-36) g/dL RDW Std Deviation (36.4-46.3) fL RDW Coeff of Daria (11.5-14.5) % Plt Count (130-400) K/uL MPV (7.4-10.4) fL PT 18.8 H (9.0-12.0) Seconds INR 1.8 H (0.9-1.1) Sodium (136-145) mmol/L Potassium (3.5-5.1) mmol/L Chloride (98-107) mmol/L Carbon Dioxide (21-32) mmol/L Anion Gap (3-11) BUN (7-18) mg/dl Creatinine (0.6-1.4) mg/dl Est Cr Clr Drug Dosing ml/min Est GFR ( Amer) Est GFR (Non-Af Amer) BUN/Creatinine Ratio (10-20) Glucose (70-99) mg/dl POC Glucose 156 H 115 H (70-99) mg/dl Calcium (8.5-10.1) mg/dl Phosphorus (2.5-4.9) mg/dl Magnesium (1.8-2.4) mg/dl 02/17/20 Range/Units 12:03 WBC (4.8-10.8) K/uL RBC (4.7-6.1) M/uL Hgb (14.0-18.0) g/dL Hct (42-52) % MCV (80-100) fL MCH (25-34) pg MCHC (32-36) g/dL RDW Std Deviation (36.4-46.3) fL RDW Coeff of Daria (11.5-14.5) % Plt Count (130-400) K/uL MPV (7.4-10.4) fL PT (9.0-12.0) Seconds INR (0.9-1.1) Sodium (136-145) mmol/L Potassium (3.5-5.1) mmol/L Chloride (98-107) mmol/L Carbon Dioxide (21-32) mmol/L Anion Gap (3-11) BUN (7-18) mg/dl Creatinine (0.6-1.4) mg/dl Est Cr Clr Drug Dosing ml/min Est GFR ( Amer) Est GFR (Non-Af Amer) BUN/Creatinine Ratio (10-20) Glucose (70-99) mg/dl POC Glucose 153 H (70-99) mg/dl Calcium (8.5-10.1) mg/dl Phosphorus (2.5-4.9) mg/dl Magnesium (1.8-2.4) mg/dl Medications Administered Current Inpatient Medications Acetaminophen (Tylenol) 325 mg PO Q6H PRN PRN Reason: Pain or Fever Stop: 03/13/20 14:07 Last Admin: 02/13/20 16:47 Dose: 325 mg Documented by: Amitriptyline HCl (Elavil) 25 mg PO HS [facility] Stop: 03/13/20 20:59 Last Admin: 02/17/20 21:09 Dose: 25 mg Documented by: Atorvastatin Calcium (Lipitor) 10 mg PO QPM [facility] Stop: 03/13/20 20:59 Last Admin: 02/17/20 21:09 Dose: 10 mg Documented by: Baclofen (Lioresal) 10 mg PO HS [facility] Stop: 03/13/20 20:59 Last Admin: 02/17/20 21:08 Dose: 10 mg Documented by: Cephalexin HCl (Keflex) 500 mg PO Q12H [facility] Stop: 03/02/20 20:59 Last Admin: 02/18/20 08:44 Dose: 500 mg Documented by: Clonazepam (Klonopin) 0.5 mg PO HS PRN PRN Reason: Sleep Stop: 03/13/20 14:00 Dextrose (Dextrose 50%) 25 - 50 ml IV UD PRN; Protocol PRN Reason: Hypoglycemia Protocol Stop: 03/13/20 13:54 Finasteride (Proscar) 5 mg PO QAM [facility] Stop: 03/14/20 08:59 Last Admin: 02/18/20 08:46 Dose: 5 mg Documented by: Glucagon (Glucagen) 1 mg SQ UD PRN; Protocol PRN Reason: Hypoglycemia Protocol Stop: 03/13/20 13:54 Glucose (Dex4 Glucose) 4 - 8 tabs PO UD PRN; Protocol PRN Reason: Hypoglycemia Protocol Stop: 03/13/20 13:54 Glucose (Glucose 40%) 15 - 30 gm PO UD PRN; Protocol PRN Reason: Hypoglycemia Protocol Stop: 03/13/20 13:54 Hydrochlorothiazide (Hctz) 12.5 mg PO QAM [facility] Stop: 03/19/20 08:59 Last Admin: 02/18/20 08:45 Dose: 12.5 mg Documented by: Insulin Aspart (Novolog Flexpen) 0 units SC [facility] Stop: 03/13/20 16:29 Last Admin: 02/18/20 08:44 Dose: 1 units Documented by: Levothyroxine Sodium (Synthroid) 125 mcg PO SuMoTuWeThFr@0730 [facility] Stop: 03/15/20 07:29 Last Admin: 02/18/20 08:46 Dose: 125 mcg Documented by: Lidocaine (Lidoderm 5%) 1 patch TD [facility] Stop: 03/18/20 18:59 Last Admin: 02/18/20 08:47 Dose: 1 patch Documented by: Liothyronine Sodium (Cytomel) 25 mcg PO BID [facility] Stop: 03/13/20 20:59 Last Admin: 02/18/20 08:45 Dose: 25 mcg Documented by: Lisinopril (Zestril) 20 mg PO [facility] Stop: 03/19/20 08:59 Last Admin: 02/18/20 08:45 Dose: 20 mg Documented by: Meclizine HCl (Antivert) 12.5 mg PO TID PRN PRN Reason: Dizziness Stop: 03/14/20 17:04 Last Admin: 02/13/20 17:45 Dose: 12.5 mg Documented by: Metoprolol Tartrate (Lopressor) 12.5 mg PO BID [facility] Stop: 03/13/20 20:59 Last Admin: 02/18/20 08:47 Dose: 12.5 mg Documented by: Miscellaneous (Carbohydrates For Hypoglycemia) 15 - 30 gm PO UD PRN PRN Reason: Hypoglycemia Protocol Stop: 03/13/20 13:54 Miscellaneous (Remove Lidoderm Patch) 1 ea N/A DAILY@2100 [facility] Stop: 03/18/20 22:59 Last Admin: 02/17/20 22:21 Dose: Not Given Documented by: Multivitamins/Minerals (Caltrate Plus) 1 tab PO MoFr@1600 [facility] Stop: 03/13/20 15:59 Last Admin: 02/15/20 16:15 Dose: 1 tab Documented by: Ondansetron HCl (Zofran) 4 mg IV Q6H PRN PRN Reason: Nausea And Vomiting Stop: 03/13/20 14:07 Oxybutynin Chloride (Ditropan Xl) 10 mg PO DAILY@1600 [facility] Stop: 03/13/20 15:59 Last Admin: 02/17/20 15:29 Dose: 10 mg Documented by: Polyethylene Glycol (Miralax Powder Packet) 17 gm PO BID [facility] Stop: 03/18/20 20:59 Last Admin: 02/18/20 08:46 Dose: 17 gm Documented by: Sertraline HCl (Zoloft) 75 mg PO QAM [facility] Stop: 03/14/20 08:59 Last Admin: 02/18/20 08:46 Dose: 75 mg Documented by: Tramadol HCl (Ultram) 25 mg PO Q8H PRN PRN Reason: moderate to severe pain Stop: 03/13/20 15:21 Vitamin D (Vitamin D3) 2,000 units PO DAILY [facility] Stop: 03/14/20 08:59 Last Admin: 02/18/20 08:45 Dose: 2,000 units Documented by: Warfarin Sodium (Coumadin) 1.25 mg PO HS [facility] Stop: 03/13/20 20:59 Last Admin: 02/16/20 20:50 Dose: 1.25 mg Documented by: (1) Sepsis Sepsis acute organ dysfunction status: without acute organ dysfunction Sepsis type: sepsis due to unspecified organism Qualified Code(s): A41.9 - Sepsis, unspecified organism
[2020-02-18] MEDS: OXYBUTYNIN CHLORIDE XL 5 MG TABCR PO SCH (16:10)
[2020-02-18] MEDS ORDERED: WARFARIN SOD 2 MG TAB PO ONE (18:16)
[2020-02-18] MEDS ORDERED: bisacodyL 5 MG TABEC PO PRN (18:20)
[2020-02-18] MEDS: ATORVASTATIN 10 MG TAB PO SCH (20:49)
[2020-02-18] MEDS: BACLOFEN 10 MG TAB PO SCH (20:49)
[2020-02-18] MEDS: AMITRIPTYLINE HCL 25 MG TAB PO SCH (20:49)
[2020-02-18] MEDS: WARFARIN SOD 1.25 MG TAB PO SCH (20:53)
[2020-02-19] MEDS: LEVOTHYROXINE SODIUM 125 MCG TABLET PO SCH (06:37)
[2020-02-19 07:35] LABS: Hematocrit (blood only) 41.4 % (42-52); Hemoglobin 13.4 g/dL (14.0-18.0); Mean Corpuscular Hemoglobin 27.5 pg (25-34); Mean Corpuscular Hgb Conc 32.4 g/dL (32-36); Mean Platelet Volume 11.3 fL (7.4-10.4); Platelet Count 239 K/uL (130-400); RDW Coefficient of Variation 14.1 % (11.5-14.5); RDW Standard Deviation 44.1 fL (36.4-46.3); Red Blood Count 4.87 M/uL (4.7-6.1); White Blood Count 8.16 K/uL (4.8-10.8)
[2020-02-19 07:43] LABS: INR 2.1 (0.9-1.1); Prothrombin Time 21.7 Seconds (9.0-12.0)
--- NOTE | 2020-02-19 07:43 | Hospitalist Progress Note ---
Date of Service February 19, 2020 Assessment & Plan (1) Sepsis: Sepsis, present on admission Gram-negative bacteremia -presented with sinus tachycardia of 140s and systolic blood pressure of 87 and fever as 38.1 celsius, lactic acid 3.1 on admission, likely from urinary tract infection (urosepsis) as complication from self catheterization of bladder -hx of neurogenic bladder -patient self caths the bladder intermittently at home Urine culture (02/11) E coli Blood culture (02/11) : 2 sets positive E coli , same sensitivity as Urine culture on IV Rocephin -adequate coverage repeat blood cultures (02/15/2020) - NGTD Treated with IV rocephin, now switched to p.o. Keflex given repeat blood cultures so far negative Plan for treatment with PO Keflex on discharge - will need 14 days of tx due to bacteremia afebrile now, vitals stable Patient will need primary care and infectious disease follow-up in the next 1 to 2 weeks. Obstructive sleep apnea -CPAP at night Multiple Sclerosis with Neurogenic Bladder -patient self caths the bladder intermittently at home -continue harding as started in the ED -continue home finasteride 5 mg daily and oxybutynin 10 mg daily -continue home baclofen 10 mg qhs to prevent spasms from multiple sclerosis -continue vitamin D and calcium supplements -follows with Dr. Jean-Baptiste as outpatient for multiple sclerosis and recently prescribed tramadol by Dr. Jean-Baptiste for pain as per his -patient reports chronic poor ambulation as baseline. 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 bowel regimen Full Code DISPOSITION : Plan for rehab placement due to weakness Admission and Anticipated Discharge Date Admission Date: February 12, 2020 Subjective No acute events overnight. Patient denies any fevers, chills, chest pain, shortness of breath, abdominal pain. He says that he had several soft bowel movements. He now feels much better. Review of Systems Review of Systems: All systems reviewed & are unremarkable except as noted in HPI & below Constitutional: no fever and no chills Respiratory: no cough and no dyspnea Cardiovascular: no chest pain and no palpitations Gastrointestinal: no abdominal pain, no nausea, no vomiting and no constipation Physical Exam Physical Exam: Constitutional: WD/WN, vitals as above + ill appearing; no acute distress Eyes: EOMI, PERRL, conjunctivae normal, anicteric sclerae ENMT: external ear and nose normal, oropharynx normal Neck: trachea midline, no thyromegaly Respiratory: normal respiratory effort, lungs clear to auscultation b/l, no wheezing rhonchi or crackles Cardiovascular: RRR, no murmur, no edema Gastrointestinal (Abdomen): normal bowel sounds, soft, nontender to palpation, mildly distended Musculoskeletal: Extremities: + abnormal strength (generalized weakness ) Neurologic: PERRL, EOMI, accommodation nl, no face palsy, no dysarthria Psychiatric: A+Ox3, euthymic affect Results & Data Results & Data ([facility]) Vital Signs (Past 12 Hours) Vital Signs Temp Pulse Pulse Pulse Resp BP BP 02/19/20 07:22 37.1 C 79 20 112/72 02/19/20 03:15 62 20 02/19/20 03:00 36.8 C 87 20 97/61 L 02/18/20 23:53 82 18 02/18/20 23:51 35.6 C L 83 20 104/63 02/18/20 19:59 36.4 C L 87 18 127/88 Pulse Ox 02/19/20 07:22 93 02/19/20 03:15 98 02/19/20 03:00 96 02/18/20 23:53 95 02/18/20 23:51 95 02/18/20 19:59 94 Laboratory Results 02/19/20 02/19/2002/18/20 Range/Units 11:23 08:01 06:16 WBC (4.8-10.8) K/uL RBC (4.7-6.1) M/uL Hgb (14.0-18.0) g/dL Hct (42-52) % MCV (80-100) fL MCH (25-34) pg MCHC (32-36) g/dL RDW Std Deviation (36.4-46.3) fL RDW Coeff of Daria (11.5-14.5) % Plt Count (130-400) K/uL MPV (7.4-10.4) fL PT 21.7 H (9.0-12.0) Seconds INR 2.1 H (0.9-1.1) Sodium (136-145) mmol/L Potassium (3.5-5.1) mmol/L Chloride (98-107) mmol/L Carbon Dioxide (21-32) mmol/L Anion Gap (3-11) BUN (7-18) mg/dl Creatinine (0.6-1.4) mg/dl Est Cr Clr Drug Dosing ml/min Est GFR ( Amer) Est GFR (Non-Af Amer) BUN/Creatinine Ratio (10-20) Glucose (70-99) mg/dl POC Glucose 153 H 129 H (70-99) mg/dl Calcium (8.5-10.1) mg/dl Phosphorus (2.5-4.9) mg/dl Magnesium (1.8-2.4) mg/dl 02/19/20 02/19/20 02/18/20 Range/Units 06:16 06:16 20:21 WBC 8.16 (4.8-10.8) K/uL RBC 4.87 (4.7-6.1) M/uL Hgb 13.4 L (14.0-18.0) g/dL Hct 41.4 L (42-52) % MCV 85.0 (80-100) fL MCH 27.5 (25-34) pg MCHC 32.4 (32-36) g/dL RDW Std Deviation 44.1 (36.4-46.3) fL RDW Coeff of Daria 14.1 (11.5-14.5) % Plt Count 239 (130-400) K/uL MPV 11.3 H (7.4-10.4) fL PT (9.0-12.0) Seconds INR (0.9-1.1) Sodium 139 (136-145) mmol/L Potassium 4.2 (3.5-5.1) mmol/L Chloride 105 (98-107) mmol/L Carbon Dioxide 24 (21-32) mmol/L Anion Gap 10.0 (3-11) BUN 18 (7-18) mg/dl Creatinine 1.38 (0.6-1.4) mg/dl Est Cr Clr Drug Dosing 59.3 ml/min Est GFR ( Amer) 60.9 Est GFR (Non-Af Amer) 52.5 BUN/Creatinine Ratio 13.0 (10-20) Glucose 145 H (70-99) mg/dl POC Glucose 171 H (70-99) mg/dl Calcium 9.6 (8.5-10.1) mg/dl Phosphorus 2.7 (2.5-4.9) mg/dl Magnesium 2.4 (1.8-2.4) mg/dl 02/18/20 Range/Units 16:52 WBC (4.8-10.8) K/uL RBC (4.7-6.1) M/uL Hgb (14.0-18.0) g/dL Hct (42-52) % MCV (80-100) fL MCH (25-34) pg MCHC (32-36) g/dL RDW Std Deviation (36.4-46.3) fL RDW Coeff of Daria (11.5-14.5) % Plt Count (130-400) K/uL MPV (7.4-10.4) fL PT (9.0-12.0) Seconds INR (0.9-1.1) Sodium (136-145) mmol/L Potassium (3.5-5.1) mmol/L Chloride (98-107) mmol/L Carbon Dioxide (21-32) mmol/L Anion Gap (3-11) BUN (7-18) mg/dl Creatinine (0.6-1.4) mg/dl Est Cr Clr Drug Dosing ml/min Est GFR ( Amer) Est GFR (Non-Af Amer) BUN/Creatinine Ratio (10-20) Glucose (70-99) mg/dl POC Glucose 111 H (70-99) mg/dl Calcium (8.5-10.1) mg/dl Phosphorus (2.5-4.9) mg/dl Magnesium (1.8-2.4) mg/dl Medications Administered Current Inpatient Medications Acetaminophen (Tylenol) 325 mg PO Q6H PRN PRN Reason: Pain or Fever Stop: 03/13/20 14:07 Last Admin: 02/13/20 16:47 Dose: 325 mg Documented by: Amitriptyline HCl (Elavil) 25 mg PO HS DEWEY Stop: 03/13/20 20:59 Last Admin: 02/18/20 20:49 Dose: 25 mg Documented by: Atorvastatin Calcium (Lipitor) 10 mg PO QPM DEWEY Stop: 03/13/20 20:59 Last Admin: 02/18/20 20:49 Dose: 10 mg Documented by: Baclofen (Lioresal) 10 mg PO HS DEWEY Stop: 03/13/20 20:59 Last Admin: 02/18/20 20:49 Dose: 10 mg Documented by: Bisacodyl (Dulcolax) 5 mg PO BID PRN PRN Reason: Constipation Stop: 03/19/20 18:19 Cephalexin HCl (Keflex) 500 mg PO Q12H DEWEY Stop: 03/02/20 20:59 Last Admin: 02/19/20 08:31 Dose: 500 mg Documented by: Clonazepam (Klonopin) 0.5 mg PO HS PRN PRN Reason: Sleep Stop: 03/13/20 14:00 Dextrose (Dextrose 50%) 25 - 50 ml IV UD PRN; Protocol PRN Reason: Hypoglycemia Protocol Stop: 03/13/20 13:54 Finasteride (Proscar) 5 mg PO QAM DEWEY Stop: 03/14/20 08:59 Last Admin: 02/19/20 08:33 Dose: 5 mg Documented by: Glucagon (Glucagen) 1 mg SQ UD PRN; Protocol PRN Reason: Hypoglycemia Protocol Stop: 03/13/20 13:54 Glucose (Dex4 Glucose) 4 - 8 tabs PO UD PRN; Protocol PRN Reason: Hypoglycemia Protocol Stop: 03/13/20 13:54 Glucose (Glucose 40%) 15 - 30 gm PO UD PRN; Protocol PRN Reason: Hypoglycemia Protocol Stop: 03/13/20 13:54 [facility]chlorothiaz[facility] (Hctz) [facility] [place] Stop: 03/19/20 08:59 Last Admin: 02/19/20 08:30 Dose: 12.5 mg Documented by: Insulin Aspart (Novolog Flexpen) 0 units SC ACHS [facility] Stop: 03/13/20 16:29 Last Admin: 02/19/20 12:20 Dose: 1 units Documented by: Levothyroxine Sodium (Synthroid) 125 mcg PO SuMoTuWeThFr@0730 [facility] Stop: 03/15/20 07:29 Last Admin: 02/19/20 06:37 Dose: 125 mcg Documented by: Lidocaine (Lidoderm 5%) 1 patch TD [facility] Stop: 03/18/20 18:59 Last Admin: 02/19/20 08:31 Dose: 1 patch Documented by: Liothyronine Sodium (Cytomel) 25 mcg PO BID [facility] Stop: 03/13/20 20:59 Last Admin: 02/19/20 08:30 Dose: 25 mcg Documented by: Lisinopril (Zestril) [facility] [place] Stop: 03/19/20 08:59 Last Admin: 02/19/20 08:34 Dose: 20 mg Documented by: Meclizine HCl (Antivert) 12.5 mg PO TID PRN PRN Reason: Dizziness Stop: 03/14/20 17:04 Last Admin: 02/13/20 17:45 Dose: 12.5 mg Documented by: Metoprolol Tartrate (Lopressor) 12.5 mg PO BID [facility] Stop: 03/13/20 20:59 Last Admin: 02/19/20 08:32 Dose: 12.5 mg Documented by: Miscellaneous (Carbohydrates For Hypoglycemia) 15 - 30 gm PO UD PRN PRN Reason: Hypoglycemia Protocol Stop: 03/13/20 13:54 Miscellaneous (Remove Lidoderm Patch) 1 ea N/A DAILY@2100 [facility] Stop: 03/18/20 22:59 Last Admin: 02/18/20 20:58 Dose: 1 ea Documented by: Multivitamins/Minerals (Caltrate Plus) 1 tab PO MoFr@1600 [facility] Stop: 03/13/20 15:59 Last Admin: 02/15/20 16:15 Dose: 1 tab Documented by: Ondansetron HCl (Zofran) 4 mg IV Q6H PRN PRN Reason: Nausea And Vomiting Stop: 03/13/20 14:07 Oxybutynin Chloride (Ditropan Xl) 10 mg PO DAILY@1600 [facility] Stop: 03/13/20 15:59 Last Admin: 02/18/20 16:10 Dose: 10 mg Documented by: Polyethylene Glycol (Miralax Powder Packet) 17 gm PO BID [facility] Stop: 03/18/20 20:59 Last Admin: 02/19/20 08:33 Dose: 17 gm Documented by: Sertraline HCl (Zoloft) 75 mg PO QAM [facility] Stop: 03/14/20 08:59 Last Admin: 02/19/20 08:34 Dose: 75 mg Documented by: Tramadol HCl (Ultram) 25 mg PO Q8H PRN PRN Reason: moderate to severe pain Stop: 03/13/20 15:21 Vitamin D (Vitamin D3) 2,000 units PO DAILY [facility] Stop: 03/14/20 08:59 Last Admin: 02/19/20 08:33 Dose: 2,000 units Documented by: Warfarin Sodium (Coumadin) 1.25 mg PO HS [facility] Stop: 03/13/20 20:59 Last Admin: 02/18/20 20:53 Dose: 1.25 mg Documented by: (1) Sepsis Sepsis acute organ dysfunction status: without acute organ dysfunction Sepsis type: sepsis due to unspecified organism Qualified Code(s): A41.9 - Sepsis, unspecified organism
[2020-02-19 08:12] LABS: Calcium 9.6 mg/dl (8.5-10.1); Creatinine Clr Calc Pharmacy 59.3 ml/min; Est GFR (African American) 60.9; Est GFR (Non-African American) 52.5; Magnesium 2.4 mg/dl (1.8-2.4); Phosphorus 2.7 mg/dl (2.5-4.9); Potassium 4.2 mmol/L (3.5-5.1)
[2020-02-19] MEDS: INSULIN ASPART 100 UNITS/ML 3 ML PEN SC SCH ×2 (08:29→12:20)
[2020-02-19] MEDS: hydroCHLOROthiazide 25 MG TAB PO SCH (08:30)
[2020-02-19] MEDS: LIOTHYRONINE SODIUM 25 MCG TAB PO SCH (08:30)
[2020-02-19] MEDS: LIDOCAINE 5% 1 PATCH TD SCH (08:31)
[2020-02-19] MEDS: cephALEXin 500 MG CAP PO SCH (08:31)
[2020-02-19] MEDS: METOPROLOL TARTRATE 25 MG TAB PO SCH (08:32)
[2020-02-19] MEDS: FINASTERIDE 5 MG TAB PO SCH (08:33)
[2020-02-19] MEDS: CHOLECALCIFEROL 1,000 UNITS 25 MCG TAB PO SCH (08:33)
[2020-02-19] MEDS: POLYETHYLENE (MIRALAX) 17 GM PACK PO SCH (08:33)
[2020-02-19] MEDS: lisinopriL 20 MG TAB PO SCH (08:34)
[2020-02-19] MEDS: SERTRALINE HCL 50 MG TABLET PO SCH (08:34)
--- NOTE | 2020-02-19 14:02 | Discharge Summary ---
Date of Service February 19, 2020 Admission HPI Per Admitting Provider -patient self caths the bladder intermittently at home -outpatient urine culture from 02/11/2020: LACTOSE FERMENTING GRAM NEGATIVE RODS -presents with sinus tachycardia of 140s and systolic blood pressure of 87 and fever as 38.1 celsius, lactic acid 3.1 on admission, patient given IV fluids and Cefepime by ED provider, continuing IV fluids for now and trend the lactic acid, continue cefepime -ED provider noted that patient has tire trucker friend who visits patient at home, patient denies sick contacts, will be precautionary and continue airborne and contact isolation until COVID-19 screen test returns patient had dry cough recent as noted in ED note, denies shortness of breath, but has been on nasal cannula oxygen when triaged in the ED. patient denies chest pain. no abdomen pain. no pain with bowel movements or urination. denies swelling of penis. has some edema of bilateral lower extremities Allergy History: patient reports no known allergies to foods or medications Family History: patient denies health problems in his family Primary Care Provider: Trinidad Cesar, DO Admission Exam Per Admitting Provider Constitutional: cooperative Eyes: PERRL, conjunctivae normal, anicteric sclerae EOM intact bilaterally ENMT: external ear and nose normal, oropharynx normal (on nasal cannula oxygen in the ED) Neck: trachea midline, no thyromegaly normal visual inspection Respiratory: normal respiratory effort, lungs clear to auscultation normal respiratory effort Cardiovascular: Rate/Rhythm: regular rhythm and + tachycardic Gastrointestinal (Abdomen): normal bowel sounds, soft, nontender, no hepatosplenomegaly Musculoskeletal: Head/Neck/Chest: normocephalic and head atraumatic lower extremity edema bilaterally Neurologic: PERRL, EOMI, accommodation nl, no face palsy, no dysarthria Psychiatric: A+Ox3, euthymic affect Principal Diagnosis SEPSIS DUE TO COMPLICATED UTI AND E. COLI BACTEREMIA Discharge Exam Constitutional: Elderly male, laying in bed, WD/WN, vitals as above, in no acute distress Eyes: EOMI, PERRL, conjunctivae normal, anicteric sclerae ENMT: external ear and nose normal, oropharynx normal Neck: trachea midline, no thyromegaly Respiratory: normal respiratory effort, lungs clear to auscultation b/l, no wheezing, rhonchi or crackles Cardiovascular: RRR, no murmur, no edema Gastrointestinal (Abdomen): normal bowel sounds, soft, nontender to palpation, mildly distended Musculoskeletal: Extremities: + abnormal strength (generalized weakness ) Neurologic: PERRL, EOMI, accommodation nl, no face palsy, no dysarthria, moves extremities spontaneously Psychiatric: A+Ox3, euthymic affect Discharge Data Allergies Allergy/AdvReac Type Severity Reaction Status Date / Time No Known Allergies Allergy Verified 02/12/20 11:56 Consultations 02/12/20 13:22 ED Decision to Admit Stat 02/12/20 14:07 Consult Case Management - Discharge Planning Routine Hospital Course (1) Sepsis: Sepsis, present on admission Gram-negative bacteremia -presented with sinus tachycardia of 140s and systolic blood pressure of 87 and fever as 38.1 celsius, lactic acid 3.1 on admission, likely from urinary tract infection (urosepsis) as complication from self catheterization of bladder -hx of neurogenic bladder -patient self caths the bladder intermittently at home Urine culture (02/11) E coli Blood culture (02/11) : 2 sets positive E coli , same sensitivity as Urine culture on IV Rocephin -adequate coverage repeat blood cultures (02/15/2020) - NGTD Treated with IV rocephin, now switched to p.o. Keflex given repeat blood cultures so far negative Plan for treatment with PO Keflex on discharge - will need 14 days of tx due to bacteremia (will need 1 more week of antibiotics) afebrile now, vitals stable Patient will need primary care and infectious disease follow-up in the next 1 to 2 weeks. Obstructive sleep apnea -CPAP at night Multiple Sclerosis with Neurogenic Bladder -patient self caths the bladder intermittently at home -continue harding as started in the ED -continue home finasteride 5 mg daily and oxybutynin 10 mg daily -continue home baclofen 10 mg qhs to prevent spasms from multiple sclerosis -continue vitamin D and calcium supplements -follows with Dr. Jean-Baptiste as outpatient for multiple sclerosis and recently prescribed tramadol by Dr. Jean-Baptiste for pain as per his -patient reports chronic poor ambulation as baseline. uses power chair ordered for PT/OT eval : recommends rehab Hypertension -was hypotensive in ER on admission, due to sepsis -normotensive now - ACEI resumed Postoperative Hypothyroidism -history of thyroid resection because of thyroid cancer -on supplements of both levothyroxine 125 mcg daily except on Saturdays and also on liothyroxine 25 mcg BID, had recent thyroid labs as outpatient on 02/11/2020 Type 2 diabetes mellitus without emt intermediate current use of insulin -hold home dose metformin because of elevated lactic acid on admission -sliding scale insulin as needed based on blood glucose checks, current HbA1c 7.1% -well-controlled History of deep vein thrombosis in the past Anticoagulated on warfarin -admission INR 2.4, continued warfarin 1.25 mg qhs -Current INR subtherapeutic, 1.8, will provide 2 mg of warfarin for tonight then will continue with home regimen Constipation -Had bowel movement yesterday, after started bowel regimen and suppository given -cont. bowel regimen Full Code DISPOSITION : Plan for rehab placement due to weakness Total Time Total Time Spent Total Time Spent (In Minutes): 40 Total Time Includes: Examination of the Patient, Discharge Planning and Medication Reconciliation Discharge Plan Discharge Items Patient Disposition: Transfer [facility] Reason For Visit: COUGH Discharge Diagnosis: SEPSIS DUE TO COMPLICATED UTI AND E. COLI BACTEREMIA MULTIPLE SCLEROSIS Activity: As commented below Activity Comment: CONT. PHYSICAL THERAPY /OCCUPATIONAL THERAPY Non-emergency contact: Primary Care Provider Call non-emergency contact if: you have any medication questions and your symptoms worsen Follow-up/Referrals: Trinidad Cesar DO [Primary Care Provider] - 02/18/20 12:00 pm (02/18/2020 12:00 PM Provider Trinidad Cesar DO Department [facility] ) Diet: Carb Consistent or DM2 and Heart Healthy Addtl Attending Provider Instructions: Complete antibiotic regimen as prescribed. You will need to follow-up with primary care doctor and/or infectious disease doctor within 1 to 2 weeks. For constipation you can take MiraLAX. For pain you can take Tylenol, you can also use lidocaine patch ([id number]) or tramadol as prescribed. Pending Studies at Discharge: No Stand-Alone Forms: My [employer] Skilled Items Patient informed of condition?: Yes DNR: No Discharge Level of Care: Skilled Communicable Disease: No Discharge Prognosis: Stable Lines: None Urinary Catheter: Yes Medications and DC Order Prescriptions: New cephalexin 500 mg Capsule 500 mg PO Q12H 8 Days Qty: 16 RF: 0 polyethylene glycol 3350 [Miralax] 17 gram Powder In Packet 17 g PO BID PRN (Reason: constipation) 10 Days Qty: 10 RF: 0 tramadol 50 mg Tablet 25 mg PO Q8H PRN (Reason: pain) Qty: 7 RF: 0 Continued metformin 500 mg tablet 500 mg PO UD RF: 0 oxybutynin chloride 10 mg tablet extended release 24hr 10 mg PO QPM RF: 0 liothyronine 25 mcg tablet 25 mcg PO BID RF: 0 lisinopril 20 mg tablet 20 mg PO QAM RF: 0 meclizine 12.5 mg tablet 12.5 mg PO TID PRN (Reason: Dizziness) RF: 0 hydrochlorothiazide 12.5 mg capsule 12.5 mg PO QAM RF: 0 sertraline 25 mg Tablet 25 mg PO QAM RF: 0 atorvastatin 10 mg tablet 10 mg PO QPM RF: 0 clonazepam 0.5 mg tablet 0.5 mg PO HS PRN (Reason: Sleep) RF: 0 warfarin 2.5 mg tablet 1.25 mg PO HS RF: 0 amitriptyline 25 mg tablet 25 mg PO HS RF: 0 baclofen 10 mg tablet 10 mg PO HS RF: 0 levothyroxine [Synthroid] 125 mcg tablet 125 mcg PO UD RF: 0 sertraline 50 mg tablet 50 mg PO QAM RF: 0 finasteride 5 mg tablet 5 mg PO QAM RF: 0 cholecalciferol (vitamin D3) [Vitamin D3] 50 mcg (2,000 unit) Tablet 50 mcg PO DAILY RF: 0 Caltrate 600 plus D 600 mg (1,500 mg)-800 unit Tablet,Chewable 1 tab PO 2XWK RF: 0 metoprolol tartrate 25 mg tablet 12.5 mg PO BID RF: 0 Discharge Orders: Discharge Order (Routine); Ordered 02/19/20 Ordered By: Jay Dhillon Admission Data Admit Date/Time: 02/12/20 14:10 Attending Provider: Jay Dhillon Admit Provider: Oneal Soni Primary Care Provider: Trinidad Cesar Other Providers: [facility] ; Oneal Soni ; Callie Palma
[2020-02-19 15:33] VITALS: BP 114/72; TEMP 97.9; O2SAT 93
[2020-02-19 15:40] VITALS: PULSE 93
[2020-02-19] MEDS: OXYBUTYNIN CHLORIDE XL 5 MG TABCR PO SCH (15:54)
[2020-02-19] MEDS: CALCIUM 600MG + VIT D 400 IU TAB PO SCH (15:54)
--- NOTE | 2020-02-24 07:21 | Coding Query ---
CODING QUERY To promote full compliance with coding requirements relating to patient care, provider participation is requested in all cases of retail solar advisor uncertainty. Please assist us with the question(s) below: Coding Question(s): There is documentation of COVID-19 testing with pending results on H&P with no further mention. Please clarify below, in your clinical opinion. ( ) Possible COVID-19 infection ( X ) COVID-19 is Ruled-Out ( ) Other: Please Clarify Physician's Response(s): COVID-19 negative Thank you Cee Torres Principal Diagnosis: "that condition established after study, to be chiefly responsible for occasioning the admission of the patient to the hospital for care." Co-Existing Principal Diagnosis: "when two or more diagnoses equally meet the criteria for principal diagnosis as determined by the circumstances of admission, diagnostic work up, and/or therapy provided, and the Alphabetic Index, Tabular List, or another coding guideline does not provide sequencing direction, any one of the diagnoses may be sequenced first." "When the physician has documented what appears to be a current diagnosis in the body of the record, but has not included the diagnosis in the final diagnostic statement, the physician should be asked whether the diagnosis should be added." (Source [facility]oding [facility] 2 QTR90. p3-4) JADE
== END 2020-02-19 16:02 | DRG 698 ==
LOC: ED 10:45 → SUATTDRO 14:10 → 2S 14:10 → 2N 02-14 12:42

== ENCOUNTER 2020-04-01 22:27 | Inpatient (IN) ==
[2020-04-01] MEDS ORDERED: ACETAMINOPHEN 500 MG TAB PO STA (22:36)
[2020-04-01] MEDS ORDERED: PIPERACILL/TAZOBAC CONSULT ACTIVE PRN (22:38)
[2020-04-01] MEDS ORDERED: PIPERACILLIN/TAZOBACTAM 4.5 GM/120 ML BAG IV ONE (22:38)
--- NOTE | 2020-04-01 23:04 | Emergency Department Note ---
Impression & Plan Acute pyelonephritis, Sepsis, Fever, Hypomagnesemia ED Provider Note NAME: HEBER DENNIS AGE: 69 SEX: M : 1950 ARRIVES VIA: Ambulance INFORMANT: Patient, the prehospital personnel. ED PROVIDER(S): Aden Askew DO CHIEF COMPLAINT: Weakness HPI: The patient is a 69-year-old male who has a history of MS but also has a history of E. coli bacteremia and DVT who presented to the emergency department for an evaluation of generalized weakness. The patient started noticing decline over the last few days which worsened over the last 24 hours. He has been noticing generalized weakness. He was noted to have a fever prior to arrival. He denies having any nausea or back pain. He has no abdominal pain. He is noticed no recent falls. He does complain of generalized weakness and shortness of breath but does not notice any cough. He notices no worsening swelling in his legs. He has had no headaches or unilateral weakness. The patient states that he had similar episodes in the past with urinary tract infections. He has a history of bacteremia secondary to urinary tract infection. ROS: See above HPI for pertinent positives & negatives. A total of 10 systems reviewed and were otherwise negative. PAST MEDICAL HISTORY: See Below PAST SURGICAL HISTORY: See Below FAMILY HISTORY: See Below SOCIAL HISTORY: See Below HOME MEDICATIONS: See Below ALLERGIES: See Below VITALS: See Below PHYSICAL EXAMINATION: GENERAL: Patient is awake and alert. The patient is comfortable appearing. EYES: The conjunctivae are clear. The pupils are round and reactive. EARS, NOSE, MOUTH AND THROAT: The nose is without any evidence of any deformity. Mucous membranes are dry. NECK: The neck is nontender and supple. RESPIRATORY: Tachypnea was noted. The patient has very shallow breathing. There were diminished breath sounds at both bases. Mild conversational dyspnea was noted. CARDIOVASCULAR: Tachycardic rate with regular rhythm was noted. There was no definite murmur. GASTROINTESTINAL: The abdomen is moderately distended but soft. There is no guarding or rigidity noted. BACK: No midline tenderness or or step-off noted range of motion in flexion extension as well as rotation no signs of muscle spasm noted MUSCULOSKELETAL/EXTREMITIES: There is no evidence of gross deformity full range of motion is noted in the hips and shoulders. SKIN: Skin was cool and dry. There is pedal edema bilaterally. There was no signs of cellulitis. NEUROLOGIC: Patient is awake alert and oriented x3. MEDICAL DECISION MAKING: The patient is a 69-year-old male who presented to the emergency department for an evaluation of generalized weakness. The patient has a history of E. coli sepsis with bacteremia. The patient was treated with IV fluids and IV antibioti cs in the emergency department. I discussed the patient's laboratory and radiographic studies with him. He was treated with Tylenol as well. He was reevaluated multiple times. The patient was also found to have low magnesium and was treated with magnesium replacement. I discussed the patient's condition with the on-call [facility]. They have agreed to evaluate the patient in the emergency department for further management and disposition. Triage Nursing notes reviewed. Prior medical records reviewed Vital Signs: reviewed and remarkable for hypotension and tachycardia. Differential diagnosis: Infection, dehydration, metabolic abnormality, hypo/hyperglycemia, electrolyte disturbance, anemia, hypoxia, cardiac sources, intracerebral event, toxicologic, neurologic, as well as other pathologies. ER treatment provided: See below Diagnostics interpreted by me: ECG: EKG was obtained in the emergency department. My interpretation is sinus tachycardia at [address] depressions were noted. There is no significant change compared to a tracing from February 12, 2020. Cardiac Monitoring: An order was placed for continuous cardiac monitoring. The monitor shows a rate of 125 with sinus tach rhythm. Laboratory studies: As stated above and show below. Imaging studies: See below Consultation(s): 0030: I discussed this case with Dr. Jeronimo who is on-call for the [facility]. He is agreed to evaluate the patient in the emergency department for further management and disposition. Past Med/Surg History Medical History Deep vein blood clot of left lower extremity (Inactive) Depression (Inactive) HLD (hyperlipidemia) (Inactive) HTN (hypertension) (Inactive) Hypothyroidism (Inactive) MS (multiple sclerosis) (Inactive) Neurogenic bladder (Inactive) JAMES on CPAP (Inactive) Surgical History H/O thyroidectomy (Inactive) Family History Mother Cancer Grandfather (Paternal) Hypertension Social History Preferred Language: Macedonian Communication Ability: Effective [place] Required: No Beliefs That Will Affect Care: None marital status: Current Living Situation: Spouse Feels Safe at Home: Yes Smoking Status: Never smoker Second Hand Exposure: No ; Hx Alcohol Use: No Hx Substance Use: No Allergies Allergies Allergy/AdvReac Type Severity Reaction Status Date / Time No Known Allergies Allergy Verified 04/01/20 22:46 Home Meds Home Medications Medication Instructions Recorded Confirmed Caltrate 600 plus D 1 tab PO 2XWK 02/12/20 04/01/20 amitriptyline 25 mg PO HS 02/12/20 04/01/20 atorvastatin 10 mg PO QPM 02/12/20 04/01/20 baclofen 10 mg PO HS 02/12/20 04/01/20 cholecalciferol (vitamin D3) 50 mcg PO DAILY 02/12/20 04/01/20 [Vitamin D3] clonazepam 0.5 mg PO HS PRN 02/12/20 04/01/20 finasteride 5 mg PO QAM 02/12/20 04/01/20 hydrochlorothiazide 12.5 mg PO QAM 02/12/20 04/01/20 levothyroxine [Synthroid] 125 mcg PO 6XWK 02/12/20 04/01/20 liothyronine 25 mcg PO BID 02/12/20 04/01/20 lisinopril 20 mg PO QAM 02/12/20 04/01/20 meclizine 12.5 mg PO TID PRN 02/12/20 04/01/20 metformin See Rx Instructions .ROUTE .COMPLEX 02/12/20 04/01/20 metoprolol tartrate 12.5 mg PO BID 02/12/20 04/01/20 oxybutynin chloride 10 mg PO QPM 02/12/20 04/01/20 sertraline 25 mg PO QAM 02/12/20 04/01/20 sertraline 50 mg PO QAM 02/12/20 04/01/20 warfarin 1.25 mg PO HS 02/12/20 04/01/20 fluticasone propionate 50 2 spray INTNAS DAILY 03/23/20 04/01/20 mcg/actuation nasal spray,suspension tamsulosin 0.4 mg capsule 0.4 mg PO DAILY 03/23/20 04/01/20 Previous Rx's Medication Instructions Recorded tramadol 25 mg PO Q8H PRN #7 tab 02/19/20 methenamine hippurate 1 gram tablet 1 gm PO BID #60 tab 03/17/20 Results & Data (ED) Vital Signs Vital Signs - 24 hr 04/01/20 22:42 04/01/20 23:04 04/01/20 23:05 Temperature 37.6 C H Temperature Source Oral Pulse Rate 130 H 129 H 130 H Pulse Rate from SpO2 Sensor 129 H Pulse Rhythm Regular Pulse Strength Normal Respiratory Rate 30 H 30 H 40 H Respiratory Effort / Characteristics Non-Labored Spontaneous Respiratory Depth Normal Respiratory Pattern Regular Blood Pressure 100/57 L 103/57 L Blood Pressure Mean 80 72 Blood Pressure Position Lying Pulse Oximetry 94 90 94 Oxygen Delivery Method Room Air Room Air Sepsis Recent Fever Within 48 Hours Yes Sepsis New/Unexplained Change in Mental Status Yes Sepsis Action Taken by Nursing Physician Notified 04/01/20 23:43 04/02/20 00:00 Temperature Temperature Source Pulse Rate 128 H 123 H Pulse Rate from SpO2 Sensor 128 H 122 H Pulse Rhythm Pulse Strength Respiratory Rate 30 H 30 H Respiratory Effort / Characteristics Respiratory Depth Respiratory Pattern Blood Pressure 96/60 L 92/55 L Blood Pressure Mean 65 60 Blood Pressure Position Pulse Oximetry 90 90 Oxygen Delivery Method Sepsis Recent Fever Within 48 Hours Sepsis New/Unexplained Change in Mental Status Sepsis Action Taken by Group Home Medications Current Medication List: was personally reviewed by me Laboratory Data Attestation: I reviewed the patient's lab results. Result diagrams: 04/01/20 22:50 04/01/20 22:50 Lab Results 04/01/20 04/01/20 04/01/20 Range/Units 22:50 22:50 22:50 WBC 14.30 H (4.8-10.8) K/uL RBC 4.33 L (4.7-6.1) M/uL Hgb 11.6 L (14.0-18.0) g/dL Hct 35.3 L (42-52) % MCV 81.5 (80-100) fL MCH 26.8 (25-34) pg MCHC 32.9 (32-36) g/dL RDW Std Deviation 44.5 (36.4-46.3) fL RDW Coeff of Daria 15.0 H (11.5-14.5) % Plt Count 203 (130-400) K/uL MPV 10.7 H (7.4-10.4) fL Immature Gran % (Auto) 0.3 % Neut % (Auto) 92.0 % Lymph % (Auto) 2.5 % [place] % (Auto) 4.8 % Eos % (Auto) 0.3 % Baso % (Auto) 0.1 % Neut # (Auto) 13.16 H (1.4-6.5) K/uL Lymph # (Auto) 0.36 L (1.2-3.4) K/uL [place] # (Auto) 0.68 H (0.11-0.59) K/uL Eos # (Auto) 0.04 (0-0.5) K/uL Baso # (Auto) 0.01 (0-0.2) K/uL Immature Gran # (Auto) 0.05 H (0.00-0.02) K/uL PT 23.5 H (9.0-12.0) Seconds INR 2.3 H (0.9-1.1) APTT 38.6 H (21.0-31.0) Seconds PTT Ratio 1.4 D-Dimer 630 H* (0-500) ug/L FEU VBG pH (7.36-7.41) VBG pCO2 (38-50) mmHg VBG pO2 mmHg VBG HCO3 mmol/L VBG O2 Saturation % VBG Base Excess mEq/L Barometric Pressure mm/Hg Sodium 138 (136-145) mmol/L Potassium 3.4 L (3.5-5.1) mmol/L Chloride 108 H (98-107) mmol/L Carbon Dioxide 22 (21-32) mmol/L Anion Gap 7.0 (3-11) BUN 21 H (7-18) mg/dl Creatinine 1.42 H (0.6-1.4) mg/dl Est Cr Clr Drug Dosing 58.2 ml/min Est GFR ( Amer) 58.8 Est GFR (Non-Af Amer) 50.7 BUN/Creatinine Ratio 14.9 (10-20) Glucose 189 H (70-99) mg/dl Lactate (0.4-2.0) mmol/L Calcium 8.2 L (8.5-10.1) mg/dl Magnesium 1.6 L (1.8-2.4) mg/dl Total Bilirubin 0.7 (0.2-1) mg/dl AST 17 (15-37) U/L ALT 34 (12-78) U/L Alkaline Phosphatase 65 (45-117) U/L Troponin I 0.026 (0-0.045) ng/ml Total Protein 6.6 (6.4-8.2) gm/dl Albumin 2.8 L (3.4-5.0) gm/dl Globulin 3.8 (2.5-4.0) gm/dl Albumin/Globulin Ratio 0.7 L (0.9-2) Procalcitonin (0-0.5) ng/ml Urine Color Urine Appearance (Clear) Urine pH (4.5-7.5) Ur Specific [place] (1.000-1.030) Urine Protein (Negative) Urine Glucose (UA) (Negative) Urine Ketones (Negative) Urine Blood (Negative) Urine Nitrite (Negative) Urine Bilirubin (Negative) Urine Urobilinogen (Negative) Ur Leukocyte Esterase (Negative) Urine WBC (Auto) (0-5) /hpf Urine RBC (Auto) (0-4) /hpf U Hyaline Cast (Auto) (0-5) /lpf U Epithel Cells (Auto) (0-5) /lpf Urine Bacteria (Auto) (Negative) 04/01/20 04/01/20 04/01/20 Range/Units 22:50 23:15 23:23 WBC (4.8-10.8) K/uL RBC (4.7-6.1) M/uL Hgb (14.0-18.0) g/dL Hct (42-52) % MCV (80-100) fL MCH (25-34) pg MCHC (32-36) g/dL RDW Std Deviation (36.4-46.3) fL RDW Coeff of Daria (11.5-14.5) % Plt Count (130-400) K/uL MPV (7.4-10.4) fL Immature Gran % (Auto) % Neut % (Auto) % Lymph % (Auto) % [place] % (Auto) % Eos % (Auto) % Baso % (Auto) % Neut # (Auto) (1.4-6.5) K/uL Lymph # (Auto) (1.2-3.4) K/uL [place] # (Auto) (0.11-0.59) K/uL Eos # (Auto) (0-0.5) K/uL Baso # (Auto) (0-0.2) K/uL Immature Gran # (Auto) (0.00-0.02) K/uL PT (9.0-12.0) Seconds INR (0.9-1.1) APTT (21.0-31.0) Seconds PTT Ratio D-Dimer (0-500) ug/L FEU VBG pH (7.36-7.41) VBG pCO2 (38-50) mmHg VBG pO2 mmHg VBG HCO3 mmol/L VBG O2 Saturation % VBG Base Excess mEq/L Barometric Pressure mm/Hg Sodium (136-145) mmol/L Potassium (3.5-5.1) mmol/L Chloride (98-107) mmol/L Carbon Dioxide (21-32) mmol/L Anion Gap (3-11) BUN (7-18) mg/dl Creatinine (0.6-1.4) mg/dl Est Cr Clr Drug Dosing ml/min Est GFR ( Amer) Est GFR (Non-Af Amer) BUN/Creatinine Ratio (10-20) Glucose (70-99) mg/dl Lactate 1.5 (0.4-2.0) mmol/L Calcium (8.5-10.1) mg/dl Magnesium (1.8-2.4) mg/dl Total Bilirubin (0.2-1) mg/dl AST (15-37) U/L ALT (12-78) U/L Alkaline Phosphatase (45-117) U/L Troponin I (0-0.045) ng/ml Total Protein (6.4-8.2) gm/dl Albumin (3.4-5.0) gm/dl Globulin (2.5-4.0) gm/dl Albumin/Globulin Ratio (0.9-2) Procalcitonin 1.16 H (0-0.5) ng/ml Urine Color Yellow Urine Appearance Cloudy A (Clear) Urine pH 5.5 (4.5-7.5) Ur Specific [place] 1.017 (1.000-1.030) Urine Protein Negative (Negative) Urine Glucose (UA) Negative (Negative) Urine Ketones Negative (Negative) Urine Blood Trace H (Negative) Urine Nitrite Negative (Negative) Urine Bilirubin Negative (Negative) Urine Urobilinogen Negative (Negative) Ur Leukocyte Esterase 2+ H (Negative) Urine WBC (Auto) >30 H (0-5) /hpf Urine RBC (Auto) 0-4 (0-4) /hpf U Hyaline Cast (Auto) 1-5 (0-5) /lpf U Epithel Cells (Auto) 0-5 (0-5) /lpf Urine Bacteria (Auto) 4+ H (Negative) 04/01/20 Range/Units 23:24 WBC (4.8-10.8) K/uL RBC (4.7-6.1) M/uL Hgb (14.0-18.0) g/dL Hct (42-52) % MCV (80-100) fL MCH (25-34) pg MCHC (32-36) g/dL RDW Std Deviation (36.4-46.3) fL RDW Coeff of Daria (11.5-14.5) % Plt Count (130-400) K/uL MPV (7.4-10.4) fL Immature Gran % (Auto) % Neut % (Auto) % Lymph % (Auto) % [place] % (Auto) % Eos % (Auto) % Baso % (Auto) % Neut # (Auto) (1.4-6.5) K/uL Lymph # (Auto) (1.2-3.4) K/uL [place] # (Auto) (0.11-0.59) K/uL Eos # (Auto) (0-0.5) K/uL Baso # (Auto) (0-0.2) K/uL Immature Gran # (Auto) (0.00-0.02) K/uL PT (9.0-12.0) Seconds INR (0.9-1.1) APTT (21.0-31.0) Seconds PTT Ratio D-Dimer (0-500) ug/L FEU VBG pH 7.48 H (7.36-7.41) VBG pCO2 32 L (38-50) mmHg VBG pO2 51 mmHg VBG HCO3 23 mmol/L VBG O2 Saturation 85.9 % VBG Base Excess 0.2 mEq/L Barometric Pressure 730.4 mm/Hg Sodium (136-145) mmol/L Potassium (3.5-5.1) mmol/L Chloride (98-107) mmol/L Carbon Dioxide (21-32) mmol/L Anion Gap (3-11) BUN (7-18) mg/dl Creatinine (0.6-1.4) mg/dl Est Cr Clr Drug Dosing ml/min Est GFR ( Amer) Est GFR (Non-Af Amer) BUN/Creatinine Ratio (10-20) Glucose (70-99) mg/dl Lactate (0.4-2.0) mmol/L Calcium (8.5-10.1) mg/dl Magnesium (1.8-2.4) mg/dl Total Bilirubin (0.2-1) mg/dl AST (15-37) U/L ALT (12-78) U/L Alkaline Phosphatase (45-117) U/L Troponin I (0-0.045) ng/ml Total Protein (6.4-8.2) gm/dl Albumin (3.4-5.0) gm/dl Globulin (2.5-4.0) gm/dl Albumin/Globulin Ratio (0.9-2) Procalcitonin (0-0.5) ng/ml Urine Color Urine Appearance (Clear) Urine pH (4.5-7.5) Ur Specific [place] (1.000-1.030) Urine Protein (Negative) Urine Glucose (UA) (Negative) Urine Ketones (Negative) Urine Blood (Negative) Urine Nitrite (Negative) Urine Bilirubin (Negative) Urine Urobilinogen (Negative) Ur Leukocyte Esterase (Negative) Urine WBC (Auto) (0-5) /hpf Urine RBC (Auto) (0-4) /hpf U Hyaline Cast (Auto) (0-5) /lpf U Epithel Cells (Auto) (0-5) /lpf Urine Bacteria (Auto) (Negative) Administered Medications Discontinued Medications Acetaminophen (Tylenol) 1,000 mg PO NOW STA Stop: 04/01/20 22:37 Last Admin: 04/01/20 23:38 Dose: 1,000 mg Documented by: [id number] Piperacillin Sod/Tazobactam Sod (Zosyn) 4.5 gm in 120 mls @ 240 mls/hr IV NOW ONE Stop: 04/01/20 23:07 Last Infusion: 04/02/20 00:42 Dose: 0 mls/hr Documented by: [id number] Admin: 04/01/20 23:38 Dose: 240 mls/hr Documented by: [id number] Imaging Data Attestation: I personally reviewed and interpreted this imaging study as follows: My Impression: Chest x-ray was obtained in the emergency department. Poor inspiratory effort was noted. There is no definite infiltrate. There is no free air. Blood Pressure Blood Pressure Findings: Low blood pressure Blood Pressure Disposition: further management by hospitalist Discharge Plan Visit Data Chief Complaint: Confusion Stated Complaint: AMS ED Provider: Aden Askew Discharge Problem: Acute pyelonephritis, Sepsis, Fever, Hypomagnesemia Patient Disposition: Being Evaluated by Hospitalist Condition: Good Forms Stand Alone Forms: [facility] Prescriptions Prescriptions: No Action methenamine hippurate 1 gram tablet 1 gm PO BID Qty: 60 RF: 3 fluticasone propionate 50 mcg/actuation spray,suspension 2 spray INTNAS DAILY RF: 0 tamsulosin 0.4 mg capsule 0.4 mg PO DAILY RF: 0 metformin 500 mg tablet See Rx Instructions .ROUTE .COMPLEX RF: 0 oxybutynin chloride 10 mg tablet extended release 24hr 10 mg PO QPM RF: 0 liothyronine 25 mcg tablet 25 mcg PO BID RF: 0 lisinopril 20 mg tablet 20 mg PO QAM RF: 0 meclizine 12.5 mg tablet 12.5 mg PO TID PRN (Reason: Dizziness) RF: 0 hydrochlorothiazide 12.5 mg capsule 12.5 mg PO QAM RF: 0 sertraline 25 mg Tablet 25 mg PO QAM RF: 0 atorvastatin 10 mg tablet 10 mg PO QPM RF: 0 clonazepam 0.5 mg tablet 0.5 mg PO HS PRN (Reason: Sleep) RF: 0 warfarin 2.5 mg tablet 1.25 mg PO HS RF: 0 amitriptyline 25 mg tablet 25 mg PO HS RF: 0 baclofen 10 mg tablet 10 mg PO HS RF: 0 levothyroxine [Synthroid] 125 mcg tablet 125 mcg PO 6XWK RF: 0 sertraline 50 mg tablet 50 mg PO QAM RF: 0 finasteride 5 mg tablet 5 mg PO QAM RF: 0 cholecalciferol (vitamin D3) [Vitamin D3] 50 mcg (2,000 unit) Tablet 50 mcg PO DAILY RF: 0 Caltrate 600 plus D 600 mg (1,500 mg)-800 unit Tablet,Chewable 1 tab PO 2XWK RF: 0 metoprolol tartrate 25 mg tablet 12.5 mg PO BID RF: 0 tramadol 50 mg Tablet 25 mg PO Q8H PRN (Reason: pain) Qty: 7 RF: 0 Referrals Referrals: Trinidad Cesar DO [Primary Care Provider] - Discharge Problem: Sepsis Qualifiers: Sepsis type: sepsis due to unspecified organism Sepsis acute organ dysfunction status: unspecified Qualified Code(s): A41.9 - Sepsis, unspecified organism Fever Qualifiers: Fever type: unspecified Qualified Code(s): R50.9 - Fever, unspecified
[2020-04-01 23:20] LABS: Basophils # (auto) 0.01 K/uL (0-0.2); Basophils % (auto) 0.1 %; Eosinophils # (auto) 0.04 K/uL (0-0.5); Eosinophils % (auto) 0.3 %; Hematocrit (blood only) 35.3 % (42-52); Hemoglobin 11.6 g/dL (14.0-18.0); Immature Granulocytes # (auto) 0.05 K/uL (0.00-0.02); Immature Granulocytes % (auto) 0.3 %; Lymphocytes # (auto) 0.36 K/uL (1.2-3.4); Lymphocytes % (auto) 2.5 %; Mean Corpuscular Hemoglobin 26.8 pg (25-34); Mean Corpuscular Hgb Conc 32.9 g/dL (32-36); Mean Corpuscular Volume 81.5 fL (80-100); Mean Platelet Volume 10.7 fL (7.4-10.4); Monocytes # (auto) 0.68 K/uL (0.11-0.59); Monocytes % (auto) 4.8 %; Neutrophils # (auto) 13.16 K/uL (1.4-6.5); Platelet Count 203 K/uL (130-400); RDW Standard Deviation 44.5 fL (36.4-46.3); Red Blood Count 4.33 M/uL (4.7-6.1)
[2020-04-01 23:37] LABS: INR 2.3 (0.9-1.1); Partial Thromboplastin Ratio 1.4; Partial Thromboplastin Time 38.6 Seconds (21.0-31.0); Prothrombin Time 23.5 Seconds (9.0-12.0)
[2020-04-01 23:37] LABS: Appearance Urine Cloudy (Clear); Bacteria Urine Automated 4+ (Negative); Bilirubin Urine Negative (Negative); Blood Urine Trace (Negative); Color Urine Yellow; Epithelial Cell Urine Auto 0-5 /lpf (0-5); Glucose Urine UA Negative (Negative); Ketones Urine Negative (Negative); Leukocyte Esterase Urine 2+ (Negative); Nitrite Urine Negative (Negative); Protein Urine Negative (Negative); RBC Urine Automated 0-4 /hpf (0-4); Specific Gravity Urine 1.017 (1.000-1.030); Urobilinogen Urine Negative (Negative); WBC Urine Automated >30 /hpf (0-5); pH Urine 5.5 (4.5-7.5)
[2020-04-01 23:40] LABS: Base Excess VBG 0.2 mEq/L; Oxygen Saturation VBG 85.9 %; pH VBG 7.48 (7.36-7.41)
[2020-04-01 23:40] LABS: Alanine Aminotransferase 34 U/L (12-78); Albumin Level 2.8 gm/dl (3.4-5.0); Aspartate Aminotransferase 17 U/L (15-37); BUN Creatinine Ratio 14.9 (10-20); Blood Urea Nitrogen 21 mg/dl (7-18); Calcium 8.2 mg/dl (8.5-10.1); Carbon Dioxide 22 mmol/L (21-32); Chloride 108 mmol/L (98-107); Creatinine Clr Calc Pharmacy 58.2 ml/min; Est GFR (African American) 58.8; Est GFR (Non-African American) 50.7; Glucose 189 mg/dl (70-99); Magnesium 1.6 mg/dl (1.8-2.4); Potassium 3.4 mmol/L (3.5-5.1); Sodium 138 mmol/L (136-145)
[2020-04-01 23:44] LABS: Albumin Globulin Ratio 0.7 (0.9-2); Alkaline Phosphatase 65 U/L (45-117); Bilirubin,Total 0.7 mg/dl (0.2-1); Globulin 3.8 gm/dl (2.5-4.0); Total Protein 6.6 gm/dl (6.4-8.2); Troponin I 0.026 ng/ml (0-0.045)
[2020-04-01 23:53] LABS: D Dimer 630 ug/L FEU (0-500)
[2020-04-02] MEDS: MAGNESIUM SULFATE / D5W 1 GM/100 ML BAG IV SCH ×2 (00:45→03:02)
[2020-04-02] MEDS ORDERED: NORMOSOL-R 1,000 ML IV STA (01:02)
[2020-04-02 01:11] LABS: T4 Free Thyroxine 1.04 ng/dl (0.8-1.6); Thyroid Stimulating Hormone < 0.005 uIu/ml (0.300-4.500)
[2020-04-02] MEDS ORDERED: POTASSIUM CHLORIDE 10 MEQ TABCR PO STA (01:40)
--- NOTE | 2020-04-02 01:40 | History & Physical Report ---
Date of Service April 02, 2020 Assessment & Plan (1) Severe sepsis: SIRS plus ARF Secondary to complicated UTI Recurrent UTIs on chronic methenamine suppression Rx the last 3 weeks as per urology recommendations history of neurogenic bladder secondary to multiple sclerosis, hx BPH/urge incontinence as per records ongoing CIC at home Confusion as per records Likely secondary to illness, home neuropsychotropic meds Patient currently mentating well hypertension, BP on the lower side hyperlipidemia on statin Rx history of DVT on Coumadin, INR therapeutic Postsurgical hypothyroidism hx thyroid cancer status post surgery Low TSH with other TFTs normal Acute on chronic anemia No obvious source of bleed for now ? Functional disability/deconditioning Medical telemetry Cultures. Zosyn for now Monitor creatinine response to IVF Hold home lisinopril until creatinine at baseline Ct abdomen and pelvis if no improvement in kidney function to rule out obstructive uropathy Hold neuropsychotropic meds for sedation confusion Anemia work-up, transfuse PRBC if hemoglobin less than 7 and or for symptomatic anemia PT OT eval DVT prophylaxis. Coumadin INR goal between 2 and 3 Full code Text document was generated using [employer] voice recognition software. It may contain grammatical or spelling errors. Kindly contact undersigned for clarification of any documentation item in question. History of Present Illness Chief Complaint: Generalized weakness as per patient, confusion as per records Primary Care Provider: Trinidad Cesar DO History obtained from patient, family, and records. Medical history significant for hypertension, hyperlipidemia, history of DVT on Coumadin, history of neurogenic bladder secondary to multiple sclerosis, recurrent UTIs on chronic methenamine suppression Rx, BPH as per records, thyroid cancer status post surgery, postsurgical hypothyroidism, chronic anemia (baseline hemoglobin 12-13). Last confinement January 2020 for sepsis secondary to E. coli bacteremia. Patient completed outpatient Keflex course. [place] [facility] [place] [facility] 3 [place] ago. Indwelling Richardson catheter removed to facilitate clean intermittent urinary catheterization (CIC). Patient started on methenamine suppression Rx for recurrent UTIs. Patient complaining of right thigh pain at time of Urology visit. Outpatient renal ultrasound showed left-sided nephrolithiasis with minimal dilatation of upper pole left renal collecting system. Multiple large bilateral renal cysts. 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 On follow-up Urology visit 2 weeks ago, patient able to do intermittent CIC at home without problem. Outpatient noncontrast CT abdomen pelvis contemplated for abnormal renal ultrasound as per note. Worsening generalized weakness/decline at home last few days. Low-grade fever. Somewhat confused as per patient . Patient denies chest pain, S OB, headache, abdominal pain, black/bloody stools. Denies dysuria symptoms. Poor appetite. At the ER, patient received Zosyn for sepsis. Medical History as above Surgical History : Urologic procedures, lithotripsy, ESWL, knee surgery, prostate biopsy, lymphadenectomy, total thyroidectomy, parathyroidectomy Family History : Multiple sclerosis, leukemia, breast cancer, lung cancer Personal/Social history : Non-smoker, no EtOH intake, disabled Allergies Allergy/AdvReac Type Severity Reaction Status Date / Time No Known Allergies Allergy Verified 04/01/20 22:46 Home Medications Home Medications Medication Instructions Recorded Confirmed Type Caltrate 600 plus D 1 tab PO 2XWK 02/12/20 04/01/20 History amitriptyline 25 mg PO HS 02/12/20 04/01/20 History atorvastatin 10 mg PO QPM 02/12/20 04/01/20 History baclofen 10 mg PO HS 02/12/20 04/01/20 History cholecalciferol (vitamin D3) 50 mcg PO DAILY 02/12/20 04/01/20 History [Vitamin D3] clonazepam 0.5 mg PO HS PRN 02/12/20 04/01/20 History finasteride 5 mg PO QAM 02/12/20 04/01/20 History hydrochlorothiazide 12.5 mg PO QAM 02/12/20 04/01/20 History levothyroxine [Synthroid] 125 mcg PO 6XWK 02/12/20 04/01/20 History liothyronine 25 mcg PO BID 02/12/20 04/01/20 History lisinopril 20 mg PO QAM 02/12/20 04/01/20 History meclizine 12.5 mg PO TID PRN 02/12/20 04/01/20 History metformin See Rx Instructions .ROUTE .COMPLEX 02/12/20 04/01/20 History metoprolol tartrate 12.5 mg PO BID 02/12/20 04/01/20 History oxybutynin chloride 10 mg PO QPM 02/12/20 04/01/20 History sertraline 25 mg PO QAM 02/12/20 04/01/20 History sertraline 50 mg PO QAM 02/12/20 04/01/20 History warfarin 1.25 mg PO HS 02/12/20 04/01/20 History tramadol 25 mg PO Q8H PRN #7 tab 02/19/20 04/01/20 Rx methenamine hippurate 1 gram tablet 1 gm PO BID #60 tab 03/17/20 04/01/20 Rx fluticasone propionate 50 2 spray INTNAS DAILY 03/23/20 04/01/20 History mcg/actuation nasal spray,suspension tamsulosin 0.4 mg capsule 0.4 mg PO DAILY 03/23/20 04/01/20 History Past Med/Surg History Medical History Deep vein blood clot of left lower extremity (Inactive) Depression (Inactive) HLD (hyperlipidemia) (Inactive) HTN (hypertension) (Inactive) Hypothyroidism (Inactive) MS (multiple sclerosis) (Inactive) Neurogenic bladder (Inactive) JAMES on CPAP (Inactive) Surgical History H/O thyroidectomy (Inactive) Family History Mother Cancer Grandfather (Paternal) Hypertension Social History Preferred Language: [place] Communication Ability: Effective Lead Generator Required: No Beliefs That Will Affect Care: None marital status: Current Living Situation: Spouse Other Information That Helps Us Care for You: No Feels Safe at Home: Yes Safety Concerns: Feels Safe At This Time Smoking Status: Never smoker Do You Dip or Chew Tobacco: No ; Second Hand Exposure: No ; Hx Alcohol Use: No Hx Substance Use: No Review of Systems Review of Systems: As per HPI, all 10 systems reviewed, all other ROS negative Physical Exam Physical Exam: GENERAL: Comfortable, pleasant, obese, no respiratory distress SKIN: Pallor , warm HEENT: Pale palpebral conjunctivae, no ptosis, dry buccal mucosa NECK : Supple, short neck, no tenderness CHEST : Decreased breath sounds , no tenderness HEART : Tachycardic , no obvious murmurs ABDOMEN: Some distention, nontender RECTAL : Intact sphincter,yellow stool (FOBT negative) EXTREMITIES : No LE swelling/tenderness, no other conspicuous deformities noted NEUROLOGIC : Coherent, no facial asymmetry, MMTS BUE 4/5, BLE 1/5 (chronic), gait and stance not assessed Results & Data Results & Data ([facility]) Vital Signs (Past 12 Hours) Vital Signs Temp Pulse Resp BP Pulse Ox 04/02/20 01:00 37.4 C 113 H 37 H 89/57 L 93 04/02/20 00:30 120 H 24 90/59 L 94 04/02/20 00:00 123 H 30 H 92/55 L 90 04/01/20 23:43 128 H 30 H 96/60 L 90 04/01/20 23:05 37.6 C H 130 H 40 H 103/57 L 94 04/01/20 23:04 129 H 30 H 100/57 L 90 04/01/20 22:42 130 H 30 H 94 Laboratory Results Laboratory Results WBC 14.30 K/uL (4.8-10.8) H 04/01/20 22:50 RBC 4.33 M/uL (4.7-6.1) L 04/01/20 22:50 Hgb 11.6 g/dL (14.0-18.0) L 04/01/20 22:50 Hct 35.3 % (42-52) L 04/01/20 22:50 MCV 81.5 fL (80-100) 04/01/20 22:50 MCH 26.8 pg (25-34) 04/01/20 22:50 MCHC 32.9 g/dL (32-36) 04/01/20 22:50 RDW Std Deviation 44.5 fL (36.4-46.3) 04/01/20 22:50 RDW Coeff of Daria 15.0 % (11.5-14.5) H 04/01/20 22:50 Plt Count 203 K/uL (130-400) 04/01/20 22:50 MPV 10.7 fL (7.4-10.4) H 04/01/20 22:50 Immature Gran % (Auto) 0.3 % 04/01/20 22:50 Neut % (Auto) 92.0 % 04/01/20 22:50 Lymph % (Auto) 2.5 % 04/01/20 22:50 Cedar % (Auto) 4.8 % 04/01/20 22:50 Eos % (Auto) 0.3 % 04/01/20 22:50 Baso % (Auto) 0.1 % 04/01/20 22:50 Neut # (Auto) 13.16 K/uL (1.4-6.5) H 04/01/20 22:50 Lymph # (Auto) 0.36 K/uL (1.2-3.4) L 04/01/20 22:50 [place]edar # (Auto) 0.68 K/uL (0.11-0.59) H 04/01/20 22:50 Eos # (Auto) 0.04 K/uL (0-0.5) 04/01/20 22:50 Baso # (Auto) 0.01 K/uL (0-0.2) 04/01/20 22:50 Immature Gran # (Auto) 0.05 K/uL (0.00-0.02) H 04/01/20 22:50 PT 23.5 Seconds (9.0-12.0) H 04/01/20 22:50 INR 2.3 (0.9-1.1) H 04/01/20 22:50 APTT 38.6 Seconds (21.0-31.0) H 04/01/20 22:50 PTT Ratio 1.4 04/01/20 22:50 D-Dimer 630 ug/L FEU (0-500) H* 04/01/20 22:50 VBG pH 7.48 (7.36-7.41) H 04/01/20 23:24 VBG pCO2 32 mmHg (38-50) L 04/01/20 23:24 VBG pO2 51 mmHg 04/01/20 23:24 VBG HCO3 23 mmol/L 04/01/20 23:24 VBG O2 Saturation 85.9 % 04/01/20 23:24 VBG Base Excess 0.2 mEq/L 04/01/20 23:24 Barometric Pressure 730.4 mm/Hg 04/01/20 23:24 Sodium 138 mmol/L (136-145) 04/01/20 22:50 Potassium 3.4 mmol/L (3.5-5.1) L 04/01/20 22:50 Chloride 108 mmol/L (98-107) H 04/01/20 22:50 Carbon Dioxide 22 mmol/L (21-32) 04/01/20 22:50 Anion Gap 7.0 (3-11) 04/01/20 22:50 BUN 21 mg/dl (7-18) H 04/01/20 22:50 Creatinine 1.42 mg/dl (0.6-1.4) H 04/01/20 22:50 Est Cr Clr Drug Dosing 58.2 ml/min 04/01/20 22:50 Est GFR ( Amer) 58.8 04/01/20 22:50 Est GFR (Non-Af Amer) 50.7 04/01/20 22:50 BUN/Creatinine Ratio 14.9 (10-20) 04/01/20 22:50 Glucose 189 mg/dl (70-99) H 04/01/20 22:50 Lactate 1.5 mmol/L (0.4-2.0) 04/01/20 23:23 Calcium 8.2 mg/dl (8.5-10.1) L 04/01/20 22:50 Magnesium 1.6 mg/dl (1.8-2.4) L 04/01/20 22:50 Total Bilirubin 0.7 mg/dl (0.2-1) 04/01/20 22:50 AST 17 U/L (15-37) 04/01/20 22:50 ALT 34 U/L (12-78) 04/01/20 22:50 Alkaline Phosphatase 65 U/L (45-117) 04/01/20 22:50 Troponin I 0.026 ng/ml (0-0.045) 04/01/20 22:50 Total Protein 6.6 gm/dl (6.4-8.2) 04/01/20 22:50 Albumin 2.8 gm/dl (3.4-5.0) L 04/01/20 22:50 Globulin 3.8 gm/dl (2.5-4.0) 04/01/20 22:50 Albumin/Globulin Ratio 0.7 (0.9-2) L 04/01/20 22:50 Procalcitonin 1.16 ng/ml (0-0.5) H 04/01/20 22:50 TSH < 0.005 uIu/ml (0.300-4.500) L 04/01/20 22:50 Free T4 1.04 ng/dl (0.8-1.6) 04/01/20 22:50 Total T3 1.04 ng/ml (0.60-1.81) 04/01/20 22:50 Urine Color Yellow 04/01/20 23:15 Urine Appearance Cloudy (Clear) A 04/01/20 23:15 Urine pH 5.5 (4.5-7.5) 04/01/20 23:15 Ur Specific [place] 1.017 (1.000-1.030) 04/01/20 23:15 Urine Protein Negative (Negative) 04/01/20 23:15 Urine Glucose (UA) Negative (Negative) 04/01/20 23:15 Urine Ketones Negative (Negative) 04/01/20 23:15 Urine Blood Trace (Negative) H 04/01/20 23:15 Urine Nitrite Negative (Negative) 04/01/20 23:15 Urine Bilirubin Negative (Negative) 04/01/20 23:15 Urine Urobilinogen Negative (Negative) 04/01/20 23:15 Ur Leukocyte Esterase 2+ (Negative) H 04/01/20 23:15 Urine WBC (Auto) >30 /hpf (0-5) H 04/01/20 23:15 Urine RBC (Auto) 0-4 /hpf (0-4) 04/01/20 23:15 U Hyaline Cast (Auto) 1-5 /lpf (0-5) 04/01/20 23:15 U Epithel Cells (Auto) 0-5 /lpf (0-5) 04/01/20 23:15 Urine Bacteria (Auto) 4+ (Negative) H 04/01/20 23:15 Diagnostic Findings Chest x-ray as interpretation atelectasis EKG as per my interpretation : Rate 125, sinus tachycardia, normal axis, no ischemia
[2020-04-02] MEDS ORDERED: SODIUM CHLORIDE 0.9% 1000ML 1,000 ML IV ONE (02:45)
[2020-04-02] MEDS ORDERED: GLUCAGON FOR INJ 1 MG VIAL SQ PRN (03:51)
[2020-04-02] MEDS ORDERED: CARBOHYDRATES FOR HYPOGLYCEMIA PO PRN (03:51)
[2020-04-02] MEDS ORDERED: PROMETHAZINE HCL 12.5 MG in SODIUM CHLORIDE 0.9% 50 ML IV PRN (03:51)
[2020-04-02] MEDS ORDERED: clonazePAM 0.5 MG TAB PO PRN (03:51)
[2020-04-02] MEDS ORDERED: DEXTROSE 50% 50 ML SYRINGE IV PRN (03:51)
[2020-04-02] MEDS ORDERED: GLUCOSE 40% GEL 15 GM TUBE PO PRN (03:51)
[2020-04-02] MEDS ORDERED: GLUCOSE 10 TABS/TUBE PO PRN (03:51)
[2020-04-02 04:21] LABS: Basophils # (auto) 0.01 K/uL (0-0.2); Basophils % (auto) 0.1 %; Eosinophils # (auto) 0.04 K/uL (0-0.5); Eosinophils % (auto) 0.2 %; Hemoglobin 11.1 g/dL (14.0-18.0); Immature Granulocytes # (auto) 0.05 K/uL (0.00-0.02); Immature Granulocytes % (auto) 0.3 %; Lymphocytes # (auto) 1.41 K/uL (1.2-3.4); Lymphocytes % (auto) 7.9 %; Mean Corpuscular Hemoglobin 26.7 pg (25-34); Mean Corpuscular Hgb Conc 32.6 g/dL (32-36); Mean Corpuscular Volume 81.7 fL (80-100); Mean Platelet Volume 10.4 fL (7.4-10.4); Monocytes # (auto) 1.39 K/uL (0.11-0.59); Monocytes % (auto) 7.8 %; Neutrophils # (auto) 15.01 K/uL (1.4-6.5); Neutrophils % (auto) 83.7 %; Platelet Count 211 K/uL (130-400); RDW Coefficient of Variation 15.1 % (11.5-14.5); RDW Standard Deviation 44.7 fL (36.4-46.3); Red Blood Count 4.16 M/uL (4.7-6.1); Reticulocyte % 1.4 % (0.5-2.0); Reticulocytes # 0.06 10^6/uL (0.02-0.10); White Blood Count 17.91 K/uL (4.8-10.8)
[2020-04-02 04:30] LABS: INR 2.1 (0.9-1.1); Prothrombin Time 21.3 Seconds (9.0-12.0)
[2020-04-02] MEDS: POTASSIUM CHLORIDE 40 MEQ in SODIUM CHLORIDE 0.9% 1000ML 1,000 ML IV SCH ×2 (04:34→18:10)
[2020-04-02] MEDS: PIPERACILLIN/TAZOBACTAM 3.375 GM in DEXTROSE 5% 100 ML IV SCH ×3 (04:34→20:32)
[2020-04-02] MEDS: INSULIN ASPART 100 UNITS/ML 3 ML PEN SC SCH ×5 (04:35→20:53)
[2020-04-02 04:38] LABS: BUN Creatinine Ratio 13.7 (10-20); Calcium 8.2 mg/dl (8.5-10.1); Creatinine Clr Calc Pharmacy 50.1 ml/min; Est GFR (African American) 49.1; Est GFR (Non-African American) 42.3; Magnesium 2.6 mg/dl (1.8-2.4); Potassium 3.7 mmol/L (3.5-5.1)
[2020-04-02 04:54] LABS: Ferritin 853.7 ng/ml (8-388)
[2020-04-02] MEDS: SERTRALINE HCL 50 MG TABLET PO SCH (07:12)
[2020-04-02] MEDS: TAMSULOSIN HCL 0.4 MG CAP PO SCH (07:12)
[2020-04-02] MEDS: FINASTERIDE 5 MG TAB PO SCH (07:12)
[2020-04-02] MEDS: FLUTICASONE PROPIONATE NA SPR 16 GM BTL SCH (07:13)
[2020-04-02] MEDS: LIOTHYRONINE SODIUM 25 MCG TAB PO SCH ×2 (07:13→20:36)
[2020-04-02] MEDS ORDERED: DAPTOMYCIN CONSULT ACTIVE PRN (08:15)
[2020-04-02 08:57] LABS: Folate (Folic Acid) 9.32 ng/ml (>5.38)
[2020-04-02] MEDS ORDERED: SERTRALINE HCL 50 MG TABLET PO SCH (09:00)
--- NOTE | 2020-04-02 09:00 | XRay Report ---
XR chest 1V portable HISTORY: 69 years-old Male SEPSIS acute sepsis with fever and chills COMPARISON: Chest radiograph 02/12/2020 TECHNIQUE: Portable AP view of the chest FINDINGS: Cardiomediastinal and hilar silhouettes are within normal limits. There is no pneumothorax, pleural e ffusion or overt pulmonary edema. Minimal bibasilar interstitial coarsening. Degenerative changes of the shoulders and spine. Surgical clips project over the right neck. IMPRESSION: Minimal bibasilar densities suggest probable atelectasis. No airspace consolidation typic al for pneumonia. ACT 112: Negative or not required by law. The above report was generated using voice recognition software. It may contain grammatical, syntax o r spelling errors. Electronically signed by: Tonny Alonso M.D. 04/02/2020 8:59 AM
--- NOTE | 2020-04-02 09:36 | CT Scan Report ---
CT OF THE ABDOMEN AND PELVIS WITHOUT CONTRAST CLINICAL HISTORY: Abnormal renal ultrasound. COMPARISON STUDY: CT of the abdomen and pelvis November 30, 2016. Renal ultrasound March 22, 2020. TECHNIQUE: Axial images of the abdomen and pelvis were obtained without IV contrast. Images were revi ewed in the axial, sagittal, and coronal planes. Automated exposure control was utilized for the evi dy. A dose lowering technique was utilized adhering to the principles of ALARA. FINDINGS: Several nodules within the lower lungs are unchanged since CT of November 30, 2016. These are b enign given stability. No ureteral calculi are present. Note is made of a 1.1 cm calculus within an i nfundibulum of the upper pole of the left kidney with moderate dilatation of the upper pole calyces. Multiple additional left renal calculi are present. Punctate right renal calculi are present. A 6 mm fat-containing lesion within the lower pole of the right kidney corresponds the finding on prior ultr asound. A Richardson balloon is present within the bladder which is collapsed. Evaluation of the remainder of the abdomen and pelvis is suboptimal on this unenhanced exam. The liver, adrenal glands and pancr eas are unremarkable. There is no evidence for a bowel obstruction. Moderate amount stool within the rectum is noted. There is no lymphadenopathy or ascites. Fat-containing bilateral inguinal hernias ar e present. There is no biliary or pancreatic ductal dilatation. IMPRESSION: 1. 6 mm fat-containing lesion within the lower pole of the right kidney which corresponds to finding on ultrasound of March 22, 2020. 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 2. 1.1 cm calculus within the infundibulum for the upper pole of the left kidney which results in mod erate dilatation of the upper pole calyces. 3. Bilateral nephrolithiasis. No ureteral calculi. 4. Bilateral renal lesions which favor cysts. ACT 112: Negative or not required by law. Electronically signed by: Kaveh Tong M.D. 04/02/2020 9:35 AM
[2020-04-02] MEDS: DAPTOmycin 425 MG in SYRINGE 0 ML IV SCH (09:52)
[2020-04-02] MEDS: TRAMADOL HCL 50 MG TABLET PO PRN ×3 (12:51→17:12)
--- NOTE | 2020-04-02 14:33 | Electrocardiogram Report ---
Test Reason : Blood Pressure : / mmHG Vent. Rate : 124 BPM Atrial Rate : 124 BPM P-R Int : 122 ms QRS Dur : 082 ms QT Int : 312 ms P-R-T Axes : 032 033 055 degrees QTc Int : 448 ms Sinus tachycardia Otherwise normal ECG When compared with ECG of 12-FEB-2020 10:53, No significant change was found Confirmed by Aden Marley ([id number]) on 04/02/2020 2:32:54 PM Referred By: REFERRED SELF Confirmed By:Aden Marley
--- NOTE | 2020-04-02 15:48 | Hospitalist Progress Note ---
Date of Service April 02, 2020 Assessment & Plan Admission and Anticipated Discharge Date Admission Date: April 02, 2020 Subjective Patient seen and examined at the bedside. In the morning patient felt very fatigued, blood pressure low, receiving IV fluids, and Zosyn, daptomycin added. Awaiting cultures. Patient denies any chest pain or shortness of breath or abdominal pain. Only feels very weak. Reviewed chart, plan for urology to obtain CT abdomen pelvis, for which patient was scheduled as outpatient. Had abnormal renal ultrasound. CT abdomen pelvis obtained. Later today, patient developed left flank pain. Patient's Amy updated over the phone at the bedside. Plan to contact urology, to review images/further recommendations. Results & Data Results & Data ([facility]) Vital Signs (Past 12 Hours) Vital Signs Temp Pulse Pulse Resp BP Pulse Ox 04/02/20 15:17 36.7 C 95 H 20 102/66 95 04/02/20 11:12 36.7 C 80 20 101/61 94 04/02/20 10:47 89 04/02/20 09:40 89 18 103/66 96 04/02/20 08:09 36.9 C 72 20 92/64 L 98 04/02/20 07:33 75 18 98/61 L 95 04/02/20 05:52 102 H 04/02/20 03:59 37.1 C 107 H 21 93/55 L 96
[2020-04-02] MEDS: ACETAMINOPHEN 325 MG TAB PO PRN ×2 (16:00→22:09)
[2020-04-02] MEDS: AMITRIPTYLINE HCL 25 MG TAB PO SCH (20:36)
[2020-04-02] MEDS: OXYBUTYNIN CHLORIDE XL 5 MG TABCR PO SCH (20:36)
[2020-04-02] MEDS: ATORVASTATIN 10 MG TAB PO SCH (20:36)
[2020-04-02] MEDS ORDERED: WARFARIN SOD 1.25 MG TAB PO SCH (21:00)
[2020-04-03] MEDS: TRAMADOL HCL 50 MG TABLET PO PRN ×3 (01:46→21:13)
[2020-04-03] MEDS: PIPERACILLIN/TAZOBACTAM 3.375 GM in DEXTROSE 5% 100 ML IV SCH ×3 (03:49→21:14)
[2020-04-03] MEDS: LEVOTHYROXINE SODIUM 125 MCG TABLET PO SCH (05:48)
[2020-04-03 07:51] LABS: Hematocrit (blood only) 34.4 % (42-52); Mean Corpuscular Hemoglobin 26.3 pg (25-34); Mean Corpuscular Volume 82.3 fL (80-100); Mean Platelet Volume 10.7 fL (7.4-10.4); Platelet Count 209 K/uL (130-400); RDW Coefficient of Variation 15.3 % (11.5-14.5); RDW Standard Deviation 45.8 fL (36.4-46.3); Red Blood Count 4.18 M/uL (4.7-6.1); White Blood Count 9.19 K/uL (4.8-10.8)
[2020-04-03] MEDS: INSULIN ASPART 100 UNITS/ML 3 ML PEN SC SCH ×4 (08:00→21:08)
[2020-04-03 08:09] LABS: INR 1.9 (0.9-1.1); Prothrombin Time 19.8 Seconds (9.0-12.0)
[2020-04-03 08:25] LABS: BUN Creatinine Ratio 10.8 (10-20); Calcium 8.1 mg/dl (8.5-10.1); Creatinine Clr Calc Pharmacy 74.7 ml/min; Est GFR (African American) 79.2; Est GFR (Non-African American) 68.3; Magnesium 2.3 mg/dl (1.8-2.4); Phosphorus 1.8 mg/dl (2.5-4.9); Potassium 4.5 mmol/L (3.5-5.1)
--- NOTE | 2020-04-03 08:32 | Urology Consultation ---
Date of Consultation April 03, 2020 Assessment & Plan (1) Acute pyelonephritis: (2) Calcium nephrolithiasis: He has an interesting situation with a stone that is partially obstructing the left kidney He has bilateral stones but the left side seems to be the location of the trouble. Unfortunately, I am uncertain that placing a stent will be drastically beneficial as there is a high likelihood that I would not be able to advance the stent into the upper pole and relieve the obstruction He is responding well to antibiotics and conservative management and instead I have offered him an alternative We will plan for continued antibiotics for an additional 48 hours and presuming he remains hemodynamically stable and continues to progress appropriately I would consider offering him cystoscopy left ureteroscopy laser lithotripsy and subsequent stent placement on Saturday This should treat the stone that is causing the underlying issue and my hope is that further antibiotics will allow us to perform this procedure safely Advance diet now He is in favor of this plan and seems comfortable with that History of Present Illness Attending Physician: Jay Dhillon MD History of Present Illness 69-year-old gentleman with an interesting medical history as well as history He has been struggling with urinary symptoms, ill feeling, left flank pain for several weeks He has had a recent hospital admission for suspected sepsis as well as gross hematuria associated with this He is currently admitted with a similar complex of symptoms His preoperative imaging shows a unique situation of a stone occluding the upper pole calyces only without obstructing the full renal pelvis or entire kidney Fortunately, he has shown good response to antibiotics and conservative management with hydration/resuscitation He has an indwelling Richardson cathetertypically performs CIC as an outpatient Longstanding neurogenic bladder secondary to diabetes and MS Has struggled with infections in the past but prior to the above discussed symptoms he has not been having major problems He does have bilateral renal calculi He has had several surgeries in the past related to kidney stones Does not have a strong family history of kidney stones Allergies Allergy/AdvReac Type Severity Reaction Status Date / Time No Known Allergies Allergy Verified 04/01/20 22:46 Home Medications Home Medications Medication Instructions Recorded Confirmed Type Caltrate 600 plus D 1 tab PO 2XWK 02/12/20 04/01/20 History amitriptyline 25 mg PO HS 02/12/20 04/01/20 History atorvastatin 10 mg PO QPM 02/12/20 04/01/20 History baclofen 10 mg PO HS 02/12/20 04/01/20 History cholecalciferol (vitamin D3) 50 mcg PO DAILY 02/12/20 04/01/20 History [Vitamin D3] clonazepam 0.5 mg PO HS PRN 02/12/20 04/01/20 History finasteride 5 mg PO QAM 02/12/20 04/01/20 History hydrochlorothiazide 12.5 mg PO QAM 02/12/20 04/01/20 History levothyroxine [Synthroid] 125 mcg PO 6XWK 02/12/20 04/01/20 History liothyronine 25 mcg PO BID 02/12/20 04/01/20 History lisinopril 20 mg PO QAM 02/12/20 04/01/20 History meclizine 12.5 mg PO TID PRN 02/12/20 04/01/20 History metformin See Rx Instructions .ROUTE .COMPLEX 02/12/20 04/01/20 History metoprolol tartrate 12.5 mg PO BID 02/12/20 04/01/20 History oxybutynin chloride 10 mg PO QPM 02/12/20 04/01/20 History sertraline 25 mg PO QAM 02/12/20 04/01/20 History sertraline 50 mg PO QAM 02/12/20 04/01/20 History warfarin 1.25 mg PO HS 02/12/20 04/01/20 History tramadol 25 mg PO Q8H PRN #7 tab 02/19/20 04/01/20 Rx methenamine hippurate 1 gram tablet 1 gm PO BID #60 tab 03/17/20 04/01/20 Rx fluticasone propionate 50 2 spray INTNAS DAILY 03/23/20 04/01/20 History mcg/actuation nasal spray,suspension tamsulosin 0.4 mg capsule 0.4 mg PO DAILY 03/23/20 04/01/20 History Patient History Medical History Deep vein blood clot of left lower extremity (Inactive) Depression (Inactive) HLD (hyperlipidemia) (Inactive) HTN (hypertension) (Inactive) Hypothyroidism (Inactive) MS (multiple sclerosis) (Inactive) Neurogenic bladder (Inactive) JAMES on CPAP (Inactive) Surgical History H/O thyroidectomy (Inactive) Family History Mother Cancer Grandfather (Paternal) Hypertension Social History Preferred Language: [place] Communication Ability: Effective Human Resources Coordinator Required: No Beliefs That Will Affect Care: None marital status: Current Living Situation: Spouse Other Information That Helps Us Care for You: No Feels Safe at Home: Yes Safety Concerns: Feels Safe At This Time Smoking Status: Never smoker Do You Dip or Chew Tobacco: No ; Second Hand Exposure: No ; Hx Alcohol Use: No Hx Substance Use: No Review of Systems Constitutional: no fever, no chills and no fatigue He has experienced general ill feeling and was experiencing fevers prior to admission but has been afebrile since arrival And currently he does not complain of any of the symptoms Eyes: no worsening vision Ear, Nose, Mouth, Throat: no facial pain and no pain with swallowing Respiratory: no cough and no dyspnea Cardiovascular: no chest pain and no palpitations Gastrointestinal: + abdominal pain; no nausea and no vomiting Genitourinary: + problem reported Musculoskeletal: + back pain Integumentary: no rash and no urticaria Neurologic: no gait abnormality and no unsteadiness Psychiatric: no behavioral changes and no depression Endocrine: no fatigue Physical Exam Physical Exam: No distress Comfortable appearing Richardson catheter in place with clear urine No/minimal CVA tenderness to deep palpation in the left or right Constitutional: well developed and well nourished Neck: neck nontender Respiratory: normal respiratory effort; no respiratory distress and does not use accessory muscles Cardiovascular: Rate/Rhythm: regular rate Vessels: radial pulses present Extremities: no edema Gastrointestinal (Abdomen): Inspection/Auscultation: abdomen normal to inspection Percussion/Palpation: abdomen soft; abdomen nontender and no guarding Musculoskeletal: Head/Neck/Chest: normocephalic and head atraumatic Extremities: extremities normal to inspection Skin: no rashes and no lesions Trauma: no evidence of skin trauma Neurologic: awake; not obtunded Speech / Cognition: normal speech Motor/Sensory: no tremor Psychiatric: Orientation: alert and oriented x 3 Genitourinary: no CVA tenderness Lymphatic: no lymphadenopathy Results & Data Vital Signs (Past 12 Hours) Vital Signs Temp Pulse Pulse Resp BP Pulse Ox 04/03/20 07:42 36.6 C 89 20 123/79 95 04/03/20 04:00 36.9 C 87 20 123/73 96 04/03/20 03:39 91 H 100 04/03/20 01:34 78 95 04/03/20 01:21 90 04/02/20 23:25 37.6 C H 89 20 124/73 95 04/02/20 22:59 87 18 96 PG Care Time/CCT Total # of Minutes Spent Total Time Spent with Patient: Total time spent is greater than 50% in coordination of care (as documented) at patient's floor/unit and/or counseling patient: Coding Level of Care Code 14936 Inpt Consult Level 4 Diagnoses Acute pyelonephritis N10 Calcium nephrolithiasis N20.0
--- NOTE | 2020-04-03 08:39 | Hospitalist Progress Note ---
Date of Service April 03, 2020 Assessment & Plan (1) Severe sepsis: SIRS plus ARF Secondary to complicated UTI, pyelonephritis, nephrolithiasis WBC elevated at 17.9K Recurrent UTIs on chronic methenamine suppression Rx the last 3 weeks as per urology recommendations history of neurogenic bladder secondary to multiple sclerosis, hx BPH/urge incontinence as per records ongoing CIC at home Currently follows with urology, Dr. Eli, seen twice in February, renal ultrasound obtained, plan was for CT abdomen pelvis for further evaluation Ct abdomen/ pelvis obtained now on admission -significant for bilateral nephrolithiasis, but more significant in the left kidney with a stone that is partially obstructing the left kidney Urology consulted, Dr. Yates agrees to continue IV fluids and antibiotics, and plans for cystoscopy left ureteroscopy laser lithotripsy and subsequent stent placement on Saturday WBC down to 9K after IV antibiotics (Zosyn, daptomycin) -Cultures pending, will adjust antibiotics accordingly Patient hypotensive yesterday, now blood pressure improved ZARINA -Secondary to above -Creatinine up to 1.65 -Now down to 1.1 after IV fluids and IV antibiotics -Hold home lisinopril until creatinine at baseline -Continue to monitor -Try to avoid nephrotoxic agents Confusion as per records Likely secondary to illness, home neuropsychotropic meds Hold neuropsychotropic meds for sedation confusion Patient currently mentating well hypertension, BP on the lower side hyperlipidemia on statin Rx history of DVT on Coumadin, INR therapeutic Postsurgical hypothyroidism hx thyroid cancer status post surgery Low TSH with other TFTs normal Acute on chronic anemia No obvious source of bleed for now Anemia work-up, transfuse PRBC if hemoglobin less than 7 and or for symptomatic anemia ? Functional disability/deconditioning PT OT eval DVT prophylaxis. Coumadin INR goal between 2 - 3 Full code Admission and Anticipated Discharge Date Admission Date: April 02, 2020 Subjective No acute events overnight. Patient's VS improved, blood pressure increased, patient feels more comfortable. Denies any fevers or chills, continues to be very weak. Continues to have left flank pain that radiates to the right and towards the abdomen. No nausea or vomiting. Seen by urology today, likely procedure planned for Saturday after IVF and IV antibiotics. Patient has stone partially obstructing left kidney. Review of Systems Review of Systems: All systems reviewed & are unremarkable except as noted in HPI & below Constitutional: + fatigue; no fever and no chills Respiratory: no cough and no dyspnea Cardiovascular: no chest pain and no palpitations Gastrointestinal: no abdominal pain, no nausea and no vomiting Genitourinary: + flank pain (Left) Physical Exam Physical Exam: GENERAL: Elderly male, lying in bed, in no acute distress but somewhat uncomfortable HEENT: Normocephalic, atraumatic, EOMI, PERRL NECK : Supple, no tenderness CHEST : Clear to auscultation bilaterally, no wheezing, rhonchi or crackles HEART : RRR , no obvious murmurs ABDOMEN: Normal bowel sounds, soft, obese, some distention, left flank pain on palpation EXTREMITIES : No LE swelling/tenderness, moves extremities spontaneously SKIN: Pallor , warm NEUROLOGIC : Alert and oriented x3, speech fluent, but slow, no facial asymmetry, MMTS BUE 4/5, BLE 1/5 (chronic), gait and stance not assessed Results & Data Results & Data ([facility]) Vital Signs (Past 12 Hours) Vital Signs Temp Pulse Pulse Resp BP Pulse Ox 04/03/20 07:42 36.6 C 89 20 123/79 95 04/03/20 04:00 36.9 C 87 20 123/73 96 04/03/20 03:39 91 H 100 04/03/20 01:34 78 95 04/03/20 01:21 90 04/02/20 23:25 37.6 C H 89 20 124/73 95 04/02/20 22:59 87 18 96 Laboratory Results 04/03/20 04/03/20 04/03/20 Range/Units 07:43 07:19 07:19 WBC (4.8-10.8) K/uL RBC (4.7-6.1) M/uL Hgb (14.0-18.0) g/dL Hct (42-52) % MCV (80-100) fL MCH (25-34) pg MCHC (32-36) g/dL RDW Std Deviation (36.4-46.3) fL RDW Coeff of Daria (11.5-14.5) % Plt Count (130-400) K/uL MPV (7.4-10.4) fL PT 19.8 H (9.0-12.0) Seconds INR 1.9 H (0.9-1.1) Sodium 139 (136-145) mmol/L Potassium 4.5 D (3.5-5.1) mmol/L Chloride 111 H (98-107) mmol/L Carbon Dioxide 22 (21-32) mmol/L Anion Gap 6.0 (3-11) BUN 12 (7-18) mg/dl Creatinine 1.11 D (0.6-1.4) mg/dl Est Cr Clr Drug Dosing 74.7 ml/min Est GFR ( Amer) 79.2 Est GFR (Non-Af Amer) 68.3 BUN/Creatinine Ratio 10.8 (10-20) Glucose 118 H (70-99) mg/dl POC Glucose 131 H (70-99) mg/dl Calcium 8.1 L (8.5-10.1) mg/dl Phosphorus 1.8 L (2.5-4.9) mg/dl Magnesium 2.3 (1.8-2.4) mg/dl Vitamin B12 (211-911) pg/ml Folate (>5.38) ng/ml Hepatitis C Ab Screen (Neg) 04/03/20 04/02/20 04/02/20 Range/Units 07:19 20:12 16:21 WBC 9.19 (4.8-10.8) K/uL RBC 4.18 L (4.7-6.1) M/uL Hgb 11.0 L (14.0-18.0) g/dL Hct 34.4 L (42-52) % MCV 82.3 (80-100) fL MCH 26.3 (25-34) pg MCHC 32.0 (32-36) g/dL RDW Std Deviation 45.8 (36.4-46.3) fL RDW Coeff of Daria 15.3 H (11.5-14.5) % Plt Count 209 (130-400) K/uL MPV 10.7 H (7.4-10.4) fL PT (9.0-12.0) Seconds INR (0.9-1.1) Sodium (136-145) mmol/L Potassium (3.5-5.1) mmol/L Chloride (98-107) mmol/L Carbon Dioxide (21-32) mmol/L Anion Gap (3-11) BUN (7-18) mg/dl Creatinine (0.6-1.4) mg/dl Est Cr Clr Drug Dosing ml/min Est GFR ( Amer) Est GFR (Non-Af Amer) BUN/Creatinine Ratio (10-20) Glucose (70-99) mg/dl POC Glucose 156 H 161 H (70-99) mg/dl Calcium (8.5-10.1) mg/dl Phosphorus (2.5-4.9) mg/dl Magnesium (1.8-2.4) mg/dl Vitamin B12 (211-911) pg/ml Folate (>5.38) ng/ml Hepatitis C Ab Screen (Neg) 04/02/20 04/02/20 04/02/20 Range/Units 11:38 04:02 04:02 WBC (4.8-10.8) K/uL RBC (4.7-6.1) M/uL Hgb (14.0-18.0) g/dL Hct (42-52) % MCV (80-100) fL MCH (25-34) pg MCHC (32-36) g/dL RDW Std Deviation (36.4-46.3) fL RDW Coeff of Daria (11.5-14.5) % Plt Count (130-400) K/uL MPV (7.4-10.4) fL PT (9.0-12.0) Seconds INR (0.9-1.1) Sodium (136-145) mmol/L Potassium (3.5-5.1) mmol/L Chloride (98-107) mmol/L Carbon Dioxide (21-32) mmol/L Anion Gap (3-11) BUN (7-18) mg/dl Creatinine (0.6-1.4) mg/dl Est Cr Clr Drug Dosing ml/min Est GFR ( Amer) Est GFR (Non-Af Amer) BUN/Creatinine Ratio (10-20) Glucose (70-99) mg/dl POC Glucose 122 H (70-99) mg/dl Calcium (8.5-10.1) mg/dl Phosphorus (2.5-4.9) mg/dl Magnesium (1.8-2.4) mg/dl Vitamin B12 381 (211-911) pg/ml Folate 9.32 (>5.38) ng/ml Hepatitis C Ab Screen Neg (Neg) Medications Administered Current Inpatient Medications Acetaminophen (Tylenol) 650 mg PO Q4H PRN PRN Reason: Pain or Fever Stop: 05/02/20 03:50 Last Admin: 04/02/20 22:09 Dose: 650 mg Documented by: Amitriptyline HCl (Elavil) 25 mg PO HS DEWEY Stop: 05/02/20 20:59 Last Admin: 04/02/20 20:36 Dose: 25 mg Documented by: Atorvastatin Calcium (Lipitor) 10 mg PO QPM [facility]WEY Stop: 05/02/20 20:59 Last Admin: 04/02/20 20:36 Dose: 10 mg Documented by: Clonazepam (Klonopin) 0.5 mg PO HS PRN PRN Reason: Sleep Stop: 05/02/20 03:50 Dextrose (Dextrose 50%) 25 - 50 ml IV UD PRN; Protocol PRN Reason: Hypoglycemia Protocol Stop: 05/02/20 03:50 Finasteride (Proscar) 5 mg PO QAM DEWEY Stop: 05/02/20 08:59 Last Admin: 04/02/20 07:12 Dose: 5 mg Documented by: Fluticasone Propionate (Flonase) 2 sprays NA DAILY [facility] Stop: 05/02/20 08:59 Last Admin: 04/02/20 07:13 Dose: 2 sprays Documented by: Glucagon (Glucagen) 1 mg SQ UD PRN; Protocol PRN Reason: Hypoglycemia Protocol Stop: 05/02/20 03:50 Glucose (Dex4 Glucose) 4 - 8 tabs PO UD PRN; Protocol PRN Reason: Hypoglycemia Protocol Stop: 05/02/20 03:50 Glucose (Glucose 40%) 15 - 30 gm PO UD PRN; Protocol PRN Reason: Hypoglycemia Protocol Stop: 05/02/20 03:50 Promethazine HCl 12.5 mg/ (Sodium Chloride) 50.5 mls @ 202 mls/hr IV Q6H PRN PRN Reason: Nausea And Vomiting Stop: 05/02/20 03:50 Potassium Chloride 40 meq/ (Sodium Chloride) 1,020 mls @ 60 mls/hr IV .Q17H DEWEY Stop: 05/02/20 04:14 Last Admin: 04/02/20 18:10 Dose: 60 mls/hr Documented by: Piperacillin Sod/Tazobactam (Sod 3.375 gm/ Dextrose) 115 mls @ 28.75 mls/hr IV Q8H [facility]; Protocol Stop: 04/12/20 03:59 Last Admin: 04/03/20 03:49 Dose: 28.8 mls/hr Documented by: Daptomycin 425 mg/ Syringe 8.5 mls @ 4.25 mls/min IV Q24H [facility]; Protocol Stop: 04/12/20 08:59 Last Admin: 04/02/20 09:52 Dose: 4.25 mls/min Documented by: Insulin Aspart (Novolog Flexpen) 0 units SC ACHS [facility] Stop: 05/02/20 04:14 Last Admin: 04/03/20 08:00 Dose: Not Given Documented by: Levothyroxine Sodium (Synthroid) 125 mcg PO [id number] [facility] Stop: 05/03/20 06:29 Last Admin: 04/03/20 05:48 Dose: Not Given Documented by: Liothyronine Sodium (Cytomel) 25 mcg PO BID [facility] Stop: 05/02/20 08:59 Last Admin: 04/02/20 20:36 Dose: 25 mcg Documented by: Miscellaneous (Carbohydrates For Hypoglycemia) 15 - 30 gm PO UD PRN PRN Reason: Hypoglycemia Protocol Stop: 05/02/20 03:50 Miscellaneous Information (Consult) 1 ea N/A UD PRN PRN Reason: Consult Stop: 05/01/20 22:37 Miscellaneous Information (Consult) 1 ea N/A UD PRN PRN Reason: Consult Stop: 05/02/20 08:14 Oxybutynin Chloride (Ditropan Xl) 10 mg PO QPM [facility]WE[facility] Stop: 05/02/20 20:59 Last Admin: 04/02/20 20:36 Dose: 10 mg Documented by: Sertraline HCl (Zoloft) 75 mg PO QAM [facility]WE[facility] Stop: 05/02/20 08:59 Last Admin: 04/02/20 07:12 Dose: 75 mg Documented by: Tamsulosin HCl (Flomax) 0.4 mg PO DAILY [facility] Stop: 05/02/20 08:59 Last Admin: 04/02/20 07:12 Dose: 0.4 mg Documented by: Tramadol HCl (Ultram) 25 mg PO Q4H PRN PRN Reason: Pain Stop: 05/02/20 03:50 Last Admin: 04/03/20 01:46 Dose: 25 mg Documented by:
[2020-04-03] MEDS: TAMSULOSIN HCL 0.4 MG CAP PO SCH (09:21)
[2020-04-03] MEDS: FINASTERIDE 5 MG TAB PO SCH (09:21)
[2020-04-03] MEDS: SERTRALINE HCL 50 MG TABLET PO SCH (09:21)
[2020-04-03] MEDS: LIOTHYRONINE SODIUM 25 MCG TAB PO SCH ×2 (09:22→21:13)
[2020-04-03] MEDS: DAPTOmycin 425 MG in SYRINGE 0 ML IV SCH (09:22)
[2020-04-03] MEDS: FLUTICASONE PROPIONATE NA SPR 16 GM BTL SCH (09:23)
[2020-04-03] MEDS: POTASSIUM CHLORIDE 40 MEQ in SODIUM CHLORIDE 0.9% 1000ML 1,000 ML IV SCH (11:11)
[2020-04-03] MEDS ORDERED: WARFARIN SOD 1 MG TAB PO ONE (12:46)
[2020-04-03] MEDS ORDERED: WARFARIN SOD 1.25 MG TAB PO SCH (16:00)
[2020-04-03] MEDS: LACTATED RINGER'S 1,000 ML IV SCH (16:28)
[2020-04-03] MEDS: AMITRIPTYLINE HCL 25 MG TAB PO SCH (21:13)
[2020-04-03] MEDS: OXYBUTYNIN CHLORIDE XL 5 MG TABCR PO SCH (21:13)
[2020-04-03] MEDS: ATORVASTATIN 10 MG TAB PO SCH (21:13)
[2020-04-04 03:48] LABS: Hematocrit (blood only) 33.3 % (42-52); Hemoglobin 10.6 g/dL (14.0-18.0); Mean Corpuscular Hemoglobin 25.9 pg (25-34); Mean Corpuscular Hgb Conc 31.8 g/dL (32-36); Mean Corpuscular Volume 81.4 fL (80-100); Mean Platelet Volume 10.9 fL (7.4-10.4); Platelet Count 227 K/uL (130-400); RDW Coefficient of Variation 14.9 % (11.5-14.5); RDW Standard Deviation 44.2 fL (36.4-46.3); Red Blood Count 4.09 M/uL (4.7-6.1); White Blood Count 9.45 K/uL (4.8-10.8)
[2020-04-04] MEDS: PIPERACILLIN/TAZOBACTAM 3.375 GM in DEXTROSE 5% 100 ML IV SCH (03:56)
[2020-04-04 03:57] LABS: INR 1.5 (0.9-1.1); Prothrombin Time 15.6 Seconds (9.0-12.0)
[2020-04-04 04:19] LABS: Calcium 8.4 mg/dl (8.5-10.1); Creatinine Clr Calc Pharmacy 63.8 ml/min; Est GFR (African American) 65.4; Est GFR (Non-African American) 56.5; Potassium 4.6 mmol/L (3.5-5.1)
[2020-04-04] MEDS: LEVOTHYROXINE SODIUM 125 MCG TABLET PO SCH (05:39)
[2020-04-04] MEDS: SERTRALINE HCL 50 MG TABLET PO SCH (08:21)
[2020-04-04] MEDS: TAMSULOSIN HCL 0.4 MG CAP PO SCH (08:22)
[2020-04-04] MEDS: LIOTHYRONINE SODIUM 25 MCG TAB PO SCH ×2 (08:22→20:51)
[2020-04-04] MEDS: FINASTERIDE 5 MG TAB PO SCH (08:22)
[2020-04-04] MEDS: FLUTICASONE PROPIONATE NA SPR 16 GM BTL SCH (08:23)
[2020-04-04] MEDS: INSULIN ASPART 100 UNITS/ML 3 ML PEN SC SCH ×4 (08:24→20:54)
[2020-04-04] MEDS: DAPTOmycin 425 MG in SYRINGE 0 ML IV SCH (08:43)
[2020-04-04] MEDS: LACTATED RINGER'S 1,000 ML IV SCH (08:43)
[2020-04-04] MEDS: ACETAMINOPHEN 325 MG TAB PO PRN (08:56)
--- NOTE | 2020-04-04 09:12 | Hospitalist Progress Note ---
Date of Service April 04, 2020 Assessment & Plan (1) Severe sepsis: SIRS plus ARF Secondary to complicated UTI, pyelonephritis, nephrolithiasis WBC elevated at 17.9K Recurrent UTIs on chronic methenamine suppression Rx the last 3 weeks as per urology recommendations history of neurogenic bladder secondary to multiple sclerosis, hx BPH/urge incontinence as per records ongoing [facility] at home Currently follows with urology, Dr. Eli, seen twice in February, renal ultrasound obtained, plan was for CT abdomen pelvis for further evaluation Ct abdomen/ pelvis obtained now on admission -significant for bilateral nephrolithiasis, but more significant in the left kidney with a stone that is partially obstructing the left kidney Urology consulted, Dr. Yates agrees to continue IV fluids and antibiotics, and plans for cystoscopy left ureteroscopy laser lithotripsy and subsequent stent placement on Saturday (04/05/2020) WBC down to 9K after IV antibiotics (Zosyn, daptomycin) -Urine culture, positive for E. coli, sensitive to Rocephin, will switch to Rocephin now (04/04/2020) -Vital signs, blood pressure now improved (patient previously hypotensive) ZARINA -Secondary to above -Creatinine up to 1.65 on admission -Now down to 1.1-1.3 after IV fluids and IV antibiotics -Hold home lisinopril until creatinine at baseline -Continue to monitor -Try to avoid nephrotoxic agents Confusion as per records Likely secondary to illness, home neuropsychotropic meds Hold neuropsychotropic meds for sedation confusion Patient currently mentating well hypertension, BP on the lower side hyperlipidemia on statin Rx history of DVT on Coumadin, INR therapeutic Postsurgical hypothyroidism hx thyroid cancer status post surgery Low TSH with other TFTs normal Acute on chronic anemia No obvious source of bleed for now Anemia work-up, transfuse PRBC if hemoglobin less than 7 and or for symptomatic anemia ? Functional disability/deconditioning PT OT eval DVT prophylaxis. Coumadin INR goal between 2 - 3 Full code Admission and Anticipated Discharge Date Admission Date: April 02, 2020 Subjective No acute events overnight. Patient is now afebrile, however continues to have left flank pain. He says it is especially bothersome when he moves so he is trying to stay as much still as possible. Denies any chest pain or shortness of breath. We will switch to Rocephin today, as cultures and sensitivities available. Review of Systems Review of Systems: All systems reviewed & are unremarkable except as noted in HPI & below As per HPI, all 10 systems reviewed, all other ROS negative Constitutional: + fatigue; no fever and no chills Respiratory: no cough and no dyspnea Cardiovascular: no chest pain and no palpitations Gastrointestinal: no abdominal pain, no nausea and no vomiting Genitourinary: + flank pain (Left) Physical Exam Physical Exam: GENERAL: Elderly male, lying in bed, in no acute distress but somewhat uncomfortable HEENT: Normocephalic, atraumatic, EOMI, PERRL NECK : Supple, no tenderness CHEST : Clear to auscultation bilaterally, no wheezing, rhonchi or crackles HEART : RRR , no obvious murmurs ABDOMEN: Normal bowel sounds, soft, obese, some distention, left flank pain on palpation EXTREMITIES : No LE swelling/tenderness, moves extremities spontaneously SKIN: Pallor , warm NEUROLOGIC : Alert and oriented x3, speech fluent, but slow, no facial asymmetry, MMTS BUE 4/5, BLE 1/5 (chronic), gait and stance not assessed Results & Data Results & Data ([facility]) Vital Signs (Past 12 Hours) Vital Signs Temp Pulse Pulse Resp BP BP Pulse Ox 04/04/20 07:25 37.1 C 88 16 109/72 94 04/04/20 07:00 66 04/04/20 03:12 87 20 96 04/04/20 02:57 36.5 C 87 22 111/75 93 04/04/20 01:58 88 04/03/20 22:59 37.7 C H 96 H 20 151/74 H 95 04/03/20 21:37 94 H 16 96 Laboratory Results 04/04/20 04/04/20 04/04/20 Range/Units 07:35 03:32 03:32 WBC (4.8-10.8) K/uL RBC (4.7-6.1) M/uL Hgb (14.0-18.0) g/dL Hct (42-52) % MCV (80-100) fL MCH (25-34) pg MCHC (32-36) g/dL RDW Std Deviation (36.4-46.3) fL RDW Coeff of Daria (11.5-14.5) % Plt Count (130-400) K/uL MPV (7.4-10.4) fL PT 15.6 H (9.0-12.0) Seconds INR 1.5 H (0.9-1.1) Sodium 138 (136-145) mmol/L Potassium 4.6 (3.5-5.1) mmol/L Chloride 110 H (98-107) mmol/L Carbon Dioxide 22 (21-32) mmol/L Anion Gap 6.0 (3-11) BUN 10 (7-18) mg/dl Creatinine 1.30 (0.6-1.4) mg/dl Est Cr Clr Drug Dosing 63.8 ml/min Est GFR ( Amer) 65.4 Est GFR (Non-Af Amer) 56.5 BUN/Creatinine Ratio 8.0 L (10-20) Glucose 126 H (70-99) mg/dl POC Glucose 157 H (70-99) mg/dl Calcium 8.4 L (8.5-10.1) mg/dl 04/04/20 04/03/20 04/03/20 Range/Units 03:32 20:08 16:41 WBC 9.45 (4.8-10.8) K/uL RBC 4.09 L (4.7-6.1) M/uL Hgb 10.6 L (14.0-18.0) g/dL Hct 33.3 L (42-52) % MCV 81.4 (80-100) fL MCH 25.9 (25-34) pg MCHC 31.8 L (32-36) g/dL RDW Std Deviation 44.2 (36.4-46.3) fL RDW Coeff of Daria 14.9 H (11.5-14.5) % Plt Count 227 (130-400) K/uL MPV 10.9 H (7.4-10.4) fL PT (9.0-12.0) Seconds INR (0.9-1.1) Sodium (136-145) mmol/L Potassium (3.5-5.1) mmol/L Chloride (98-107) mmol/L Carbon Dioxide (21-32) mmol/L Anion Gap (3-11) BUN (7-18) mg/dl Creatinine (0.6-1.4) mg/dl Est Cr Clr Drug Dosing ml/min Est GFR ( Amer) Est GFR (Non-Af Amer) BUN/Creatinine Ratio (10-20) Glucose (70-99) mg/dl POC Glucose 117 H 130 H (70-99) mg/dl Calcium (8.5-10.1) mg/dl 04/03/20 Range/Units 11:48 WBC (4.8-10.8) K/uL RBC (4.7-6.1) M/uL Hgb (14.0-18.0) g/dL Hct (42-52) % MCV (80-100) fL MCH (25-34) pg MCHC (32-36) g/dL RDW Std Deviation (36.4-46.3) fL RDW Coeff of Daria (11.5-14.5) % Plt Count (130-400) K/uL MPV (7.4-10.4) fL PT (9.0-12.0) Seconds INR (0.9-1.1) Sodium (136-145) mmol/L Potassium (3.5-5.1) mmol/L Chloride (98-107) mmol/L Carbon Dioxide (21-32) mmol/L Anion Gap (3-11) BUN (7-18) mg/dl Creatinine (0.6-1.4) mg/dl Est Cr Clr Drug Dosing ml/min Est GFR ( Amer) Est GFR (Non-Af Amer) BUN/Creatinine Ratio (10-20) Glucose (70-99) mg/dl POC Glucose 191 H (70-99) mg/dl Calcium (8.5-10.1) mg/dl Medications Administered Current Inpatient Medications Acetaminophen (Tylenol) 650 mg PO Q4H PRN PRN Reason: Pain or Fever Stop: 05/02/20 03:50 Last Admin: 04/04/20 08:56 Dose: 650 mg Documented by: Amitriptyline HCl (Elavil) 25 mg PO HS [facility]WE[facility] Stop: 05/02/20 20:59 Last Admin: 04/03/20 21:13 Dose: 25 mg Documented by: Atorvastatin Calcium (Lipitor) 10 mg PO QPM [facility] Stop: 05/02/20 20:59 Last Admin: 04/03/20 21:13 Dose: 10 mg Documented by: Clonazepam (Klonopin) 0.5 mg PO HS PRN PRN Reason: Sleep Stop: 05/02/20 03:50 Dextrose (Dextrose 50%) 25 - 50 ml IV UD PRN; Protocol PRN Reason: Hypoglycemia Protocol Stop: 05/02/20 03:50 Finasteride (Proscar) 5 mg PO QAM [facility] Stop: 05/02/20 08:59 Last Admin: 04/04/20 08:22 Dose: 5 mg Documented by: Fluticasone Propionate (Flonase) 2 sprays NA DAILY [facility] Stop: 05/02/20 08:59 Last Admin: 04/04/20 08:23 Dose: 2 sprays Documented by: Glucagon (Glucagen) 1 mg SQ UD PRN; Protocol PRN Reason: Hypoglycemia Protocol Stop: 05/02/20 03:50 Glucose (Dex4 Glucose) 4 - 8 tabs PO UD PRN; Protocol PRN Reason: Hypoglycemia Protocol Stop: 05/02/20 03:50 Glucose (Glucose 40%) 15 - 30 gm PO UD PRN; Protocol PRN Reason: Hypoglycemia Protocol Stop: 05/02/20 03:50 Promethazine HCl 12.5 mg/ (Sodium Chloride) 50.5 mls @ 202 mls/hr IV Q6H PRN PRN Reason: Nausea And Vomiting Stop: 05/02/20 03:50 Piperacillin Sod/Tazobactam (Sod 3.375 gm/ Dextrose) 115 mls @ 28.75 mls/hr IV Q8H [facility]; Protocol Stop: 04/12/20 03:59 Last Infusion: 04/04/20 08:23 Dose: Infused Documented by: Daptomycin 425 mg/ Syringe 8.5 mls @ 4.25 mls/min IV Q24H [facility]; Protocol Stop: 04/12/20 08:59 Last Admin: 04/04/20 08:43 Dose: 4.25 mls/min Documented by: Lactated Ringer's (Lr) 1,000 mls @ 60 mls/hr IV .[id number] [facility] Stop: 05/03/20 15:14 Last Admin: 04/04/20 08:43 Dose: 60 mls/hr Documented by: Insulin Aspart (Novolog Flexpen) 0 units SC ACHS [facility]WE[facility] Stop: 05/02/20 04:14 Last Admin: 04/04/20 08:24 Dose: 4 units Documented by: Levothyroxine Sodium (Synthroid) 125 mcg PO [id number] DEWEY Stop: 05/03/20 06:29 Last Admin: 04/04/20 05:39 Dose: 125 mcg Documented by: Liothyronine Sodium (Cytomel) 25 mcg PO BID [facility] Stop: 05/02/20 08:59 Last Admin: 04/04/20 08:22 Dose: 25 mcg Documented by: Miscellaneous (Carbohydrates For Hypoglycemia) 15 - 30 gm PO UD PRN PRN Reason: Hypoglycemia Protocol Stop: 05/02/20 03:50 Miscellaneous Information (Consult) 1 ea N/A UD PRN PRN Reason: Consult Stop: 05/01/20 22:37 Miscellaneous Information (Consult) 1 ea N/A UD PRN PRN Reason: Consult Stop: 05/02/20 08:14 Oxybutynin Chloride (Ditropan Xl) 10 mg PO QPM [facility] Stop: 05/02/20 20:59 Last Admin: 04/03/20 21:13 Dose: 10 mg Documented by: Sertraline HCl (Zoloft) 75 mg PO QAM [facility] Stop: 05/02/20 08:59 Last Admin: 04/04/20 08:21 Dose: 75 mg Documented by: Tamsulosin HCl (Flomax) 0.4 mg PO DAILY [facility] Stop: 05/02/20 08:59 Last Admin: 04/04/20 08:22 Dose: 0.4 mg Documented by: Tramadol HCl (Ultram) 25 mg PO Q4H PRN PRN Reason: Pain Stop: 05/02/20 03:50 Last Admin: 04/03/20 21:13 Dose: 25 mg Documented by:
[2020-04-04] MEDS: cefTRIAXone SODIUM 2,000 MG in DEXTROSE 5% 50 ML IV SCH (11:28)
[2020-04-04] MEDS: TRAMADOL HCL 50 MG TABLET PO PRN (11:28)
--- NOTE | 2020-04-04 14:24 | Urology Progress Note ---
Date of Service April 04, 2020 Assessment & Plan (1) Acute pyelonephritis: (2) Calcium nephrolithiasis: Supportive care with hydration, antibiotics, and pain control. Doing well and tolerating. Patient has plans to treat stone tomorrow if not passing or not improving. If patient worsens or has fevers or other changes may need just stent however if able will try to treat completely with Dr. Yates tomorrow. Call if any changes or issues. NPO tonight. Subjective Patient admitted with stone and discomfort. Patient is afebrile. Has been undergoing maximum expulsion therapy with oral medications, IV medications, IV fluids, and oral intake. Has as stone with plans to continue supportive care and likely treat stone tomorrow if not improving or passing. Is doing better without considerable increase in pain or major issues. Has not developed severe vomiting or other issues. Has not experienced fever or chills. Has been tolerating oral medications. Is tolerating fluids. Has noticed some frequency and urgency. Has not had severe pain in the back and flank. Does have occasional burning and irritation. No severe episodes or major changes. Patient does not believe the passed a stone. Has not passed a large amount of blood or debris that may be the stone. Well known history of stones. Review of Systems Review of Systems: All systems reviewed & are unremarkable except as noted in HPI & below Physical Exam Physical Exam: General: Alert in no acute distress. HEENT: Normocephalic Atraumatic. Inspection normal. Cranial Nerves 2-12 Grossly intact. Normal inspection of face. Normal inspection of neck. Psychologic: Normal affect. Respiratory: Nonlabored. No use of accessory muscles. No tachypnea or dyspnea. Cardiovascular: No tachycardia Skin: [place] and Dry. No rashes or visible lesions. Extremities/Lymphatics: No edema Abdomen: Soft Non-distended. No rebound or guarding. Results & Data Vital Signs (Past 12 Hours) Vital Signs Temp Pulse Pulse Resp BP Pulse Ox 04/04/20 11:27 36.7 C 82 16 109/70 94 04/04/20 07:25 37.1 C 88 16 109/72 94 04/04/20 07:00 66 04/04/20 03:12 87 20 96 04/04/20 02:57 36.5 C 87 22 111/75 93 PG Care Time/CCT Total # of Minutes Spent Total Time Spent with Patient: Total time spent is greater than 50% in coordination of care (as documented) at patient's floor/unit and/or counseling patient: Coding Level of Care Code 67441 Subseq Hosp Care Lvl 3 Diagnoses Acute pyelonephritis N10 Calcium nephrolithiasis N20.0
[2020-04-04] MEDS: ATORVASTATIN 10 MG TAB PO SCH (20:52)
[2020-04-04] MEDS: AMITRIPTYLINE HCL 25 MG TAB PO SCH (20:52)
[2020-04-04] MEDS: OXYBUTYNIN CHLORIDE XL 5 MG TABCR PO SCH (20:52)
[2020-04-05] MEDS: LACTATED RINGER'S 1,000 ML IV SCH ×2 (00:31→15:04)
[2020-04-05] MEDS ORDERED: Nursing to Pharmacy Communication SCH ×2 (01:45→14:15)
[2020-04-05] MEDS: LEVOTHYROXINE SODIUM 125 MCG TABLET PO SCH (05:59)
[2020-04-05] MEDS: INSULIN ASPART 100 UNITS/ML 3 ML PEN SC SCH ×4 (06:02→20:47)
[2020-04-05] MEDS ORDERED: ONDANSETRON INJ 2 MG/ML 2 ML VIAL IV ONE (06:32)
[2020-04-05] MEDS ORDERED: fentaNYL citrate 100 MCG/2 ML VIAL IV ONE (06:32)
[2020-04-05] MEDS ORDERED: PROPOFOL IV EMULSION 10 MG/ML 20 ML VIAL IV ONE (06:32)
[2020-04-05] MEDS ORDERED: LIDOCAINE HCL 2% 2 ML VIAL/AMP(20MG/ML) INFIL ONE (06:32)
[2020-04-05] MEDS ORDERED: PHENYLEPHRINE 100MCG/ML 5ML SYR IV ONE (06:32)
[2020-04-05] MEDS ORDERED: MIDAZOLAM HCL 1 MG/ML 2ML VIAL IV ONE (06:32)
[2020-04-05] MEDS ORDERED: PROMETHAZINE HCL 6.25 MG in SODIUM CHLORIDE 0.9% 50 ML IV PRN (07:10)
[2020-04-05] MEDS ORDERED: ePHEDrine sulfate 50 MG/ML AMP IV PRN (07:10)
[2020-04-05] MEDS ORDERED: fentaNYL citrate 100 MCG/2 ML VIAL IV PRN (07:10)
[2020-04-05] MEDS ORDERED: ONDANSETRON INJ 2 MG/ML 2 ML VIAL IV PRN (07:10)
[2020-04-05] MEDS ORDERED: ATROPINE SULFATE 0.1 MG/ML 10ML SYR IV PRN (07:10)
--- NOTE | 2020-04-05 07:10 | Anesthesiology Consultation ---
Date of Service April 05, 2020 Assessment & Plan (1) Encounter for pre-operative examination: Chart Review Chart Review: Acceptable Risk for Surgery and Patient NOT seen in Pre Admission Testing Consults Requested none ASA ASA3 Proposed Anesthesia Anesthesia Type: General Risk / Benefits Reviewed With: PT / POA / Parent / Guardian, Accepts Plan and Informed Consent Obtained History Surgery Operation Date: 04/05/20 07:30 Proposed Procedures p Cystoscopy, Left Ureteroscopy, Laser Lithotripsy, Stent Placement - Zander Yates MD Height/Weight Height: 5 ft 9 in Weight: 94.5 kg Allergies Allergy/AdvReac Type Severity Reaction Status Date / Time No Known Allergies Allergy Verified 04/01/20 22:46 Medications Home Medications Medication Instructions Recorded Confirmed Last Taken Caltrate 600 plus D 1 tab PO 2XWK 02/12/20 04/01/20 04/01/20 amitriptyline 25 mg PO HS 02/12/20 04/01/20 03/31/20 atorvastatin 10 mg PO QPM 02/12/20 04/01/20 03/31/20 baclofen 10 mg PO HS 02/12/20 04/01/20 03/31/20 cholecalciferol (vitamin D3) 50 mcg PO DAILY 02/12/20 04/01/20 04/01/20 [Vitamin D3] clonazepam 0.5 mg PO HS PRN 02/12/20 04/01/20 Unknown finasteride 5 mg PO QAM 02/12/20 04/01/20 04/01/20 hydrochlorothiazide 12.5 mg PO QAM 02/12/20 04/01/20 04/01/20 levothyroxine [Synthroid] 125 mcg PO 6XWK 02/12/20 04/01/20 04/01/20 liothyronine 25 mcg PO BID 02/12/20 04/01/20 04/01/20 08:00 lisinopril 20 mg PO QAM 02/12/20 04/01/20 04/01/20 meclizine 12.5 mg PO TID PRN 02/12/20 04/01/20 Unknown metformin See Rx Instructions .ROUTE .COMPLEX 02/12/20 04/01/20 04/01/20 08:00 metoprolol tartrate 12.5 mg PO BID 02/12/20 04/01/2020 08:00 oxybutynin chloride 10 mg PO QPM 02/12/20 04/01/20 03/31/20 sertraline 25 mg PO QAM 02/12/20 04/01/20 04/01/20 sertraline 50 mg PO QAM 02/12/20 04/01/20 04/01/20 warfarin 1.25 mg PO HS 02/12/20 04/01/20 03/31/20 tramadol 25 mg PO Q8H PRN #7 tab 02/19/20 04/01/20 Unknown methenamine hippurate 1 gram tablet 1 gm PO BID #60 tab 03/17/20 04/01/20 04/01/20 08:00 fluticasone propionate 50 2 spray INTNAS DAILY 03/23/20 04/01/20 04/01/20 mcg/actuation nasal spray,suspension tamsulosin 0.4 mg capsule 0.4 mg PO DAILY 03/23/20 04/01/20 04/01/20 Active Medications Generic Name Dose Route Start Last Admin Trade Name Freq PRN Reason Stop Dose Admin Acetaminophen 650 mg 04/02/20 03:51 04/04/20 08:56 Tylenol PO 05/02/20 03:50 650 mg Q4H PRN Administration Pain or Fever Amitriptyline HCl 25 mg 04/02/20 21:00 04/04/20 20:52 Elavil PO 05/02/20 20:59 25 mg HS DEWEY Administration Atorvastatin Calcium 10 mg 04/02/20 21:00 04/04/20 20:52 Lipitor PO 05/02/20 20:59 10 mg QPM DEWEY Administration Finasteride 5 mg 04/02/20 09:00 04/04/20 08:22 Proscar PO 05/02/20 08:59 5 mg QAM DEWEY Administration Fluticasone Propionate 2 sprays 04/02/20 09:00 04/04/20 08:23 Flonase NA 05/02/20 08:59 2 sprays DAILY DEWEY Administration Lactated Ringer's 1,000 mls @ 60 mls/hr 04/03/20 15:15 04/05/20 00:31 Lr IV 05/03/20 15:14 60 mls/hr .[id number] DEWEY Administration Ceftriaxone Sodium 2,000 mg/ 70 mls @ 140 mls/hr 04/04/20 12:00 04/04/20 12:14 Dextrose IV 04/11/20 11:59 Infused Q24H DEWEY Infusion Insulin Aspart 0 units 04/05/20 06:00 04/05/20 06:02 Novolog Flexpen SC 05/05/20 05:59 Not Given Q6 DEWEY Levothyroxine Sodium 125 mcg 04/03/20 06:30 04/05/20 05:59 Synthroid PO 05/03/20 06:29 125 mcg [id number] DEWEY Administration Liothyronine Sodium 25 mcg 04/02/20 09:00 04/04/20 20:51 Cytomel PO 05/02/20 08:59 25 mcg BID DEWEY Administration Oxybutynin Chloride 10 mg 04/02/20 21:00 04/04/20 20:52 Ditropan Xl PO 05/02/20 20:59 10 mg QPM DEWEY Administration Sertraline HCl 75 mg 04/02/20 09:00 04/04/20 08:21 Zoloft PO 05/02/20 08:59 75 mg QAM DEWEY Administration Tamsulosin HCl 0.4 mg 04/02/20 09:00 04/04/20 08:22 Flomax PO 05/02/20 08:59 0.4 mg DAILY DEWEY Administration Tramadol HCl 25 mg 04/02/20 03:51 04/04/20 11:28 Ultram PO 05/02/20 03:50 25 mg Q4H PRN Administration Pain NPO Date Last Intake of Fluids: 04/04/20 Time Last Intake of Fluids: 20:00 Date Last Intake of Solids: 04/04/20 Time Last Intake of Solids: 20:00 Past Medical History Medical History Deep vein blood clot of left lower extremity (Inactive) Depression (Inactive) HLD (hyperlipidemia) (Inactive) HTN (hypertension) (Inactive) Hypothyroidism (Inactive) MS (multiple sclerosis) (Inactive) Neurogenic bladder (Inactive) JAMES on CPAP (Inactive) Exercise / Class Metabolic Activity Other (wheelchair bound due to MS.) Past Family History Family History Mother Cancer Grandfather (Paternal) Hypertension Past Surgical History Surgical History H/O thyroidectomy (Inactive) Past Anesthesia History No Hx of Anesthesia Complications and No Family Hx of Anesthesia Complications History of PONV No Hx of PONV and No Hx of Motion Sickness Social History Smoking Status: Never smoker Do You Dip or Chew Tobacco: No Hx Alcohol Use: No Hx Substance Use: No substance use type: does not use Physical Exam Vital Signs Last Vital Signs Temp 35.5 C L 04/05/20 03:15 Pulse 92 H 04/05/20 03:15 Resp 25 H 04/05/20 03:15 BP 123/61 04/05/20 03:15 Pulse Ox 94 04/05/20 03:15 ENMT Mouth: no dentition abnormality Thyromental Distance: > or= 3.5 Finger Breadths Mallampati Class: II Neck normal visual inspection Respiratory normal respiratory effort Auscultation: lungs clear to auscultation bilaterally Cardiovascular Rate/Rhythm: regular rate and regular rhythm Neurologic moves all extremities (minimal movement of bilateral lower extremities.) Psychiatric Orientation: alert Testing Laboratory Results 04/04/20 03:32 04/04/20 03:32 PT 15.6 Seconds (9.0-12.0) H 04/04/20 03:32 INR 1.5 (0.9-1.1) H 04/04/20 03:32 APTT 38.6 Seconds (21.0-31.0) H 04/01/20 22:50 Urine Color Yellow 04/01/20 23:15 Urine Appearance Cloudy (Clear) A 04/01/20 23:15 Urine pH 5.5 (4.5-7.5) 04/01/20 23:15 Ur Specific [place] 1.017 (1.000-1.030) 04/01/20 23:15 Urine Protein Negative (Negative) 04/01/20 23:15 Urine Glucose (UA) Negative (Negative) 04/01/20 23:15 Urine Ketones Negative (Negative) 04/01/20 23:15 Urine Nitrite Negative (Negative) 04/01/20 23:15 Ur Leukocyte Esterase 2+ (Negative) H 04/01/20 23:15 Urine WBC (Auto) >30 /hpf (0-5) H 04/01/20 23:15 Urine RBC (Auto) 0-4 /hpf (0-4) 04/01/20 23:15 U Hyaline Cast (Auto) 1-5 /lpf (0-5) 04/01/20 23:15 U Epithel Cells (Auto) 0-5 /lpf (0-5) 04/01/20 23:15 Urine Bacteria (Auto) 4+ (Negative) H 04/01/20 23:15 Blood Type A Positive 04/02/20 04:02 Antibody Screen NEGATIVE 04/02/20 04:02 04/01/20 23:15 Urine Culture - Final Urine,Clean Catch Escherichia coli 04/01/20 22:50 Aerobic Blood Culture - Preliminary Blood No growth in Aerobic bottle after 48 hours. Anaerobic Blood Culture - Preliminary No growth in Anaerobic bottle after 48 hours. 04/01/20 23:23 Aerobic Blood Culture - Preliminary Blood No growth in Aerobic bottle after 48 hours. Anaerobic Blood Culture - Preliminary No growth in Anaerobic bottle after 48 hours. 04/05/20 04/04/20 05:57 20:16 POC Glucose 115 H 196 H Electrocardiogram Date: 04/01/20 Findings: + ST @ Chest X-Ray Date: 04/01/20 Findings: + NAD
--- NOTE | 2020-04-05 07:28 | Urology Progress Note ---
Date of Service April 05, 2020 Assessment & Plan (1) Calcium nephrolithiasis: Plan for cystoscopy, left ureteroscopy laser lithotripsy and stent placement today He has been on antibiotics for several days Clinically stable Consent on the chart Subjective No major changes Plan for cystoscopy, left ureteroscopy laser lithotripsy and stent insertion today Review of Systems Review of Systems: All systems reviewed & are unremarkable except as noted in HPI & below Physical Exam Constitutional: well developed and well nourished Neck: neck nontender Respiratory: normal respiratory effort; no respiratory distress and does not use accessory muscles Cardiovascular: Rate/Rhythm: regular rate Vessels: radial pulses present Extremities: no edema Gastrointestinal (Abdomen): Inspection/Auscultation: abdomen normal to inspection Percussion/Palpation: abdomen soft; abdomen nontender and no guarding Musculoskeletal: Head/Neck/Chest: normocephalic and head atraumatic Extremities: extremities normal to inspection Skin: no rashes and no lesions Trauma: no evidence of skin trauma Neurologic: awake; not obtunded Speech / Cognition: normal speech Motor/Sensory: no tremor Psychiatric: Orientation: alert and oriented x 3 Genitourinary: no CVA tenderness Lymphatic: no lymphadenopathy Results & Data Vital Signs (Past 12 Hours) Vital Signs Temp Pulse Pulse Resp BP BP Pulse Ox 04/05/20 07:19 36.7 C 92 H 18 130/81 94 04/05/20 07:13 89 04/05/20 07:11 36.8 C 97 H 18 115/83 94 04/05/20 03:15 35.5 C L 92 H 25 H 123/61 94 04/05/20 03:03 93 H 18 96 04/05/20 01:12 84 04/04/20 23:12 80 18 96 04/04/20 22:33 36.4 C L 69 19 128/78 91 PG Care Time/CCT Total # of Minutes Spent Total Time Spent with Patient: Total time spent is greater than 50% in coordination of care (as documented) at patient's floor/unit and/or counseling patient: Coding Level of Care Code 52253 Subseq Hosp Care Lvl 2 Diagnoses Calcium nephrolithiasis N20.0
[2020-04-05 07:29] LABS: Hematocrit (blood only) 33.5 % (42-52); Hemoglobin 10.6 g/dL (14.0-18.0); Mean Corpuscular Hgb Conc 31.6 g/dL (32-36); Mean Corpuscular Volume 82.3 fL (80-100); Mean Platelet Volume 10.3 fL (7.4-10.4); Platelet Count 235 K/uL (130-400); RDW Coefficient of Variation 14.8 % (11.5-14.5); RDW Standard Deviation 44.9 fL (36.4-46.3); Red Blood Count 4.07 M/uL (4.7-6.1); White Blood Count 10.09 K/uL (4.8-10.8)
[2020-04-05 07:40] LABS: INR 1.4 (0.9-1.1); Prothrombin Time 14.4 Seconds (9.0-12.0)
[2020-04-05 08:00] LABS: BUN Creatinine Ratio 8.2 (10-20); Creatinine Clr Calc Pharmacy 62.6 ml/min; Est GFR (African American) 65.4; Est GFR (Non-African American) 56.5
--- NOTE | 2020-04-05 08:39 | Hospitalist Progress Note ---
Date of Service April 05, 2020 Assessment & Plan (1) Severe sepsis: SIRS plus ARF Secondary to complicated UTI, pyelonephritis, nephrolithiasis WBC elevated at 17.9K Recurrent UTIs on chronic methenamine suppression Rx the last 3 weeks as per urology recommendations history of neurogenic bladder secondary to multiple sclerosis, hx BPH/urge incontinence as per records ongoing CIC at home Currently follows with urology, Dr. Eli, seen twice in February, renal ultrasound obtained, plan was for CT abdomen pelvis for further evaluation Ct abdomen/ pelvis obtained now on admission -significant for bilateral nephrolithiasis, but more significant in the left kidney with a stone that is partially obstructing the left kidney Urology consulted, Dr. Yates agrees to continue IV fluids and antibiotics, planned for urological procedure (cystoscopy left ureteroscopy laser lithotripsy and subsequent stent placement), which patient now underwent (04/05/2020) WBC down to 9K after IV antibiotics (Zosyn, daptomycin) -Urine culture, positive for E. coli, sensitive to Rocephin, switched to Rocephin (04/04/2020), will cont. -Blood culture, April 01, 2020, no growth to date -Vital signs, blood pressure now improved (patient previously hypotensive) ZARINA -Secondary to above -Creatinine up to 1.65 on admission -Now down to 1.1-1.3 after IV fluids and IV antibiotics -Hold home lisinopril until creatinine at baseline -Continue to monitor -Try to avoid nephrotoxic agents Confusion as per records Likely secondary to illness, home neuropsychotropic meds Hold neuropsychotropic meds for sedation confusion Patient currently mentating well hypertension, BP on the lower side hyperlipidemia on statin Rx history of DVT on Coumadin, INR therapeutic Postsurgical hypothyroidism hx thyroid cancer status post surgery Low TSH with other TFTs normal Acute on chronic anemia No obvious source of bleed for now Anemia work-up, transfuse PRBC if hemoglobin less than 7 and or for symptomatic anemia ? Functional disability/deconditioning PT OT eval DVT prophylaxis. Coumadin INR goal between 2 - 3 Full code Admission and Anticipated Discharge Date Admission Date: April 02, 2020 Subjective Patient is lying in bed, in no acute distress, just underwent procedure with urology (cystoscopy, left ureteroscopy laser lithotripsy and stent insertion). Patient says that he still feels little drowsy from anesthesia however denies any pain, fevers or chills, also denies any chest pain or shortness of breath. Overall he is comfortable at this moment. Review of Systems Review of Systems: All systems reviewed & are unremarkable except as noted in HPI & below Constitutional: + fatigue; no fever and no chills Respiratory: no cough and no dyspnea Cardiovascular: no chest pain and no palpitations Gastrointestinal: no abdominal pain, no nausea and no vomiting Physical Exam Physical Exam: GENERAL: Elderly male, lying in bed, in no acute distress HEENT: Normocephalic, atraumatic, EOMI, PERRL NECK : Supple, no tenderness CHEST : Clear to auscultation bilaterally, no wheezing, rhonchi or crackles HEART : RRR , no obvious murmurs ABDOMEN: Normal bowel sounds, soft, obese, some distention EXTREMITIES : No LE swelling/tenderness, moves extremities spontaneously SKIN: Pallor , warm NEUROLOGIC : Alert and oriented x3, speech fluent, but slow, no facial asymmetry, MMTS BUE 4/5, BLE 1/5 (chronic), gait and stance not assessed Results & Data Results & Data ([facility]) Vital Signs (Past 12 Hours) Vital Signs Temp Pulse Pulse Resp BP BP Pulse Ox 04/05/20 07:19 36.7 C 92 H 18 130/81 94 04/05/20 07:13 89 04/05/20 07:11 36.8 C 97 H 18 115/83 94 04/05/20 03:15 35.5 C L 92 H 25 H 123/61 94 04/05/20 03:03 93 H 18 96 04/05/20 01:12 84 04/04/20 23:12 80 18 96 04/04/20 22:33 36.4 C L 69 19 128/78 91 Laboratory Results 04/05/20 04/05/20 04/05/20 Range/Units 07:18 07:18 07:18 WBC 10.09 (4.8-10.8) K/uL RBC 4.07 L (4.7-6.1) M/uL Hgb 10.6 L (14.0-18.0) g/dL Hct 33.5 L (42-52) % MCV 82.3 (80-100) fL MCH 26.0 (25-34) pg MCHC 31.6 L (32-36) g/dL RDW Std Deviation 44.9 (36.4-46.3) fL RDW Coeff of Daria 14.8 H (11.5-14.5) % Plt Count 235 (130-400) K/uL MPV 10.3 (7.4-10.4) fL PT 14.4 H (9.0-12.0) Seconds INR 1.4 H (0.9-1.1) Sodium 139 (136-145) mmol/L Potassium 4.0 (3.5-5.1) mmol/L Chloride 107 (98-107) mmol/L Carbon Dioxide 26 (21-32) mmol/L Anion Gap 5.0 (3-11) BUN 11 (7-18) mg/dl Creatinine 1.30 (0.6-1.4) mg/dl Est Cr Clr Drug Dosing 62.6 ml/min Est GFR ( Amer) 65.4 Est GFR (Non-Af Amer) 56.5 BUN/Creatinine Ratio 8.2 L (10-20) Glucose 118 H (70-99) mg/dl POC Glucose (70-99) mg/dl Calcium 9.0 (8.5-10.1) mg/dl 04/05/20 04/04/20 04/04/20 Range/Units 05:57 20:16 16:43 WBC (4.8-10.8) K/uL RBC (4.7-6.1) M/uL Hgb (14.0-18.0) g/dL Hct (42-52) % MCV (80-100) fL MCH (25-34) pg MCHC (32-36) g/dL RDW Std Deviation (36.4-46.3) fL RDW Coeff of Daria (11.5-14.5) % Plt Count (130-400) K/uL MPV (7.4-10.4) fL PT (9.0-12.0) Seconds INR (0.9-1.1) Sodium (136-145) mmol/L Potassium (3.5-5.1) mmol/L Chloride (98-107) mmol/L Carbon Dioxide (21-32) mmol/L Anion Gap (3-11) BUN (7-18) mg/dl Creatinine (0.6-1.4) mg/dl Est Cr Clr Drug Dosing ml/min Est GFR ( Amer) Est GFR (Non-Af Amer) BUN/Creatinine Ratio (10-20) Glucose (70-99) mg/dl POC Glucose 115 H 196 H 118 H (70-99) mg/dl Calcium (8.5-10.1) mg/dl 04/04/20 Range/Units 11:39 WBC (4.8-10.8) K/uL RBC (4.7-6.1) M/uL Hgb (14.0-18.0) g/dL Hct (42-52) % MCV (80-100) fL MCH (25-34) pg MCHC (32-36) g/dL RDW Std Deviation (36.4-46.3) fL RDW Coeff of Daria (11.5-14.5) % Plt Count (130-400) K/uL MPV (7.4-10.4) fL PT (9.0-12.0) Seconds INR (0.9-1.1) Sodium (136-145) mmol/L Potassium (3.5-5.1) mmol/L Chloride (98-107) mmol/L Carbon Dioxide (21-32) mmol/L Anion Gap (3-11) BUN (7-18) mg/dl Creatinine (0.6-1.4) mg/dl Est Cr Clr Drug Dosing ml/min Est GFR ( Amer) Est GFR (Non-Af Amer) BUN/Creatinine Ratio (10-20) Glucose (70-99) mg/dl POC Glucose 136 H (70-99) mg/dl Calcium (8.5-10.1) mg/dl Medications Administered Current Inpatient Medications Acetaminophen (Tylenol) 650 mg PO Q4H PRN PRN Reason: Pain or Fever Stop: 05/02/20 03:50 Last Admin: 04/04/20 08:56 Dose: 650 mg Documented by: Amitriptyline HCl (Elavil) 25 mg PO HS DEWEY Stop: 05/02/20 20:59 Last Admin: 04/04/20 20:52 Dose: 25 mg Documented by: Atorvastatin Calcium (Lipitor) 10 mg PO QPM DEWEY Stop: 05/02/20 20:59 Last Admin: 04/04/20 20:52 Dose: 10 mg Documented by: Atropine Sulfate (Atropine Sulfate) 0.5 mg IV Q1M PRN PRN Reason: PACU Use-HR<40 &/or Bradycardi Stop: 04/05/20 15:10 Clonazepam (Klonopin) 0.5 mg PO HS PRN PRN Reason: Sleep Stop: 05/02/20 03:50 Dextrose (Dextrose 50%) 25 - 50 ml IV UD PRN; Protocol PRN Reason: Hypoglycemia Protocol Stop: 05/02/20 03:50 Ephedrine Sulfate (Ephedrine Sulfate) 5 mg IV Q5M PRN PRN Reason: PACU Use Only-SBP<90 mmHg Stop: 04/05/20 15:10 Fentanyl Citrate (Fentanyl Citrate) 50 mcg IV Q5M PRN PRN Reason: PACU Use Only-Pain Stop: 04/05/20 15:10 Finasteride (Proscar) 5 mg PO QAM [facility] Stop: 05/02/20 08:59 Last Admin: 04/04/20 08:22 Dose: 5 mg Documented by: Fluticasone Propionate (Flonase) 2 sprays NA DAILY [facility] Stop: 05/02/20 08:59 Last Admin: 04/04/20 08:23 Dose: 2 sprays Documented by: Glucagon (Glucagen) 1 mg SQ UD PRN; Protocol PRN Reason: Hypoglycemia Protocol Stop: 05/02/20 03:50 Glucose (Dex4 Glucose) 4 - 8 tabs PO UD PRN; Protocol PRN Reason: Hypoglycemia Protocol Stop: 05/02/20 03:50 Glucose (Glucose 40%) 15 - 30 gm PO UD PRN; Protocol PRN Reason: Hypoglycemia Protocol Stop: 05/02/20 03:50 Promethazine HCl 12.5 mg/ (Sodium Chloride) 50.5 mls @ 202 mls/hr IV Q6H PRN PRN Reason: Nausea And Vomiting Stop: 05/02/20 03:50 Lactated Ringer's (Lr) 1,000 mls @ 60 mls/hr IV .[id number] [facility] Stop: 05/03/20 15:14 Last Admin: 04/05/20 00:31 Dose: 60 mls/hr Documented by: Ceftriaxone Sodium 2,000 mg/ (Dextrose) 70 mls @ 140 mls/hr IV Q24H [facility] Stop: 04/11/20 11:59 Last Infusion: 04/04/20 12:14 Dose: Infused Documented by: Promethazine HCl 6.25 mg/ (Sodium Chloride) 50.25 mls @ 204 mls/hr IV ONCE PRN PRN Reason: PACU Use Only-Nausea/Vomiting Stop: 04/05/20 15:11 Insulin Aspart (Novolog Flexpen) 0 units SC Q6 [facility] Stop: 05/05/20 05:59 Last Admin: 04/05/20 06:02 Dose: Not Given Documented by: Levothyroxine Sodium (Synthroid) 125 mcg PO [id number] [facility] Stop: 05/03/20 06:29 Last Admin: 04/05/20 05:59 Dose: 125 mcg Documented by: Liothyronine Sodium (Cytomel) 25 mcg PO BID [facility] Stop: 05/02/20 08:59 Last Admin: 04/04/20 20:51 Dose: 25 mcg Documented by: Miscellaneous (Carbohydrates For Hypoglycemia) 15 - 30 gm PO UD PRN PRN Reason: Hypoglycemia Protocol Stop: 05/02/20 03:50 Ondansetron HCl (Zofran) 4 mg IV ONCE PRN PRN Reason: PACU Use Only-Nausea/Vomiting Stop: 04/05/20 15:10 Oxybutynin Chloride (Ditropan Xl) 10 mg PO QPM [facility] Stop: 05/02/20 20:59 Last Admin: 04/04/20 20:52 Dose: 10 mg Documented by: Sertraline HCl (Zoloft) 75 mg PO QAM [facility] Stop: 05/02/20 08:59 Last Admin: 04/04/20 08:21 Dose: 75 mg Documented by: Tamsulosin HCl (Flomax) 0.4 mg PO DAILY [facility] Stop: 05/02/20 08:59 Last Admin: 04/04/20 08:22 Dose: 0.4 mg Documented by: Tramadol HCl (Ultram) 25 mg PO Q4H PRN PRN Reason: Pain Stop: 05/02/20 03:50 Last Admin: 04/04/20 11:28 Dose: 25 mg Documented by:
--- NOTE | 2020-04-05 08:45 | Operative Report ---
PG Post Operative Report Pre & Post Diagnosis Operation Date: 04/05/20 07:30 Pre-Op Diagnosis: Calcium Nephrolithiasis Post-Op Diagnosis: Calcium Nephrolithiasis I identified the patient and participated in the time-out.: Yes Procedure Operation Date: 04/05/20 07:30 Actual Procedures p Cystoscopy, Left Ureteroscopy, Laser Lithotripsy, Stent Placement(Left) - Zander Yates MD Surgeon Gilberto Yates MD Print Line Inspector none Estimated Blood Loss 0 Findings Consistent with Post-Op Diagnosis Specimens stone for chemical analysis Description of Procedure The patient was identified in the preoperative holding area, appropriate informed consents were reviewed and completed and the patient was transferred to the operative suite. Upon arrival, appropriate antibiotics and anesthesia were administered and the patient was placed in dorsal lithotomy position and prepped and draped in sterile fashion. To begin the case I passed a 22 [place] cystoscope with 30 degree lens. Inspection revealed healthy-appearing urethra and bladder. The left UO was cannulated with a sensor wire and a 10 [place] double-lumen catheter. A second wire was introduced into the kidney. Of note, an opacity was visualized in the region of the kidney consistent with his preoperative imaging. I then withdrew the 10 [place] double-lumen catheter and placed a ureteral access sheath to the level of the UPJ. I passed a flexible ureteroscope and visualized a relatively clear lower pole with one small stone. There was a long upper pole infundibulum with an obstructing calculus wedged into the infundibulum. Passed a laser fiber and began treating the stone. I was ultimately able to disimpact it and pushed into the upper pole. There was some cloudy urine in the upper pole. We irrigated copiously to clear the urine and then I treated the stone until it was deemed safe for spontaneous passage effectively broken. I have repeated full renoscopy multiple times to ensure there were no large retained fragments within the kidney. I then cautiously removed the ureteral access sheath and ureteroscope performing an exit ureteroscopy. There were no stones within the ureter. I placed a 6 [place] by 26 cm double-J stent which went into the lower pole of the kidney. There was good curl in the bladder and the case was concluded. I did place a new 16 [place] Richardson catheter without incident. He was extubated and taken to the PACU in stable condition. I attest to the content of the Intraoperative Record and any orders documented therein. Any exceptions are noted below.
--- NOTE | 2020-04-05 08:57 | Fluoroscopy Report ---
FL KUB HISTORY: 69 years-old Male LEFT LASER LITHO AND STENT PLACEMENT COMPARISON: CT abdomen pelvis 04/02/2020 TECHNIQUE: 2 spot fluoroscopic images of the left upper quadrant abdomen were obtained utilizing 10.9 seconds fluoroscopy time FINDINGS: Images demonstrate placement of a left ureteral stent, the proximal portion of the stent appears to b e in satisfactory positioning. The distal portion of the stent is not imaged. Left nephrolithiasis re demonstrated. IMPRESSION: Fluoroscopic assistance as above. Please see procedural report for further details. ACT 112: Negative or not required by law. The above report was generated using voice recognition software. It may contain grammatical, syntax o r spelling errors. Electronically signed by: Tonny Alonso M.D. 04/05/2020 8:56 AM
--- NOTE | 2020-04-05 09:13 | Anesthesiology Progress Note ---
Date of Service April 05, 2020 Anesthesia Post Procedure Vital Signs Vital Signs: Temp Pulse Pulse Pulse Resp BP BP 04/05/20 09:00 99 H 17 103/80 04/05/20 08:50 87 17 110/59 L 04/05/20 08:42 36.2 C L 91 H 12 124/79 04/05/20 07:19 36.7 C 92 H 18 130/81 04/05/20 07:13 89 04/05/20 07:11 36.8 C 97 H 18 115/83 04/05/20 03:15 35.5 C L 92 H 25 H 123/61 04/05/20 03:03 93 H 18 04/05/20 01:12 84 04/04/20 23:12 80 18 04/04/20 22:33 36.4 C L 69 19 128/78 04/04/20 18:52 37.3 C 68 18 124/77 04/04/20 11:27 36.7 C 82 16 109/70 Pulse Ox 04/05/20 09:00 96 04/05/20 08:50 95 04/05/20 08:42 96 04/05/20 07:19 94 04/05/20 07:13 04/05/20 07:11 94 04/05/20 03:15 94 04/05/20 03:03 96 04/05/20 01:12 04/04/20 23:12 96 04/04/20 22:33 91 04/04/20 18:52 91 04/04/20 11:27 94 Transfer of Care Handoff Completed per policy Notes Mental Status: alert / awake / arousable Patient Amnestic to Procedure: Yes Nausea / Vomiting: adequately controlled Pain: adequately controlled Airway Patency, RR, SpO2: stable & adequate BP & HR: stable & adequate Hydration State: stable & adequate Anesthetic Complications: no major complications apparent
[2020-04-05] MEDS: LIOTHYRONINE SODIUM 25 MCG TAB PO SCH ×2 (09:46→21:11)
[2020-04-05] MEDS: FINASTERIDE 5 MG TAB PO SCH (09:46)
[2020-04-05] MEDS: SERTRALINE HCL 50 MG TABLET PO SCH (09:46)
[2020-04-05] MEDS: TAMSULOSIN HCL 0.4 MG CAP PO SCH (09:46)
[2020-04-05] MEDS: FLUTICASONE PROPIONATE NA SPR 16 GM BTL SCH (09:47)
[2020-04-05] MEDS: cefTRIAXone SODIUM 2,000 MG in DEXTROSE 5% 50 ML IV SCH (11:12)
[2020-04-05] MEDS ORDERED: WARFARIN SOD 1 MG TAB PO SCH (16:00)
[2020-04-05] MEDS: AMITRIPTYLINE HCL 25 MG TAB PO SCH (21:11)
[2020-04-05] MEDS: ATORVASTATIN 10 MG TAB PO SCH (21:11)
[2020-04-05] MEDS: OXYBUTYNIN CHLORIDE XL 5 MG TABCR PO SCH (21:11)
[2020-04-05] MEDS: TRAMADOL HCL 50 MG TABLET PO PRN (23:36)
[2020-04-06] MEDS: ACETAMINOPHEN 325 MG TAB PO PRN ×3 (02:08→15:13)
[2020-04-06] MEDS: LEVOTHYROXINE SODIUM 125 MCG TABLET PO SCH (05:35)
[2020-04-06] MEDS: TRAMADOL HCL 50 MG TABLET PO PRN ×2 (05:35→14:24)
[2020-04-06] MEDS: LACTATED RINGER'S 1,000 ML IV SCH (06:33)
[2020-04-06 07:03] LABS: Hematocrit (blood only) 32.2 % (42-52); Hemoglobin 10.5 g/dL (14.0-18.0); Mean Corpuscular Hemoglobin 26.6 pg (25-34); Mean Corpuscular Hgb Conc 32.6 g/dL (32-36); Mean Corpuscular Volume 81.5 fL (80-100); Mean Platelet Volume 10.1 fL (7.4-10.4); Platelet Count 258 K/uL (130-400); RDW Coefficient of Variation 14.8 % (11.5-14.5); RDW Standard Deviation 44.1 fL (36.4-46.3); Red Blood Count 3.95 M/uL (4.7-6.1); White Blood Count 11.61 K/uL (4.8-10.8)
[2020-04-06 07:15] LABS: INR 1.6 (0.9-1.1); Prothrombin Time 16.1 Seconds (9.0-12.0)
[2020-04-06 07:30] LABS: Calcium 8.9 mg/dl (8.5-10.1); Creatinine Clr Calc Pharmacy 61.2 ml/min; Est GFR (African American) 63.7; Est GFR (Non-African American) 54.9; Potassium 4.1 mmol/L (3.5-5.1)
[2020-04-06] MEDS: LIOTHYRONINE SODIUM 25 MCG TAB PO SCH ×2 (08:04→21:50)
[2020-04-06] MEDS: FINASTERIDE 5 MG TAB PO SCH (08:04)
[2020-04-06] MEDS: TAMSULOSIN HCL 0.4 MG CAP PO SCH (08:04)
[2020-04-06] MEDS: SERTRALINE HCL 50 MG TABLET PO SCH (08:04)
[2020-04-06] MEDS: INSULIN ASPART 100 UNITS/ML 3 ML PEN SC SCH ×4 (08:08→21:51)
[2020-04-06] MEDS: FLUTICASONE PROPIONATE NA SPR 16 GM BTL SCH (08:15)
[2020-04-06] MEDS: HEPARIN SOD 5,000 UNIT/0.5 ML VIAL SQ SCH ×2 (10:14→21:50)
--- NOTE | 2020-04-06 10:29 | Urology Progress Note ---
Date of Service April 06, 2020 Assessment & Plan (1) Calcium nephrolithiasis: 1. Calcium Nephrolithiasis - s/p Left Cystoscopy, URS LL with stent insertion on 04/05/20 D/C Richardson, continue CIC Recommend 10 days of PO antibiotics at discharge Will arrange Follow-up outpatient in 1-2 weeks for stent removal Patient agreeable to above plan Subjective 69yo/M, admitted with sepsis secondary to a complicated UTI, pyelonephritis, and nephrolithiasis POD #1 s/p Cystoscopy, Left Ureteroscopy, Laser Lithotripsy, Left Stent Placement with Dr. Yates Doing well post procedure, having some expected stent discomfort left back/flank area Denies fevers and chills Tolerating PO diet without nausea or vomiting Richardson catheter intact, draining clear, yellow urine Denies additional concerns Review of Systems Constitutional: as per Subjective / HPI Gastrointestinal: as per Subjective / HPI Genitourinary: + as per Subjective / HPI Physical Exam Constitutional: well developed and well nourished; no acute distress Eyes: no eyelid abnormality ENMT: Ears: no hearing impairment Neck: normal visual inspection; no anterior neck swelling Respiratory: normal respiratory effort and able to speak in complete sentences Cardiovascular: Vessels: radial pulses present Gastrointestinal (Abdomen): Inspection/Auscultation: abdomen normal to inspec tion; abdomen not distended Musculoskeletal: Head/Neck/Chest: normocephalic Skin: warm and dry, normal color to exposed skin areas Neurologic: moves all extremities and awake; not confused Psychiatric: Orientation: alert, oriented x 3 and cooperative Genitourinary: Richardson catheter intact, draining clear,yellow urine Results & Data Vital Signs (Past 12 Hours) Vital Signs Temp Pulse Pulse Resp BP Pulse Ox 04/06/20 07:14 36.8 C 93 H 16 148/84 H 93 04/06/20 04:00 36.9 C 97 H 20 137/77 93 04/05/20 23:48 98 H 16 96 04/05/20 23:42 37.7 C H 96 H 20 159/89 H 93 PG Care Time/CCT Total # of Minutes Spent Total Time Spent with Patient: Total time spent is greater than 50% in coordination of care (as documented) at patient's floor/unit and/or counseling patient: Coding Level of Care Code 64000 Subseq Hosp Care Lvl 1 Diagnoses Calcium nephrolithiasis N20.0
[2020-04-06] MEDS ORDERED: POLYETHYLENE (MIRALAX) 17 GM PACK PO PRN (10:30)
--- NOTE | 2020-04-06 10:33 | Hospitalist Progress Note ---
Date of Service April 06, 2020 Assessment & Plan (1) Severe sepsis: SIRS plus ARF Secondary to complicated UTI, pyelonephritis, nephrolithiasis -WBC elevated at 17.9K on admission -Recurrent UTIs on chronic methenamine suppression Rx the last 3 weeks as per urology recommendations -history of neurogenic bladder secondary to multiple sclerosis, hx BPH/urge incontinence as per records ongoing CIC at home -Currently follows with urology, Dr. Eli, seen twice in February, renal ultrasound obtained, plan was for CT abdomen pelvis for further evaluation -Ct abdomen/ pelvis obtained now on admission -significant for bilateral nephrolithiasis, but more significant in the left kidney with a stone that is partially obstructing the left kidney -Operation Date: 04/05/20 07:30, sp Cystoscopy, Left Ureteroscopy, Laser Lithotripsy, Stent Placement(Left) by Dr. Yates -WBC down to 9K after IV antibiotics (Zosyn, daptomycin); Urine culture, positive for E. coli, sensitive to Rocephin, switched to Rocephin (04/04/2020), will continue. Blood culture, April 01, 2020, no growth to date Confusion as per records -Likely secondary to illness, home neuropsychotropic meds Hold neuropsychotropic meds for sedation confusion Patient currently mentating well Acute Kidney Injury (resolved) -Secondary to above -Creatinine up to 1.65 on admission -resolved after IV fluids and urology care -resume home dose lisinopril 20 mg daily. hold home dose HCTZ Hypertension -resume lisinopril, hold home dose HCTZ Postsurgical hypothyroidism; history thyroid cancer status post surgery -Low TSH with other TFTs normal -on liothyronine from home Acute on chronic anemia -No obvious source of anemia from acute blood losse -hgb stable around 10 recently -on coumadin at home History of Deep vein thrombosis in the past -patient reports he has been on coumadin since 1970s because of blood clots in both legs DVT prophylaxis: on coumadin at home, continue heparin subc q12 hours until INR 2 to 3 Admission and Anticipated Discharge Date Admission Date: April 02, 2020 Subjective Patient reports some left sided flank pain. no acute distress. no vomiting. has harding. denies dysuria. has constipation. last bowel movement on SaturdayApril 02 no chest pain. no shortness of breath. no dizziness. no headache. no distress. Review of Systems Review of Systems: All systems reviewed & are unremarkable except as noted in Subjective Physical Exam Constitutional: cooperative Eyes: PERRL, conjunctivae normal, anicteric sclerae EOM intact bilaterally ENMT: external ear and nose normal, oropharynx normal Neck: trachea midline, no thyromegaly normal visual inspection Respiratory: normal respiratory effort, lungs clear to auscultation Cardiovascular: Rate/Rhythm: regular rate Gastrointestinal (Abdomen): normal bowel sounds, soft, nontender, no hepatosplenomegaly Neurologic: PERRL, EOMI, accommodation nl, no face palsy, no dysarthria CN's II-XI intact bilaterally Psychiatric: A+Ox3, euthymic affect Genitourinary: has harding Results & Data Results & Data ([facility]) Vital Signs (Past 12 Hours) Vital Signs Temp Pulse Pulse Resp BP Pulse Ox 04/06/20 07:14 36.8 C 93 H 16 148/84 H 93 04/06/20 04:00 36.9 C 97 H 20 137/77 93 04/05/20 23:48 98 H 16 96 04/05/20 23:42 37.7 C H 96 H 20 159/89 H 93
[2020-04-06] MEDS: lisinopriL 20 MG TAB PO SCH (12:03)
[2020-04-06] MEDS: SENNA 8.6 MG TAB PO SCH (12:03)
[2020-04-06] MEDS: cefTRIAXone SODIUM 2,000 MG in DEXTROSE 5% 50 ML IV SCH (12:04)
[2020-04-06] MEDS ORDERED: PIPERACILL/TAZOBAC CONSULT ACTIVE PRN (16:30)
[2020-04-06] MEDS: WARFARIN SOD 1.25 MG TAB PO SCH (16:33)
[2020-04-06] MEDS ORDERED: PIPERACILLIN/TAZOBACTAM 3.375 GM in DEXTROSE 5% 100 ML IV ONE (17:30)
[2020-04-06] MEDS: ATORVASTATIN 10 MG TAB PO SCH (21:49)
[2020-04-06] MEDS: OXYBUTYNIN CHLORIDE XL 5 MG TABCR PO SCH (21:50)
[2020-04-06] MEDS: AMITRIPTYLINE HCL 25 MG TAB PO SCH (21:50)
[2020-04-06] MEDS: PIPERACILLIN/TAZOBACTAM 3.375 GM in DEXTROSE 5% 100 ML IV SCH (22:59)
[2020-04-07] MEDS: LEVOTHYROXINE SODIUM 125 MCG TABLET PO SCH (06:25)
[2020-04-07] MEDS: PIPERACILLIN/TAZOBACTAM 3.375 GM in DEXTROSE 5% 100 ML IV SCH ×3 (06:25→22:22)
[2020-04-07 07:36] LABS: Hemoglobin 10.5 g/dL (14.0-18.0); Mean Corpuscular Hemoglobin 25.9 pg (25-34); Mean Corpuscular Hgb Conc 31.8 g/dL (32-36); Mean Corpuscular Volume 81.5 fL (80-100); Mean Platelet Volume 10.1 fL (7.4-10.4); Platelet Count 289 K/uL (130-400); RDW Coefficient of Variation 14.9 % (11.5-14.5); RDW Standard Deviation 44.4 fL (36.4-46.3); Red Blood Count 4.05 M/uL (4.7-6.1); White Blood Count 11.68 K/uL (4.8-10.8)
[2020-04-07 07:47] LABS: INR 2.1 (0.9-1.1); Prothrombin Time 20.9 Seconds (9.0-12.0)
[2020-04-07 08:09] LABS: BUN Creatinine Ratio 8.5 (10-20); Calcium 8.9 mg/dl (8.5-10.1); Creatinine Clr Calc Pharmacy 59.7 ml/min; Est GFR (Non-African American) 53.5; Potassium 3.8 mmol/L (3.5-5.1)
[2020-04-07] MEDS: LIOTHYRONINE SODIUM 25 MCG TAB PO SCH ×2 (08:30→21:02)
[2020-04-07] MEDS: lisinopriL 20 MG TAB PO SCH (08:30)
[2020-04-07] MEDS: FINASTERIDE 5 MG TAB PO SCH (08:30)
[2020-04-07] MEDS: SERTRALINE HCL 50 MG TABLET PO SCH (08:31)
[2020-04-07] MEDS: SENNA 8.6 MG TAB PO SCH ×2 (08:31→21:04)
[2020-04-07] MEDS: TAMSULOSIN HCL 0.4 MG CAP PO SCH (08:31)
[2020-04-07] MEDS: INSULIN ASPART 100 UNITS/ML 3 ML PEN SC SCH ×4 (08:32→21:43)
[2020-04-07] MEDS: HEPARIN SOD 5,000 UNIT/0.5 ML VIAL SQ SCH (08:33)
[2020-04-07] MEDS: FLUTICASONE PROPIONATE NA SPR 16 GM BTL SCH (08:34)
[2020-04-07] MEDS ORDERED: MAGNESIUM HYDROXIDE SUSP 30 ML UDC PO ONE (10:04)
--- NOTE | 2020-04-07 10:19 | Hospitalist Progress Note ---
Date of Service April 07, 2020 Assessment & Plan (1) Severe sepsis: SIRS plus ARF Secondary to complicated Urinary tract Infection, pyelonephritis, nephrolithiasis -WBC elevated at 17.9K on admission -Recurrent UTIs on chronic methenamine suppression Rx the last 3 weeks as per urology recommendations -history of neurogenic bladder secondary to multiple sclerosis, hx BPH/urge incontinence as per records ongoing CIC at home -Currently follows with urology, Dr. Eli, seen twice in February, renal ultrasound obtained, plan was for CT abdomen pelvis for further evaluation -Ct abdomen/ pelvis obtained now on admission -significant for bilateral nephrolithiasis, but more significant in the left kidney with a stone that is partially obstructing the left kidney -Operation Date: 04/05/20 07:30, sp Cystoscopy, Left Ureteroscopy, Laser Lithotripsy, Stent Placement(Left) by Dr. Yates -WBC down to 9K after IV antibiotics (Zosyn, daptomycin); Urine culture, positive for E. coli, sensitive to Rocephin, switched to Rocephin (04/04/2020), will continue. Blood culture, April 01, 2020, no growth to date -however patient spiked fever on 04/06/2020 and so ceftriaxone was replaced by IV Zosyn and blood cultures repeated. as of 04/07/2020, continue IV Zosyn and follow the blood cultures, bladder scan qshift in case of any urine retention Confusion as per records -Likely secondary to illness, home neuropsychotropic meds Hold neuropsychotropic meds for sedation confusion Patient currently mentating well Acute Kidney Injury (resolved) -Secondary to above -Creatinine up to 1.65 on admission -resolved after IV fluids and urology care -continue home dose lisinopril 20 mg daily. hold home dose HCTZ Hypertension -continue lisinopril, hold home dose HCTZ Constipation -increased the bowel regimen Postsurgical hypothyroidism; history thyroid cancer status post surgery -Low TSH with other TFTs normal -on liothyronine 25 mcg BID from home and also Levothyroxine Chronic Ambulatory dysfunction -uses Bethany lift at home, request nurse help him with Bethany lift if needing to sit in a chair Acute on chronic anemia -No obvious source of anemia from acute blood losse -hgb stable around 10 recently -on coumadin at home History of Deep vein thrombosis in the past -patient reports he has been on coumadin since 1970s because of blood clots in both legs DVT prophylaxis: on coumadin, INR is 2.1 on 04/07/2020 Admission and Anticipated Discharge Date Admission Date: April 02, 2020 Subjective patient spiked fever yesterday. no fever today. no bowel movements yet. patient reports urination. he wishes nursing to help him sit up to chair with Bethany lift. no abdomen pain. flank pain tolerable. breathing on room air. no chest pain. no palpitations. no shortness of breath Review of Systems Review of Systems: All systems reviewed & are unremarkable except as noted in Subjective Physical Exam Constitutional: cooperative Eyes: PERRL, conjunctivae normal, anicteric sclerae EOM intact bilaterally ENMT: external ear and nose normal, oropharynx normal Neck: trachea midline, no thyromegaly normal visual inspection Respiratory: normal respiratory effort, lungs clear to auscultation Cardiovascular: Rate/Rhythm: regular rate Gastrointestinal (Abdomen): normal bowel sounds, soft, nontender, no hepatosplenomegaly Musculoskeletal: Head/Neck/Chest: normocephalic and head atraumatic Extremities: + lower leg abnormality (uses Bethany lift at home as general immobility of lower extremities) uses Bethany lift at home as patient has general immobility of lower extremities Neurologic: PERRL, EOMI, accommodation nl, no face palsy, no dysarthria CN's II-XI intact bilaterally Psychiatric: A+Ox3, euthymic affect Results & Data Results & Data ([facility]) Vital Signs (Past 12 Hours) Vital Signs Temp Pulse Pulse Resp BP Pulse Ox 04/07/20 07:22 36.6 C 109 H 20 128/85 93 04/07/20 04:39 36.2 C L 106 H 20 125/81 95 04/06/20 23:58 37.0 C 97 H 18 129/81 93 04/06/20 23:45 96 H 04/06/20 22:28 86 18 94
[2020-04-07] MEDS: POLYETHYLENE (MIRALAX) 17 GM PACK PO SCH ×2 (10:38→21:04)
--- NOTE | 2020-04-07 10:59 | Urology Progress Note ---
Date of Service April 07, 2020 Assessment & Plan (1) Calcium nephrolithiasis: Status post cystoscopy, ureteroscopy, laser lithotripsy and stent placement He had an infected system with a unique situation of an obstructing stone in the infundibulum from the upper pole. After treating that stone and evacuating purulent urine from the upper pole he has had low-grade fevers and tachycardiaconsistent with expectation PathogenE. coli, essentially pansensitive but has intermediate resistance to Cipro Continue antibiotics Continue CICFoley catheter if he prefers that We will arrange outpatient follow-up for stent removalwill require 14 total days of antibiotics We will continue to follow peripherally during his hospitalization please contact us if there are new acute issues Subjective Gradually progressing He still is having low-grade fevers and tachycardianot surprising given the infection of his kidney Richardson catheter removed yesterdayhe has been able to void spontaneously although in limited quantities He has performed CIC and his will be bringing his home catheters which he feels are superior to what the hospital can provide Overall feels he is making progress but is still quite weak and having difficulty with moving out of the bed Physical Exam Constitutional: well developed and well nourished Respiratory: no respiratory distress Cardiovascular: Extremities: no pedal edema Gastrointestinal (Abdomen): Inspection/Auscultation: abdomen normal to inspection Results & Data Vital Signs (Past 12 Hours) Vital Signs Temp Pulse Pulse Resp BP Pulse Ox 04/07/20 07:22 36.6 C 109 H 20 128/85 93 04/07/20 04:39 36.2 C L 106 H 20 125/81 95 04/06/20 23:58 37.0 C 97 H 18 129/81 93 04/06/20 23:45 96 H PG Care Time/CCT Total # of Minutes Spent Total Time Spent with Patient: Total time spent is greater than 50% in coordination of care (as documented) at patient's floor/unit and/or counseling patient: Coding Level of Care Code 02933 Subseq Hosp Care Lvl 2 Diagnoses Calcium nephrolithiasis N20.0
[2020-04-07] MEDS: WARFARIN SOD 1.25 MG TAB PO SCH (16:38)
[2020-04-07] MEDS: AMITRIPTYLINE HCL 25 MG TAB PO SCH (21:02)
[2020-04-07] MEDS: ATORVASTATIN 10 MG TAB PO SCH (21:02)
[2020-04-07] MEDS: OXYBUTYNIN CHLORIDE XL 5 MG TABCR PO SCH (21:02)
[2020-04-08] MEDS: LEVOTHYROXINE SODIUM 125 MCG TABLET PO SCH (05:31)
[2020-04-08] MEDS: PIPERACILLIN/TAZOBACTAM 3.375 GM in DEXTROSE 5% 100 ML IV SCH (06:07)
[2020-04-08] MEDS: TAMSULOSIN HCL 0.4 MG CAP PO SCH (07:50)
[2020-04-08] MEDS: lisinopriL 20 MG TAB PO SCH (07:50)
[2020-04-08] MEDS: FINASTERIDE 5 MG TAB PO SCH (07:50)
[2020-04-08] MEDS: SENNA 8.6 MG TAB PO SCH (07:50)
[2020-04-08] MEDS: FLUTICASONE PROPIONATE NA SPR 16 GM BTL SCH (07:50)
[2020-04-08] MEDS: SERTRALINE HCL 50 MG TABLET PO SCH (07:50)
[2020-04-08] MEDS: POLYETHYLENE (MIRALAX) 17 GM PACK PO SCH (07:51)
[2020-04-08] MEDS: INSULIN ASPART 100 UNITS/ML 3 ML PEN SC SCH ×2 (08:25→12:16)
[2020-04-08] MEDS: LIOTHYRONINE SODIUM 25 MCG TAB PO SCH (08:25)
[2020-04-08 08:52] LABS: Basophils # (auto) 0.01 K/uL (0-0.2); Basophils % (auto) 0.1 %; Eosinophils # (auto) 0.06 K/uL (0-0.5); Eosinophils % (auto) 0.8 %; Hematocrit (blood only) 33.8 % (42-52); Hemoglobin 10.8 g/dL (14.0-18.0); Immature Granulocytes # (auto) 0.01 K/uL (0.00-0.02); Immature Granulocytes % (auto) 0.1 %; Lymphocytes # (auto) 1.24 K/uL (1.2-3.4); Lymphocytes % (auto) 16.8 %; Mean Corpuscular Hemoglobin 26.4 pg (25-34); Mean Corpuscular Volume 82.6 fL (80-100); Mean Platelet Volume 10.5 fL (7.4-10.4); Monocytes % (auto) 8.1 %; Neutrophils # (auto) 5.48 K/uL (1.4-6.5); Neutrophils % (auto) 74.1 %; Platelet Count 294 K/uL (130-400); RDW Standard Deviation 45.4 fL (36.4-46.3); Red Blood Count 4.09 M/uL (4.7-6.1)
[2020-04-08 09:09] LABS: INR 2.5 (0.9-1.1); Prothrombin Time 25.4 Seconds (9.0-12.0)
[2020-04-08 09:24] LABS: BUN Creatinine Ratio 10.2 (10-20); Calcium 9.1 mg/dl (8.5-10.1); Creatinine Clr Calc Pharmacy 62.8 ml/min; Est GFR (African American) 64.8; Est GFR (Non-African American) 55.9; Potassium 3.9 mmol/L (3.5-5.1)
[2020-04-08] MEDS ORDERED: CEFDINIR 300 MG CAP PO SCH (10:45)
--- NOTE | 2020-04-08 10:52 | Hospitalist Progress Note ---
Date of Service April 08, 2020 Assessment & Plan (1) Severe sepsis: SIRS plus ARF Secondary to complicated Urinary tract Infection, pyelonephritis, nephrolithiasis -WBC elevated at 17.9K on admission -Recurrent UTIs on chronic methenamine suppression Rx the last 3 weeks as per urology recommendations -history of neurogenic bladder secondary to multiple sclerosis, hx BPH/urge incontinence as per records ongoing CIC at home -Currently follows with urology, Dr. Eli, seen twice in February, renal ultrasound obtained, plan was for CT abdomen pelvis for further evaluation -Ct abdomen/ pelvis obtained now on admission -significant for bilateral nephrolithiasis, but more significant in the left kidney with a stone that is partially obstructing the left kidney -Operation Date: 04/05/20 07:30, sp Cystoscopy, Left Ureteroscopy, Laser Lithotripsy, Stent Placement(Left) by Dr. Yates -WBC down to 9K after IV antibiotics (Zosyn, daptomycin); Urine culture, positive for E. coli, sensitive to Rocephin, switched to Rocephin (04/04/2020), will continue. Blood culture, April 01, 2020, no growth to date -however patient spiked fever on 04/06/2020 and so ceftriaxone was replaced by IV Zosyn and blood cultures repeated. as of 04/07/2020, continue IV Zosyn and follow the blood cultures, bladder scan qshift in case of any urine retention White blood cell counts normalized on 04/08/2020 while on IV antibiotics including beta lactams. No bacteremia identified. The urine in the E.coli with intermediate resistance to ciprofloxacin discharge on antibiotics as cefedinir 300 mg every 12 hours as needed for 10 days sent electronically to [facility] pharmacy [address] [place] [id number] acetaminophen 325 mg every 6 hours as needed for pain or fever also discharge medications for constipation of senna and Miralax patient should not take Hydrochlorothiazide based on hospital measurements of blood pressure and renal function As per [facility] Dr. Yates on 04/07/2020 that [facility] will arrange outpatient follow-up for stent removal ([facility] [address] [place] [address] , [place] [address] ) scheduled appointments 04/14/2020 11:10 AM Provider Trinidad Cesar DO [facility] (patient should continue primary care follow up of thyroid management, diabetes, blood pressure, renal function, and other health issues) 04/19/2020 2:00 PM ENDOSCOPY [facility] [address] Aden Da Silva MD for COLONOSCOPY FLEXIBLE PROXIMAL DIAGNOSTIC 04/22/2020 12:30 PM Provider Trinidad Cesar DO [facility] 07/21/2020 10:40 AM Provider Rojelio Jean-Baptiste MD Department Neurology [facility] 08/09/2020 2:40 PM Provider [facility] Confusion as per records -Likely secondary to illness Patient currently mentating well Acute Kidney Injury (resolved) -Secondary to above -Creatinine up to 1.65 on admission -resolved after IV fluids and urology care -continue home dose lisinopril 20 mg daily. no further home dose HCTZ Hypertension -continue lisinopril, hold home dose HCTZ Constipation -on senna and Miralax Postsurgical hypothyroidism; history thyroid cancer status post surgery -Low TSH with other TFTs normal -on liothyronine 25 mcg BID from home and also Levothyroxine Chronic Ambulatory dysfunction -uses Bethany lift at home, request nurse help him with Bethany lift if needing to sit in a chair Acute on chronic anemia -No obvious source of anemia from acute blood loss -hgb stable around 10 -on coumadin at home History of Deep vein thrombosis in the past -patient reports he has been on coumadin since 1970s because of blood clots in both legs DVT prophylaxis: on coumadin, INR is 2.1 on 04/07/2020 Admission and Anticipated Discharge Date Admission Date: April 02, 2020 Subjective no fevers today. White blood cell counts normalized. no acute abdomen or flank pain as per patient. on room air. no shortness of breath. no chest pain. no vomiting . discharge plans discussed at length Review of Systems Review of Systems: All systems reviewed & are unremarkable except as noted in Subjective Physical Exam Constitutional: cooperative Eyes: PERRL, conjunctivae normal, anicteric sclerae EOM intact bilaterally ENMT: external ear and nose normal, oropharynx normal Neck: trachea midline, no thyromegaly normal visual inspection Respiratory: normal respiratory effort, lungs clear to auscultation Cardiovascular: Rate/Rhythm: regular rate Gastrointestinal (Abdomen): normal bowel sounds, soft, nontender, no hepatosplenomegaly Musculoskeletal: Head/Neck/Chest: normocephalic and head atraumatic Extremities: + lower leg abnormality (uses Bethany lift at home as general immobility of lower extremities) Neurologic: PERRL, EOMI, accommodation nl, no face palsy, no dysarthria CN's II-XI intact bilaterally Psychiatric: A+Ox3, euthymic affect Results & Data Results & Data ([facility]) Vital Signs (Past 12 Hours) Vital Signs Temp Pulse Pulse Resp BP Pulse Ox 04/08/20 07:29 37.1 C 96 H 18 113/67 93 04/08/20 03:51 37.3 C 91 H 20 119/76 98 04/08/20 03:23 88 20 95 04/08/20 01:02 96 H
--- NOTE | 2020-04-08 10:55 | Discharge Summary ---
Date of Service April 08, 2020 Admission HPI Per Admitting Provider History obtained from patient, family, and records. Medical history significant for hypertension, hyperlipidemia, history of DVT on Coumadin, history of neurogenic bladder secondary to multiple sclerosis, recurrent UTIs on chronic methenamine suppression Rx, BPH as per records, thyroid cancer status post surgery, postsurgical hypothyroidism, chronic anemia (baseline hemoglobin 12-13). Last confinement January 2020 for sepsis secondary to E. coli bacteremia. Patient completed outpatient Keflex course. Outpatient [facility] urology visit 3 weeks ago. Indwelling [place] catheter removed to facilitate clean intermittent urinary catheterization (CIC). Patient started on methenamine suppression Rx for recurrent UTIs. Patient complaining of right thigh pain at time of Urology visit. Outpatient renal ultrasound showed left-sided nephrolithiasis with minimal dilatation of upper pole left renal collecting system. Multiple large bilateral renal cysts. 7 mm cortical echogenic focus left lower pole of the kidney, possi ble angiomyolipoma. On follow-up Urology visit 2 weeks ago, patient able to do intermittent CIC at home without problem. Outpatient noncontrast CT abdomen pelvis contemplated for abnormal renal ul trasound as per note. Worsening generalized weakness/decline at home last few days. Low-grade fever. Somewhat confused as per patient . Patient denies chest pain, S OB, headache, abdominal pain, black/bloody stools. Denies dysuria symptoms. Poor appetite. At the ER, patient received Zosyn for sepsis. Medical History as above Surgical History : Urologic procedures, lithotripsy, ESWL, knee surgery, prostate biopsy, lymphadenectomy, total thyroidectomy, parathyroidectomy Family History : Multiple sclerosis, leukemia, breast cancer, lung cancer Personal/Social history : Non-smoker, no EtOH intake, disabled Principal Diagnosis Sepsis Secondary to complicated Urinary tract Infection, pyelonephritis, nephrolithiasis Acute Kidney Injury (resolved) Hypertension Constipation hypothyroidism Chronic Ambulatory dysfunction Anemia Discharge Exam Constitutional cooperative Eyes PERRL, conjunctivae normal, anicteric sclerae EOM intact bilaterally ENMT external ear and nose normal, oropharynx normal Neck trachea midline, no thyromegaly normal visual inspection Respiratory normal respiratory effort, lungs clear to auscultation Cardiovascular Rate/Rhythm: regular rate Gastrointestinal (Abdomen) normal bowel sounds, soft, nontender, no hepatosplenomegaly Musculoskeletal Head/Neck/Chest: normocephalic and head atraumatic Extremities: + lower leg abnormality (uses Bethany lift at home as general immobility of lower extremities) Neurologic PERRL, EOMI, accommodation nl, no face palsy, no dysarthria CN's II-XI intact bilaterally Psychiatric A+Ox3, euthymic affect Discharge Data Allergies Allergy/AdvReac Type Severity Reaction Status Date / Time No Known Allergies Allergy Verified 04/01/20 22:46 Consultations 04/02/20 02:04 ED Decision to Admit Stat 04/02/20 03:51 Consult Case Management - Discharge Planning Routine 04/02/20 15:39 Consult Urology Routine Procedures Performed Operation Date: 04/05/20 07:30 Actual Procedures p Cystoscopy, Left Ureteroscopy, Laser Lithotripsy, (Left) - Zander Yates MD s Stent Placement(Left) - Zander Yates MD Ordered Studies 04/02/20 08:27 CT abd pelvis wo con Routine 04/05/20 07:30 FL KUB Routine FL fluoroscopy <1hr Routine Hospital Course (1) Severe sepsis: SIRS plus ARF Secondary to complicated Urinary tract Infection, pyelonephritis, nephrolithiasis -WBC elevated at 17.9K on admission -Recurrent UTIs on chronic methenamine suppression Rx the last 3 weeks as per urology recommendations -history of neurogenic bladder secondary to multiple sclerosis, hx BPH/urge incontinence as per records ongoing CIC at home -Currently follows with urology, Dr. Eli, seen twice in February, renal ultrasound obtained, plan was for CT abdomen pelvis for further evaluation -Ct abdomen/ pelvis obtained now on admission -significant for bilateral nephrolithiasis, but more significant in the left kidney with a stone that is partially obstructing the left kidney -Operation Date: 04/05/20 07:30, sp Cystoscopy, Left Ureteroscopy, Laser Lithotripsy, Stent Placement(Left) by Dr. Yates -WBC down to 9K after IV antibiotics (Zosyn, daptomycin); Urine culture, positive for E. coli, sensitive to Rocephin, switched to Rocephin (04/04/2020), will continue. Blood culture, April 01, 2020, no growth to date -however patient spiked fever on 04/06/2020 and so ceftriaxone was replaced by IV Zosyn and blood cultures repeated. as of 04/07/2020, continue IV Zosyn and follow the blood cultures, bladder scan qshift in case of any urine retention White blood cell counts normalized on 04/08/2020 while on IV antibiotics including beta lactams. No bacteremia identified. The urine in the E.coli with intermediate resistance to ciprofloxacin discharge on antibiotics as cefedinir 300 mg every 12 hours as needed for 10 days sent electronically to [facility] pharmacy [address] [place] [id number] acetaminophen 325 mg every 6 hours as needed for pain or fever also discharge medications for constipation of senna and Miralax patient should not take Hydrochlorothiazide based on hospital measurements of blood pressure and renal function As per [facility] Dr. Yates on 04/07/2020 that [facility] [place] [place] [facility] will arrange outpatient follow-up for stent removal ([facility] [address] [place] [address] , [place] [address] ) scheduled appointments 04/14/2020 11:10 AM Provider Trinidad Cesar DO [facility] (patient should continue primary care follow up of thyroid man agement, diabetes, blood pressure, renal function, and other health issues) 04/19/2020 2:00 PM ENDOSCOPY [facility] Aden Da Silva MD for COLONOSCOPY FLEXIBLE PROXIMAL DIAGNOSTIC 04/22/2020 12:30 PM Provider Trinidad Cesar DO [facility] 07/21/2020 10:40 AM Provider Rojelio Jean-Baptiste MD Department Neurology [facility] 08/09/2020 2:40 PM Provider Linda Valentine [place] Confusion as per records -Likely secondary to illness Patient currently mentating well Acute Kidney Injury (resolved) -Secondary to above -Creatinine up to 1.65 on admission -resolved after IV fluids and urology care -continue home dose lisinopril 20 mg daily. no further home dose HCTZ Hypertension -continue lisinopril, hold home dose HCTZ Constipation -on senna and Miralax Postsurgical hypothyroidism; history thyroid cancer status post surgery -Low TSH with other TFTs normal -on liothyronine 25 mcg BID from home and also Levothyroxine Chronic Ambulatory dysfunction -uses Bethany lift at home, request nurse help him with Bethany lift if needing to sit in a chair Acute on chronic anemia -No obvious source of anemia from acute blood loss -hgb stable around 10 -on coumadin at home History of Deep vein thrombosis in the past -patient reports he has been on coumadin since 1970s because of blood clots in both legs DVT prophylaxis: on coumadin, INR is 2.1 on 04/07/2020 Total Time Total Time Spent Total Time Spent (In Minutes): 40 minutes Total Time Includes: Examination of the Patient, Discharge Planning, Medication Reconciliation and Communication With Other Providers Discharge Plan Discharge Items Patient Disposition: Home - Self-Care Reason For Visit: SEPSIS Discharge Diagnosis: Sepsis Secondary to complicated Urinary tract Infection, pyelonephritis, nephrolithiasis Acute Kidney Injury (resolved) Hypertension Constipation hypothyroidism Chronic Ambulatory dysfunction Anemia Condition on Discharge: Good Activity: Resume your previous activity Non-emergency contact: Primary Care Provider and Urologist Call non-emergency contact if: you have any medication questions Follow-up/Referrals: Trinidad Cesar DO [Primary Care Provider] - 04/14/20 11:10 am (04/14/2020 11:10 AM Provider Trinidad Cesar DO Department [facility] ) Diet: Carb Consistent or DM2 and Low Fat Addtl Attending Provider Instructions: -CT abdomen/ pelvis obtained now on admission -significant for bilateral nephrolithiasis, but more significant in the left kidney with a stone that is partially obstructing the left kidney -Operation Date: 04/05/20 07:30, sp Cystoscopy, Left Ureteroscopy, Laser Lithotripsy, Stent Placement(Left) by Dr. Yates White blood cell counts normalized on 04/08/2020 while on IV antibiotics including beta lactams. No bacteremia identified. The urine in the E.coli with intermediate resistance to ciprofloxacin discharge on antibiotics as cefedinir 300 mg every 12 hours as needed for 10 days sent electronically to [facility] pharmacy [address] [place] [id number] acetaminophen 325 mg every 6 hours as needed for pain or fever also discharge medications for constipation of senna and Miralax patient should not take Hydrochlorothiazide based on hospital measurements of blood pressure and renal function As per [facility] Dr. Yates on 04/07/2020 that [facility] will arrange outpatient follow-up for stent removal ([facility] [address] [place] [address], [place], [facility] ) scheduled appointments 04/14/2020 11:10 AM Provider Trinidad Cesar DO [facility] (patient should continue primary care follow up of thyroid management, diabetes, blood pressure, renal function, and other health issues) 04/19/2020 2:00 PM ENDOSCOPY [facility] Aden Da Silva MD for COLONOSCOPY FLEXIBLE PROXIMAL DIAGNOSTIC 04/22/2020 12:30 PM Provider DO Kathryn Mason [facility] 07/21/2020 10:40 AM Provider Rojelio Jean-Baptiste MD Department Neurology [facility] 08/09/2020 2:40 PM Provider Linda Valentine [place] Pending Studies at Discharge: No Stand-Alone Forms: My [facility] [employer], Smoking Cessation Medications and DC Order Prescriptions: New sennosides [Senokot] 8.6 mg Tablet 8.6 mg PO BID 30 Days Qty: 60 RF: 0 polyethylene glycol 3350 [Miralax] 17 gram Powder In Packet 17 g PO DAILY PRN (Reason: constipation) 30 Days Qty: 30 RF: 0 acetaminophen 325 mg Tablet 325 mg PO Q6H PRN (Reason: fever or pain) 5 Days Qty: 20 RF: 0 cefdinir 300 mg Capsule 300 mg PO Q12H 10 Days Qty: 20 RF: 0 Continued fluticasone propionate 50 mcg/actuation spray,suspension 2 spray INTNAS DAILY RF: 0 tamsulosin 0.4 mg capsule 0.4 mg PO DAILY RF: 0 metformin 500 mg tablet See Rx Instructions .ROUTE .COMPLEX RF: 0 oxybutynin chloride 10 mg tablet extended release 24hr 10 mg PO QPM RF: 0 liothyronine 25 mcg tablet 25 mcg PO BID RF: 0 lisinopril 20 mg tablet 20 mg PO QAM RF: 0 meclizine 12.5 mg tablet 12.5 mg PO TID PRN (Reason: Dizziness) RF: 0 sertraline 25 mg Tablet 25 mg PO QAM RF: 0 atorvastatin 10 mg tablet 10 mg PO QPM RF: 0 clonazepam 0.5 mg tablet 0.5 mg PO HS PRN (Reason: Sleep) RF: 0 warfarin 2.5 mg tablet 1.25 mg PO HS RF: 0 amitriptyline 25 mg tablet 25 mg PO HS RF: 0 baclofen 10 mg tablet 10 mg PO HS RF: 0 levothyroxine [Synthroid] 125 mcg tablet 125 mcg PO 6XWK RF: 0 sertraline 50 mg tablet 50 mg PO QAM RF: 0 finasteride 5 mg tablet 5 mg PO QAM RF: 0 cholecalciferol (vitamin D3) [Vitamin D3] 50 mcg (2,000 unit) Tablet 50 mcg PO DAILY RF: 0 Caltrate 600 plus D 600 mg (1,500 mg)-800 unit Tablet,Chewable 1 tab PO 2XWK RF: 0 metoprolol tartrate 25 mg tablet 12.5 mg PO BID RF: 0 tramadol 50 mg Tablet 25 mg PO Q8H PRN (Reason: pain) Qty: 7 RF: 0 Discontinued methenamine hippurate 1 gram tablet 1 gm PO BID Qty: 60 RF: 3 hydrochlorothiazide 12.5 mg capsule 12.5 mg PO QAM RF: 0 Discharge Orders: Discharge Order (Routine); Ordered 04/08/20 Ordered By: Oneal Soni Admission Data Admit Date/Time: 04/02/20 02:18 Attending Provider: Oneal Soni Admit Provider: Markel Long Primary Care Provider: Trinidad Cesar Other Providers: [facility] ; Markel Long ; Zander Yates
[2020-04-08 16:04] LABS: Component 2 DNR; Source LEFT KIDNEY STONE
== END 2020-04-08 13:10 | disposition home or self-care (01) | DRG 854 ==
LOC: ED 22:27 → SUATTDRO 04-02 02:18 → 2W 04-02 02:18

== ENCOUNTER 2022-01-02 17:41 | Inpatient (IN) ==
[2022-01-02] MEDS ORDERED: CEFEPIME 2,000 MG/20 ML VIAL IV STA (18:22)
--- NOTE | 2022-01-02 18:26 | Emergency Department Note ---
Impression & Plan Sepsis, Acute UTI, Weakness, Hypotension, Tachycardia ED Provider Note NAME: HEBER DENNIS AGE: 71 SEX: M : 1950 ARRIVES VIA: Ambulance INFORMANT: [Patient][ems] ED PROVIDER(S): [Matt Akhtar MD] CHIEF COMPLAINT: Urinary symptoms, fever HISTORY OF PRESENT ILLNESS: The patient is a 71-year-old male with a history of MS. 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 He has to self catheterize. Patient yesterday began getting weak and fatigued and had a difficult time with his self- catheterization. He developed a fever. He presents for evaluation. In route, he was noticed to be sweaty and mildly tachycardic. The patient had some mid to lower right abdominal pain earlier however, this resolved once the nursing staff placed a Richardson catheter. He has no increased cough, there has been no stuffy nose, chest pain or shortness of breath. He is concerned that he has another urinary infection, he has had UTIs and sepsis from UTIs in the past. REVIEW OF SYSTEMS: See HPI for pertinent positives and negatives. A total of ten systems were reviewed and were otherwise negative. PMHx/PSHx: See Below SOCIAL HISTORY: See Below. PHYSICAL EXAM: GENERAL: Patient is in no acute distress. HEENT: No acute trauma, normocephalic atraumatic, mucous membranes moist, no nasal congestion, no scleral icterus. NECK: No stridor, no adenopathy, no meningismus, trachea is midline. LUNGS: Clear to auscultation bilaterally, no wheeze, no rhonchi, breath sounds equal. HEART: Without murmurs gallops or rubs, regular rate and rhythm. ABDOMEN: Soft, nontender, bowel sounds positive, no hernias, no peritonitis. EXTREMITIES: No cyanosis or edema. No gross deformity to the lower extremities. NEUROLOGIC: Oriented x 3. He has no movement of his lower extremities currently. He does move his upper extremities fairly equally. He is awake and alert. SKIN: No rash, no jaundice, no diaphoresis. Pain: He does not have any scrotal erythema, a Richardson catheter is in place. DIFFERENTIAL DIAGNOSIS: Sepsis, UTI, COVID-19, influenza, pneumonia, metabolic abnormality, electrolyte abnormalities, cardiac sources, cellulitis, bacteremia, intracerebral event, toxicologic etiology, neurologic event, as well as other pathologies. EMERGENCY DEPARTMENT COURSE/PROCEDURES: ECG: Indication was weakness. The ECG shows a normal sinus rhythm with a rate of 97. There is no ST elevation, no PVCs. The QTc is 429. Continuous Cardiac Monitoring: An order was placed for continuous cardiac monitoring. The monitor shows a rate of 93 with normal sinus rhythm. Critical Care Note: I have personally spent 61 minutes of critical care time in the direct management of this patient. This includes bedside care, interpretation of diagnostic studies, and testing, discussion with consultants, patient, and family members, and other required patient management activities. This 61 minutes is in excess of all separately billable procedures. MEDICAL DECISION MAKING: There is a mild leukocytosis which would be consistent with infection. There is a normal hemoglobin and platelet count. INR is a bit elevated at 1.4, consisten t with his Coumadin use-he is under anticoagulated. There is no renal failure or significant electrolyte abnormality. Lactic acid level is not elevated making severe sepsis less likely. There is no concerning liver enzyme elevation. Procalcitonin is a bit elevated at 0.53. Urinalysis does suggest infection. Covid, influenza and RSV testing returned negative. Chest x-ray did not show pneumonia or CHF. Abdominal and pelvis CT shows some chronic findings, no urinary or bowel obstruction. On exam, the patient was a bit tachycardic and had a borderline low blood pressure. He had a history of previous urinary sepsis. The patient was aggressively managed. He was given IV cefepime, IV saline, 2 L of saline were given. The patient's blood pressure is now improved, his heart rate is improved. He seems to be resting comfortably. The patient requires a hospital stay for further care. I did speak with the patient and case management. The on-call hospitalist was consulted. Past Med/Surg History Medical History Cough Deep vein blood clot of left lower extremity Dizziness HLD (hyperlipidemia) HTN (hypertension) Hyperparathyroidism Hypothyroidism Moderate obstructive sleep apnea MS (multiple sclerosis) Neurogenic bladder JAMES on CPAP Pain, chronic Pulmonary nodule Vitamin D deficiency Family History Mother Cancer Grandfather (Paternal) Hypertension Social History Smoking Status: Never smoker Second Hand Exposure: No; Hx Alcohol Use: No Hx Substance Use: No Preferred Language: Kiswahili Communication Ability: Effective Visual Impairment: No Limitations Trekking Guide Required: No Beliefs That Will Affect Care: None marital status: Current Living Situation: Spouse current occupational status: other Feels Safe at Home: Yes Assistive Devices: Mechanical Lift Allergies Allergies Allergy/AdvReac Type Severity Reaction Status Date / Time No Known Allergies Allergy Verified 01/02/22 22:12 Home Meds Home Medications Medication Instructions Recorded Confirmed amitriptyline 25 mg tablet 25 mg PO HS 02/12/20 01/02/22 atorvastatin 10 mg tablet 10 mg PO QPM 02/12/20 01/02/22 baclofen 10 mg tablet 10 mg PO HS 02/12/20 01/02/22 cholecalciferol (vitamin D3) 50 50 mcg PO DAILY 02/12/20 01/02/22 mcg (2,000 unit) tablet (Vitamin D3) clonazepam 0.5 mg tablet 0.5 mg PO HS PRN 02/12/20 01/02/22 levothyroxine 125 mcg tablet 125 mcg PO DAILY 02/12/20 01/02/22 (Synthroid) lisinopril 20 mg tablet 20 mg PO QAM 02/12/20 01/02/22 meclizine 12.5 mg tablet 12.5 mg PO TID PRN 02/12/20 01/02/22 metformin 500 mg tablet See Rx Instructions .ROUTE .COMPLEX 02/12/20 01/02/22 metoprolol tartrate 25 mg tablet 12.5 mg PO BID 02/12/20 01/02/22 sertraline 25 mg tablet 25 mg PO QAM 02/12/20 01/02/22 sertraline 50 mg tablet 50 mg PO QAM 02/12/20 01/02/22 warfarin 2.5 mg tablet 1.25 mg PO 4XWK 02/12/20 01/02/22 fluticasone propionate 50 2 spray INTNAS DAILY 03/23/20 01/02/22 mcg/actuation nasal spray,suspension calcium citrate 315 mg 1 tab PO MOWEFR 01/02/22 01/02/22 calcium-vitamin D3 6.25 mcg (250 unit) tablet (Citracal + Vitamin D Maximum) ciprofloxacin HCl 500 mg tablet 500 mg PO .TODAY 01/02/22 01/02/22 empagliflozin 25 mg tablet 25 mg PO DAILY 01/02/22 01/02/22 (Jardiance) hydrochlorothiazide 12.5 mg tablet 12.5 mg PO MOWE01/02/22 01/02/22 liothyronine 5 mcg tablet 5 mcg PO BID 01/02/22 01/02/22 omeprazole 40 mg capsule,delayed 40 mg PO DAILY 01/02/22 01/02/22 release warfarin 2.5 mg tablet 2.5 mg PO MOWE01/02/22 01/02/22 Previous Rx's Medication Instructions Recorded tramadol 50 mg tablet 25 mg PO Q8H PRN #7 tab 02/19/20 finasteride 5 mg tablet 5 mg PO DAILY #90 tab 12/07/21 methenamine hippurate 1 gram tablet 1 g PO BID 90 Days #180 tab 12/07/21 oxybutynin chloride 10 mg 10 mg PO DAILY #90 tab 12/07/21 tablet,extended release 24 hr Results & Data (ED) Vital Signs Vital Signs - 24 hr 01/02/22 18:01 01/02/22 18:15 01/02/22 18:23 Temperature 37.1 C Temperature Source Oral Pulse Rate 91 H 98 H 106 H Pulse Rhythm Regular Pulse Strength Normal Respiratory Rate 19 23 22 Respiratory Effort / Characteristics Non-Labored Respiratory Depth Normal Respiratory Pattern Regular Blood Pressure 93/64 L Blood Pressure Mean 73 Blood Pressure Position Lying Pulse Oximetry 94 95 95 Oxygen Delivery Method Room Air Room Air Room Air Sepsis Recent Fever Within 48 Hours Yes Sepsis New/Unexplained Change in Mental Status No Sepsis Action Taken by Nursing Physician Notified 01/02/22 18:30 01/02/22 18:32 01/02/22 18:45 Temperature Temperature Source Pulse Rate 95 H 91 H Pulse Rhythm Pulse Strength Respiratory Rate 24 22 24 Respiratory Effort / Characteristics Non-Labored Respiratory Depth Respiratory Pattern Blood Pressure 93/60 L Blood Pressure Mean 71 Blood Pressure Position Pulse Oximetry 95 95 95 Oxygen Delivery Method Room Air Room Air Room Air Sepsis Recent Fever Within 48 Hours Sepsis New/Unexplained Change in Mental Status Sepsis Action Taken by Nursing 01/02/22 19:00 01/02/22 19:15 01/02/22 19:23 Temperature Temperature Source Pulse Rate 90 87 Pulse Rhythm Pulse Strength Respiratory Rate 27 H 25 H 22 Respiratory Effort / Characteristics Non-Labored Respiratory Depth Respiratory Pattern Blood Pressure 101/66 Blood Pressure Mean 77 Blood Pressure Position Pulse Oximetry 93 94 94 Oxygen Delivery Method Room Air Room Air Room Air Sepsis Recent Fever Within 48 Hours Sepsis New/Unexplained Change in Mental Status Sepsis Action Taken by Nursing 01/02/22 19:30 01/02/22 19:45 01/02/22 20:00 Temperature Temperature Source Pulse Rate 90 87 87 Pulse Rhythm Pulse Strength Respiratory Rate 25 H 23 20 Respiratory Effort / Characteristics Respiratory Depth Respiratory Pattern Blood Pressure 95/64 L Blood Pressure Mean 74 Blood Pressure Position Pulse Oximetry 95 96 94 Oxygen Delivery Method Room Air Room Air Room Air Sepsis Recent Fever Within 48 Hours Sepsis New/Unexplained Change in Mental Status Sepsis Action Taken by Nursing 01/02/22 20:15 01/02/22 20:27 01/02/22 20:30 Temperature Temperature Source Pulse Rate 85 90 91 H Pulse Rhythm Pulse Strength Respiratory Rate 24 19 22 Respiratory Effort / Characteristics Respiratory Depth Respiratory Pattern Blood Pressure 81/63 L 101/73 Blood Pressure Mean 69 82 Blood Pressure Position Pulse Oximetry 95 96 97 Oxygen Delivery Method Room Air Room Air Room Air Sepsis Recent Fever Within 48 Hours Sepsis New/Unexplained Change in Mental Status Sepsis Action Taken by Nursing 01/02/22 20:31 01/02/22 20:40 01/02/22 20:50 Temperature Temperature Source Pulse Rate 90 89 Pulse Rhythm Pulse Strength Respiratory Rate 21 19 Respiratory Effort / Characteristics Respiratory Depth Respiratory Pattern Blood Pressure 101/73 Blood Pressure Mean 82 Blood Pressure Position Pulse Oximetry 95 93 Oxygen Delivery Method Room Air Room Air Sepsis Recent Fever Within 48 Hours Sepsis New/Unexplained Change in Mental Status Sepsis Action Taken by Nursing 01/02/22 20:53 01/02/22 21:00 01/02/22 21:07 Temperature Temperature Source Pulse Rate 90 88 86 Pulse Rhythm Pulse Strength Respiratory Rate 19 20 20 Respiratory Effort / Characteristics Respiratory Depth Respiratory Pattern Blood Pressure 95/62 L 93/79 L Blood Pressure Mean 73 83 Blood Pressure Position Pulse Oximetry 97 96 97 Oxygen Delivery Method Room Air Room Air Room Air Sepsis Recent Fever Within 48 Hours Sepsis New/Unexplained Change in Mental Status Sepsis Action Taken by Nursing 01/02/22 21:15 01/02/22 21:30 Temperature Temperature Source Pulse Rate 88 Pulse Rhythm Pulse Strength Respiratory Rate 19 Respiratory Effort / Characteristics Respiratory Depth Respiratory Pattern Blood Pressure 117/72 Blood Pressure Mean 87 Blood Pressure Position Pulse Oximetry 94 Oxygen Delivery Method Room Air Sepsis Recent Fever Within 48 Hours Sepsis New/Unexplained Change in Mental Status Sepsis Action Taken by Jail Medications Current Medication List: was personally reviewed by me Laboratory Data Attestation: I reviewed the patient's lab results. Result diagrams: 01/02/22 17:58 01/02/22 17:58 Lab Results 01/02/22 01/02/22 01/02/22 Range/Units 17:58 17:58 17:58 WBC 12.34 H (4.8-10.8) K/uL RBC 4.94 (4.7-6.1) M/uL Hgb 14.1 (14.0-18.0) g/dL Hct 41.9 L (42-52) % MCV 84.8 (80-100) fL MCH 28.5 (25-34) pg MCHC 33.7 (32-36) g/dL RDW Std Deviation 46.7 H (36.4-46.3) fL RDW Coeff of Daria 15.1 H (11.5-14.5) % Plt Count 191 (130-400) K/uL MPV 11.3 H (7.4-10.4) fL Immature Gran % (Auto) 0.1 % Neut % (Auto) 84.1 % Lymph % (Auto) 7.5 % Thayer % (Auto) 7.9 % Eos % (Auto) 0.2 % Baso % (Auto) 0.2 % Neut # (Auto) 10.37 H (1.4-6.5) K/uL Lymph # (Auto) 0.93 L (1.2-3.4) K/uL Thayer # (Auto) 0.98 H (0.11-0.59) K/uL Eos # (Auto) 0.03 (0-0.5) K/uL Baso # (Auto) 0.02 (0-0.2) K/uL Immature Gran # (Auto) 0.01 (0.00-0.02) K/uL PT 15.1 H (9.0-12.0) Seconds INR 1.4 H (0.9-1.1) APTT 40.0 H (21.0-31.0) Seconds PTT Ratio 1.5 Sodium 135 L (136-145) mmol/L Potassium 3.7 (3.5-5.1) mmol/L Chloride 102 (98-107) mmol/L Carbon Dioxide 22 (21-32) mmol/L Anion Gap 11 (3-11) BUN 21 (6-23) mg/dl Creatinine 1.27 (0.6-1.4) mg/dl Est Cr Clr Drug Dosing 57.3 ml/min Est GFR ( Amer) 66.4 ml/min Est GFR (Non-Af Amer) 57.3 ml/min BUN/Creatinine Ratio 16.5 (10-20) Glucose 117 H (70-99(Fasting)) mg/dl Lactate (0.4-2.0) mmol/L Calcium 8.6 (8.5-10.1) mg/dl Magnesium 2.0 (1.7-2.4) mg/dl Total Bilirubin 1.0 (0.2-1.0) mg/dl AST 10 L (13-39) U/L ALT 23 (7-52) U/L Alkaline Phosphatase 49 (34-104) U/L Troponin I < 0.03 (0-0.04) ng/ml Total Protein 6.9 (6.0-8.3) gm/dl Albumin 3.9 (3.4-5.0) gm/dl Globulin 3.0 (2.5-4.0) gm/dl Albumin/Globulin Ratio 1.3 (0.9-2) Procalcitonin (0-0.5) ng/ml Urine Color Urine Appearance (Clear) Urine pH (4.5-7.5) Ur Specific [place] (1.000-1.030) Urine Protein (Negative) Urine Glucose (UA) (Negative) Urine Ketones (Negative) Urine Blood (Negative) Urine Nitrite (Negative) Urine Bilirubin (Negative) Urine Urobilinogen (Negative) Ur Leukocyte Esterase (Negative) Urine WBC (Auto) (0-5) /hpf Urine RBC (Auto) (0-4) /hpf U Hyaline Cast (Auto) (0-5) /lpf U Epithel Cells (Auto) (0-5) /lpf Urine Bacteria (Auto) (Negative) SARS-CoV-2 (PCR) (Negative) Influenza Type A (PCR) (Neg) Influenza Type B (PCR) (Neg) RSV (RT-PCR) (Neg) 04/02/1801/02/22 01/02/22 Range/Units 17:58 18:02 20:36 WBC (4.8-10.8) K/uL RBC (4.7-6.1) M/uL Hgb (14.0-18.0) g/dL Hct (42-52) % MCV (80-100) fL MCH (25-34) pg MCHC (32-36) g/dL RDW Std Deviation (36.4-46.3) fL RDW Coeff of Daria (11.5-14.5) % Plt Count (130-400) K/uL MPV (7.4-10.4) fL Immature Gran % (Auto) % Neut % (Auto) % Lymph % (Auto) % Thayer % (Auto) % Eos % (Auto) % Baso % (Auto) % Neut # (Auto) (1.4-6.5) K/uL Lymph # (Auto) (1.2-3.4) K/uL Thayer # (Auto) (0.11-0.59) K/uL Eos # (Auto) (0-0.5) K/uL Baso # (Auto) (0-0.2) K/uL Immature Gran # (Auto) (0.00-0.02) K/uL PT (9.0-12.0) Seconds INR (0.9-1.1) APTT (21.0-31.0) Seconds PTT Ratio Sodium (136-145) mmol/L Potassium (3.5-5.1) mmol/L Chloride (98-107) mmol/L Carbon Dioxide (21-32) mmol/L Anion Gap (3-11) BUN (6-23) mg/dl Creatinine (0.6-1.4) mg/dl Est Cr Clr Drug Dosing ml/min Est GFR ( Amer) ml/min Est GFR (Non-Af Amer) ml/min BUN/Creatinine Ratio (10-20) Glucose (70-99(Fasting)) mg/dl Lactate 1.9 (0.4-2.0) mmol/L Calcium (8.5-10.1) mg/dl Magnesium (1.7-2.4) mg/dl Total Bilirubin (0.2-1.0) mg/dl AST (13-39) U/L ALT (7-52) U/L Alkaline Phosphatase (34-104) U/L Troponin I (0-0.04) ng/ml Total Protein (6.0-8.3) gm/dl Albumin (3.4-5.0) gm/dl Globulin (2.5-4.0) gm/dl Albumin/Globulin Ratio (0.9-2) Procalcitonin 0.53 H (0-0.5) ng/ml Urine Color Urine Appearance (Clear) Urine pH (4.5-7.5) Ur Specific [place] (1.000-1.030) Urine Protein (Negative) Urine Glucose (UA) (Negative) Urine Ketones (Negative) Urine Blood (Negative) Urine Nitrite (Negative) Urine Bilirubin (Negative) Urine Urobilinogen (Negative) Ur Leukocyte Esterase (Negative) Urine WBC (Auto) (0-5) /hpf Urine RBC (Auto) (0-4) /hpf U Hyaline Cast (Auto) (0-5) /lpf U Epithel Cells (Auto) (0-5) /lpf Urine Bacteria (Auto) (Negative) SARS-CoV-2 (PCR) NEGATIVE (Negative) Influenza Type A (PCR) Negative (Neg) Influenza Type B (PCR) Negative (Neg) RSV (RT-PCR) Negative (Neg) 01/02/22 Range/Units Unknown WBC (4.8-10.8) K/uL RBC (4.7-6.1) M/uL Hgb (14.0-18.0) g/dL Hct (42-52) % MCV (80-100) fL MCH (25-34) pg MCHC (32-36) g/dL RDW Std Deviation (36.4-46.3) fL RDW Coeff of Daria (11.5-14.5) % Plt Count (130-400) K/uL MPV (7.4-10.4) fL Immature Gran % (Auto) % Neut % (Auto) % Lymph % (Auto) % Thayer % (Auto) % Eos % (Auto) % Baso % (Auto) % Neut # (Auto) (1.4-6.5) K/uL Lymph # (Auto) (1.2-3.4) K/uL Thayer # (Auto) (0.11-0.59) K/uL Eos # (Auto) (0-0.5) K/uL Baso # (Auto) (0-0.2) K/uL Immature Gran # (Auto) (0.00-0.02) K/uL PT (9.0-12.0) Seconds INR (0.9-1.1) APTT (21.0-31.0) Seconds PTT Ratio Sodium (136-145) mmol/L Potassium (3.5-5.1) mmol/L Chloride (98-107) mmol/L Carbon Dioxide (21-32) mmol/L Anion Gap (3-11) BUN (6-23) mg/dl Creatinine (0.6-1.4) mg/dl Est Cr Clr Drug Dosing ml/min Est GFR ( Amer) ml/min Est GFR (Non-Af Amer) ml/min BUN/Creatinine Ratio (10-20) Glucose (70-99(Fasting)) mg/dl Lactate (0.4-2.0) mmol/L Calcium (8.5-10.1) mg/dl Magnesium (1.7-2.4) mg/dl Total Bilirubin (0.2-1.0) mg/dl AST (13-39) U/L ALT (7-52) U/L Alkaline Phosphatase (34-104) U/L Troponin I (0-0.04) ng/ml Total Protein (6.0-8.3) gm/dl Albumin (3.4-5.0) gm/dl Globulin (2.5-4.0) gm/dl Albumin/Globulin Ratio (0.9-2) Procalcitonin (0-0.5) ng/ml Urine Color Yellow Urine Appearance Clear (Clear) Urine pH 6.0 (4.5-7.5) Ur Specific [place] 1.024 (1.000-1.030) Urine Protein Trace H (Negative) Urine Glucose (UA) 3+ H (Negative) Urine Ketones Negative (Negative) Urine Blood 1+ H (Negative) Urine Nitrite Positive A (Negative) Urine Bilirubin Negative (Negative) Urine Urobilinogen Negative (Negative) Ur Leukocyte Esterase 1+ H (Negative) Urine WBC (Auto) >30 H (0-5) /hpf Urine RBC (Auto) 5-10 H (0-4) /hpf U Hyaline Cast (Auto) 1-5 (0-5) /lpf U Epithel Cells (Auto) >30 H (0-5) /lpf Urine Bacteria (Auto) 2+ H (Negative) SARS-CoV-2 (PCR) (Negative) Influenza Type A (PCR) (Neg) Influenza Type B (PCR) (Neg) RSV (RT-PCR) (Neg) Administered Medications Discontinued Medications Cefepime HCl (Cefepime 2,000 Mg/20 Ml Vial) Confirm Administered Dose 2,000 mg .ROUTE .[facility] Stop: 01/02/22 20:27 Last Admin: 01/02/22 20:31 Dose: Not Given Documented by: [id number] Sodium Chloride (Nss 1000ml) 1,000 mls @ 999 mls/hr IV .Q1H1M DEWEY Stop: 01/02/22 19:23 Last Infusion: 01/02/22 20:10 Dose: 0 mls/hr Documented by: [id number] Admin: 01/02/22 18:34 Dose: 999 mls/hr Documented by: [id number] Sodium Chloride (Nss 1000ml) 1,000 mls @ 999 mls/hr IV .Q1H1M DEWEY Stop: 01/02/22 20:30 Last Infusion: 01/02/22 21:30 Dose: 0 mls/hr Documented by: [id number] Admin: 01/02/22 20:23 Dose: 999 mls/hr Documented by: [id number] Cefepime HCl (Maxipime) 2,000 mg in 20 mls @ 5 mls/min IV NOW STA; Protocol Stop: 01/02/22 18:25 Last Admin: 01/02/22 20:26 Dose: 5 mls/min Documented by: [id number] Imaging Data Radiologist's Impression: Chest X-Ray 01/02/22 18:22 XR chest 1V portable CLINICAL HISTORY: SEPSIS TECHNIQUE: Single frontal radiograph of the chest was obtained. Comparison: Comparison is made to chest one view 04/01/2020 FINDINGS: No lines and tubes are seen. The cardiomediastinal silhouette is normal. Lungs are underinflated but clear. No evidence of pleural effusion or pneumothorax. IMPRESSION: No acute chest disease. ACT 112: Negative or not required by law. Electronically signed by: Baldo Mata M.D. 01/02/2022 6:51 PM Abdomen/Pelvis CT 01/02/22 18:26 CT abd pelvis wo con CLINICAL HISTORY: poss urinary obstruction TECHNIQUE: Helical axial images of the abdomen and pelvis were obtained. Automated dose lowering techniques and/or adjustment according to patient size were utilized for this exam. This exam was performed without intravenous contrast. COMPARISON: Comparison is made to CT abdomen pelvis 11/23/2021 FINDINGS: Lower chest: No acute abnormality Liver: Hepatic steatosis is noted. Gallbladder and biliary tree: No calcified gallstones. Normal caliber wall. No intra- or extrahepatic biliary ductal dilation. Pancreas: Unremarkable, no focal lesions. Spleen: Unremarkable. Adrenals: Unremarkable. Kidneys and ureters: Nonobstructive nephrolithiasis is seen. Bilateral renal cysts are seen. Bladder: Richardson catheter is seen. Reproductive organs: Unremarkable. Bowel: Unremarkable. Lymph nodes Retroperitoneal: Unremarkable. Mesenteric: Unremarkable. Pelvic: Unremarkable. Peritoneum: Normal. Vessels: Atherosclerotic calcifications are seen. Abdominal wall: Bilateral fat-containing inguinal hernias are seen. Calcifications are seen in the posterior gluteal soft tissues. Bones: Degenerative changes in the visualized spine. IMPRESSION: No acute abnormalities and in particular no evidence of obstructive stone or hydronephrosis. A Richardson catheter is seen. ACT 112: Negative or not required by law. Electronically signed by: Baldo Mata M.D. 01/02/2022 7:52 PM Discharge Plan Visit Data Chief Complaint: Urinary Symptoms ED Provider: Matt Akhtar Discharge Problem: Sepsis, Acute UTI, Weakness, Hypotension, Tachycardia Patient Disposition: Admitted As Inpatient Condition: Fair Forms Stand Alone Forms: [facility] Prescriptions Prescriptions: No Action finasteride 5 mg tablet 5 mg PO DAILY Qty: 90 RF: 3 oxybutynin chloride 10 mg tablet extended release 24hr 10 mg PO DAILY Qty: 90 RF: 3 methenamine hippurate 1 gram tablet 1 g PO BID 90 Days Qty: 180 RF: 3 fluticasone propionate 50 mcg/actuation spray,suspension 2 spray INTNAS DAILY RF: 0 metformin 500 mg tablet See Rx Instructions .ROUTE .COMPLEX RF: 0 lisinopril 20 mg tablet 20 mg PO QAM RF: 0 meclizine 12.5 mg tablet 12.5 mg PO TID PRN (Reason: Dizziness) RF: 0 sertraline 25 mg Tablet 25 mg PO QAM RF: 0 atorvastatin 10 mg tablet 10 mg PO QPM RF: 0 clonazepam 0.5 mg tablet 0.5 mg PO HS PRN (Reason: Sleep) RF: 0 warfarin 2.5 mg tablet 1.25 mg PO 4XWK RF: 0 amitriptyline 25 mg tablet 25 mg PO HS RF: 0 baclofen 10 mg tablet 10 mg PO HS RF: 0 levothyroxine [Synthroid] 125 mcg tablet 125 mcg PO DAILY RF: 0 sertraline 50 mg tablet 50 mg PO QAM RF: 0 cholecalciferol (vitamin D3) [Vitamin D3] 50 mcg (2,000 unit) Tablet 50 mcg PO DAILY RF: 0 metoprolol tartrate 25 mg tablet 12.5 mg PO BID RF: 0 tramadol 50 mg Tablet 25 mg PO Q8H PRN (Reason: pain) Qty: 7 RF: 0 warfarin 2.5 mg Tablet 2.5 mg PO MOWEFR RF: 0 omeprazole 40 mg capsule,delayed release(DR/EC) 40 mg PO DAILY RF: 0 liothyronine 5 mcg tablet 5 mcg PO BID RF: 0 hydrochlorothiazide 12.5 mg Tablet 12.5 mg PO MOWEFR RF: 0 calcium citrate-vitamin D3 [Citracal + D Maximum] 315 mg-6.25 mcg (250 unit) Tablet 1 tab PO MOWEFR RF: 0 Jardiance 25 mg tablet 25 mg PO DAILY RF: 0 ciprofloxacin HCl 500 mg tablet 500 mg PO .TODAY RF: 0 Referrals Referrals: Trinidad Cesar DO [Primary Care Provider] -
[2022-01-02] MEDS ORDERED: SODIUM CHLORIDE 0.9% 1000ML 1,000 ML IV SCH ×2 (18:30→19:30)
[2022-01-02 18:39] LABS: Appearance Urine Clear (Clear); Bacteria Urine Automated 2+ (Negative); Bilirubin Urine Negative (Negative); Blood Urine 1+ (Negative); Color Urine Yellow; Epithelial Cell Urine Auto >30 /lpf (0-5); Glucose Urine UA 3+ (Negative); Ketones Urine Negative (Negative); Leukocyte Esterase Urine 1+ (Negative); Nitrite Urine Positive (Negative); Protein Urine Trace (Negative); Specific Gravity Urine 1.024 (1.000-1.030); Urobilinogen Urine Negative (Negative); WBC Urine Automated >30 /hpf (0-5)
[2022-01-02 18:45] LABS: Basophils # (auto) 0.02 K/uL (0-0.2); Basophils % (auto) 0.2 %; Eosinophils # (auto) 0.03 K/uL (0-0.5); Eosinophils % (auto) 0.2 %; Hematocrit (blood only) 41.9 % (42-52); Hemoglobin 14.1 g/dL (14.0-18.0); Immature Granulocytes # (auto) 0.01 K/uL (0.00-0.02); Immature Granulocytes % (auto) 0.1 %; Lymphocytes # (auto) 0.93 K/uL (1.2-3.4); Lymphocytes % (auto) 7.5 %; Mean Corpuscular Hemoglobin 28.5 pg (25-34); Mean Corpuscular Hgb Conc 33.7 g/dL (32-36); Mean Corpuscular Volume 84.8 fL (80-100); Mean Platelet Volume 11.3 fL (7.4-10.4); Monocytes # (auto) 0.98 K/uL (0.11-0.59); Monocytes % (auto) 7.9 %; Neutrophils # (auto) 10.37 K/uL (1.4-6.5); Neutrophils % (auto) 84.1 %; Platelet Count 191 K/uL (130-400); RDW Coefficient of Variation 15.1 % (11.5-14.5); RDW Standard Deviation 46.7 fL (36.4-46.3); Red Blood Count 4.94 M/uL (4.7-6.1); White Blood Count 12.34 K/uL (4.8-10.8)
--- NOTE | 2022-01-02 18:52 | XRay Report ---
XR chest 1V portable CLINICAL HISTORY: SEPSIS TECHNIQUE: Single frontal radiograph of the chest was obtained. Comparison: Comparison is made to chest one view 04/01/2020 FINDINGS: No lines and tubes are seen. The cardiomediastinal silhouette is normal. Lungs are underinflated but clear. No evidence of pleural effusion or pneumothorax. IMPRESSION: No acute chest disease. ACT 112: Negative or not required by law. Electronically signed by: Baldo Mata M.D. 01/02/2022 6:51 PM
[2022-01-02 19:00] LABS: INR 1.4 (0.9-1.1); Partial Thromboplastin Ratio 1.5; Prothrombin Time 15.1 Seconds (9.0-12.0)
[2022-01-02 19:06] LABS: Troponin I < 0.03 ng/ml (0-0.04)
[2022-01-02 19:29] LABS: Alanine Aminotransferase 23 U/L (7-52); Albumin Globulin Ratio 1.3 (0.9-2); Albumin Level 3.9 gm/dl (3.4-5.0); Alkaline Phosphatase 49 U/L (34-104); Anion Gap 11 (3-11); Aspartate Aminotransferase 10 U/L (13-39); BUN Creatinine Ratio 16.5 (10-20); Blood Urea Nitrogen 21 mg/dl (6-23); Calcium 8.6 mg/dl (8.5-10.1); Carbon Dioxide 22 mmol/L (21-32); Chloride 102 mmol/L (98-107); Creatinine Clr Calc Pharmacy 57.3 ml/min; Est GFR (African American) 66.4 ml/min; Est GFR (Non-African American) 57.3 ml/min; Glucose 117 mg/dl (70-99(Fasting)); Potassium 3.7 mmol/L (3.5-5.1); Sodium 135 mmol/L (136-145); Total Protein 6.9 gm/dl (6.0-8.3)
--- NOTE | 2022-01-02 19:54 | CT Scan Report ---
CT abd pelvis wo con CLINICAL HISTORY: poss urinary obstruction TECHNIQUE: Helical axial images of the abdomen and pelvis were obtained. Automated dose lowering tech niques and/or adjustment according to patient size were utilized for this exam. This exam was perfor med without intravenous contrast. COMPARISON: Comparison is made to CT abdomen pelvis 11/23/2021 FINDINGS: Lower chest: No acute abnormality Liver: Hepatic steatosis is noted. Gallbladder and biliary tree: No calcified gallstones. Normal caliber wall. No intra- or extrahepatic biliary ductal dilation. Pancreas: Unremarkable, no focal lesions. Spleen: Unremarkable. Adrenals: Unremarkable. Kidneys and ureters: Nonobstructive nephrolithiasis is seen. Bilateral renal cysts are seen. Bladder: Richardson catheter is seen. Reproductive organs: Unremarkable. Bowel: Unremarkable. Lymph nodes Retroperitoneal: Unremarkable. Mesenteric: Unremarkable. Pelvic: Unremarkable. Peritoneum: Normal. Vessels: Atherosclerotic calcifications are seen. Abdominal wall: Bilateral fat-containing inguinal hernias are seen. Calcifications are seen in the po sterior gluteal soft tissues. Bones: Degenerative changes in the visualized spine. IMPRESSION: No acute abnormalities and in particular no evidence of obstructive stone or hydronephrosis. A Richardson catheter is seen. ACT 112: Negative or not required by law. Electronically signed by: Baldo Mata M.D. 01/02/2022 7:52 PM
[2022-01-02] MEDS ORDERED: CEFEPIME 2,000 MG/20 ML VIAL ONE (20:26)
[2022-01-02 21:15] LABS: Influenza A virus by PCR Negative (Neg); Influenza B virus by PCR Negative (Neg); RSV by PCR Negative (Neg); SARS CoV2 RNA(COVID-19) InHosp NEGATIVE (Negative)
[2022-01-02] MEDS ORDERED: HYDROmorphone INJ 0.5 MG/0.5 ML SYR IV STA (22:44)
[2022-01-02] MEDS ORDERED: CONSULT PHARMACY STA (23:01)
[2022-01-02] MEDS ORDERED: ONDANSETRON INJ 2 MG/ML 2 ML VIAL IV PRN (23:48)
[2022-01-02] MEDS ORDERED: traMADol HCL 50 MG TABLET PO PRN (23:48)
[2022-01-02] MEDS ORDERED: NITROGLYCERIN SL 0.4 MG/TAB TAB SL PRN (23:48)
[2022-01-02] MEDS ORDERED: clonazePAM 0.5 MG TAB PO PRN (23:48)
[2022-01-02] MEDS ORDERED: HYDROmorphone INJ 0.5 MG/0.5 ML SYR IV PRN (23:48)
[2022-01-02] MEDS ORDERED: MECLIZINE 12.5 MG TAB PO PRN (23:48)
[2022-01-02] MEDS ORDERED: POLYETHYLENE (MIRALAX) 17 GM PACK PO PRN (23:48)
--- NOTE | 2022-01-03 00:34 | History and Physical Report ---
DATE OF ADMISSION: 01/02/2022. CHIEF COMPLAINT: UTI and early sepsis. HISTORY OF PRESENT ILLNESS: A 71-year-old male with past medical history significant for type 2 diabetes, hyperlipidemia, hyperparathyroidism, postsurgical hypothyroidism, moderate sleep apnea, hypertension, BPH, history of multiple sclerosis, paraplegia, neurogenic bladder, straight catheterization at home, history of urinary retention with UTIs in the past, major depression, history of septicemia history of DVT, currently nonambulatory status, history of thyroid cancer, lives at home. Comes here because he developed fever of 102 degrees at home for the last couple of days and also is having difficulty to self-catheterize, is not getting much urine. Feels sweaty and mildly tachycardic. In the ER, when he came in, he was tachycardic. Blood pressure was slightly on the lower side with systolic blood pressure in 90s, with fluids it improved, saturating okay on room air. Complains of aches and pains. Has some headache, no blurred visions, no runny nose, no cough, no chest pain, no shortness of breath, no nausea, no vomiting. Appetite is okay. No difficulty swallowing. Has some abdominal discomfort currently. ALLERGIES: No known drug allergies. PAST MEDICAL HISTORY: As mentioned above. PAST SURGICAL HISTORY: Cystoscopy with insertion of stent placement, cystoscopy with stone fragmentation, knee arthroscopy with meniscectomy, needle punch biopsy of the prostate, removal of the left cervical lymphadenectomy, total parathyroidectomy, thoracic lymphadenectomy. MEDICATIONS: The patient is on amitriptyline 25 mg p.o. at bedtime; atorvastatin 10 mg p.o. p.m.; baclofen 10 mg p.o. at bedtime; Citracal plus D on Saturday, Saturday, Saturday; vitamin D 550 mcg p.o. daily; Klonopin 0.5 mg p.o. at bedtime p.r.n.; Jardiance 25 mg p.o. daily; finasteride 5 mg p.o. daily; Flonase 2 sprays intranasal daily; hydrochlorothiazide 12.5 mg p.o. on Saturday, Saturday, and Saturday; levothyroxine 125 mcg p.o. daily; liothyronine_ 5 mcg p.o. b.i.d.; lisinopril 20 mg p.o. a.m.; meclizine 12.5 mg p.o. t.i.d. p.r.n.; metformin as directed; methenamine hippurate 1 gram p.o. b.i.d.; metoprolol tartrate 12.5 mg p.o. b.i.d.; omeprazole 40 mg p.o. daily; oxybutynin chloride 10 mg extended release daily; sertraline 75 mg p.o. daily; tramadol 25 mg p.o. q. 8 hours p.r.n.; warfarin 1.25 mg p.o. 4 times a week and warfarin 2.5 mg p.o. Saturday, Saturday and Saturday. FAMILY HISTORY: Significant for father had blood cancer, heart disorder, hypertension; mother has hypertension, breast cancer; uncle has leukemia; paternal grandfather had lung cancer. SOCIAL HISTORY: , no smoking, no alcohol, no drug use. REVIEW OF SYSTEMS: As per HPI. Rest of review of systems is negative. PHYSICAL EXAMINATION: GENERAL: The patient is of moderate build, not in acute distress. VITAL SIGNS: Temperature 37.1, pulse 99, respiratory rate 25, blood pressure 104/49, oxygen 98% on room air. HEENT: Pupils equal, round and reactive to light. Oral mucosa moist. NECK: No JVD, no neck masses. CARDIOVASCULAR: S1 and S2 heard. Regular rate and rhythm. No murmur, no gallop. RESPIRATORY SYSTEM: Normal AP diameter. No accessory muscle use. No wheezing, no crackles. ABDOMEN: Soft, bowel sounds present, nontender, no distention. CENTRAL NERVOUS SYSTEM: Alert and oriented. Speech is clear. No facial droop. Paraplegia present. EXTREMITIES: No edema seen. No erythema. Not able to move his lower extremities. No sensation in lower extremities. LABORATORY DATA: WBC 12.3, hemoglobin 14.1, hematocrit 41.9, platelets 191. PT 15.1, INR 1.4, APTT 40. Sodium 135, potassium 3.7, chloride 102, bicarbonate 22, BUN 21, creatinine 1.2, serum glucose 117. Lactate 1.9, calcium 8.6, magnesium 2, total bilirubin 1, AST 10, ALT 23, alkaline phosphatase 49. Troponin I less than 0.03. Procalcitonin 0.53. Urinalysis, +3 glucose. Positive for nitrite, +2 bacteria. SARS-CoV-2 PCR negative. Influenza A and B PCR negative. RSV PCR negative. IMAGING DATA: CT of abdomen and pelvis without contrast, no acute findings. No hydronephrosis here or obstructing stone seen. Chest x-ray, no acute disease in the chest. ASSESSMENT AND PLAN: This 71-year-old male presents with possible early sepsis with urinary tract infection. 1. Possible early sepsis with urinary tract infection: Meets criteria for sepsis with low blood pressure, tachycardia, elevated white count, and urinary tract infection. Empirically started on cefepime and IV fluids. Closely monitor in the med tele. Follow the cultures. Follow the response. Status post Richardson in the ER. 2. History of multiple sclerosis, straight catheterization at home 3. History of thyroid cancer, status post surgery: Postsurgical hypothyroidism, on levothyroxine. Follow his TSH. 4. History of deep venous thrombosis: On Coumadin. INR is sub therapeutic. Will place him on heparin subQ until INR is therapeutic. 5. Hypertension: Holding metoprolol and lisinopril as blood pressure is on lower side, monitor the blood pressure and restart when able to take. 6. Diabetes: Hold his home medication. Will place on insulin sliding scale. Follow the blood sugars, follow HbA1c levels. 7. Hyperlipidemia: Continue statin. 8. Depression. Continue the Zoloft. 9. History of sleep apnea: On BiPAP at bedtime. 10. Deep venous thrombosis prophylaxis: On Coumadin. INR is subtherapeutic, heparin subQ until INR is therapeutic. DISPOSITION: Admit to [employer] [facility]. Social service to help with discharge planning. Level 1 full code. Job ID: [id number] [facility]
[2022-01-03] MEDS: ACETAMINOPHEN 325 MG TAB PO PRN ×3 (00:42→11:08)
[2022-01-03] MEDS: SODIUM CHLORIDE 0.9% 1000ML 1,000 ML IV SCH ×2 (00:42→08:37)
[2022-01-03] MEDS: HEPARIN SOD 5,000 UNIT/0.5 ML VIAL SQ SCH ×3 (05:30→21:13)
[2022-01-03] MEDS: LEVOTHYROXINE SODIUM 125 MCG TABLET PO SCH (05:31)
[2022-01-03 06:07] LABS: Basophils # (auto) 0.02 K/uL (0-0.2); Basophils % (auto) 0.2 %; Eosinophils # (auto) 0.04 K/uL (0-0.5); Eosinophils % (auto) 0.3 %; Hematocrit (blood only) 39.2 % (42-52); Hemoglobin 12.9 g/dL (14.0-18.0); Immature Granulocytes # (auto) 0.04 K/uL (0.00-0.02); Immature Granulocytes % (auto) 0.3 %; Lymphocytes # (auto) 1.14 K/uL (1.2-3.4); Lymphocytes % (auto) 9.2 %; Mean Corpuscular Hemoglobin 28.4 pg (25-34); Mean Corpuscular Hgb Conc 32.9 g/dL (32-36); Mean Corpuscular Volume 86.3 fL (80-100); Mean Platelet Volume 11.3 fL (7.4-10.4); Monocytes # (auto) 1.36 K/uL (0.11-0.59); Neutrophils # (auto) 9.81 K/uL (1.4-6.5); Platelet Count 167 K/uL (130-400); RDW Coefficient of Variation 15.2 % (11.5-14.5); RDW Standard Deviation 48.6 fL (36.4-46.3); Red Blood Count 4.54 M/uL (4.7-6.1); White Blood Count 12.41 K/uL (4.8-10.8)
[2022-01-03 06:15] LABS: INR 1.4 (0.9-1.1); Prothrombin Time 15.1 Seconds (9.0-12.0)
[2022-01-03 06:26] LABS: BUN Creatinine Ratio 15.9 (10-20); Creatinine Clr Calc Pharmacy 50.2 ml/min; Est GFR (African American) 56.5 ml/min; Est GFR (Non-African American) 48.8 ml/min; Magnesium 1.9 mg/dl (1.7-2.4); Potassium 3.7 mmol/L (3.5-5.1)
[2022-01-03 07:00] LABS: Estimated Average Glucose 143 mg/dl; Hemoglobin A1C 6.6 % (4.5-5.6)
[2022-01-03] MEDS: LIOTHYRONINE SODIUM 5 MCG TAB PO SCH ×2 (07:37→21:13)
[2022-01-03] MEDS: OXYBUTYNIN CHLORIDE XL 5 MG TABCR PO SCH (07:38)
[2022-01-03] MEDS: SERTRALINE HCL 50 MG TABLET PO SCH (07:38)
[2022-01-03] MEDS: FINASTERIDE 5 MG TAB PO SCH (07:38)
[2022-01-03] MEDS: hydroCHLOROthiazide 25 MG TAB PO SCH (07:39)
[2022-01-03] MEDS: CALCIUM CITRATE 950 MG TAB PO SCH (07:40)
[2022-01-03] MEDS: CHOLECALCIFEROL 1,000 UNITS 25 MCG TAB PO SCH (07:40)
[2022-01-03] MEDS: PANTOprazole 40 MG TAB PO SCH (07:40)
[2022-01-03] MEDS: FLUTICASONE PROPIONATE NA SPR 16 GM BTL SCH (07:41)
[2022-01-03] MEDS: INSULIN ASPART PER UNIT SC SCH ×4 (07:44→21:12)
--- NOTE | 2022-01-03 08:48 | Hospitalist Progress Note ---
Date of Service January 03, 2022 Assessment & Plan Plan: UTI Sepsis -Present on admission -Sepsis based on fever, tachycardia -Agree with Cefepime, follow up blood and urine cultures MS Neurogenic Bladder -Requires straight cath -s/p harding placement in ER -baclofen 10mg QHS BPH -finasteride, oxybutynin JAMES HLD -statin HTN -holding medications due to low normal BP on admission NIDDM -hold oral medications -corrective scale insulin while here History of DVT -Appears to be on chronic coumadin: 2.5mg [id number], 1.25mg remaining days of week -INR 1.4 History of thyroid cancer -s/p thyroidectomy -on liothyronine 5mcg BID -check free T4 with AM labs DVT ppx SQ heparin until INR therapeutic Admission and Anticipated Discharge Date Admission Date: January 02, 2022 Subjective Feels better Reports suprapubic pelvis discomfort, similar to prior UTIs Denies abdominal pain otherwise, or rectal pain Reports his last UTI was several years ago Physical Exam Physical Exam: No acute distress, non toxic Respiratory: Breathing comfortably on room air, no wheezing/rhonchi/rales Cardiovascular: regular rate and rhythm, no murmurs/rubs/gallop Gastrointestinal (Abdomen): soft, +BS, +suprapubic discomfort Musculoskeletal: bilateral lower extremity atrophy, no edema Neurologic: Paraplegia, awake, alert, answers questions with some dysarthria Results & Data Results & Data ([facility]) Vital Signs (Past 12 Hours) Vital Signs Temp Pulse Pulse Resp BP BP BP 01/03/22 07:53 36.4 C L 85 20 98/71 L 01/03/22 02:26 37.5 C 107 H 18 95/60 L 01/03/22 01:48 39.3 C H 87 20 122/59 L 01/03/22 01:46 38.3 C H 01/02/22 23:56 111 H 01/02/22 23:48 39.3 C H 87 20 122/59 L 01/02/22 23:00 106 H 21 122/82 01/02/22 22:30 99 H 25 H 104/49 L 01/02/22 22:15 99 H 25 H 01/02/22 22:00 101 H 23 01/02/22 21:45 94 H 25 H 01/02/22 21:30 89 24 117/72 01/02/22 21:15 88 19 01/02/22 21:07 86 20 93/79 L 01/02/22 21:00 88 20 01/02/22 20:53 90 19 95/62 L 01/02/22 20:50 89 19 Pulse Ox Pulse Ox 01/03/22 07:53 91 01/03/22 02:26 94 01/03/22 01:48 92 01/03/22 01:46 01/02/22 23:56 01/02/22 23:48 92 92 01/02/22 23:00 96 01/02/22 22:30 98 01/02/22 22:15 01/02/22 22:00 01/02/22 21:45 96 01/02/22 21:30 94 01/02/22 21:15 94 01/02/22 21:07 97 01/02/22 21:00 96 01/02/22 20:53 97 01/02/22 20:50 93 Laboratory Results Short CBC 01/02/22 01/02/22 01/03/22 Range/Units 17:58 17:58 05:19 WBC 12.34 H 12.41 H (4.8-10.8) K/uL Hgb 14.1 12.9 L (14.0-18.0) g/dL Hct 41.9 L 39.2 L (42-52) % Plt Count 191 167 (130-400) K/uL Creatinine 1.27 (0.6-1.4) mg/dl 01/03/22 Range/Units 05:19 WBC (4.8-10.8) K/uL Hgb (14.0-18.0) g/dL Hct (42-52) % Plt Count (130-400) K/uL Creatinine 1.45 H (0.6-1.4) mg/dl BMP 01/02/22 01/03/22 17:58 05:19 Sodium 135 L 136 Potassium 3.7 3.7 Chloride 102 105 Carbon Dioxide 22 21 BUN 21 23 Creatinine 1.27 1.45 H Glucose 117 H 119 H Calcium 8.6 8.0 L Cardiac Enzymes 01/02/22 Range/Units 17:58 Troponin I < 0.03 (0-0.04) ng/ml Liver Function 01/02/22 Range/Units 17:58 Total Bilirubin 1.0 (0.2-1.0) mg/dl AST 10 L (13-39) U/L ALT 23 (7-52) U/L Alkaline Phosphatase 49 (34-104) U/L Albumin 3.9 (3.4-5.0) gm/dl Urine 01/02/22 Range/Units Unknown Urine Color Yellow Urine Appearance Clear (Clear) Urine pH 6.0 (4.5-7.5) Ur Specific [place] 1.024 (1.000-1.030) Urine Protein Trace H (Negative) Urine Glucose (UA) 3+ H (Negative) Medications Administered Current Inpatient Medications Acetaminophen (Acetaminophen 325 Mg Tab) 650 mg PO Q4H PRN PRN Reason: Pain or Fever Stop: 02/01/22 23:47 Last Admin: 01/03/22 04:26 Dose: 650 mg Documented by: Amitriptyline HCl (Amitriptyline Hcl 25 Mg Tab) 25 mg PO HS DEWEY Stop: 02/02/22 20:59 Atorvastatin Calcium (Atorvastatin 10 Mg Tab) 10 mg PO QPM [facility] Stop: 02/02/22 20:59 Baclofen (Baclofen 10 Mg Tab) 10 mg PO HS DEWE[facility] Stop: 02/02/22 20:59 Calcium Citrate (Calcium Citrate 950 Mg Tab) 950 mg PO MOWEFR [facility] Stop: 02/02/22 08:59 Last Admin: 01/03/22 07:40 Dose: 950 mg Documented by: Clonazepam (Clonazepam 0.5 Mg Tab) 0.5 mg PO HS PRN PRN Reason: Sleep Stop: 02/01/22 23:47 Finasteride (Finasteride 5 Mg Tab) 5 mg PO DAILY [facility] Stop: 02/02/22 08:59 Last Admin: 01/03/22 07:38 Dose: 5 mg Documented by: Fluticasone Propionate (Fluticasone Propionate Na Spr 16 Gm Btl) 2 sprays NA DAILY [facility] Stop: 02/02/22 08:59 Last Admin: 01/03/22 07:41 Dose: 2 sprays Documented by: Heparin Sodium (Porcine) (Heparin Sod 5,000 Unit/0.5 Ml Vial) 5,000 units SQ Q8 [facility] Stop: 02/02/22 05:59 Last Admin: 01/03/22 05:30 Dose: 5,000 units Documented by: Hydrochlorothiazide (Hydrochlorothiazide 25 Mg Tab) 12.5 mg PO MOWEFR [facility] Stop: 02/02/22 08:59 Last Admin: 01/03/22 07:39 Dose: 12.5 mg Documented by: Hydromorphone HCl (Hydromorphone Inj 0.5 Mg/0.5 Ml Syr) 0.5 mg IV Q4H PRN PRN Reason: Pain Stop: 01/16/22 23:47 Sodium Chloride (Nss 1000ml) 1,000 mls @ 125 mls/hr IV .Q8H [facility] Stop: 01/03/22 16:29 Last Admin: 01/03/22 08:37 Dose: 125 mls/hr Documented by: Cefepime HCl 2,000 mg/ Syringe 20 mls @ 5 mls/min IV Q24H [facility]; Protocol Stop: 01/13/22 19:59 Insulin Aspart (Insulin Aspart Per Unit) 0 units SC ACHS [facility] Stop: 02/02/22 07:29 Last Admin: 01/03/22 07:44 Dose: Not Given Documented by: Levothyroxine Sodium (Levothyroxine Sodium 125 Mcg Tablet) 125 mcg PO DAILYBB [facility] Stop: 02/02/22 06:29 Last Admin: 01/03/22 05:31 Dose: 125 mcg Documented by: Liothyronine Sodium (Liothyronine Sodium 5 Mcg Tab) 5 mcg PO BID [facility] Stop: 02/02/22 08:59 Last Admin: 01/03/22 07:37 Dose: 5 mcg Documented by: Meclizine HCl (Meclizine 12.5 Mg Tab) 12.5 mg PO TID PRN PRN Reason: Dizziness Stop: 02/01/22 23:47 Nitroglycerin (Nitroglycerin Sl 0.4 Mg/Tab Tab) 0.4 mg SL UD PRN PRN Reason: Chest Pain Stop: 02/01/22 23:47 Ondansetron HCl (Ondansetron Inj 2 Mg/Ml 2 Ml Vial) 4 mg IV Q6H PRN PRN Reason: Nausea Stop: 02/01/22 23:47 Oxybutynin Chloride (Oxybutynin Chloride Xl 5 Mg Tabcr) 10 mg PO DAILY [facility] Stop: 02/02/22 08:59 Last Admin: 01/03/22 07:38 Dose: 10 mg Documented by: Pantoprazole Sodium (Pantoprazole 40 Mg Tab) 40 mg PO DAILY [facility] Stop: 02/02/22 08:59 Last Admin: 01/03/22 07:40 Dose: 40 mg Documented by: Polyethylene Glycol (Polyethylene (Miralax) 17 Gm Pack) 17 gm PO DAILY PRN PRN Reason: Constipation Stop: 02/01/22 23:47 Sertraline HCl (Sertraline Hcl 50 Mg Tablet) 75 mg PO QAM [facility] Stop: 02/02/22 08:59 Last Admin: 01/03/22 07:38 Dose: 75 mg Documented by: Tramadol HCl (Tramadol Hcl 50 Mg Tablet) 25 mg PO Q8H PRN PRN Reason: pain Stop: 02/01/22 23:47 Vitamin D (Cholecalciferol 1,000 Units 25 Mcg Tab) 2,000 units PO DAILY [facility] Stop: 02/02/22 08:59 Last Admin: 01/03/22 07:40 Dose: 2,000 units Documented by: Warfarin Sodium (Warfarin Sod 2.5 Mg Tab) 2.5 mg PO MOWEFR [facility] Stop: 02/02/22 15:59 Warfarin Sodium (Warfarin Sod 1.25 Mg Tab) 1.25 mg PO SuTuThSa [facility] Stop: 02/03/22 15:59
[2022-01-03] MEDS ORDERED: SERTRALINE HCL 50 MG TABLET PO SCH (09:00)
[2022-01-03] MEDS ORDERED: WARFARIN SOD 2.5 MG TAB PO SCH (16:00)
[2022-01-03] MEDS ORDERED: CEFEPIME 2,000 MG in SYRINGE 0 ML IV SCH (20:00)
[2022-01-03] MEDS: BACLOFEN 10 MG TAB PO SCH (21:12)
[2022-01-03] MEDS: AMITRIPTYLINE HCL 25 MG TAB PO SCH (21:12)
[2022-01-03] MEDS: ATORVASTATIN 10 MG TAB PO SCH (21:12)
[2022-01-04] MEDS: ACETAMINOPHEN 325 MG TAB PO PRN ×3 (00:41→20:23)
[2022-01-04 02:51] LABS: Basophils # (auto) 0.01 K/uL (0-0.2); Basophils % (auto) 0.1 %; Eosinophils # (auto) 0.11 K/uL (0-0.5); Eosinophils % (auto) 1.5 %; Hematocrit (blood only) 38.8 % (42-52); Hemoglobin 12.7 g/dL (14.0-18.0); Immature Granulocytes # (auto) 0.02 K/uL (0.00-0.02); Immature Granulocytes % (auto) 0.3 %; Lymphocytes # (auto) 0.97 K/uL (1.2-3.4); Lymphocytes % (auto) 13.5 %; Mean Corpuscular Hemoglobin 28.1 pg (25-34); Mean Corpuscular Hgb Conc 32.7 g/dL (32-36); Mean Corpuscular Volume 85.8 fL (80-100); Monocytes # (auto) 0.76 K/uL (0.11-0.59); Monocytes % (auto) 10.6 %; Neutrophils # (auto) 5.29 K/uL (1.4-6.5); Platelet Count 161 K/uL (130-400); RDW Coefficient of Variation 14.9 % (11.5-14.5); RDW Standard Deviation 46.8 fL (36.4-46.3); Red Blood Count 4.52 M/uL (4.7-6.1); White Blood Count 7.16 K/uL (4.8-10.8)
[2022-01-04 03:02] LABS: INR 1.3 (0.9-1.1); Partial Thromboplastin Ratio 1.3; Partial Thromboplastin Time 35.2 Seconds (21.0-31.0); Prothrombin Time 13.4 Seconds (9.0-12.0)
[2022-01-04 03:12] LABS: Troponin I < 0.03 ng/ml (0-0.04)
[2022-01-04 03:21] LABS: Anion Gap 9 (3-11); BUN Creatinine Ratio 17.7 (10-20); Blood Urea Nitrogen 23 mg/dl (6-23); Calcium 8.3 mg/dl (8.5-10.1); Carbon Dioxide 21 mmol/L (21-32); Chloride 106 mmol/L (98-107); Est GFR (African American) 64.5 ml/min; Est GFR (Non-African American) 55.7 ml/min; Glucose 108 mg/dl (70-99(Fasting)); Potassium 3.5 mmol/L (3.5-5.1); Sodium 136 mmol/L (136-145)
[2022-01-04] MEDS ORDERED: Heparin IV Adult Wt-Based Standard *NO* Bolus Protocol IV ONE (04:00)
--- NOTE | 2022-01-04 04:00 | Communication Note ---
Date of Service: January 04, 2022 220 a.m. Patient complaining of shortness of breath with pleuritic chest pain. O2 sats 92 on room air. EKG as per my interpretation Rate 90, NSR, normal axis, T wave abnormality septal leads INR 1.3 AP Pleuritic chest pain Possible PE History DVT, subtherapeutic INR IV heparin-Coumadin bridge Rx, goal INR between [address] chest angio given kidney dysfunction on yesterday's lab work Will relay to AM provider.
[2022-01-04] MEDS: HEPARIN SODIUM/DEXTROSE 25,000 UNITS/500 ML BAG IV SCH ×2 (05:23→22:44)
[2022-01-04] MEDS: LEVOTHYROXINE SODIUM 125 MCG TABLET PO SCH (05:28)
--- NOTE | 2022-01-04 06:46 | Electrocardiogram Report ---
Test Reason : Blood Pressure : / mmHG Vent. Rate : 097 BPM Atrial Rate : 097 BPM P-R Int : 126 ms QRS Dur : 080 ms QT Int : 338 ms P-R-T Axes : 031 009 071 degrees QTc Int : 429 ms Poor data quality, interpretation may be adversely affected Normal sinus rhythm Normal ECG When compared with ECG of 01-APR-2020 22:42, No significant change was found Confirmed by Nahum Munroe ([id number]) on 01/04/2022 6:45:53 AM Referred By: REFERRED SELF Confirmed By:Nahum Munroe
[2022-01-04] MEDS ORDERED: WARFARIN SOD 5 MG TAB PO ONE (06:55)
--- NOTE | 2022-01-04 08:23 | XRay Report ---
XR chest 1V portable CLINICAL HISTORY: sob TECHNIQUE: Single frontal radiograph of the chest was obtained. Comparison: Comparison is made to chest one view 01/02/2022 FINDINGS: Surgical clips are seen in the right supraclavicular region. The cardiomediastinal silhouette is norm al. The lungs are clear. No evidence of pleural effusion or pneumothorax. IMPRESSION: No acute chest disease. ACT 112: Negative or not required by law. Electronically signed by: Baldo Mata M.D. 01/04/2022 8:22 AM
[2022-01-04] MEDS: INSULIN ASPART PER UNIT SC SCH ×4 (08:46→20:25)
[2022-01-04] MEDS: LIOTHYRONINE SODIUM 5 MCG TAB PO SCH ×2 (08:47→20:25)
[2022-01-04] MEDS: FINASTERIDE 5 MG TAB PO SCH (08:48)
[2022-01-04] MEDS: CHOLECALCIFEROL 1,000 UNITS 25 MCG TAB PO SCH (08:48)
[2022-01-04] MEDS: OXYBUTYNIN CHLORIDE XL 5 MG TABCR PO SCH (08:48)
[2022-01-04] MEDS: PANTOprazole 40 MG TAB PO SCH (08:48)
[2022-01-04] MEDS: SERTRALINE HCL 50 MG TABLET PO SCH (08:48)
[2022-01-04] MEDS: FLUTICASONE PROPIONATE NA SPR 16 GM BTL SCH (08:49)
--- NOTE | 2022-01-04 09:25 | Electrocardiogram Report ---
Test Reason : Blood Pressure : / mmHG Vent. Rate : 092 BPM Atrial Rate : 092 BPM P-R Int : 128 ms QRS Dur : 088 ms QT Int : 364 ms P-R-T Axes : 044 076 058 degrees QTc Int : 450 ms Normal sinus rhythm Normal ECG When compared with ECG of 02-JAN-2022 18:11, QRS axis Shifted right Otherwise no significant change Confirmed by Jim Omalley ([id number] on 01/04/2022 9:25:35 AM Referred By: REFERRED SELF Confirmed By:Jim Omalley
[2022-01-04 12:55] LABS: Partial Thromboplastin Ratio 1.7
[2022-01-04 13:03] LABS: Partial Thromboplastin Time 47.8 Seconds (21.0-31.0)
[2022-01-04] MEDS ORDERED: VANCOMYCIN CONSULT ACTIVE PRN (15:55)
[2022-01-04] MEDS ORDERED: WARFARIN SOD 1.25 MG TAB PO SCH (16:00)
--- NOTE | 2022-01-04 17:30 | Hospitalist Progress Note ---
Date of Service January 04, 2022 Assessment & Plan Plan: UTI Sepsis -Present on admission -Sepsis based on fever, tachycardia -Urine culture growing strep, will d/c cefepime, will finish 7 day course on Keflex MS Neurogenic Bladder -Requires straight cath 6x per day -s/p harding placement here, remove at discharge -baclofen 10mg QHS History of DVT -Appears to be on chronic coumadin: 2.5mg [id number], 1.25mg remaining days of week -INR 1.4. Overnight placed on heparin drip with concern for possible PE. will continue heparin drip for now. -Patient advised to discuss with his PCP regarding switching to NOAC for ease of dosing Left side chest pain -not likely to be PE with no tachycardia, hypoxia. And current resolution -trial of pepcid QHS PRN BPH -finasteride, oxybutynin JAMES HLD -statin HTN -holding medications due to low normal BP NIDDM -hold oral medications -corrective scale insulin while here History of thyroid cancer -s/p thyroidectomy -on liothyronine 5mcg BID -check free T4 with AM labs Admission and Anticipated Discharge Date Admission Date: January 02, 2022 Subjective Overnight, had episode of left side chest pain No recurrence since Upon further investigation--> patient does report intermittent episodes of similar at home and takes Tums for this Daughter was visiting and was surprised his INR is subtherapeutic, they recently checked last week and it was normal. Physical Exam Physical Exam: Pleasant, comfortable, no acute distress Respiratory: breathing comfortably on room air, no wheezing/rhonchi/rales Cardiovascular: regular rate and rhythm, no murmurs/rubs/gallops Gastrointestinal (Abdomen): soft, non tender Musculoskeletal: No edema Neurologic: baseline paraplegia Genitourinary: harding draining clear urine Results & Data Results & Data ([facility]) Vital Signs (Past 12 Hours) Vital Signs Temp Pulse Pulse Resp BP Pulse Ox 01/04/22 15:42 36.6 C 79 18 94/61 L 95 01/04/22 11:47 36.9 C 94 H 20 107/75 95 01/04/22 08:11 36.7 C 85 20 121/73 94 01/04/22 08:00 89 Laboratory Results Short CBC 01/04/22 Range/Units 02:42 WBC 7.16 (4.8-10.8) K/uL Hgb 12.7 L (14.0-18.0) g/dL Hct 38.8 L (42-52) % Plt Count 161 (130-400) K/uL BMP 01/04/22 02:42 Sodium 136 Potassium 3.5 Chloride 106 Carbon Dioxide 21 BUN 23 Creatinine 1.30 Glucose 108 H Calcium 8.3 L Cardiac Enzymes 01/04/22 Range/Units 02:42 Troponin I < 0.03 (0-0.04) ng/ml Medications Administered Current Inpatient Medications Acetaminophen (Acetaminophen 325 Mg Tab) 650 mg PO Q4H PRN PRN Reason: Pain or Fever Stop: 02/01/22 23:47 Last Admin: 01/04/22 11:43 Dose: 650 mg Documented by: Amitriptyline HCl (Amitriptyline Hcl 25 Mg Tab) 25 mg PO HS [facility] Stop: 02/02/22 20:59 Last Admin: 01/03/22 21:12 Dose: 25 mg Documented by: Atorvastatin Calcium (Atorvastatin 10 Mg Tab) 10 mg PO QPM [facility] Stop: 02/02/22 20:59 Last Admin: 01/03/22 21:12 Dose: 10 mg Documented by: Baclofen (Baclofen 10 Mg Tab) 10 mg PO HS [facility] Stop: 02/02/22 20:59 Last Admin: 01/03/22 21:12 Dose: 10 mg Documented by: Calcium Citrate (Calcium Citrate 950 Mg Tab) 950 mg PO MOWEFR [facility] Stop: 02/02/22 08:59 Last Admin: 01/03/22 07:40 Dose: 950 mg Documented by: Clonazepam (Clonazepam 0.5 Mg Tab) 0.5 mg PO HS PRN PRN Reason: Sleep Stop: 02/01/22 23:47 Finasteride (Finasteride 5 Mg Tab) 5 mg PO DAILY [facility] Stop: 02/02/22 08:59 Last Admin: 01/04/22 08:48 Dose: 5 mg Documented by: Fluticasone Propionate (Fluticasone Propionate Na Spr 16 Gm Btl) 2 sprays NA DAILY [facility] Stop: 02/02/22 08:59 Last Admin: 01/04/22 08:49 Dose: 2 sprays Documented by: Hydrochlorothiazide (Hydrochlorothiazide 25 Mg Tab) 12.5 mg PO MOWEFR [facility] Stop: 02/02/22 08:59 Last Admin: 01/03/22 07:39 Dose: 12.5 mg Documented by: Hydromorphone HCl (Hydromorphone Inj 0.5 Mg/0.5 Ml Syr) 0.5 mg IV Q4H PRN PRN Reason: Pain Stop: 01/16/22 23:47 Cefepime HCl 2,000 mg/ Syringe 20 mls @ 5 mls/min IV Q24H [facility]; Protocol Stop: 01/13/22 19:59 Last Admin: 01/03/22 19:59 Dose: 5 mls/min Documented by: Heparin Sodium/Dextrose (Heparin Sodium/Dextrose) 25,000 units in 500 mls @ 27 mls/hr IV .[id number] [facility]; Protocol Stop: 02/03/22 04:14 Last Titration: 01/04/22 17:17 Dose: 1,350 units/hr, 27 mls/hr Documented by: Insulin Aspart (Insulin Aspart Per Unit) 0 units SC ACHS [facility] Stop: 02/02/22 07:29 Last Admin: 01/04/22 12:50 Dose: 4 units Documented by: Levothyroxine Sodium (Levothyroxine Sodium 125 Mcg Tablet) 125 mcg PO DAILYBB [facility] Stop: 02/02/22 06:29 Last Admin: 01/04/22 05:28 Dose: 125 mcg Documented by: Liothyronine Sodium (Liothyronine Sodium 5 Mcg Tab) 5 mcg PO BID [facility] Stop: 02/02/22 08:59 Last Admin: 01/04/22 08:47 Dose: 5 mcg Documented by: Meclizine HCl (Meclizine 12.5 Mg Tab) 12.5 mg PO TID PRN PRN Reason: Dizziness Stop: 02/01/22 23:47 Miscellaneous (Warfarin Pending Order) 1 ea N/A DAILY@1000 [facility] Stop: 02/03/22 09:59 Last Admin: 01/04/22 11:01 Dose: Not Given Documented by: Nitroglycerin (Nitroglycerin Sl 0.4 Mg/Tab Tab) 0.4 mg SL UD PRN PRN Reason: Chest Pain Stop: 02/01/22 23:47 Ondansetron HCl (Ondansetron Inj 2 Mg/Ml 2 Ml Vial) 4 mg IV Q6H PRN PRN Reason: Nausea Stop: 02/01/22 23:47 Oxybutynin Chloride (Oxybutynin Chloride Xl 5 Mg Tabcr) 10 mg PO DAILY [facility] Stop: 02/02/22 08:59 Last Admin: 01/04/22 08:48 Dose: 10 mg Documented by: Pantoprazole Sodium (Pantoprazole 40 Mg Tab) 40 mg PO DAILY [facility] Stop: 02/02/22 08:59 Last Admin: 01/04/22 08:48 Dose: 40 mg Documented by: Polyethylene Glycol (Polyethylene (Miralax) 17 Gm Pack) 17 gm PO DAILY PRN PRN Reason: Constipation Stop: 02/01/22 23:47 Sertraline HCl (Sertraline Hcl 50 Mg Tablet) 75 mg PO QAM [facility] Stop: 02/02/22 08:59 Last Admin: 01/04/22 08:48 Dose: 75 mg Documented by: Tramadol HCl (Tramadol Hcl 50 Mg Tablet) 25 mg PO Q8H PRN PRN Reason: pain Stop: 02/01/22 23:47 Vitamin D (Cholecalciferol 1,000 Units 25 Mcg Tab) 2,000 units PO DAILY [facility] Stop: 02/02/22 08:59 Last Admin: 01/04/22 08:48 Dose: 2,000 units Documented by: Warfarin Sodium (Warfarin Sod 5 Mg Tab) 5 mg PO DAILY@1600 [facility] Stop: 02/04/22 15:59
[2022-01-04] MEDS ORDERED: FAMOTIDINE 40 MG TABLET PO PRN (17:35)
[2022-01-04] MEDS: cephALEXin 500 MG CAP PO SCH (18:40)
[2022-01-04] MEDS: AMITRIPTYLINE HCL 25 MG TAB PO SCH (20:24)
[2022-01-04] MEDS: ATORVASTATIN 10 MG TAB PO SCH (20:25)
[2022-01-04] MEDS: BACLOFEN 10 MG TAB PO SCH (20:25)
[2022-01-05] MEDS: cephALEXin 500 MG CAP PO SCH ×3 (00:05→11:51)
[2022-01-05] MEDS: LEVOTHYROXINE SODIUM 125 MCG TABLET PO SCH (06:00)
[2022-01-05 06:22] LABS: Hematocrit (blood only) 41.9 % (42-52); Hemoglobin 13.6 g/dL (14.0-18.0); Mean Corpuscular Hemoglobin 27.9 pg (25-34); Mean Corpuscular Hgb Conc 32.5 g/dL (32-36); Mean Corpuscular Volume 85.9 fL (80-100); Platelet Count 195 K/uL (130-400); RDW Standard Deviation 47.6 fL (36.4-46.3); Red Blood Count 4.88 M/uL (4.7-6.1); White Blood Count 5.65 K/uL (4.8-10.8)
[2022-01-05 06:47] LABS: BUN Creatinine Ratio 16.5 (10-20); Calcium 8.8 mg/dl (8.5-10.1); Creatinine Clr Calc Pharmacy 54.8 ml/min; Est GFR (African American) 62.8 ml/min; Est GFR (Non-African American) 54.2 ml/min; Potassium 3.4 mmol/L (3.5-5.1)
[2022-01-05 06:48] LABS: INR 1.5 (0.9-1.1); Partial Thromboplastin Ratio 1.9; Prothrombin Time 15.5 Seconds (9.0-12.0)
[2022-01-05 07:57] LABS: Partial Thromboplastin Time 53.2 Seconds (21.0-31.0)
[2022-01-05] MEDS ORDERED: POTASSIUM CHLORIDE CRTAB 20 MEQ TABCR PO STA (08:08)
[2022-01-05] MEDS: OXYBUTYNIN CHLORIDE XL 5 MG TABCR PO SCH (08:14)
[2022-01-05] MEDS: PANTOprazole 40 MG TAB PO SCH (08:14)
[2022-01-05] MEDS: hydroCHLOROthiazide 25 MG TAB PO SCH (08:15)
[2022-01-05] MEDS: CALCIUM CITRATE 950 MG TAB PO SCH (08:15)
[2022-01-05] MEDS: FINASTERIDE 5 MG TAB PO SCH (08:15)
[2022-01-05] MEDS: CHOLECALCIFEROL 1,000 UNITS 25 MCG TAB PO SCH (08:15)
[2022-01-05] MEDS: LIOTHYRONINE SODIUM 5 MCG TAB PO SCH (08:15)
[2022-01-05] MEDS: FLUTICASONE PROPIONATE NA SPR 16 GM BTL SCH (08:16)
[2022-01-05] MEDS: SERTRALINE HCL 50 MG TABLET PO SCH (08:16)
--- NOTE | 2022-01-05 09:11 | Discharge Summary ---
Date of Service January 05, 2022 Admission HPI Per Admitting Provider A 71-year-old male with past medical history significant for type 2 diabetes, hyperlipidemia, hyperparathyroidism, postsurgical hypothyroidism, moderate sleep apnea, hypertension, BPH, history of multiple sclerosis, paraplegia, neurogenic bladder, straight catheterization at home, history of urinary retention with UTIs in the past, major depression, history of septicemia history of DVT, currently nonambulatory status, history of thyroid cancer, lives at home. Comes here because he developed fever of 102 degrees at home for the last couple of days and also is having difficulty to self-catheterize, is not getting much urine. Feels sweaty and mildly tachycardic. In the ER, when he came in, he was tachycardic. Blood pressure was slightly on the lower side with systolic blood pressure in 90s, with fluids it improved, saturating okay on room air. Complains of aches and pains. Has some headache, no blurred visions, no runny nose, no cough, no chest pain, no shortness of breath, no nausea, no vomiting. Appetite is okay. No difficulty swallowing. Has some abdominal discomfort currently. Principal Diagnosis UTI Sepsis GERD HTN, medication adjustments Subtherapeutic INR on coumadin Discharge Exam Appears well. No acute distress Breathing comfortably on room air Regular rate and rhythm Baseline paraplegia Discharge Data Allergies Allergy/AdvReac Type Severity Reaction Status Date / Time No Known Allergies Allergy Verified 01/02/22 22:12 Consultations 01/02/22 20:05 ED Decision to Admit Stat Ordered Studies 01/02/22 18:26 CT abd pelvis wo con Stat Hospital Course UTI Sepsis -Present on admission -Sepsis based on fever, tachycardia -Urine culture growing strep. Received 3 days of cefepime and will discharge on Keflex to finish 7 day course MS Neurogenic Bladder -Requires straight cath 6x per day -s/p harding placement here, removed at discharge -baclofen 10mg QHS History of DVT -Appears to be on chronic coumadin: 2.5mg [id number], 1.25mg remaining days of week -INR 1.4. On 01/03 night episode of chest pain (no hypoxia or tachycardia) which resolved the next day. He was placed on heparin drip and coumadin increased to 5mg daily. INR 1.5 at discharge. Heparin drip discontinued, unlikely to have PE (low Well's score) and CP likely due to night time GERD symptoms (he has intermittent CP at night time which he takes TUMS at home). Already on PPI. Recommend Pepcid QHS PRN -Coumadin dose at discharge: 2.5mg daily. Repeat INR in 3 days. Further dose adjustment per PCP -Patient advised to discuss with his PCP regarding switching to NOAC for ease of dosing BPH -finasteride, oxybutynin JAMES -uses CPAP HLD -statin HTN -Lisinopril and Metoprolol held due to low normal BP. Continued on MWF HCTZ. -Follow up with PCP in 1 week for blood pressure check NIDDM -hold oral medications, resume at discharge -corrective scale insulin while here History of thyroid cancer -s/p thyroidectomy -on liothyronine 5mcg BID -free T4 within normal limit Home Health Attestation I certify that this patient is under my care and that I, or a physicians tutoring assistant working with me, had a face to-face encounter that meets the [facility] [id number] encounter requirements with this patient. The encounter with the patient was in whole, or in part, for the following medical condition, which is the primary reason for home health care (list medical condition): complex UTI I certify that, based on my findings, the following services are medically necessary home health services: My clinical findings support the need for the above services because: Skilled Nsg Assessment Further, I certify that my clinical findings support that this patient is ho mebound (i.e. absences from home require considerable and taxing effort and are for medical reasons or temple services or infrequently or of short duration when for other reasons) because: Maximum Assistance with All Activities Certification for Home Health Services: Based on the above findings, I certify that this patient is confined to the home and needs intermittent jail care, physical therapy and/or speech therapy or continues to need occupational therapy. The patient is under my care, and I have initiated the establishment of the plan of care. This patient will be followed by a physician who will periodically review the plan of care. Total Time Total Time Spent Total Time Spent (In Minutes): 38 Discharge Plan Discharge Items Patient Disposition: Home - Home Health Services Reason For Visit: URINARY SYMPTOMS Discharge Diagnosis: UTI Sepsis GERD Condition on Discharge: Good Activity: Resume your previous activity Non-emergency contact: Primary Care Provider Call non-emergency contact if: you have any medication questions Follow-up/Referrals: Triindad Cesar DO [Primary Care Provider] - (Date & Time 01/12/2022 11:10 AM Provider Trinidad Cesar DO Department [facility] ) Diet: Heart Healthy Diet Texture: Easy to Chew Addtl Attending Provider Instructions: You were admitted for fever/painful urination and found to have a UTI You received IV cefepime here and will go home on Keflex to finish a 7 day course Your INR at time of discharge was 1.5. You should be on coumadin 2.5mg nightly and have a repeat INR on Saturday for further dose adjustment. Your blood pressure here was low normal, your Metoprolol and Lisinopril were discontinued. You can still take HCTZ on [id number]. Follow up with your PCP for further blood pressure management Please follow up with your PCP to discuss if you are a candidate for Eliquis (newer blood thinner, which does not require INR monitoring) Pending Studies at Discharge: No Stand-Alone Forms: My [facility] [place], Smoking Cessation Medications and DC Order Prescriptions: New cephalexin 500 mg Capsule 500 mg PO Q6 4 Days Qty: 16 RF: 0 Continued finasteride 5 mg tablet 5 mg PO DAILY Qty: 90 RF: 3 oxybutynin chloride 10 mg tablet extended release 24hr 10 mg PO DAILY Qty: 90 RF: 3 methenamine hippurate 1 gram tablet 1 g PO BID 90 Days Qty: 180 RF: 3 fluticasone propionate 50 mcg/actuation spray,suspension 2 spray INTNAS DAILY RF: 0 metformin 500 mg tablet See Rx Instructions .ROUTE .COMPLEX RF: 0 meclizine 12.5 mg tablet 12.5 mg PO TID PRN (Reason: Dizziness) RF: 0 sertraline 25 mg Tablet 25 mg PO QAM RF: 0 atorvastatin 10 mg tablet 10 mg PO QPM RF: 0 clonazepam 0.5 mg tablet 0.5 mg PO HS PRN (Reason: Sleep) RF: 0 amitriptyline 25 mg tablet 25 mg PO HS RF: 0 baclofen 10 mg tablet 10 mg PO HS RF: 0 levothyroxine [Synthroid] 125 mcg tablet 125 mcg PO DAILY RF: 0 sertraline 50 mg tablet 50 mg PO QAM RF: 0 cholecalciferol (vitamin D3) [Vitamin D3] 50 mcg (2,000 unit) Tablet 50 mcg PO DAILY RF: 0 tramadol 50 mg Tablet 25 mg PO Q8H PRN (Reason: pain) Qty: 7 RF: 0 warfarin 2.5 mg Tablet 2.5 mg PO MOWEFR RF: 0 omeprazole 40 mg capsule,delayed release(DR/EC) 40 mg PO DAILY RF: 0 liothyronine 5 mcg tablet 5 mcg PO BID RF: 0 hydrochlorothiazide 12.5 mg Tablet 12.5 mg PO MOWEFR RF: 0 calcium citrate-vitamin D3 [Citracal + D Maximum] 315 mg-6.25 mcg (250 unit) Tablet 1 tab PO MOWEFR RF: 0 Jardiance 25 mg tablet 25 mg PO DAILY RF: 0 Discontinued lisinopril 20 mg tablet 20 mg PO QAM RF: 0 warfarin 2.5 mg tablet 1.25 mg PO [id number] RF: 0 metoprolol tartrate 25 mg tablet 12.5 mg PO BID RF: 0 ciprofloxacin HCl 500 mg tablet 500 mg PO .TODAY RF: 0 Krames/Other Patient Handouts: Managing Type 2 Diabetes Admission Data Admit Date/Time: 01/02/22 23:01 Attending Provider: Tyson Pate Admit Provider: Abhijit Anderson Primary Care Provider: Trinidad Cesar Other Providers: Abhijit Anderson
[2022-01-05] MEDS: INSULIN ASPART PER UNIT SC SCH ×2 (09:29→12:28)
[2022-01-05] MEDS ORDERED: WARFARIN SOD 5 MG TAB PO SCH (16:00)
--- NOTE | 2022-01-10 15:20 | Coding Query ---
CODING QUERY To promote full compliance with coding requirements relating to patient care, provider participation is requested in all cases of auditing coder uncertainty. Please assist us with the question(s) below: Coding Question(s): Multiple Sclerosis Patient adm with UTI . Self -caths 2xday. Please document, if known or suspected - the etiology of the UTI. Thanks for your help! Emery Harkins [facility] Physician's Response(s): Straight cath increases risk for UTI. Principal Diagnosis: "that condition established after study, to be chiefly responsible for occasioning the admission of the patient to the hospital for care." Co-Existing Principal Diagnosis: "when two or more diagnoses equally meet the criteria for principal diagnosis as determined by the circumstances of admission, diagnostic work up, and/or therapy provided, and the Alphabetic Index, Tabular List, or another coding guideline does not provide sequencing direction, any one of the diagnoses may be sequenced first." "When the physician has documented what appears to be a current diagnosis in the body of the record, but has not included the diagnosis in the final diagnostic statement, the physician should be asked whether the diagnosis should be added." (Source Coding [facility] 2 QTR90. p3-4) JADE
== END 2022-01-05 13:25 | disposition home health service (06) | DRG 698 ==
LOC: ED 17:41 → 2N 23:01

== ENCOUNTER 2022-08-08 21:57 | Observation (INO) ==
--- NOTE | 2022-08-08 22:23 | Emergency Department Note ---
History of Present Illness General Chief complaint: Cardiac Assessment History of Present Illness This 71-year-old MS presents to the ER complaining of chest pain tonight that radiates to his right shoulder and left side of neck Location: Chest Quality: Discomfort Severity: Moderate Duration: Tonight Timing: ToNight Context: Patient was concerned and called EMS Modifying factors: better with nitroglycerin; worse with palpation Patient denies dysuria, fever, chills, abdominal pain, nausea, leg pain or swelling. Coumadin levels 2 weeks ago were normal. He has a history of blood clots. Home Medications Medication Instructions Recorded Confirmed Type amitriptyline 25 mg tablet 25 mg PO HS 02/12/20 08/09/22 History atorvastatin 10 mg tablet 10 mg PO QAM 02/12/20 08/09/22 History baclofen 10 mg tablet 10 mg PO HS 02/12/20 08/09/22 History cholecalciferol (vitamin D3) 50 50 mcg PO DAILY 02/12/20 08/09/22 History mcg (2,000 unit) tablet (Vitamin D3) clonazepam 0.5 mg tablet 0.5 mg PO TID PRN anxiety/agitation 02/12/20 08/09/22 History levothyroxine 125 mcg tablet 125 mcg PO DAILYBB 02/12/20 08/09/22 History (Synthroid) meclizine 12.5 mg tablet 12.5 mg PO TID PRN Dizziness 02/12/20 08/09/22 History metformin 500 mg tablet See Rx Instructions .Route .COMPLEX 02/12/20 08/09/22 History sertraline 25 mg tablet 25 mg PO QAM 02/12/20 08/09/22 History sertraline 50 mg tablet 50 mg PO QAM 02/12/20 08/09/22 History finasteride 5 mg tablet 5 mg PO DAILY #90 tabs 12/07/21 08/09/22 Rx methenamine hippurate 1 gram tablet 1 g PO BID 90 days #180 tabs 12/07/21 08/09/22 Rx oxybutynin chloride 10 mg 10 mg PO DAILY #90 tabs 12/07/21 08/09/22 Rx tablet,extended release 24 hr calcium citrate 315 mg 1 tab PO MOWEFR 01/02/22 08/09/22 History calcium-vitamin D3 6.25 mcg (250 unit) tablet (Citracal + Vitamin D Maximum) hydrochlorothiazide 12.5 mg tablet 12.5 mg PO Q OTHER DAY 01/02/22 08/09/22 History omeprazole 40 mg capsule,delayed 40 mg PO QAM 01/02/22 08/09/22 History release buspirone 5 mg tablet 5 mg PO BID PRN Anxiety 08/08/22 08/08/22 History liothyronine 5 mcg tablet 5 mcg PO BID 08/08/22 08/08/22 History semaglutide 0.25 mg or 0.5 mg (2 0.5 mg subcut WK 08/08/22 08/08/22 History mg/1.5 mL) subcutaneous pen injector (Ozempic) apixaban 5 mg tablet (Eliquis) 5 mg PO AMHS 08/09/22 08/09/22 History lisinopril 20 mg tablet 10 mg PO QAM 08/09/22 08/09/22 History metoprolol tartrate 25 mg tablet 12.5 mg PO BID 08/09/22 08/09/22 History Allergies Allergy/AdvReac Type Severity Reaction Status Date / Time No Known Allergies Allergy Verified 08/09/22 00:31 Past Med/Surg History Medical History Acute UTI Cough Deep vein blood clot of left lower extremity Dizziness HLD (hyperlipidemia) HTN (hypertension) Hyperparathyroidism Hypotension Hypothyroidism Moderate obstructive sleep apnea MS (multiple sclerosis) Neurogenic bladder JAMES on CPAP Pain, chronic Pulmonary nodule Sepsis Tachycardia Vitamin D deficiency Weakness Family History Mother Cancer Grandfather (Paternal) Hypertension Social History Smoking Status: Never smoker Second Hand Exposure: No; Hx Alcohol Use: No Hx Substance Use: No Preferred Language: Ivorian Communication Ability: Effective Visual Impairment: No Limitations Certified Ethical Hacker Required: No Beliefs That Will Affect Care: None marital status: Current Living Situation: Spouse current occupational status: other Feels Safe at Home: Yes Assistive Devices: BiPap, Hospital Bed and Lift Chair Review of Systems A total of 10 systems reviewed and were otherwise negative Physical Exam Vital Signs Vital Signs - 24 hr 08/08/22 22:09 08/08/22 22:09 08/08/22 22:09 Temperature 37.0 C Temperature Source Oral Pulse Rate 101 H 101 H Pulse Rate from SpO2 Sensor Respiratory Rate 22 22 Respiratory Effort / Characteristics Non-Labored Spontaneous Respiratory Depth Normal Blood Pressure 118/65 Blood Pressure Mean 82 Blood Pressure Position Lying Pulse Oximetry 96 96 Oxygen Delivery Method Room Air Room Air Room Air Oxygen Flow Rate 97 Sepsis Recent Fever Within 48 Hours No Sepsis New/Unexplained Change in Mental Status N/A Sepsis Action Taken by Nursing No Action Required 08/08/22 22:30 08/08/22 23:00 08/08/22 23:30 Temperature Temperature Source Pulse Rate 96 H 98 H 101 H Pulse Rate from SpO2 Sensor 95 H 99 H 100 H Respiratory Rate 25 H 22 24 Respiratory Effort / Characteristics Respiratory Depth Blood Pressure 112/68 101/68 96/70 L Blood Pressure Mean 82 79 78 Blood Pressure Position Pulse Oximetry 96 97 95 Oxygen Delivery Method Room Air Room Air Room Air Oxygen Flow Rate Sepsis Recent Fever Within 48 Hours Sepsis New/Unexplained Change in Mental Status Sepsis Action Taken by Nursing 08/09/22 00:31 08/09/22 01:00 Temperature Temperature Source Pulse Rate 100 H 98 H Pulse Rate from SpO2 Sensor 100 H 98 H Respiratory Rate 15 21 Respiratory Effort / Characteristics Respiratory Depth Blood Pressure 107/60 122/73 Blood Pressure Mean 75 89 Blood Pressure Position Pulse Oximetry 95 95 Oxygen Delivery Method Room Air Room Air Oxygen Flow Rate Sepsis Recent Fever Within 48 Hours Sepsis New/Unexplained Change in Mental Status Sepsis Action Taken by Nursing VITALS: Vitals are noted on the nurse's note and reviewed by myself. Vital signs stable. GENERAL: Pleasant gentleman, in no acute distress, nondiaphoretic, well-dev eloped well-nourished. SKIN: The skin was without rashes, erythema, edema, or bruising. There is no tenting of the skin. Capillary reflex less than 2 seconds. HEAD: Normocephalic atraumatic. EARS: External auditory canals clear EYES: Pupils equal round and reactive to light and accommodation. Conjunctivae without injection, sclerae without icterus. Extraocular movements intact. NOSE: Patent, turbinates without inflammation or discharge. MOUTH: Mucous membranes moist. Pharynx without erythema or exudate. Uvula midline. Airway patent. Tongue does not deviate. NECK: Supple without nuchal rigidity. No lymphadenopathy. No thyromegaly. Cervical spine is nontender. No JVD. HEART: Regular rate and rhythm LUNGS: Clear to auscultation bilaterally without wheezes, rales or rhonchi. No retractions or accessory muscle use. ABDOMEN: Positive bowel sounds x 4. Normal tympanic percussion. Soft, nontender, without masses or organomegaly. Faith sign negative. No guarding or rebound tenderness. No CVA tenderness MUSCULOSKELETAL: No muscle atrophy, erythema, or edema noted. NEURO: Patient was alert and oriented to person place and time. No new focal neurological deficits. Course Administered Medications Discontinued Medications Al Hydrox/Mg Hydrox/Simethicone (Gi Cocktail Ed Use) 1 dose PO ONE ONE Stop: 08/08/22 22:50 Last Admin: 08/08/22 22:57 Dose: 1 dose Documented By: Acetaminophen (Ofirmev) 1,000 mg in 100 mls @ 400 mls/hr IV NOW STA Stop: 08/08/22 23:44 Last Infusion: 08/08/22 23:54 Dose: 0 mls/hr Documented By: Admin: 08/08/22 23:39 Dose: 400 mls/hr Documented By: Medical Decision Making Medical Records Attestation: I reviewed the patient's medical records. Home Medications Current Medication List: was personally reviewed by me Laboratory Data Attestation: I reviewed the patient's lab results. Result diagrams: 08/08/22 22:14 08/08/22 22:14 Lab Results 08/08/22 08/08/22 08/08/22 Range/Units 22:06 22:14 22:14 WBC 10.61 (4.8-10.8) K/ul RBC 5.30 (4.63-6.08) M/uL Hgb 15.2 (14.0-18.0) g/dl Hct 44.8 (40.1-51.0) % MCV 84.5 (80.0-100.0) fL MCH 28.7 (25.0-34.0) pg MCHC 33.9 (32.0-36.0) g/dL RDW Std Deviation 44.6 (36.4-46.3) fL RDW Coeff of Daria 14.6 H (11.5-14.5) % Plt Count 258 (130-400) K/uL MPV 11.0 (9.4-12.4) fL Immature Gran % (Auto) 0.5 % Neut % (Auto) 68.3 % Lymph % (Auto) 21.7 % [place] % (Auto) 6.6 % Eos % (Auto) 2.1 % Baso % (Auto) 0.8 % Neut # (Auto) 7.26 H (1.4-6.5) K/uL Lymph # (Auto) 2.30 (1.2-3.4) K/uL [place] # (Auto) 0.70 (0.24-0.82) K/uL Eos # (Auto) 0.22 (0-0.50) K/uL Baso # (Auto) 0.08 (0-0.2) K/uL Immature Gran # (Auto) 0.05 H (0.00-0.02) K/uL PT 11.4 (9.0-12.0) Seconds INR 1.1 (0.9-1.1) APTT 31.5 H (21.0-31.0) Seconds PTT Ratio 1.1 Sodium (136-145) mmol/L Potassium (3.5-5.1) mmol/L Chloride (98-107) mmol/L Carbon Dioxide (21-32) mmol/L Anion Gap (3-11) BUN (6-23) mg/dl Creatinine (0.6-1.4) mg/dl Est Cr Clr Drug Dosing ml/min Est GFR ( Amer) ml/min Est GFR (Non-Af Amer) ml/min BUN/Creatinine Ratio (10-20) Glucose (70-99(Fasting)) mg/dl Calcium (8.5-10.1) mg/dl Magnesium (1.7-2.4) mg/dl Total Bilirubin (0.2-1.0) mg/dl AST (13-39) U/L ALT (7-52) U/L Alkaline Phosphatase (34-104) U/L Troponin I High Sens (0-20) pg/ml Total Protein (6.0-8.3) gm/dl Albumin (3.4-5.0) gm/dl Globulin (2.5-4.0) gm/dl Albumin/Globulin Ratio (0.9-2) Lipase (11-82) U/L SARS-CoV-2, RNA, NAAT NEGATIVE (NEGATIVE) 08/08/22 08/09/22 Range/Units 22:14 00:13 WBC (4.8-10.8) K/ul RBC (4.63-6.08) M/uL Hgb (14.0-18.0) g/dl Hct (40.1-51.0) % MCV (80.0-100.0) fL MCH (25.0-34.0) pg MCHC (32.0-36.0) g/dL RDW Std Deviation (36.4-46.3) fL RDW Coeff of Daria (11.5-14.5) % Plt Count (130-400) K/uL MPV (9.4-12.4) fL Immature Gran % (Auto) % Neut % (Auto) % Lymph % (Auto) % [place] % (Auto) % Eos % (Auto) % Baso % (Auto) % Neut # (Auto) (1.4-6.5) K/uL Lymph # (Auto) (1.2-3.4) K/uL [place] # (Auto) (0.24-0.82) K/uL Eos # (Auto) (0-0.50) K/uL Baso # (Auto) (0-0.2) K/uL Immature Gran # (Auto) (0.00-0.02) K/uL PT (9.0-12.0) Seconds INR (0.9-1.1) APTT (21.0-31.0) Seconds PTT Ratio Sodium 134 L (136-145) mmol/L Potassium 3.8 (3.5-5.1) mmol/L Chloride 101 (98-107) mmol/L Carbon Dioxide 24 (21-32) mmol/L Anion Gap 9 (3-11) BUN 14 (6-23) mg/dl Creatinine 1.09 (0.6-1.4) mg/dl Est Cr Clr Drug Dosing 73.0 ml/min Est GFR ( Amer) 79.8 ml/min Est GFR (Non-Af Amer) 68.9 ml/min BUN/Creatinine Ratio 12.8 (10-20) Glucose 123 H (70-99(Fasting)) mg/dl Calcium 9.1 (8.5-10.1) mg/dl Magnesium 1.7 (1.7-2.4) mg/dl Total Bilirubin 0.4 (0.2-1.0) mg/dl AST 16 (13-39) U/L ALT 34 (7-52) U/L Alkaline Phosphatase 58 (34-104) U/L Troponin I High Sens 3.3 3.4 (0-20) pg/ml Total Protein 6.9 (6.0-8.3) gm/dl Albumin 4.2 (3.4-5.0) gm/dl Globulin 2.7 (2.5-4.0) gm/dl Albumin/Globulin Ratio 1.6 (0.9-2) Lipase 36 (11-82) U/L SARS-CoV-2, RNA, NAAT (NEGATIVE) Imaging Data Attestation: I personally reviewed and interpreted this imaging study as follows: MDM Narrative Prior records/ancillary studies reviewed. Triage Nursing notes reviewed. Additional history obtained from EMS. The patient's history was concerning for chest pain. Differential diagnosis: Etiologies such as cardiac ischemia, aortic dissection, pulmonary embolism, pneumonia, pneumothorax, musculoskeletal, infections, pericarditis, myocarditis, esophageal rupture, gastrointestinal, as well as others were entertained. Physical examination: As above. ER treatment provided: An order was placed for continuous cardiac monitoring. The monitor shows a rate of 60-100 with a sinus rhythm. EMS gave aspirin and nitroglycerin On reassessment the patient felt better. Diagnostic interpretation by me: #1 The electrocardiogram was negative for pathologic change. Order for chest pain EKG: Normal sinus, normal intervals, no acute ST-T wave changes. Impression sinus tachycardia of 107 interpreted by myself I think arrhythmia is unlikely. EKG shows normal sinus rhythm with no interval abnormalities such as QT prolongation or WPW. There are no findings to suggest Brugada syndrome. Cardiac monitoring in the emergency department reveals no tachycardic or bradycardic dysrhythmia. Hypertrophic cardiomyopathy was considered but there are no clear historical elements pointing toward this. EKG is not suggestive. The QRS voltage is not extremely large and there are no suggestive Q waves. #2 The electrocardiogram was negative for pathologic change. Order for chest pain EKG: Normal sinus, normal intervals, no acute ST-T wave changes. Impression sinus tachycardia interpreted by myself I think arrhythmia is unlikely. EKG shows normal sinus rhythm with no interval abnormalities such as QT prolongation or WPW. There are no findings to suggest Brugada syndrome. Cardiac monitoring in the emergency department reveals no tachycardic or bradycardic dysrhythmia. Hypertrophic cardiomyopathy was considered but there are no clear historical elements pointing toward this. EKG is not suggestive. The QRS voltage is not extremely large and there are no s uggestive Q waves. The labs revealed negative troponin and repeat was ordered Imaging studies: Chest x-ray with no acute consolidation, pneumothorax or free air per my interpretation HEART SCORE: Hx: high/mod/low suspicion: 1 ECG: ST depression/nonspecific changes/normal: 0 Age: Greater than 65/45-64/less than 45: 2 Risk factors: (Hypertension, hyperlipidemia, diabetes, coronary disease, tobacco use, cocaine use): 1 Troponin: Greater than 2 times normal limits/1-2 times normal limits/normal: 0 Total: 4 Consultation: A consultation was placed with the hospitalist. The case was discussed and diagnostics were reviewed. The patient was evaluated in the ER for further treatment. Exam and history seem consistent with chest pain with concerns for cardiac in etiology. Patient given nitroglycerin by EMS and symptoms improved. EKG showed no STEMI. Initial troponin was negative. Repeat was ordered. Medicine was consulted. Patient will be evaluated for possible admission for cardiac rule out. Patient recently changed from warfarin to Eliquis per family. Patient was not initially aware of this on initial evaluation. By the evaluation outlined above emergent etiologies such as aortic dissection, pulmonary embolism, pneumonia, pneumothorax, infections, pericarditis, myoc arditis, gastrointestinal, as well as others were deemed relatively unlikely. The pt informed about the findings as listed above. All questions were answered and pleased with the treatment. The chart was completed utilizing [employer] voice recognition software. Grammatical errors, random word insertions, pronoun errors, and incomplete sentences are an occassional consequence of this system due to software limitations, ambient noise, and hardware issues. Any formal questions or con cerns about the content, text, or information contained within the body of this dictation should be directly addressed to the physician training and development assistant for clarification. Impression & Plan Chest pain Discharge Plan Visit Data Chief Complaint: Cardiac Assessment ED Provider: Alexis Mcneil ED Midlevel Provider: Amna Pandey Discharge Problem: Chest pain Patient Disposition: Being Evaluated by Hospitalist Condition: Good Forms Stand Alone Forms: My [facility] Prescriptions Prescriptions: No Action finasteride 5 mg tablet 5 mg PO DAILY Qty: 90 3RF oxybutynin chloride 10 mg tablet extended release 24hr 10 mg PO DAILY Qty: 90 3RF methenamine hippurate 1 gram tablet 1 g PO BID 90 Days Qty: 180 3RF metformin 500 mg tablet See Rx Instructions .ROUTE .COMPLEX Rx Instructions: 500 mg orally ;take 500mg QAM and take 1000mg QPM meclizine 12.5 mg tablet 12.5 mg PO TID PRN (Reason: Dizziness) sertraline 25 mg Tablet 25 mg PO QAM Rx Instructions: take w/ 50mg tab for TDD of 75mg. atorvastatin 10 mg tablet 10 mg PO QAM clonazepam 0.5 mg tablet 0.5 mg PO TID PRN (Reason: anxiety/agitation) amitriptyline 25 mg tablet 25 mg PO HS baclofen 10 mg tablet 10 mg PO HS levothyroxine [Synthroid] 125 mcg tablet 125 mcg PO DAILYBB sertraline 50 mg tablet 50 mg PO QAM Rx Instructions: take w/ 25mg tab for TDD of 75mg. cholecalciferol (vitamin D3) [Vitamin D3] 50 mcg (2,000 unit) Tablet 50 mcg PO DAILY omeprazole 40 mg capsule,delayed release(DR/EC) 40 mg PO QAM hydrochlorothiazide 12.5 mg Tablet 12.5 mg PO Q OTHER DAY calcium citrate-vitamin D3 [Citracal + D Maximum] 315 mg-6.25 mcg (250 unit) Tablet 1 tab PO MOWEFR buspirone 5 mg tablet 5 mg PO BID PRN (Reason: Anxiety) liothyronine 5 mcg tablet 5 mcg PO BID Rx Instructions: take second dose no later than 3 pm Ozempic 0.25 mg or 0.5 mg(2 mg/1.5 mL) pen injector 0.5 mg SUBCUT WK Eliquis 5 mg tablet 5 mg PO AMHS metoprolol tartrate 25 mg tablet 12.5 mg PO BID lisinopril 20 mg tablet 10 mg PO QAM Referrals Referrals: Trinidad Cesar DO [Primary Care Provider] - : Chest pain Qualifiers: Chest pain type: unspecified Qualified Code(s): R07.9 - Chest pain, unspecified
[2022-08-08 22:29] LABS: Basophils # (auto) 0.08 K/uL (0-0.2); Basophils % (auto) 0.8 %; Eosinophils # (auto) 0.22 K/uL (0-0.50); Eosinophils % (auto) 2.1 %; Hematocrit (blood only) 44.8 % (40.1-51.0); Hemoglobin 15.2 g/dl (14.0-18.0); Immature Granulocytes # (auto) 0.05 K/uL (0.00-0.02); Immature Granulocytes % (auto) 0.5 %; Lymphocytes % (auto) 21.7 %; Mean Corpuscular Hemoglobin 28.7 pg (25.0-34.0); Mean Corpuscular Hgb Conc 33.9 g/dL (32.0-36.0); Mean Corpuscular Volume 84.5 fL (80.0-100.0); Monocytes % (auto) 6.6 %; Neutrophils # (auto) 7.26 K/uL (1.4-6.5); Neutrophils % (auto) 68.3 %; Platelet Count 258 K/uL (130-400); RDW Coefficient of Variation 14.6 % (11.5-14.5); RDW Standard Deviation 44.6 fL (36.4-46.3); White Blood Count 10.61 K/ul (4.8-10.8)
[2022-08-08 22:42] LABS: INR 1.1 (0.9-1.1); Partial Thromboplastin Ratio 1.1; Partial Thromboplastin Time 31.5 Seconds (21.0-31.0); Prothrombin Time 11.4 Seconds (9.0-12.0)
[2022-08-08] MEDS ORDERED: GI COCKTAIL ED USE PO ONE (22:49)
[2022-08-08 22:53] LABS: Albumin Globulin Ratio 1.6 (0.9-2); Albumin Level 4.2 gm/dl (3.4-5.0); BUN Creatinine Ratio 12.8 (10-20); Bilirubin,Total 0.4 mg/dl (0.2-1.0); Calcium 9.1 mg/dl (8.5-10.1); Est GFR (African American) 79.8 ml/min; Est GFR (Non-African American) 68.9 ml/min; Globulin 2.7 gm/dl (2.5-4.0); Magnesium 1.7 mg/dl (1.7-2.4); Potassium 3.8 mmol/L (3.5-5.1); Total Protein 6.9 gm/dl (6.0-8.3)
[2022-08-08 22:56] LABS: Troponin I High Sensitivity 3.3 pg/ml (0-20)
[2022-08-08] MEDS ORDERED: ACETAMINOPHEN 1,000 MG/100 ML VIAL IV STA (23:30)
[2022-08-09] MEDS ORDERED: NITROGLYCERIN SL 0.4 MG/TAB TAB SL PRN (01:48)
[2022-08-09] MEDS ORDERED: clonazePAM 0.5 MG TAB PO PRN (01:48)
[2022-08-09] MEDS ORDERED: POLYETHYLENE (MIRALAX) 17 GM PACK PO PRN (01:48)
[2022-08-09] MEDS ORDERED: MECLIZINE 12.5 MG TAB PO PRN (01:48)
[2022-08-09] MEDS ORDERED: CARBOHYDRATES FOR HYPOGLYCEMIA PO PRN (02:45)
[2022-08-09] MEDS ORDERED: DEXTROSE 50% 50 ML SYRINGE IV PRN (02:45)
[2022-08-09] MEDS ORDERED: GLUCOSE 40% GEL 15 GM TUBE PO PRN (02:45)
[2022-08-09] MEDS ORDERED: GLUCAGON FOR INJ 1 MG VIAL IM PRN (02:45)
[2022-08-09] MEDS ORDERED: GLUCOSE 10 TAB/TUBE PO PRN (02:45)
--- NOTE | 2022-08-09 03:52 | History and Physical Report ---
DATE OF ADMISSION: 08/09/2022. CHIEF COMPLAINT: Chest pain. HISTORY OF PRESENT ILLNESS: This is a 71-year-old male with past medical history significant for type 2 diabetes, hyperlipidemia, postsurgical hypothyroidism, moderate obstructive sleep apnea, hypertension, BPH, history of UTI, neurogenic bladder, history of multiple sclerosis, depression, history of sepsis, history of DVT, generalized weakness, history of thyroid cancer, ambulatory dysfunction, history of parathyroidectomy. The patient lives at home with his and daughter. The patient has multiple sclerosis since last 10 years. He is nonambulatory status, on powered wheel chair and has Bethany lift at home to get into bed. He straight caths at home. He comes because of chest pain since afternoon. He complains of chest pain radiating to his bilateral neck and the right arm. He thought initially GI issue and took some Tums, but the pain was not getting better, it was getting worse, 8/10 in severity, so he came to the hospital and was given aspirin, nitro, the pain is getting better now, 4/10. He was also placed on Richardson catheter in the ER. Denies any headache. He has chronic blurred visions, no earache, no runny nose, no sore throat, has chronic cough. Denies any fevers. Appetite is okay. No difficulty swallowing. No shortness of breath, no nausea, no abdominal pain, on and off diarrhea and constipation. ALLERGIES: No known drug allergies. PAST MEDICAL HISTORY: As mentioned above. PAST SURGICAL HISTORY: Cystoscopy with insertion of stent, cystoscopy with stone fragmentation, cystouretero w/ lithotripsy, left knee arthroscopy, needle punch biopsy of the prostate, cervical lymphadenectomy, complete parathyroidectomy, thoracic lymphadenectomy on right side. MEDICATIONS: The patient is on amitriptyline 25 mg p.o. at bedtime, Eliquis 5 mg p.o. b.i.d., atorvastatin 10 mg p.o. a.m., baclofen 10 mg p.o. at bedtime, buspirone 5 mg p.o. b.i.d. p.r.n., Citracal D one tablet Saturday, Saturday, Saturday; vitamin D 50 mg p.o. daily, clonazepam 0.5 mg p.o. t.i.d. p.r.n. anxiety, finasteride 5 mg p.o. daily, hydrochlorothiazide 12.5 mg p.o. every other day, levothyroxine 125 mcg p.o. daily, liothyronine 5 mcg p.o. b.i.d., lisinopril 10 mg p.o. daily, meclizine 12.5 mg p.o. t.i.d. p.r.n., metformin 500 mg 1 tablet in the morning and 2 tablets in the evening, methenamine hippurate 1 gram p.o. b.i.d., metoprolol tartrate 12.5 mg p.o. b.i.d., omeprazole 40 mg p.o. a.m., oxybutynin chloride 10 mg p.o. daily, semaglutide 0.5 mg subcutaneous weekly, sertraline 75 mg p.o. daily. FAMILY HISTORY: Significant for father had leukemia, CABG, hypertension; mother has hypertension, breast cancer; paternal grandfather had lung cancer, smoker; uncle has leukemia. SOCIAL HISTORY: , lives with and daughter. No smoking, no alcohol, no drug use. REVIEW OF SYSTEMS: As per HPI. Rest of the review of systems is negative. PHYSICAL EXAMINATION: GENERAL: The patient is of moderate build, not in acute distress. VITAL SIGNS: Temperature 37, pulse 101, respiratory rate 24, blood pressure 96/70, oxygen 95% on room air. HEENT: Pupils equal, round and reactive to light. Oral mucosa moist. NECK: No JVD, no neck masses. CARDIOVASCULAR: S1 and S2 heard. Regular rate and rhythm. No murmur, no gallop. RESPIRATORY SYSTEM: Normal AP diameter. No accessory muscle use. No wheezing, no crackles. ABDOMEN: Soft, bowel sounds present, nontender, no distention. CENTRAL NERVOUS SYSTEM: Alert and oriented. Speech is clear. No facial droop. Obeys simple commands. EXTREMITIES: No edema, no erythema. LABORATORY DATA: WBC 10.6, hemoglobin 15.2, hematocrit 44.8, platelets 258. PT 11.4, INR 1.1, APTT 31.5. Sodium 134, potassium 3.8, chloride 101, bicarbonate 24, BUN 14, creatinine 1.09, serum glucose 123, calcium 9.1, magnesium 1.7, total bilirubin 0.4, AST 16, ALT 34, alkaline phosphatase 58. Troponin I high sensitivity 3.3, lipase 36. SARS-CoV-2 rapid test negative. IMAGING DATA: Chest x-ray, no acute findings. EKG: Sinus tachycardia at a rate of 101, no significant change was found. ASSESSMENT AND PLAN: This is a 71-year-old male who presents with chest pain. 1. Chest pain: Rule out acute coronary syndrome. Initial workup is negative. Follow serial enzymes, echocardiogram. Monitor in App[employer], n.p.o. Consult cardiology in the a.m. 2. Diabetes: Hold his home medications, placed him on insulin sliding scale. Follow the blood sugars, follow HbA1c levels. 3. Hyperlipidemia, on statin. 4. Moderate obstructive sleep apnea: On BiPAP at bedtime. 5. Hypertension: Continue home medications of hydrochlorothiazide, lisinopril, metoprolol tartrate. Will monitor his blood pressure. 6. History of deep venous thrombosis, on Eliquis. 7. History of benign prostatic hypertrophy: Does straight catheterization at home, currently placed on Richardson catheter. Continue his finasteride. 8. Depression: Continue Zoloft. 9. History of multiple sclerosis: Wheelchair bound for last 10 years. Does straight catheterization at home, currently on Richardson. 10. History of thyroid cancer: Status post surgery. Postsurgical hypothyroidism, on levothyroxine. 11. Deep venous thrombosis prophylaxis: On Eliquis. DISPOSITION: Observe in AppSame. Expect to discharge home and follow up with family doctor. CODE STATUS: The patient is okay with CPR and shock, but does not want to be on ventilator. Job ID: [id number] [facility]
[2022-08-09] MEDS: ACETAMINOPHEN 325 MG TAB PO PRN ×2 (05:29→10:52)
[2022-08-09] MEDS: LEVOTHYROXINE SODIUM 125 MCG TABLET PO SCH (05:30)
[2022-08-09] MEDS: LIOTHYRONINE SODIUM 5 MCG TAB PO SCH ×2 (05:30→15:04)
[2022-08-09 06:08] LABS: Basophils # (auto) 0.07 K/uL (0-0.2); Basophils % (auto) 0.7 %; Hematocrit (blood only) 43.9 % (40.1-51.0); Hemoglobin 14.8 g/dl (14.0-18.0); Immature Granulocytes # (auto) 0.03 K/uL (0.00-0.02); Immature Granulocytes % (auto) 0.3 %; Lymphocytes # (auto) 1.46 K/uL (1.2-3.4); Lymphocytes % (auto) 14.5 %; Mean Corpuscular Hemoglobin 28.2 pg (25.0-34.0); Mean Corpuscular Hgb Conc 33.7 g/dL (32.0-36.0); Mean Corpuscular Volume 83.6 fL (80.0-100.0); Mean Platelet Volume 11.1 fL (9.4-12.4); Monocytes # (auto) 0.81 K/uL (0.24-0.82); Neutrophils # (auto) 7.52 K/uL (1.4-6.5); Neutrophils % (auto) 74.5 %; Platelet Count 248 K/uL (130-400); RDW Coefficient of Variation 14.5 % (11.5-14.5); RDW Standard Deviation 43.8 fL (36.4-46.3); Red Blood Count 5.25 M/uL (4.63-6.08); White Blood Count 10.09 K/ul (4.8-10.8)
[2022-08-09 06:37] LABS: Troponin I High Sensitivity 4.5 pg/ml (0-20)
[2022-08-09 06:41] LABS: BUN Creatinine Ratio 14.9 (10-20); Calcium 9.7 mg/dl (8.5-10.1); Creatinine Clr Calc Pharmacy 67.4 ml/min; Est GFR (African American) 75.6 ml/min; Est GFR (Non-African American) 65.3 ml/min; Magnesium 1.9 mg/dl (1.7-2.4); Potassium 4.2 mmol/L (3.5-5.1)
--- NOTE | 2022-08-09 07:40 | XRay Report ---
SINGLE VIEW CHEST CLINICAL HISTORY: Atypical chest pain. FINDINGS: An AP, portable, upright chest radiograph is compared to study dated 01/04/2022 and correlate d with chest CT dated 07/31/2017. The cardiomediastinal silhouette is unremarkable. There is moderate chronic elevation of the right hemidiaphragm and bibasilar atelectasis. No airspace consolidation or large pleural effusion is identified. No pneumothorax is seen. The skeletal structures are osteopenic . The bony thorax is grossly intact. There is degenerative change and chronic deformity at the right AC joint. Surgical clips are noted in the right lower neck. IMPRESSION: Bibasilar atelectasis with no active disease in the chest. ACT 112: Negative or not required by law. Electronically signed by: Matt Martins M.D. 08/09/2022 7:39 AM
[2022-08-09 07:42] LABS: Estimated Average Glucose 140 mg/dl; Hemoglobin A1C 6.5 % (4.5-5.6)
[2022-08-09] MEDS ORDERED: ALUMINUM/MAGNESIUM SUSP 18 ML, LIDOCAINE VISCOUS 2% SOLN 6 ML, BARCODE IDENTIFIER 1 EACH PO ONE (07:46)
[2022-08-09] MEDS: lisinopril 10 MG TAB PO SCH (08:08)
[2022-08-09] MEDS: CHOLECALCIFEROL 1,000 UNITS 25 MCG TAB PO SCH (08:09)
[2022-08-09] MEDS: FINASTERIDE 5 MG TAB PO SCH (08:09)
[2022-08-09] MEDS: APIXABAN 5 MG TABLET PO SCH ×2 (08:10→20:37)
[2022-08-09] MEDS: ATORVASTATIN 10 MG TAB PO SCH (08:10)
[2022-08-09] MEDS: busPIRone 5 MG TAB PO PRN (08:10)
[2022-08-09] MEDS: SERTRALINE HCL 50 MG TABLET PO SCH (08:11)
[2022-08-09] MEDS: METHENAMINE HIPPURATE 1 GM TAB PO SCH ×2 (08:11→20:36)
[2022-08-09] MEDS: PANTOprazole 40 MG TAB PO SCH (08:12)
[2022-08-09] MEDS: OXYBUTYNIN CHLORIDE XL 5 MG TABCR PO SCH (08:12)
[2022-08-09] MEDS: INSULIN ASPART PER UNIT SC SCH ×4 (08:14→20:34)
[2022-08-09] MEDS ORDERED: SERTRALINE HCL 50 MG TABLET PO SCH (09:00)
--- NOTE | 2022-08-09 09:25 | Cardiology Consultation ---
Date of Consultation August 09, 2022 Assessment & Plan (1) Chest pain: (2) Multiple sclerosis: Plan I think this is noncardiac chest pain. The patient has had almost 24 hours of continuous chest pain and his high-sensitivity troponins are negative and his EKGs are all normal. I will review the patient's echocardiogram when it is completed. At this time I would recommend no additional cardiac testing or treatment. It might be helpful to have GI see the patient. History of Present Illness Attending Physician: Ezekiel Ortega MD History of Present Illness This is a 71-year-old male patient with a complex past medical history due to a long history of multiple sclerosis. According to our records, he has been followed by palliative care as an outpatient. He is mostly confined to a bed or a motorized wheelchair. He relates no prior history of heart disease. Denies myocardial infarction, angina, congestive heart failure or cardiac arrhythmias. After lunch yesterday he began to have severe retrograde and epigastric chest discomfort that he felt was indigestion. After several hours of discomfort he decided to present to the emergency department. He was given sublingual nitroglycerin x3 in the ambulance and then an additional dose after arrival to the emergency department with some improvement of his chest pain but not complete relief. He denies shortness of breath during the event. He continues to have a 5 out of 10 chest discomfort this morning during my interview. His EKGs x4 are normal. His high-sensitivity troponins are negative despite having chest pain for almost 24 hours. Currently he denies nausea and has had no vomiting this morning. He denies melena or hematochezia. Allergies Allergy/AdvReac Type Severity Reaction Status Date / Time No Known Allergies Allergy Verified 08/09/22 00:31 Home Medications Medication Instructions Recorded Confirmed Type amitriptyline 25 mg tablet 25 mg PO HS 02/12/20 08/09/22 History atorvastatin 10 mg tablet 10 mg PO QAM 02/12/20 08/09/22 History baclofen 10 mg tablet 10 mg PO HS 02/12/20 08/09/22 History cholecalciferol (vitamin D3) 50 50 mcg PO DAILY 02/12/20 08/09/22 History mcg (2,000 unit) tablet (Vitamin D3) clonazepam 0.5 mg tablet 0.5 mg PO TID PRN anxiety/agitation 02/12/20 08/09/22 History levothyroxine 125 mcg tablet 125 mcg PO DAILYBB 02/12/20 08/09/22 History (Synthroid) meclizine 12.5 mg tablet 12.5 mg PO TID PRN Dizziness 02/12/20 08/09/22 History metformin 500 mg tablet See Rx Instructions .Route .COMPLEX 02/12/20 08/09/22 History sertraline 25 mg tablet 25 mg PO QAM 02/12/20 08/09/22 History sertraline 50 mg tablet 50 mg PO QAM 02/12/20 08/09/22 History finasteride 5 mg tablet 5 mg PO DAILY #90 tabs 12/07/21 08/09/22 Rx methenamine hippurate 1 gram tablet 1 g PO BID 90 days #180 tabs 12/07/21 08/09/22 Rx oxybutynin chloride 10 mg 10 mg PO DAILY #90 tabs 12/07/21 08/09/22 Rx tablet,extended release 24 hr calcium citrate 315 mg 1 tab PO MOWEFR 01/02/22 08/09/22 History calcium-vitamin D3 6.25 mcg (250 unit) tablet (Citracal + Vitamin D Maximum) hydrochlorothiazide 12.5 mg tablet 12.5 mg PO Q OTHER DAY 01/02/22 08/09/22 History omeprazole 40 mg capsule,delayed 40 mg PO QAM 01/02/22 08/09/22 History release buspirone 5 mg tablet 5 mg PO BID PRN Anxiety 08/08/22 08/08/22 History liothyronine 5 mcg tablet 5 mcg PO BID 08/08/22 08/08/22 History semaglutide 0.25 mg or 0.5 mg (2 0.5 mg subcut WK 08/08/22 08/08/22 History mg/1.5 mL) subcutaneous pen injector (Ozempic) apixaban 5 mg tablet (Eliquis) 5 mg PO AMHS 08/09/22 08/09/22 History lisinopril 20 mg tablet 10 mg PO QAM 08/09/22 08/09/22 History metoprolol tartrate 25 mg tablet 12.5 mg PO BID 08/09/22 08/09/22 History Patient History Medical History Acute UTI Cough Deep vein blood clot of left lower extremity Dizziness HLD (hyperlipidemia) HTN (hypertension) Hyperparathyroidism Hypotension Hypothyroidism Moderate obstructive sleep apnea MS (multiple sclerosis) Neurogenic bladder JAMES on CPAP Pain, chronic Pulmonary nodule Sepsis Tachycardia Vitamin D deficiency Weakness Family History Mother Cancer Grandfather (Paternal) Hypertension Social History Smoking Status: Never smoker Second Hand Exposure: No; Hx Alcohol Use: No Hx Substance Use: No Preferred Language: Swedish Communication Ability: Effective Visual Impairment: No Limitations Clinical Staff Anesthesiologist Required: No Beliefs That Will Affect Care: None marital status: Current Living Situation: Spouse current occupational status: other Feels Safe at Home: Yes Assistive Devices: Brace/Splint/Immobilizer, Hospital Bed, Lift Chair, Mechanical Lift, Scooter/Electric Scooter and Wheelchair Review of Systems Review of Systems: Review of Systems: See HPI for pertinent positives. All other 10 point review of systems are negative. Physical Exam Physical Exam: General: no acute distress and stated age Head: normocephalic, no masses, lesions, tenderness or abnormalities Eyes: conjunctiva are pink and non-injected, sclera clear Neck: supple, no adenopathy, no bruits, normal jugular venous pulse, no hepatojugular reflux Chest: normal shape and normal respiratory effort Lungs: clear to auscultation and percussion Cardiac Exam: - regular rate & rhythm, no murmurs gallops or rubs - normal S1, normal S2 Pulses: 2(+) throughout Abdomen: abdomen soft, non-tender, no abnormal masses and no hepatosplenomegaly Musculoskeletal: no gait disturbance, no joint inflammation, no deforming arthritis Extremities: no edema and no cyanosis Neuro: grossly normal exam Results & Data ([facility]) Vital Signs (Past 12 Hours) Vital Signs Temp Pulse Pulse Resp BP BP Pulse Ox 08/09/22 07:28 08/09/22 07:03 106 H 08/09/22 04:20 36.7 C 111 H 18 108/61 97 08/09/22 01:43 98 H 08/09/22 02:23 105 H 21 97 08/09/22 01:55 08/09/22 01:55 36.6 C 96 H 18 115/75 95 08/09/22 01:48 36.6 C 96 H 18 115/75 95 08/09/22 01:48 08/09/22 01:52 08/09/22 01:00 98 H 21 122/73 95 08/09/22 00:31 100 H 15 107/60 95 08/08/22 23:30 101 H 24 96/70 L 95 08/08/22 23:00 98 H 22 101/68 97 08/08/22 22:30 96 H 25 H 112/68 96 08/08/22 22:09 101 H 22 96 08/08/22 22:09 08/08/22 22:09 37.0 C 101 H 22 118/65 96 Pulse Ox O2 Del Method O2 Del Method O2 Flow Rate FiO2 08/09/22 07:28 Room Air 08/09/22 07:03 08/09/22 04:20 CPAP 08/09/22 01:43 08/09/22 02:23 21 08/09/22 01:55 Room Air 08/09/22 01:55 Room Air 08/09/22 01:48 Room Air 08/09/22 01:48 95 Room Air 08/09/22 01:52 Room Air 08/09/22 01:00 Room Air 08/09/22 00:31 Room Air 08/08/22 23:30 Room Air 08/08/22 23:00 Room Air 08/08/22 22:30 Room Air 08/08/22 22:09 Room Air 08/08/22 22:09 Room Air 97 08/08/22 22:09 Room Air Laboratory Results Laboratory Results - last 24 hr 08/08/22 08/08/22 08/08/22 22:06 22:14 22:14 WBC 10.61 RBC 5.30 Hgb 15.2 Hct 44.8 MCV 84.5 MCH 28.7 MCHC 33.9 RDW Std Deviation 44.6 RDW Coeff of Daria 14.6 H Plt Count 258 MPV 11.0 Immature Gran % (Auto) 0.5 Neut % (Auto) 68.3 Lymph % (Auto) 21.7 [place] % (Auto) 6.6 Eos % (Auto) 2.1 Baso % (Auto) 0.8 Neut # (Auto) 7.26 H Lymph # (Auto) 2.30 [place] # (Auto) 0.70 Eos # (Auto) 0.22 Baso # (Auto) 0.08 Immature Gran # (Auto) 0.05 H PT 11.4 INR 1.1 APTT 31.5 H PTT Ratio 1.1 Sodium Potassium Chloride Carbon Dioxide Anion Gap BUN Creatinine Est Cr Clr Drug Dosing Est GFR ( Amer) Est GFR (Non-Af Amer) BUN/Creatinine Ratio Glucose POC Glucose Estimat Average Glucose Hemoglobin A1c Calcium Magnesium Total Bilirubin AST ALT Alkaline Phosphatase Troponin I High Sens Total Protein Albumin Globulin Albumin/Globulin Ratio Lipase SARS-CoV-2, RNA, NAAT NEGATIVE 08/08/22 08/09/22 08/09/22 22:14 00:13 05:42 WBC 10.09 RBC 5.25 Hgb 14.8 Hct 43.9 MCV 83.6 MCH 28.2 MCHC 33.7 RDW Std Deviation 43.8 RDW Coeff of Daria 14.5 Plt Count 248 MPV 11.1 Immature Gran % (Auto) 0.3 Neut % (Auto) 74.5 Lymph % (Auto) 14.5 [place] % (Auto) 8.0 Eos % (Auto) 2.0 Baso % (Auto) 0.7 Neut # (Auto) 7.52 H Lymph # (Auto) 1.46 [place] # (Auto) 0.81 Eos # (Auto) 0.20 Baso # (Auto) 0.07 Immature Gran # (Auto) 0.03 H PT INR APTT PTT Ratio Sodium 134 L Potassium 3.8 Chloride 101 Carbon Dioxide 24 Anion Gap 9 BUN 14 Creatinine 1.09 Est Cr Clr Drug Dosing 73.0 Est GFR ( Amer) 79.8 Est GFR (Non-Af Amer) 68.9 BUN/Creatinine Ratio 12.8 Glucose 123 H POC Glucose Estimat Average Glucose Hemoglobin A1c Calcium 9.1 Magnesium 1.7 Total Bilirubin 0.4 AST 16 ALT 34 Alkaline Phosphatase 58 Troponin I High Sens 3.3 3.4 Total Protein 6.9 Albumin 4.2 Globulin 2.7 Albumin/Globulin Ratio 1.6 Lipase 36 SARS-CoV-2, RNA, NAAT 08/09/22 08/09/22 08/09/22 05:42 05:42 07:40 WBC RBC Hgb Hct MCV MCH MCHC RDW Std Deviation RDW Coeff of Daria Plt Count MPV Immature Gran % (Auto) Neut % (Auto) Lymph % (Auto) [place] % (Auto) Eos % (Auto) Baso % (Auto) Neut # (Auto) Lymph # (Auto) [place] # (Auto) Eos # (Auto) Baso # (Auto) Immature Gran # (Auto) PT INR APTT PTT Ratio Sodium 133 L Potassium 4.2 Chloride 97 L Carbon Dioxide 27 Anion Gap 9 BUN 17 Creatinine 1.14 Est Cr Clr Drug Dosing 67.4 Est GFR ( Amer) 75.6 Est GFR (Non-Af Amer) 65.3 BUN/Creatinine Ratio 14.9 Glucose 137 H POC Glucose 155 H Estimat Average Glucose 140 Hemoglobin A1c 6.5 H Calcium 9.7 Magnesium 1.9 Total Bilirubin AST ALT Alkaline Phosphatase Troponin I High Sens 4.5 Total Protein Albumin Globulin Albumin/Globulin Ratio Lipase SARS-CoV-2, RNA, NAAT Medications Administered Current Inpatient Medications Acetaminophen (Acetaminophen 325 Mg Tab) 650 mg PO Q4H PRN PRN Reason: Pain or Fever Stop: 09/08/22 01:47 Last Admin: 08/09/22 05:29 Dose: 650 mg Amitriptyline HCl (Amitriptyline Hcl 25 Mg Tab) 25 mg PO HS [facility] Stop: 09/08/22 20:59 Apixaban (Apixaban 5 Mg Tablet) 5 mg PO AMHS [facility] Stop: 09/08/22 08:59 Last Admin: 08/09/22 08:10 Dose: 5 mg Atorvastatin Calcium (Atorvastatin 10 Mg Tab) 10 mg PO QAM [facility] Stop: 09/08/22 08:59 Last Admin: 08/09/22 08:10 Dose: 10 mg Baclofen (Baclofen 10 Mg Tab) 10 mg PO HS [facility] Stop: 09/08/22 20:59 Buspirone HCl (Buspirone 5 Mg Tab) 5 mg PO BID PRN PRN Reason: Anxiety Stop: 09/08/22 01:47 Last Admin: 08/09/22 08:10 Dose: 5 mg Calcium/Vitamin D (Calcium 600mg + Vit D 400 Iu Tab) 1 tab PO MoWeFr@0900 [facility] Stop: 09/09/22 08:59 Clonazepam (Clonazepam 0.5 Mg Tab) 0.5 mg PO TID PRN PRN Reason: anxiety/agitation Stop: 09/08/22 01:47 Dextrose (Dextrose 50% 50 Ml Syringe) 25 - 50 ml IV UD PRN; Protocol PRN Reason: Hypoglycemia Protocol Stop: 09/08/22 02:44 Finasteride (Finasteride 5 Mg Tab) 5 mg PO DAILY [facility] Stop: 09/08/22 08:59 Last Admin: 08/09/22 08:09 Dose: 5 mg Glucagon (Glucagon For Inj 1 Mg Vial) 1 mg IM UD PRN; Protocol PRN Reason: Hypoglycemia Protocol Stop: 09/08/22 02:44 Glucose (Glucose 40% Gel 15 Gm Tube) 15 - 30 gm PO UD PRN; Protocol PRN Reason: Hypoglycemia Protocol Stop: 09/08/22 02:44 Glucose (Glucose 10 Tab/Tube) 4 - 8 tab PO UD PRN; Protocol PRN Reason: Hypoglycemia Protocol Stop: 09/08/22 02:44 Hydrochlorothiazide (Hydrochlorothiazide 25 Mg Tab) 12.5 mg PO Q2D@0900 [facility] Stop: 09/09/22 08:59 Insulin Aspart (Insulin Aspart Per Unit) 0 units SC ACHS [facility] Stop: 09/08/22 07:29 Last Admin: 08/09/22 08:14 Dose: 1 units Levothyroxine Sodium (Levothyroxine Sodium 125 Mcg Tablet) 125 mcg PO DAILYBB [facility] Stop: 09/08/22 06:29 Last Admin: 08/09/22 05:30 Dose: 125 mcg Liothyronine Sodium (Liothyronine Sodium 5 Mcg Tab) 5 mcg PO BID@0630,1500 [facility] Stop: 09/08/22 06:29 Last Admin: 08/09/22 05:30 Dose: 5 mcg Lisinopril (Lisinopril 10 Mg Tab) 10 mg PO QAM [facility] Stop: 09/08/22 08:59 Last Admin: 08/09/22 08:08 Dose: 10 mg Meclizine HCl (Meclizine 12.5 Mg Tab) 12.5 mg PO TID PRN PRN Reason: Dizziness Stop: 09/08/22 01:47 Methenamine Hippurate (Methenamine Hippurate 1 Gm Tab) 1 gm PO BID [facility] Stop: 09/08/22 08:59 Last Admin: 08/09/22 08:11 Dose: 1 gm Miscellaneous (Carbohydrates For Hypoglycemia ) 15 - 30 gm PO UD PRN PRN Reason: Hypoglycemia Treatment Stop: 09/08/22 02:44 Nitroglycerin (Nitroglycerin Sl 0.4 Mg/Tab Tab) 0.4 mg SL UD PRN PRN Reason: Chest Pain Stop: 09/08/22 01:47 Last Admin: 08/09/22 07:25 Dose: 0.4 mg Oxybutynin Chloride (Oxybutynin Chloride Xl 5 Mg Tabcr) 10 mg PO DAILY [facility] Stop: 09/08/22 08:59 Last Admin: 08/09/22 08:12 Dose: 10 mg Pantoprazole Sodium (Pantoprazole 40 Mg Tab) 40 mg PO QAM [facility] Stop: 09/08/22 08:59 Last Admin: 08/09/22 08:12 Dose: 40 mg Polyethylene Glycol (Polyethylene (Miralax) 17 Gm Pack) 17 gm PO DAILY PRN PRN Reason: Constipation Stop: 09/08/22 01:47 Sertraline HCl (Sertraline Hcl 50 Mg Tablet) 75 mg PO QAM [facility] Stop: 09/08/22 08:59 Last Admin: 08/09/22 08:11 Dose: 75 mg Vitamin D (Cholecalciferol 1,000 Units 25 Mcg Tab) 2,000 units PO DAILY [facility] Stop: 09/08/22 08:59 Last Admin: 08/09/22 08:09 Dose: 2,000 units (1) Chest pain Chest pain type: unspecified Qualified Code(s): R07.9 - Chest pain, unspecified
--- NOTE | 2022-08-09 10:34 | Communication Note ---
Date of Service: August 09, 2022 Patient seen and examined at bedside. He complains of retrosternal chest pain; no complaint of shortness of breath, dizziness, headache, visual disturbances, abdominal pain or urinary symptoms. EKG shows sinus tachycardia; no ST or T wave changes. High-sensitivity troponin negative so far. Cardiology evaluated the patient; recommend that the retrosternal pain is not likely cardiac. GI consulted for further evaluation. Patient given dose of GI cocktail and Protonix. Echo pending.
[2022-08-09] MEDS ORDERED: ACETAMINOPHEN 325 MG TAB PO SCH ×2 (11:30→17:00)
--- NOTE | 2022-08-09 11:32 | Gastrointestinal Consultation ---
Date of Consultation August 09, 2022 Assessment & Plan (1) Chest pain: Pt is a 71 yo male seen today for chest pain symptoms. Had EKG, cardiac enzymes and CXR which were unremarkable. Echocardiogram pending. On my evaluation, he is tender to palpation on mid sternum area. Suspect pain may be related of MSK origin rather than GI etiology given exam findings, along with absence of other concerning GI symptoms (no n/v, heartburn/reflux, dysphagia, odynophagia, appetite/weight or bowel habit changes). Discussed this with primary hospitalist. Will defer any further GI testing at this time. Supervising Physician Co-Signing Physician Notes Attg Add: I interviewed and examined pt, reviewed chart alnd labs. Pt with abrupt onset episodic severe chest pain x 1 day. Cards w/u neg to date. LFT's WNL. On my exam, he is uncomfortable. Chest mildly tender on palpation. Chest pain - Agree with PPI trial; can add carafate 1 gm twice daily. Consider chest imaging, NSAID trial if symptoms persistent. Please reconsult if pain is unresolved with PPI, and can consider EGD. History of Present Illness Reason for Consultation: Non cardiac chest pain Requesting Physician: Dr. Ezekiel Ortega Attending Physician: Dr. Krystina Alva History of Present Illness Pt is a 71 yo male w PMHx of DM II, HLD, hypothyroidism, thyroid ca s/p parathyroidectomy, JAMES, HTN, BPH, UTI, neurogenic bladder, MS, depression, DVT on Eliquis who presented w c/o mid chest pain symptoms. Chest pain described as stabbing and sharp. Symptoms started yesterday afternoon when he was sitting down watching Youtube. He reports the pain radiated to R arm and up both sides of neck. Denies associated SOB, sweating, light headedness or dizziness. His cardiac enzymes, EKG and CXR are unremarkable. Echocardiogram pending. He denies any dysphagia, odynophagia, appetite/weight loss, n/v, reflux or heartburn, bowel habit changes. He however thought he may have indigestion and took TUMs at home but it didn't help. He received ASA, nitro when he arrived to the hospital and felt pain is improved now. Allergies Allergy/AdvReac Type Severity Reaction Status Date / Time No Known Allergies Allergy Verified 08/09/22 00:31 Home Medications Medication Instructions Recorded Confirmed Type amitriptyline 25 mg tablet 25 mg PO HS 02/12/20 08/09/22 History atorvastatin 10 mg tablet 10 mg PO QAM 02/12/20 08/09/22 History baclofen 10 mg tablet 10 mg PO HS 02/12/20 08/09/22 History cholecalciferol (vitamin D3) 50 50 mcg PO DAILY 02/12/20 08/09/22 History mcg (2,000 unit) tablet (Vitamin D3) clonazepam 0.5 mg tablet 0.5 mg PO TID PRN anxiety/agitation 02/12/20 08/09/22 History levothyroxine 125 mcg tablet 125 mcg PO DAILYBB 02/12/20 08/09/22 History (Synthroid) meclizine 12.5 mg tablet 12.5 mg PO TID PRN Dizziness 02/12/20 08/09/22 History metformin 500 mg tablet See Rx Instructions .Route .COMPLEX 02/12/20 08/09/22 History sertraline 25 mg tablet 25 mg PO QAM 02/12/20 08/09/22 History sertraline 50 mg tablet 50 mg PO QAM 02/12/20 08/09/22 History finasteride 5 mg tablet 5 mg PO DAILY #90 tabs 12/07/21 08/09/22 Rx methenamine hippurate 1 gram tablet 1 g PO BID 90 days #180 tabs 12/07/21 08/09/22 Rx oxybutynin chloride 10 mg 10 mg PO DAILY #90 tabs 12/07/21 08/09/22 Rx tablet,extended release 24 hr calcium citrate 315 mg 1 tab PO MOWEFR 01/02/22 08/09/22 History calcium-vitamin D3 6.25 mcg (250 unit) tablet (Citracal + Vitamin D Maximum) hydrochlorothiazide 12.5 mg tablet 12.5 mg PO Q OTHER DAY 01/02/22 08/09/22 History omeprazole 40 mg capsule,delayed 40 mg PO QAM 01/02/22 08/09/22 History release buspirone 5 mg tablet 5 mg PO BID PRN Anxiety 08/08/22 08/08/22 History liothyronine 5 mcg tablet 5 mcg PO BID 08/08/22 08/08/22 History semaglutide 0.25 mg or 0.5 mg (2 0.5 mg subcut WK 08/08/22 08/08/22 History mg/1.5 mL) subcutaneous pen injector (Ozempic) apixaban 5 mg tablet (Eliquis) 5 mg PO AMHS 08/09/22 08/09/22 History lisinopril 20 mg tablet 10 mg PO QAM 08/09/22 08/09/22 History metoprolol tartrate 25 mg tablet 12.5 mg PO BID 08/09/22 08/09/22 History Patient History Medical History Acute UTI Cough Deep vein blood clot of left lower extremity Dizziness HLD (hyperlipidemia) HTN (hypertension) Hyperparathyroidism Hypotension Hypothyroidism Moderate obstructive sleep apnea MS (multiple sclerosis) Neurogenic bladder JAMES on CPAP Pain, chronic Pulmonary nodule Sepsis Tachycardia Vitamin D deficiency Weakness Family History Mother Cancer Grandfather (Paternal) Hypertension Social History Smoking Status: Never smoker Second Hand Exposure: No; Hx Alcohol Use: No Hx Substance Use: No Preferred Language: Romanian Communication Ability: Effective Visual Impairment: No Limitations Veneer Cutter Required: No Beliefs That Will Affect Care: None marital status: Current Living Situation: Spouse current occupational status: other Feels Safe at Home: Yes Assistive Devices: Brace/Splint/Immobilizer, Hospital Bed, Lift Chair, Mechanical Lift, Scooter/Electric Scooter and Wheelchair Review of Systems Review of Systems: All systems reviewed & are unremarkable except as noted in HPI & below Physical Exam Constitutional: WD/WN, vitals as above well groomed, cooperative and co mfortable Eyes: PERRL, conjunctivae normal, anicteric sclerae ENMT: external ear and nose normal, oropharynx normal Respiratory: normal respiratory effort, lungs clear to auscultation Cardiovascular: RRR, no murmur, no edema Gastrointestinal (Abdomen): normal bowel sounds, soft, nontender, no hepatosplenomegaly Musculoskeletal: Sternal area TTP Skin: no rashes, warm and dry no jaundice Psychiatric: A+Ox3, euthymic affect Lymphatic: no lymphedema Results & Data ([facility]) Vital Signs (Past 12 Hours) Vital Signs Temp Pulse Pulse Resp BP BP Pulse Ox 08/09/22 11:08 36.5 C 108 H 20 114/78 95 08/09/22 10:45 08/09/22 07:28 08/09/22 07:03 106 H 08/09/22 04:20 36.7 C 111 H 18 108/61 97 08/09/22 01:43 98 H 08/09/22 02:23 105 H 21 97 08/09/22 01:55 08/09/22 01:55 36.6 C 96 H 18 115/75 95 08/09/22 01:48 36.6 C 96 H 18 115/75 95 08/09/22 01:48 08/09/22 01:52 08/09/22 01:00 98 H 21 122/73 95 08/09/22 00:31 100 H 15 107/60 95 08/08/22 23:30 101 H 24 96/70 L 95 Pulse Ox O2 Del Method O2 Del Method FiO2 08/09/22 11:08 08/09/22 10:45 Room Air 08/09/22 07:28 Room Air 08/09/22 07:03 08/09/22 04:20 CPAP 08/09/22 01:43 08/09/22 02:23 21 08/09/22 01:55 Room Air 08/09/22 01:55 Room Air 08/09/22 01:48 Room Air 08/09/22 01:48 95 Room Air 08/09/22 01:52 Room Air 08/09/22 01:00 Room Air 08/09/22 00:31 Room Air 08/08/22 23:30 Room Air (1) Chest pain Chest pain type: unspecified Qualified Code(s): R07.9 - Chest pain, unspecified
[2022-08-09] MEDS: LIDOCAINE 5% 1 PATCH TD SCH (12:09)
[2022-08-09] MEDS ORDERED: HYDROCODONE/ACETAMOPHEN 5/325MG TAB PO PRN (14:22)
[2022-08-09] MEDS: ACETAMINOPHEN 325 MG TAB PO SCH ×2 (15:05→22:34)
--- NOTE | 2022-08-09 16:23 | Electrocardiogram Report ---
Test Reason : Blood Pressure : / mmHG Vent. Rate : 107 BPM Atrial Rate : 107 BPM P-R Int : 134 ms QRS Dur : 084 ms QT Int : 354 ms P-R-T Axes : 039 027 071 degrees QTc Int : 472 ms Sinus tachycardia Otherwise normal ECG When compared with ECG of 04-JAN-2022 02:31, No significant change was found Confirmed by Ran Curran ([id number]) on 08/09/2022 4:23:02 PM Referred By: REFERRED SELF Confirmed By:Ran Curran
[2022-08-09] MEDS ORDERED: AMITRIPTYLINE HCL 25 MG TAB PO SCH (21:00)
[2022-08-09] MEDS ORDERED: BACLOFEN 10 MG TAB PO SCH (21:00)
--- NOTE | 2022-08-09 21:38 | Electrocardiogram Report ---
Test Reason : Blood Pressure : / mmHG Vent. Rate : 101 BPM Atrial Rate : 101 BPM P-R Int : 140 ms QRS Dur : 086 ms QT Int : 342 ms P-R-T Axes : 027 011 063 degrees QTc Int : 443 ms Sinus tachycardia Otherwise normal ECG When compared with ECG of 08-AUG-2022 22:01, No significant change was found Confirmed by Ran Curran ([id number]) on 08/09/2022 9:38:03 PM Referred By: REFERRED SELF Confirmed By:Ran Curran
--- NOTE | 2022-08-09 21:43 | Electrocardiogram Report ---
Test Reason : Blood Pressure : / mmHG Vent. Rate : 105 BPM Atrial Rate : 105 BPM P-R Int : 130 ms QRS Dur : 088 ms QT Int : 338 ms P-R-T Axes : 037 027 064 degrees QTc Int : 446 ms Poor data quality, interpretation may be adversely affected Sinus tachycardia Otherwise normal ECG When compared with ECG of 08-AUG-2022 22:51, No significant change was found Confirmed by Ran Curran ([id number]) on 08/09/2022 9:42:54 PM Referred By: REFERRED SELF Confirmed By:Ran Curran
--- NOTE | 2022-08-09 21:55 | Electrocardiogram Report ---
Test Reason : Blood Pressure : / mmHG Vent. Rate : 112 BPM Atrial Rate : 112 BPM P-R Int : 128 ms QRS Dur : 084 ms QT Int : 322 ms P-R-T Axes : 047 050 079 degrees QTc Int : 439 ms Sinus tachycardia Otherwise normal ECG When compared with ECG of 09-AUG-2022 05:20, No significant change was found Confirmed by Ran Curran ([id number]) on 08/09/2022 9:55:11 PM Referred By: REFERRED SELF Confirmed By:Ran Curran
[2022-08-10] MEDS: ACETAMINOPHEN 325 MG TAB PO SCH ×2 (05:36→13:40)
[2022-08-10] MEDS: LEVOTHYROXINE SODIUM 125 MCG TABLET PO SCH (05:37)
[2022-08-10] MEDS: LIOTHYRONINE SODIUM 5 MCG TAB PO SCH ×2 (05:38→14:53)
[2022-08-10 07:12] LABS: Basophils # (auto) 0.07 K/uL (0-0.2); Basophils % (auto) 0.9 %; Eosinophils # (auto) 0.16 K/uL (0-0.50); Hematocrit (blood only) 40.6 % (40.1-51.0); Hemoglobin 13.7 g/dl (14.0-18.0); Immature Granulocytes # (auto) 0.03 K/uL (0.00-0.02); Immature Granulocytes % (auto) 0.4 %; Lymphocytes # (auto) 1.97 K/uL (1.2-3.4); Lymphocytes % (auto) 24.9 %; Mean Corpuscular Hemoglobin 28.2 pg (25.0-34.0); Mean Corpuscular Hgb Conc 33.7 g/dL (32.0-36.0); Mean Corpuscular Volume 83.5 fL (80.0-100.0); Mean Platelet Volume 10.8 fL (9.4-12.4); Monocytes # (auto) 0.91 K/uL (0.24-0.82); Monocytes % (auto) 11.5 %; Neutrophils # (auto) 4.77 K/uL (1.4-6.5); Neutrophils % (auto) 60.3 %; Platelet Count 237 K/uL (130-400); RDW Coefficient of Variation 14.7 % (11.5-14.5); Red Blood Count 4.86 M/uL (4.63-6.08); White Blood Count 7.91 K/ul (4.8-10.8)
[2022-08-10 07:40] LABS: BUN Creatinine Ratio 12.8 (10-20); Calcium 9.3 mg/dl (8.5-10.1); Creatinine Clr Calc Pharmacy 69.7 ml/min; Est GFR (African American) 79.8 ml/min; Est GFR (Non-African American) 68.9 ml/min; Potassium 3.8 mmol/L (3.5-5.1)
[2022-08-10] MEDS: APIXABAN 5 MG TABLET PO SCH (08:17)
[2022-08-10] MEDS: METHENAMINE HIPPURATE 1 GM TAB PO SCH (08:18)
[2022-08-10] MEDS: SERTRALINE HCL 50 MG TABLET PO SCH (08:18)
[2022-08-10] MEDS: FINASTERIDE 5 MG TAB PO SCH (08:18)
[2022-08-10] MEDS: busPIRone 5 MG TAB PO PRN (08:18)
[2022-08-10] MEDS: OXYBUTYNIN CHLORIDE XL 5 MG TABCR PO SCH (08:19)
[2022-08-10] MEDS: PANTOprazole 40 MG TAB PO SCH (08:19)
[2022-08-10] MEDS: CHOLECALCIFEROL 1,000 UNITS 25 MCG TAB PO SCH (08:19)
[2022-08-10] MEDS: ATORVASTATIN 10 MG TAB PO SCH (08:19)
[2022-08-10] MEDS: lisinopril 10 MG TAB PO SCH (08:19)
[2022-08-10] MEDS: LIDOCAINE 5% 1 PATCH TD SCH (08:21)
[2022-08-10] MEDS: INSULIN ASPART PER UNIT SC SCH ×2 (08:25→12:11)
[2022-08-10] MEDS: SUCRALFATE 1 GM/10 ML UDC PO SCH ×2 (08:28→12:11)
[2022-08-10] MEDS ORDERED: POLYETHYLENE (MIRALAX) 17 GM PACK PO SCH (09:00)
[2022-08-10] MEDS ORDERED: CALCIUM 600MG + VIT D 400 IU TAB PO SCH (09:00)
[2022-08-10] MEDS ORDERED: hydroCHLOROthiazide 25 MG TAB PO SCH (09:00)
--- NOTE | 2022-08-10 12:53 | Discharge Summary ---
Date of Service August 10, 2022 Admission HPI Per Admitting Provider This is a 71-year-old male with past medical history significant for type 2 diabetes, hyperlipidemia, postsurgical hypothyroidism, moderate obstructive sleep apnea, hypertension, BPH, history of UTI, neurogenic bladder, history of multiple sclerosis, depression, history of sepsis, history of DVT, generalized weakness, history of thyroid cancer, ambulatory dysfunction, history of parathyroidectomy. The patient lives at home with his and daughter. The patient has multiple sclerosis since last 10 years. He is nonambulatory status, on powered wheel chair and has Bethany lift at home to get into bed. He straight caths at home. He comes because of chest pain since afternoon. He complains of chest pain radiating to his bilateral neck and the right arm. He thought initially GI issue and took some Tums, but the pain was not getting better, it was getting worse, 8/10 in severity, so he came to the hospital and was given aspirin, nitro, the pain is getting better now, 4/10. He was also placed on Richardson catheter in the ER. Denies any headache. He has chronic blurred visions, no earache, no runny nose, no sore throat, has chronic cough. Denies any fevers. Appetite is okay. No difficulty swallowing. No shortness of breath, no nausea, no abdominal pain, on and off diarrhea and constipation. Admission Exam Per Admitting Provider GENERAL: The patient is of moderate build, not in acute distress. VITAL SIGNS: Temperature 37, pulse 101, respiratory rate 24, blood pressure 96/70, oxygen 95% on room air. HEENT: Pupils equal, round and reactive to light. Oral mucosa moist. NECK: No JVD, no neck masses. CARDIOVASCULAR: S1 and S2 heard. Regular rate and rhythm. No murmur, no gallop. RESPIRATORY SYSTEM: Normal AP diameter. No accessory muscle use. No wheezing, no crackles. ABDOMEN: Soft, bowel sounds present, nontender, no distention. CENTRAL NERVOUS SYSTEM: Alert and oriented. Speech is clear. No facial d shun. Obeys simple commands. EXTREMITIES: No edema, no erythema. Principal Diagnosis Chest pain, ACS ruled out Likely MSK pain Discharge Exam Constitutional: WD/WN, vitals as above, NAD, sitting up in bed, pleasant, conversing easily Respiratory: normal respiratory effort, lungs clear to auscultation, no wheeze, rales, rhonchi. Normal insp/exp effort, no accessory muscle use Cardiovascular: RRR, no murmur, no edema Vessels: no JVD or carotid bruit Chest: normal inspection of chest. Tenderness present on sternal region. Abdomen: normal bowel sounds, soft, nontender, no hepatosplenomegaly Musculoskeletal: no cyanosis or clubbing, extremities motor strength 5/5 Skin: no rashes, warm and dry normal turgor Neurologic: PERRL, EOMI, accommodation nl, no face palsy, no dysarthria CN's II- XI intact bilaterally and moves all extremities Psychiatric: A+Ox3, euthymic affect Lymphatic: no cervical or axillary lymphadenopathy : deferred Discharge Data Allergies Allergy/AdvReac Type Severity Reaction Status Date / Time No Known Allergies Allergy Verified 08/09/22 00:31 Consultations 08/08/22 23:25 ED Decision to Admit Stat 08/09/22 08:00 Consult Cardiology Routine 08/09/22 10:24 Consult Gastroenterology Routine Hospital Course (1) Chest pain: Plan Patient is a 71-year-old male with past medical history significant for type 2 diabetes, hyperlipidemia, postsurgical hypothyroidism, moderate obstructive sleep apnea, hypertension, BPH, history of UTI, neurogenic bladder,presented with chest pain. On presentation to the ED, he was normotensive, afebrile and saturating well in room air. Physical examination was consistent with tenderness over sternal region. Chest x-ray did not show any abnormality. EKG showed sinus rhythm with no ST or T wave changes. High-sensitivity troponin was negative. Cardiology and GI were consulted. The chest pain was deemed to be noncardiac in nature by the food service worker. Echo showed EF of 60 to 65% with no segmental wall motion abnormalities. He was found to have small pericardial effusion with no echographic indication of cardiac tamponade. Discussion was done with cardiology regarding the findings. As per Cardiology, the findings on the echo are not likely cause for his chest pain. GI was consulted; recommended trial of PPI and deemed the chest pain to be MSK origin in nature. patient reported that the chest pain improved over the course of the hospitalization. He was discharged with Voltaren gel and Tylenol for pain control. He was instructed to follow-up with his PCP. Total Time Total Time Spent Total Time Spent (In Minutes): 35 Total Time Includes: Examination of the Patient, Discharge Planning, Medication Reconciliation, Communication With Other Providers and Other Discharge Plan Discharge Items Patient Disposition: Home - Self-Care Reason For Visit: CHEST PAIN Discharge Diagnosis: Chest pain, ACS ruled out Likely MSK pain Condition on Discharge: Good Activity: Resume your previous activity Non-emergency contact: Primary Care Provider Call non-emergency contact if: you have any medication questions and your symptoms worsen Follow-up/Referrals: Trinidad Cesar DO [Primary Care Provider] - (Date & Time 08/13/2022 12:40 PM Provider Kit Vazquez MD Department [facility] ) Diet: Regular Addtl Attending Provider Instructions: You are admitted to the hospital with chest pain. Cardiology and GI evaluated you for chest pain. The pain is thought most likely due to musculoskeletal pain from your chest wall. You are prescribe Voltaren gel to be applied to the anterior chest as needed. You are also prescribed Tylenol to be taken every 8 hours for next 4 days to control the chest pain you. You can stop taking it before that if the chest pain has improved. Please follow up with your PCP. Pending Studies at Discharge: No Stand-Alone Forms: My [facility] [employer], Smoking Cessation Medications and DC Order Prescriptions: New acetaminophen 500 mg capsule 500 mg PO Q8H Qty: 24 0RF diclofenac sodium [Arthritis Pain (diclofenac)] 1 % gel 2 g topical QID Qty: 100 0RF Rx Instructions: Apply to anterior part of the chest. Continued finasteride 5 mg tablet 5 mg PO DAILY Qty: 90 3RF oxybutynin chloride 10 mg tablet extended release 24hr 10 mg PO DAILY Qty: 90 3RF methenamine hippurate 1 gram tablet 1 g PO BID 90 Days Qty: 180 3RF metformin 500 mg tablet See Rx Instructions .ROUTE .COMPLEX Rx Instructions: 500 mg orally ;take 500mg QAM and take 1000mg QPM meclizine 12.5 mg tablet 12.5 mg PO TID PRN (Reason: Dizziness) sertraline 25 mg Tablet 25 mg PO QAM Rx Instructions: take w/ 50mg tab for TDD of 75mg. atorvastatin 10 mg tablet 10 mg PO QAM clonazepam 0.5 mg tablet 0.5 mg PO TID PRN (Reason: anxiety/agitation) amitriptyline 25 mg tablet 25 mg PO HS baclofen 10 mg tablet 10 mg PO HS levothyroxine [Synthroid] 125 mcg tablet 125 mcg PO DAILYBB sertraline 50 mg tablet 50 mg PO QAM Rx Instructions: take w/ 25mg tab for TDD of 75mg. cholecalciferol (vitamin D3) [Vitamin D3] 50 mcg (2,000 unit) Tablet 50 mcg PO DAILY omeprazole 40 mg capsule,delayed release(DR/EC) 40 mg PO QAM hydrochlorothiazide 12.5 mg Tablet 12.5 mg PO Q OTHER DAY calcium citrate-vitamin D3 [Citracal + D Maximum] 315 mg-6.25 mcg (250 unit) Tablet 1 tab PO MOWEFR buspirone 5 mg tablet 5 mg PO BID PRN (Reason: Anxiety) liothyronine 5 mcg tablet 5 mcg PO BID Rx Instructions: take second dose no later than 3 pm Ozempic 0.25 mg or 0.5 mg(2 mg/1.5 mL) pen injector 0.5 mg SUBCUT WK Eliquis 5 mg tablet 5 mg PO AMHS metoprolol tartrate 25 mg tablet 12.5 mg PO BID lisinopril 20 mg tablet 10 mg PO QAM Discharge Orders: Discharge Order (Routine); Ordered 08/10/22 Ordered By: Ezekiel Howard/Other Patient Handouts: Managing Type 2 Diabetes Admission Data Admit Date/Time: 08/09/22 00:42 Attending Provider: Ezekiel Ortega Admit Provider: Abhijit Anderson Primary Care Provider: Trinidad Cesar Other Providers: Abhijit Anderson ; Stan Lucero ; Ephraim Billy ; Steven Reyes ; Marv Cesar ; Juan Choudhary ; Gage Banegas ; Elissa Hopkins ; Adamaris Bee ; Fransisca Zelaya ; Darryl Burgos Irphan E. ; [facility] Other Interventions: Discharge Summary Assessment (RN) Last Done: 08/10/22 12:26
--- NOTE | 2022-08-10 15:29 | Electrocardiogram Report ---
Test Reason : Blood Pressure : / mmHG Vent. Rate : 088 BPM Atrial Rate : 088 BPM P-R Int : 128 ms QRS Dur : 086 ms QT Int : 350 ms P-R-T Axes : 037 028 071 degrees QTc Int : 423 ms Normal sinus rhythm Normal ECG When compared with ECG of 09-AUG-2022 07:41, No significant change Confirmed by Aden Marley ([id number]) on 08/10/2022 3:28:59 PM Referred By: REFERRED SELF Confirmed By:Aden Marley
== END 2022-08-10 17:40 | disposition home or self-care (01) ==
LOC: 2N 21:57 → ED 21:57 → 2N 08-09 01:52